=== PATIENT | female | born 1950 | race Caucasian/White ===

== ENCOUNTER → 2019-07-20 | Outpatient (CLI) | payer MEDICARE, BC ==
--- NOTE | 2019-07-20 15:45 | KCIC ---
Bilateral digital screening mammograms with 3-D tomosynthesis: Reason for examination: Routine screening. Comparison is made to previous studies dated 04/28/2015 and 10/05/2010. Bilateral mammograms in CC and oblique projections were obtained with 2-D imaging and 3-D tomosynthesis imaging on a [employer] unit and reviewed on the workstation. Interpretation was made with the benefit of CAD. The skin and nipples show no abnormalities. No abnormal axillary lymph nodes are seen. The breast parenchyma is predominantly fatty. (Breast density: Category A.) There are no dominant masses, suspicious calcifications or architectural distortion. Impression: No evidence of malignancy. Recommend routine screening. BI-RAD Category 1: Negative. "Our facility is accredited by the [employer] Mammography Program." This patient's information has been entered into a reminder system for the patient to be notified with the results of her examination and a target date for the next mammogram. Electronically signed by: Naa Olivo MD (07/20/2019 3:42 PM) [id number]
== END | disposition home or self-care (01) ==
LOC: KCIC MAMMO 09:13
PROVIDERS: ATTEND Nurse Practitioner Family
DX: Z12.31 Encounter for screening mammogram for malignant neoplasm of breast (principal)
CPT/HCPCS: 77063; 77067

== ENCOUNTER → 2020-08-06 | Outpatient (CLI) | payer MEDICARE, BC ==
--- NOTE | 2020-08-06 16:31 | KCIC ---
CT LOW DOSE LUNG SCREEN HISTORY: Reason: Lung cancer screening. Smoker of 48 yrs., 1 pk/day / Spl. Instructions: Pt. may have had Covod last yr. Was never tested. / History: COMPARISON: None. TECHNIQUE: Low-dose CT scan of the chest was performed without intravenous contrast. FINDINGS: The visualized thyroid gland is within normal limits. No lymphadenopathy is seen. Aorta is normal in caliber with moderate atherosclerotic calcifications. The heart is enlarged in size without pericardial effusion. Moderate three-vessel coronary artery ca lcifications. The central airways are patent. Mild diffuse bronchial wall thickening. Diffuse lung parenchymal dise ase characterized by reticular markings and groundglass opacities more prevalent in the lung bases. T here is a 9 mm pulmonary nodule in the right upper lobe (axial series 6, image 90). Smaller pulmonary nodules are likely present but difficult to distinguish from advanced parenchymal disease. Images of the upper abdomen demonstrate no focal abnormality. Mild degenerative changes are seen in t he spine. IMPRESSION: 1. Right upper lobe pulmonary nodule measuring 9 mm diameter. Recommend three-month follow-up low-dos e CT versus PET/CT for evaluation. 2. Diffuse parenchymal disease characterized by reticular markings and groundglass opacities. This li holly is a sequela of Covid lung infection, however cannot exclude fibrotic disease. Recommend pulmona ry consultation. LUNG RADS: Category 4A: Suspicious. Follow up: 3 month LDCT; PET/CT may be used when there is a greater that 8mm solid component. Exposure: One or more of the following individualized dose reduction techniques were utilized for thi s examination: 1. Automated exposure control 2. Adjustment of the mA and/or kV according to patient size 3. Use of iterative reconstruction technique. Electronically signed by: Uday Cormier MD (08/06/2020 4:29 PM) [facility]
== END ==
LOC: KCIC CT 12:16
PROVIDERS: ATTEND Internal Medicine
DX: Z12.2 Encounter for screening for malignant neoplasm of respiratory organs (principal); R91.1 Solitary pulmonary nodule; I70.0 Atherosclerosis of aorta; F17.210 Nicotine dependence, cigarettes, uncomplicated
CPT/HCPCS: 71271

== ENCOUNTER → 2021-01-01 | Outpatient (CLI) | payer MEDICARE, BC ==
[2020-08-29 14:14] VITALS: BP 110/59
[~2021-01-01] MED LIST: ALBU2.5V8 IH; AMOX1TAB58 PO; ASPI-630 PO; ATOR20TA58 PO; BIOT25006 PO; CALC-337 PO; DOXY100T PO; FLUO20TA11 PO; FURO40TA4 PO; GLUC-11 PO; LISI-130 PO; MECO10005 PO; METF500T16 PO; METO-239 PO; METO25TA4 PO; MULT-245 PO; OM3-1CAP PO; PRED20TA PO; UBID100C26 PO; UMEC1DIS IH
--- NOTE | 2021-01-01 16:58 | CARD ---
MR#: [id number] Date of Study: 01/01/2021 Ordering Physician: BENNY POLO, Referring Physician: Delma PERDOMO: Sumeet Andrews [facility] APPROVED REPORT EXAM: Two-dimensional and M-mode echocardiogram with Doppler and color Doppler. Other Information Quality : GoodHR: 93bpm Rhythm : NSR INDICATION Aortic Valve Disease Cardiomyopathy RISK FACTORS Hypertension Obesity Family History Smoking 2D DIMENSIONS Left Atrium(2D)5.1 (1.6-4.0cm)IVSd1.2 (0.7-1.1cm) Aortic Root(2D)2.5 (2.0-3.7cm)LVDd5.7 (3.9-5.9cm) LVOT Diameter2.2 (1.8-2.4cm)PWd1.2 (0.7-1.1cm) LVDs5.0 (2.5-4.0cm)FS (%) 11.8 % SV40.1 ml Aortic Valve AoV Peak Good.306.1cm/sAoV VTI60.9cm AO Peak GR.37.5mmHgLVOT Peak Good.73.3cm/s AO Mean GR.21mmHgAVA (VMAX)0.70cm2 IND[place] (VTI)0.06ao0IC P 1/2 Jsib339lm Mitral Valve MV E Yzdnjugd852.1cm/sMV E Peak Gr.5mmHg MV DECEL [id number] A Wzfmypur38.1cm/s MV E Mean Gr.3mmHgE/A Ratio1.4 Pulmonary Valve PV Peak Xcadyhex135.0cm/s Tricuspid Valve TR P. Junujote113np/sTR Peak Gr.39mmHg Pulmonary Vein S1 Jmarseev74.8cm/sD2 Gfmfcvgf14.8cm/s LEFT VENTRICLE The Left Ventricle is moderately dilated. There is normal left ventricular wall thickness. The systol ic function is severely impaired. Left ventricular systolic function is 20 to 25%. There is severe gl obal hypokinesis of the left ventricle. Transmitral Doppler flow pattern is Grade III-reversible rest rictive diastolic dysfunction. No left ventricle thrombus noted on this study. There is no ventricula r septal defect visualized. There is no left ventricular aneurysm. There is no mass noted in the left ventricle. RIGHT VENTRICLE The right ventricle is normal size. There is normal right ventricular wall thickness. The right ventr icular systolic function is normal. ATRIA The left atrium is moderately dilated. The right atrium is moderately dilated. The interatrial septum is intact with no evidence for an atrial septal defect or patent foramen ovale as noted on 2-D or Do ppler imaging. AORTIC VALVE The aortic valve is severely calcified. Doppler and Color Flow revealed trace to mild aortic regurgit ation. Calculated aortic valve area is 0.7 cm2 with maximum pressure gradient of 37 mmHg and mean pre ssure gradient of 20 mmHg. There is at least moderately severe valvular aortic stenosis. There is no aortic valvular vegetation. MITRAL VALVE Mitral annular calcification is moderate. There is no evidence of mitral valve prolapse. There is no mitral valve stenosis. Doppler and Color-flow revealed moderate mitral regurgitation. TRICUSPID VALVE The tricuspid valve is normal in structure and function. Doppler and Color Flow revealed moderate tri cuspid regurgitation. The pulmonary artery systolic pressure is estimated at 45-50 mmHg. There is no tricuspid valve prolapse or vegetation. There is no tricuspid valve stenosis. PULMONIC VALVE The pulmonary valve is normal in structure and function. Doppler and Color Flow revealed no pulmonic valvular regurgitation. There is no pulmonic valvular stenosis. GREAT VESSELS The aortic root is normal in size. The ascending aorta is normal in size. The pulmonary artery is nor mal. The IVC is mildly dilated with blunted inspiratory response. PERICARDIAL EFFUSION There is no pleural effusion. There is no evidence of significant pericardial effusion. Critical Notification Critical Value: No <Conclusion> The Left Ventricle is moderately dilated. The systolic function is severely impaired. Left ventricular systolic function is 20 to 25%. There is severe global hypokinesis of the left ventricle. The aortic valve is severely calcified. Doppler and Color Flow revealed trace to mild aortic regurgitation. Calculated aortic valve area is 0.7 cm2 with maximum pressure gradient of 37 mmHg and mean pressure g radient of 20 mmHg. There is at least moderately severe valvular aortic stenosis. Doppler and Color-flow revealed moderate mitral regurgitation. Doppler and Color Flow revealed moderate tricuspid regurgitation. The pulmonary artery systolic pressure is estimated at 45-50 mmHg. Signed by : Daniel Chappell MD Electronically Approved : 01/01/2021 16:58:03
== END ==
LOC: ECHO 13:22
PROVIDERS: ATTEND Internal Medicine Cardiovascular Disease
DX: I08.3 Combined rheumatic disorders of mitral, aortic and tricuspid valves (principal); I50.22 Chronic systolic (congestive) heart failure
CPT/HCPCS: 93306

== ENCOUNTER 2021-05-25 11:17 | Inpatient (IN) | payer MEDICARE, BC ==
[~2021-05-25] VITALS: Ht 162.6 cm; Wt 91.5 kg
[~2021-05-25 11:17] MED LIST changes: +BUME1TAB3 PO; +GABA-585 PO; +HYDR-2867 PO
--- NOTE | 2021-05-25 11:57 | PHYS DOC ---
Past Medical History Past Medical History: COPD, Diabetes-Type II, Hypertension Additional Past Medical Histor: rheumatoid lung Past Surgical History: , Hysterectomy, Pacemaker, Other Additional Past Surgical Histo: CARPAL TUNNEL BILAT, inplanted defibrillator Smoking Status: Current Every Day Smoker Alcohol Use: None General Adult EDM: Chief Complaint: LOWER EXTREMITY SWELLING HPI: HPI: Patient is a 70 year old female who presents with lower extremity swelling, which is progressively worsened over the last several days. She reports dyspnea as well. She reports noncompliance with her diet. She has significant chronic congestive heart failure. She reports compliance with medications. She denies chest pain. She has chronic dyspnea, which is unchanged. She does not require supplemental oxygen usually. She is not manifesting evidence of hypoxia here. She wheezes constantly. She continues to smoke tobacco. She has COPD. She has been scratching and picking at her feet, legs as well as her arms. She feels her skin is constantly itching. There is redness and warmth of her feet and lower legs. She was admitted here for a non-STEMI in August 2020, underwent a cardiac catheterization. Her ejection fraction was found to be at 20% at that time. Review of Systems: Review of Systems: Constitutional: Denies fever or chills. [] Eyes: Denies change in visual acuity. [] HENT: Denies nasal congestion or sore throat. [] Respiratory: Denies cough or shortness of breath. [] Cardiovascular: Denies chest pain or edema. [] GI: Denies abdominal pain, nausea, vomiting, or diarrhea. : Denies Suman symptoms. Musculoskeletal: Bilateral lower extremity swelling, pain, itching, redness, wounds. Integument: Multiple scabs, pick and scratch knowles on arms and legs, skin redness, pain and swelling and itching. Neurologic: Denies headache, focal weakness or sensory changes. [] Psychiatric: Chronic anxiety [] Heart Score: C/O Chest Pain: No Risk Factors: Risk Factors: DM, Current or recent (<one month) smoker, HTN, HLP, family history of CAD, obesity. Risk Scores: Score 0 - 3: 2.5% MACE over next 6 weeks - Discharge Home Score 4 - 6: 20.3% MACE over next 6 weeks - Admit for Clinical Observation Score 7 - 10: 72.7% MACE over next 6 weeks - Early Invasive Strategies Allergies: Allergies: Allergies Coded Allergies Type Severity Reaction Last Updated Verified bupropion Allergy Intermediate 04/07/21 Yes latex Allergy Intermediate Rash 04/07/21 Yes Physical Exam: PE: Constitutional: Well developed, well nourished, she is chronically ill- appearing, appears older than stated age. HENT: Normocephalic, atraumatic. There is mild periorbital edema. Eyes: Conjunctiva normal, no discharge. [] Neck: Normal range of motion, no tenderness, supple, no stridor. Trachea is midline. +JVD. Cardiovascular:Heart rate regular rhythm, +2 radial pulses, symmetric bilateral dorsalis pedis pulses. There is evidence of anasarca and significant lower extremity peripheral edema. Lungs & Thorax: Diminished breath sounds in bilateral bases. Fine rales noted in bilateral bases. No rhonchi. No stridor. No wheezing. Mild to moderate tachypnea noted. No central cyanosis. She speaks in full sentences Abdomen: Devins obese, moderately distended, mildly tense, no tenderness to palpation, normal bowel sounds. There is pitting edema of the mid and lower abdomen. Skin: Warm, dry. There are multiple abrasions/pick knowles and scratch knowles on her bilateral upper and lower extremities. There is significant circumferential warmth, erythema, induration of her bilateral feet, ankles, lower extremities, a sending to her bilateral thighs. There is no focal fluctuance, no drainage, no bleeding. There are multiple similar-appearing knowles on her bilateral upper extremities, mostly including the dorsal surface of her forearms. Back: No tenderness, no CVA tenderness. [] Extremities: Bilateral lower extremity pitting edema. Diffuse tenderness. No pain out of proportion to exam. Compartments are soft. There are multiple scratch/pick yan lesions, there is evidence of erythema and warmth and cellulitis of the bilateral feet and lower extremities. Neurologic: She is awake, alert, fully oriented, no facial asymmetry, moves all 4 extremities equally, gross motor and sensation are intact, speech is fluent. Psychologic: Anxious. Current Patient Data: Vital Signs: Vital Signs Date Time Temp Pulse Resp B/P (MAP) Pulse Ox O2 Delivery O2 Flow Rate FiO2 05/25/21 11:19 98.1 102 32 90/57 (68) 98 Room Air 98.1 EKG: EKG: EKG is interpreted at 1228 Rhythm is sinus tachycardia Rate is 100 bpm Orwell is left marked artifact No obvious STEMI Radiology/Procedures: Radiology/Procedures: IMAGING REPORT Signed PATIENT: NIK FLOWERSUNT: [id number] : 1950 LOCATION: ER AGE: 70 SEX: F EXAM STATUS: REG ER ORD. PHYSICIAN: PATIENCE ZEPEDA DO REASON: dyspnea, cough PROCEDURE: PORTABLE CHEST 1V Single AP view of the chest. Comparison: 02/04/2021. Indication: Dyspnea and cough Findings: Biventricular pacemaker is unchanged. The heart is enlarged but stable. There is no pneumothorax or effusion. Is pulmonary vascular prominence. Impression: 1. Findings suggest CHF with volume overload. Electronically signed by: Jorge Zavala MD (05/25/2021 1:17 PM) [facility] DICTATED and SIGNED BY: JORGE ZAVALA MD DATE: 05/25/21 [id number] IMAGING REPORT Signed PATIENT: NIK FLOWERSCOUNT: [id number] : 1950 LOCATION: ER AGE: 70 SEX: F EXAM STATUS: REG ER ORD. PHYSICIAN: PATIENCE ZEPEDA DO REASON: LLE swelling, redness, pain PROCEDURE: VENOUS LOWER EXT BILATERAL EXAM: Bilateral lower extremity venous Doppler sonogram. HISTORY: Pain and swelling. TECHNIQUE: Wiggins scale and color Doppler sonographic evaluation of the bilateral lower extremity veins with spectral waveform analysis was performed. FINDINGS: The exam is limited due to soft tissue edema. There is normal color flow, normal compressibility and there are normal spectral waveforms in the common femoral, superficial femoral, popliteal, posterior tibial and greater saphenous veins. IMPRESSION: No Doppler evidence of lower extremity deep venous thrombosis. Limited exam due to soft tissue edema. Electronically signed by: Aviva Sheikh MD (05/25/2021 1:01 PM) [id number] DICTATED and SIGNED BY: AVIVA SHEIKH MD DATE: 05/25/21 [id number] 0 Course & Med Decision Making: Course & Med Decision Making Pertinent Labs and Imaging studies reviewed. (See chart for details) The patient does have evidence of relative hypotension. She does appear to be somewhat intravascularly volume depleted, in addition to manifesting evidence of anasarca. She is given a small fluid bolus as well as IV furosemide. She requested something to help with itching, so she is given a dose of p.o. hydroxyzine. She manifests no evidence of hypoxia. At rest, she denies any active severe dyspnea. Blood cultures are obtained. I ordered a dose of IV vancomycin for coverage of secondary cellulitis. I have discussed all of the findings, differential diagnosis and plan of care with her. I recommend hospitalization and admission. She verbalizes understanding, she is comfortable with this. She is excepted for admission by Dr. Mathew. Amy Disclaimer: Amy Disclaimer: This electronic medical record was generated, in whole or in part, using a voice recognition dictation system. Departure Departure Impression: Primary Impression: Anasarca Additional Impressions: Bilateral lower extremity edema Cellulitis of both lower extremities Congestive heart failure Qualified Codes: I50.9 - Heart failure, unspecified Admitting Physician: ÁNGEL (Dr. Mathew) Condition: GUARDED Referrals: YONG SANTOS NP (PCP) PATIENCE ZEPEDA DO May 25, 2021 11:57
[2021-05-25 12:45] LABS: BASO % 0 % (0-3); EOS % 0 % (0-3); HEMATOCRIT 33.3 % (36.0-47.0); LYMPH # 0.7 x10^3/uL (1.0-4.8); LYMPH % 13 % (24-48); MEAN CORPUSCULAR HEMOGLOBIN 31 pg (25-35); MEAN CORPUSCULAR HGB CONC 33 g/dL (31-37); MEAN CORPUSCULAR VOLUME 93 fL (79-100); MONO # 0.4 x10^3/uL (0.0-1.1); MONO % 7 % (0-9); NEUT # 4.5 x10^3/uL (1.8-7.7); NEUT % 79 % (31-73); PLATELET COUNT 208 x10^3/uL (140-400); RED BLOOD COUNT 3.58 x10^6/uL (3.50-5.40); RED CELL DISTRIBUTION WIDTH 17.1 % (11.5-14.5); WHITE BLOOD COUNT 5.7 x10^3/uL (4.0-11.0)
[2021-05-25 13:03] LABS: CALCIUM 8.6 mg/dL (8.5-10.1); CREATININE 1.4 mg/dL (0.6-1.0); GFR 37.4; POTASSIUM 4.2 mmol/L (3.5-5.1)
--- NOTE | 2021-05-25 13:04 | RAD ---
EXAM: Bilateral lower extremity venous Doppler sonogram. HISTORY: Pain and swelling. TECHNIQUE: Wiggins scale and color Doppler sonographic evaluation of the bilateral lower extremity veins with spectral waveform analysis was performed. FINDINGS: The exam is limited due to soft tissue edema. There is normal color flow, normal compressib ility and there are normal spectral waveforms in the common femoral, superficial femoral, popliteal, posterior tibial and greater saphenous veins. IMPRESSION: No Doppler evidence of lower extremity deep venous thrombosis. Limited exam due to soft t issue edema. Electronically signed by: Aviva Albright MD (05/25/2021 1:01 PM) [id number]
[2021-05-25 13:09] LABS: ALBUMIN/GLOBULIN RATIO 0.7 (1.0-1.7); MAGNESIUM 1.5 mg/dL (1.8-2.4); TOTAL BILIRUBIN 0.9 mg/dL (0.2-1.0); TOTAL PROTEIN 7.1 g/dL (6.4-8.2)
--- NOTE | 2021-05-25 13:19 | RAD ---
Single AP view of the chest. Comparison: 02/04/2021. Indication: Dyspnea and cough Findings: Biventricular pacemaker is unchanged. The heart is enlarged but stable. There is no pneumothorax or effusion. Is pulmonary vascular prominence. Impression: 1. Findings suggest CHF with volume overload. Electronically signed by: Jorge Zavala MD (05/25/2021 1:17 PM) [facility]
[2021-05-25] MEDS ORDERED: IV NORMAL SALINE 500ML BAG 500 ML IV ONE ×2 (14:30→23:00)
[2021-05-25] MEDS ORDERED: FUROSEMIDE 40 MG/4 ML VIAL. IVP ONE (14:30)
[2021-05-25] MEDS ORDERED: VANCOMYCIN 1GM IVPB FOR OMNI 250 ML IV ONE ×2 (14:30→17:15)
[2021-05-25] MEDS ORDERED: hydrOXYzine 25 MG TABLET PO ONE (14:30)
[2021-05-25] MEDS ORDERED: FUROSEMIDE 40 MG/4 ML VIAL. IVP SCH (17:00)
--- NOTE | 2021-05-25 17:10 | PDOC1 ---
History and Physical Date of Admission Date of Admission DATE: 05/25/21 TIME: 17:05 Source Source: Chart review, Patient History of Present Illness History of Present Illness Ms. Velez, is a 70 year old female admit with paina nd redness and new lower extremity swelling. redness and pain worsened over a week, she was nathan at urgent care over 2 weeks ago, for skin redness and was given an antibiotic which she completed and now the redness and pain have come back. She has significant chronic congestive heart failure and has compliance with medications. She has puritis and has been scratching and picking at her feet, legs as well as her arms. There is redness and warmth of her feet and lower legs. She was admitted here for a non-STEMI in August 2020, underwent a cardiac catheterization. Her ejection fraction was found to be at 20% at that time. Past Medical History Cardiovascular: CAD, CHF, HTN Pulmonary: COPD CENTRAL NERVOUS SYSTEM: Carpal Tunnel Syndrome, Periperal neuropathy GI: GERD Hepatobiliary: No pertinent hx Psych: Anxiety, Depression Musculoskeletal: Other Rheumatologic: Other Renal/: No pertinent hx Endocrine: Diabetes Past Surgical History Past Surgical History: Cataract Removal, Hysterectomy, Other Family History Family History: Heart Disease Social History Smoke: <1 pack per day ALCOHOL: other Drugs: None Current Problem List Problem List Problems Medical Problems: (1) Anasarca Status: Acute (2) Bilateral lower extremity edema Status: Acute (3) Cellulitis of both lower extremities Status: Acute (4) Congestive heart failure Status: Acute Current Medications Current Medications Current Medications Furosemide (Lasix) 40 mg 1X ONCE IVP Last administered on 05/25/21at 14:51; Start 05/25/21 at 14:30; Stop 05/25/21 at 14:31; Status DC Hydroxyzine HCl (Atarax) 25 mg 1X ONCE PO Last administered on 05/25/21at 14:50; Start 05/25/21 at 14:30; Stop 05/25/21 at 14:31; Status DC Sodium Chloride 500 ml @ 250 mls/hr 1X ONCE IV Last administered on 05/25/21at 14:51; Start 05/25/21 at 14:30; Stop 05/25/21 at 16:29; Status DC Vancomycin HCl 250 ml @ 250 mls/hr 1X ONCE IV Last administered on 05/25/21at 14:51; Start 05/25/21 at 14:30; Stop 05/25/21 at 15:29; Status DC Aspirin (Aspirin Chewable) 81 mg DAILY PO ; Start 05/26/21 at 09:00 Atorvastatin Calcium (Lipitor) 20 mg HS PO ; Start 05/25/21 at 21:00 Bumetanide (Bumex) 1 mg DAILY PO ; Start 05/26/21 at 09:00; Status Cancel Gabapentin (Neurontin) 100 mg TID PO ; Start 05/25/21 at 21:00 Hydralazine HCl (Apresoline) 10 mg TID PO ; Start 05/25/21 at 21:00 Metformin HCl (Glucophage) 500 mg BIDWMEALS PO ; Start 05/25/21 at 17:00 Metoprolol Succinate (Toprol Xl) 25 mg DAILY PO ; Start 05/26/21 at 09:00 Fluoxetine HCl (PROzac) 20 mg BID PO ; Start 05/25/21 at 21:00 Furosemide (Lasix) 40 mg BID92 IVP ; Start 05/25/21 at 17:00; Status Cancel Furosemide (Lasix) 40 mg BID92 IVP ; Start 05/26/21 at 09:00 Active Scripts Active Bumetanide 1 Mg Tablet 1 Tab PO DAILY 30 Days Metoprolol Succinate ( Xl ) (Metoprolol Succinate) 25 Mg Tab.er.24h 25 Mg PO DAILY 30 Days Metformin Hcl 500 Mg Tablet 500 Mg PO BIDWMEALS 30 Days Reported Hydralazine Hcl 10 Mg Tablet 1 Tab PO TID Gabapentin (Gabapentin) 100 Mg Capsule 100 Mg PO TID Multi Vitamin Daily (Multivitamin) 1 Each Tablet 1 Tab PO DAILY 30 Days B12 Active (Mecobalamin) 1,000 Mcg Tab.chew 2,500 Mcg PO DAILY Eye [place] Advantage Softgel (Om3-Dha/Epa/D3/Lutein/Zeazanth) 1 Each Capsule 1 Cap PO BID 30 Days Jeff-Citrate Plus Vitamin D Tab (Calcium Citrate/Vitamin D2) 1 Each Tablet 1 Tab PO BID 5 Days Coq-10 (Ubidecarenone) 100 Mg Capsule 200 Mg PO DAILY Biotin 2,500 Mcg Capsule 10,000 Mcg PO DAILY Cidaflex Tablet (Glucosamine Hcl/Chondr Resendez A Na) 1 Each Tablet 1 Tab PO BID 30 Days Anoro Ellipta 62.5-25 Mcg Inh (Umeclidinium Brm/Vilanterol Tr) 1 Each Disk.w.dev 1 Each IH DAILY Aspirin 81 Mg Tab.chew 81 Mg PO DAILY Lisinopril 40 Mg Tablet 40 Mg PO DAILY Atorvastatin Calcium 20 Mg Tablet 20 Mg PO HS Fluoxetine Hcl 20 Mg Tablet 20 Mg PO BID Proair Hfa Inhaler (Albuterol Sulfate) 8.5 Gm Hfa.aer.ad 2 Puff IH PRN Q4-6HRS PRN 21 Days Allergies Allergies: Coded Allergies: bupropion (Verified Allergy, Intermediate, 04/07/21) latex (Verified Allergy, Intermediate, Rash, 04/07/21) ROS General: YES: Chills, Fatigue, Malaise PSYCHOLOGICAL ROS: YES: Sleep disturbances; No: Anxiety, Behavioral Disorder, Concentration difficultie, Decreased libido, Depression, Disorientation, Hallucinations, Hostility, Irritablity, Memory difficulties, Mood Swings, Obsessive thoughts, Other Eyes: No Blurry vision, No Decreased vision, No Double vision, No Dry eyes, No Excessive tearing, No Eye Pain, No Itchy Eyes, No Loss of vision, No Photophobia, No Scotomata, No Uses contacts, No Uses glasses, No Other HEENT: No: Heacaches, Visual Changes, Hearing change, Nasal congestion, Nasal discharge, Oral lesions, Sinus pain, Sore Throat, Epistaxis, Sneezing, Snoring, Tinnitus, Vertigo, Vocal changes, Other Respiratory: No: Cough, Hemoptysis, Orthopnea, Pleuritic Pain, Shortness of breath, SOB with excertion, Sputum Changes, Stridor, Tachypnea, Wheezing, Other Cardiovascular: No Chest Pain, No Palpitations, No Orthopnea, No Paroxysmal Noc. Dyspnea, No Edema, No Lt Headedness, No Other Gastrointestinal: Yes Nausea Genitourinary: No Dysuria, No Frequency, No Incontinence, No Hematuria, No Retention, No Discharge, No Urgency, No Pain, No Flank Pain, No Other, No , No , No , No , No , No , No Musculoskeletal: Yes Joint Stiffness, Yes Joint Swelling, Yes Pain In:, Yes Swelling In: (legs); No Gait Disturbance, No Joint Pain, No Muscle Pain, No Muscular Weakness, No Other Neurological: No Behavorial Changes, No Bowel/Bladder ControlChng, No Confusion, No Dizziness, No Gait Disturbance, No Headaches, No Impaired Co ord/balance, No Memory Loss, No Numbness/Tingling, No Seizures, No Speech Problems, No Tremors, No Visual Changes, No Weakness, No Other Skin: Yes Dry Skin, Yes Rash, Yes Skin Lesion Changes, Yes Other; No Eczema, No Hair Changes, No Lumps, No Mole Changes, No Mottling, No Nail Changes, No Pruritus Physical Exam General: Alert, moderate distress HEENT: Atraumatic, Mucous membr. moist/pink Lungs: Clear to auscultation Heart: RRR, no gallops, no murmurs, other (tachy) Abdomen: Normal bowel sounds, Soft Extremities: No clubbing, No cyanosis, Other (2+ Le edema, and skin weeping) Skin: Other (redness, rash, small skin lesions, like bite knowles to both leg,s) Neuro: Normal speech, Sensation intact Psych/Mental Status: Mental status NL, Mood NL Vitals Vitals Vital Signs Date Time Temp Pulse Resp B/P (MAP) Pulse Ox O2 Delivery O2 Flow Rate FiO2 05/25/21 14:45 98 97/64 (75) Room Air 05/25/21 14:15 94 05/25/21 11:19 98.1 32 98.1 Labs Labs Laboratory Tests Test 05/25/21 12:33 05/25/21 13:20 White Blood Count 5.7 x10^3/uL (4.0-11.0) Red Blood Count 3.58 x10^6/uL (3.50-5.40) Hemoglobin 11.0 g/dL (12.0-15.5) Hematocrit 33.3 % (36.0-47.0) Mean Corpuscular Volume 93 fL (79-100) Mean Corpuscular Hemoglobin 31 pg (25-35) Mean Corpuscular Hemoglobin Concent 33 g/dL (31-37) Red Cell Distribution Width 17.1 % (11.5-14.5) Platelet Count 208 x10^3/uL (140-400) Neutrophils (%) (Auto) 79 % (31-73) Lymphocytes (%) (Auto) 13 % (24-48) Monocytes (%) (Auto) 7 % (0-9) Eosinophils (%) (Auto) 0 % (0-3) Basophils (%) (Auto) 0 % (0-3) Neutrophils # (Auto) 4.5 x10^3/uL (1.8-7.7) Lymphocytes # (Auto) 0.7 x10^3/uL (1.0-4.8) Monocytes # (Auto) 0.4 x10^3/uL (0.0-1.1) Eosinophils # (Auto) 0.0 x10^3/uL (0.0-0.7) Basophils # (Auto) 0.0 x10^3/uL (0.0-0.2) Sodium Level 125 mmol/L (136-145) Potassium Level 4.2 mmol/L (3.5-5.1) Chloride Level 92 mmol/L (98-107) Carbon Dioxide Level 23 mmol/L (21-32) Anion Gap 10 (6-14) Blood Urea Nitrogen 31 mg/dL (7-20) Creatinine 1.4 mg/dL (0.6-1.0) Estimated GFR (Cockcroft-Gault) 37.4 BUN/Creatinine Ratio 22 (6-20) Glucose Level 100 mg/dL (70-99) Calcium Level 8.6 mg/dL (8.5-10.1) Magnesium Level 1.5 mg/dL (1.8-2.4) Total Bilirubin 0.9 mg/dL (0.2-1.0) Aspartate Amino Transf (AST/SGOT) 38 U/L (15-37) Alanine Aminotransferase (ALT/SGPT) 31 U/L (14-59) Alkaline Phosphatase 165 U/L (46-116) Creatine Kinase 74 U/L (26-192) Troponin I High Sensitivity 23 ng/L (4-50) QJ-Awn-T-Type Natriuretic Peptide > 08441 pg/mL (0-124) Total Protein 7.1 g/dL (6.4-8.2) Albumin 3.0 g/dL (3.4-5.0) Albumin/Globulin Ratio 0.7 (1.0-1.7) Ethyl Alcohol Level < 10 mg/dL (0-10) Lactic Acid Level 2.7 mmol/L (0.4-2.0) Laboratory Tests Test 05/25/21 12:33 05/25/21 13:20 White Blood Count 5.7 x10^3/uL (4.0-11.0) Red Blood Count 3.58 x10^6/uL (3.50-5.40) Hemoglobin 11.0 g/dL (12.0-15.5) Hematocrit 33.3 % (36.0-47.0) Mean Corpuscular Volume 93 fL (79-100) Mean Corpuscular Hemoglobin 31 pg (25-35) Mean Corpuscular Hemoglobin Concent 33 g/dL (31-37) Red Cell Distribution Width 17.1 % (11.5-14.5) Platelet Count 208 x10^3/uL (140-400) Neutrophils (%) (Auto) 79 % (31-73) Lymphocytes (%) (Auto) 13 % (24-48) Monocytes (%) (Auto) 7 % (0-9) Eosinophils (%) (Auto) 0 % (0-3) Basophils (%) (Auto) 0 % (0-3) Neutrophils # (Auto) 4.5 x10^3/uL (1.8-7.7) Lymphocytes # (Auto) 0.7 x10^3/uL (1.0-4.8) Monocytes # (Auto) 0.4 x10^3/uL (0.0-1.1) Eosinophils # (Auto) 0.0 x10^3/uL (0.0-0.7) Basophils # (Auto) 0.0 x10^3/uL (0.0-0.2) Sodium Level 125 mmol/L (136-145) Potassium Level 4.2 mmol/L (3.5-5.1) Chloride Level 92 mmol/L (98-107) Carbon Dioxide Level 23 mmol/L (21-32) Anion Gap 10 (6-14) Blood Urea Nitrogen 31 mg/dL (7-20) Creatinine 1.4 mg/dL (0.6-1.0) Estimated GFR (Cockcroft-Gault) 37.4 BUN/Creatinine Ratio 22 (6-20) Glucose Level 100 mg/dL (70-99) Calcium Level 8.6 mg/dL (8.5-10.1) Magnesium Level 1.5 mg/dL (1.8-2.4) Total Bilirubin 0.9 mg/dL (0.2-1.0) Aspartate Amino Transf (AST/SGOT) 38 U/L (15-37) Alanine Aminotransferase (ALT/SGPT) 31 U/L (14-59) Alkaline Phosphatase 165 U/L (46-116) Creatine Kinase 74 U/L (26-192) Troponin I High Sensitivity 23 ng/L (4-50) EI-Bgh-M-Type Natriuretic Peptide > 35411 pg/mL (0-124) Total Protein 7.1 g/dL (6.4-8.2) Albumin 3.0 g/dL (3.4-5.0) Albumin/Globulin Ratio 0.7 (1.0-1.7) Ethyl Alcohol Level < 10 mg/dL (0-10) Lactic Acid Level 2.7 mmol/L (0.4-2.0) VTE Prophylaxis Ordered VTE Prophylaxis Devices: Yes VTE Pharmacological Prophylaxi: Yes Assessment/Plan Assessment/Plan acute LE celluliits, IV Vanco started CHF, acute on chronic diastolic COPD tobacco use disorder CAD, CHF, prior EF 20%, caution with fluids admit Justifications for Admission Other Justification JOSUE MIRANDA MD May 25, 2021 17:09
[2021-05-25] MEDS ORDERED: VANCOMYCIN PER PHARMACY MC PRN (17:15)
[2021-05-25] MEDS: metFORMIN 500 MG TABLET PO SCH (17:25)
--- NOTE | 2021-05-25 17:25 | EKG ---
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
[2021-05-25] MEDS: ENOXAPARIN 40 MG/0.4 ML SYRINGE. SQ SCH (19:25)
[2021-05-25 19:51] LABS: BILIRUBIN,URINE NEGATIVE (NEG); CLARITY,URINE CLEAR; COLOR,URINE YELLOW; NITRITE,URINE NEGATIVE (NEG); PROTEIN,URINE NEGATIVE (NEG-TRACE); UROBILINOGEN,URINE 0.2 mg/dL (0.2 mg/dL)
[2021-05-25 20:07] LABS: HYALINE CASTS, URINE MANY /HPF
[2021-05-25 20:08] LABS: BACTERIA,URINE FEW /HPF (0-FEW)
[2021-05-25] MEDS: hydrALAZINE 10 MG TABLET PO SCH (21:00)
[2021-05-25 21:30] VITALS: BP 87/56
[2021-05-25] MEDS ORDERED: IPRATRPIUM/ALBUTEROL 0.5/2.5MG 3 ML NEBU. NEB ONE (22:30)
[2021-05-25 22:35] VITALS: BP 81/53
[2021-05-25] MEDS: FLUoxetine HCL 20 MG CAPSULE PO SCH (22:35)
[2021-05-25] MEDS: ATORVASTATIN CALCIUM 20 MG TABLET PO SCH (22:35)
[2021-05-25] MEDS: GABAPENTIN 100 MG CAPSULE. PO SCH (22:35)
[2021-05-25] MEDS ORDERED: MAGNESIUM SULFATE 2GM 50 ML IV ONE (23:00)
[2021-05-25 23:43] VITALS: BP 87/55
[2021-05-25] MEDS: hydrOXYzine 25 MG TABLET PO PRN (23:51)
[2021-05-26] VITALS (7 sets, daily range): BP systolic 81–106; BP diastolic 53–79
[2021-05-26] MEDS: hydrOXYzine 25 MG TABLET PO PRN (06:55)
[2021-05-26] MEDS: IPRATRPIUM/ALBUTEROL 0.5/2.5MG 3 ML NEBU. NEB SCH ×4 (07:31→20:17)
[2021-05-26] MEDS ORDERED: BUMETANIDE 1 MG TABLET. PO SCH (09:00)
[2021-05-26] MEDS: METOPROLOL SUCC 24HR ER 25 MG TAB.ER.24H. PO SCH (09:00)
[2021-05-26] MEDS: hydrALAZINE 10 MG TABLET PO SCH ×3 (09:00→20:32)
[2021-05-26] MEDS: ASPIRIN CHEWABLE 81 MG TABLET. PO SCH (09:01)
[2021-05-26] MEDS: metFORMIN 500 MG TABLET PO SCH ×2 (09:01→17:00)
[2021-05-26] MEDS: FLUoxetine HCL 20 MG CAPSULE PO SCH ×2 (09:01→20:32)
[2021-05-26] MEDS: GABAPENTIN 100 MG CAPSULE. PO SCH ×3 (09:01→20:32)
[2021-05-26] MEDS: FUROSEMIDE 40 MG/4 ML VIAL. IVP SCH ×2 (09:06→13:47)
[2021-05-26 09:28] LABS: BASO % 1 % (0-3); EOS % 0 % (0-3); HEMATOCRIT 31.1 % (36.0-47.0); HEMOGLOBIN 10.2 g/dL (12.0-15.5); LYMPH # 0.7 x10^3/uL (1.0-4.8); LYMPH % 15 % (24-48); MEAN CORPUSCULAR HEMOGLOBIN 31 pg (25-35); MEAN CORPUSCULAR HGB CONC 33 g/dL (31-37); MEAN CORPUSCULAR VOLUME 94 fL (79-100); MONO # 0.4 x10^3/uL (0.0-1.1); MONO % 9 % (0-9); NEUT # 3.4 x10^3/uL (1.8-7.7); NEUT % 75 % (31-73); PLATELET COUNT 175 x10^3/uL (140-400); RED BLOOD COUNT 3.31 x10^6/uL (3.50-5.40); RED CELL DISTRIBUTION WIDTH 17.3 % (11.5-14.5); WHITE BLOOD COUNT 4.5 x10^3/uL (4.0-11.0)
[2021-05-26 09:54] LABS: VANC TR 13.8 mcg/mL (10.0-20.0)
--- NOTE | 2021-05-26 09:57 | NUR ---
Wound Care: Patient seen per wound care consult for lower leg cellulitis. There are no open wounds at this time, there are multiple scabbed areas, but nothing open or draining at this time. Patient does report lots of itching, Benadryl recommended. Wound care will sign off at this time. Please re consult wound regarding any changes.
[2021-05-26 10:29] LABS: ALBUMIN 2.7 g/dL (3.4-5.0); ALBUMIN/GLOBULIN RATIO 0.8 (1.0-1.7); CALCIUM 7.8 mg/dL (8.5-10.1); CREATININE 1.4 mg/dL (0.6-1.0); GFR 37.4; POTASSIUM 3.8 mmol/L (3.5-5.1); TOTAL BILIRUBIN 0.9 mg/dL (0.2-1.0); TOTAL PROTEIN 6.2 g/dL (6.4-8.2)
--- NOTE | 2021-05-26 13:54 | PDOC ---
[employer] PROGRESS NOTE Date of Service DOS: DATE: 05/26/21 TIME: 13:52 Chief Complaint Chief Complaint acute LE celluliits, IV Vanco started CHF, acute on chronic diastolic COPD tobacco use disorder CAD, CHF, prior EF 20%, caution with fluids Multiple old scabs, bite wounds, appear to be insect bites to arms and back, admit History of Present Illness History of Present Illness redness bettter, puritis improved, she was sleeping hard this afternoon, cont currnet, Vitals/I&O Vitals/I&O: Vital Signs Date Time Temp Pulse Resp B/P (MAP) Pulse Ox O2 Delivery O2 Flow Rate FiO2 05/26/21 13:41 83 92/54 05/26/21 11:48 94 Nasal Cannula 2.0 05/26/21 11:00 97.6 20 97.6 I & O 05/25/21 05/25/21 05/26/21 15:00 23:00 07:00 Intake Total 750 ml 730 ml Balance 750 ml 730 ml Physical Exam General: Alert, Cooperative, No acute distress, mild distress Heart: Regular rate, Normal S1, No murmurs Lungs: Clear Abdomen: Normal bowel sounds, Soft Extremities: No clubbing, No cyanosis, Other Skin: Other Labs Labs: Laboratory Tests Test 05/25/21 18:25 05/25/21 19:31 05/25/21 21:38 05/26/21 07:53 Lactic Acid Level 2.0 mmol/L (0.4-2.0) Urine Color Yellow Urine Clarity Clear Urine pH 5.0 (<5.0-8.0) Urine Specific [place] 1.010 (1.000-1.030) Urine Protein Negative mg/dL (NEG-TRACE) Urine Glucose (UA) Negative mg/dL (NEG) Urine Ketones (Stick) Negative mg/dL (NEG) Urine Blood Negative (NEG) Urine Nitrite Negative (NEG) Urine Bilirubin Negative (NEG) Urine Urobilinogen Dipstick 0.2 mg/dL (0.2 mg/dL) Urine Leukocyte Esterase Trace (NEG) Urine RBC 1-2 /HPF (0-2) Urine WBC 11-20 /HPF (0-4) Urine Squamous Epithelial Cells Mod /LPF Urine Bacteria Few /HPF (0-FEW) Urine Hyaline Casts Many /HPF Urine Mucus Slight /LPF Glucose (Fingerstick) 91 mg/dL (70-99) 74 mg/dL (70-99) Test 05/26/21 09:05 05/26/21 11:43 White Blood Count 4.5 x10^3/uL (4.0-11.0) Red Blood Count 3.31 x10^6/uL (3.50-5.40) Hemoglobin 10.2 g/dL (12.0-15.5) Hematocrit 31.1 % (36.0-47.0) Mean Corpuscular Volume 94 fL (79-100) Mean Corpuscular Hemoglobin 31 pg (25-35) Mean Corpuscular Hemoglobin Concent 33 g/dL (31-37) Red Cell Distribution Width 17.3 % (11.5-14.5) Platelet Count 175 x10^3/uL (140-400) Neutrophils (%) (Auto) 75 % (31-73) Lymphocytes (%) (Auto) 15 % (24-48) Monocytes (%) (Auto) 9 % (0-9) Eosinophils (%) (Auto) 0 % (0-3) Basophils (%) (Auto) 1 % (0-3) Neutrophils # (Auto) 3.4 x10^3/uL (1.8-7.7) Lymphocytes # (Auto) 0.7 x10^3/uL (1.0-4.8) Monocytes # (Auto) 0.4 x10^3/uL (0.0-1.1) Eosinophils # (Auto) 0.0 x10^3/uL (0.0-0.7) Basophils # (Auto) 0.0 x10^3/uL (0.0-0.2) Sodium Level 132 mmol/L (136-145) Potassium Level 3.8 mmol/L (3.5-5.1) Chloride Level 95 mmol/L (98-107) Carbon Dioxide Level 24 mmol/L (21-32) Anion Gap 13 (6-14) Blood Urea Nitrogen 31 mg/dL (7-20) Creatinine 1.4 mg/dL (0.6-1.0) Estimated GFR (Cockcroft-Gault) 37.4 BUN/Creatinine Ratio 22 (6-20) Glucose Level 121 mg/dL (70-99) Calcium Level 7.8 mg/dL (8.5-10.1) Total Bilirubin 0.9 mg/dL (0.2-1.0) Aspartate Amino Transf (AST/SGOT) 32 U/L (15-37) Alanine Aminotransferase (ALT/SGPT) 28 U/L (14-59) Alkaline Phosphatase 141 U/L (46-116) Total Protein 6.2 g/dL (6.4-8.2) Albumin 2.7 g/dL (3.4-5.0) Albumin/Globulin Ratio 0.8 (1.0-1.7) Vancomycin Level Trough 13.8 mcg/mL (10.0-20.0) Vancomycin Last Dose Date 05/25/21 Vancomycin Last Dose Time 2100 Glucose (Fingerstick) 146 mg/dL (70-99) Review of Systems Review of Systems: lethargy, tired, puritis, appetite good Assessment and Plan Assessmemt and Plan Problems Medical Problems: (1) Anasarca Status: Acute (2) Bilateral lower extremity edema Status: Acute (3) Cellulitis of both lower extremities Status: Acute (4) Congestive heart failure Status: Acute Comment Review of Relevant I have reviewed the following items yan (where applicable) has been applied. Medications: Current Medications Medications (Trade) Dose Ordered Sig/Yvette Route PRN Reason Start Time Stop Time Status Last Admin Dose Admin Furosemide (Lasix) 40 mg 1X ONCE IVP 05/25/21 14:30 05/25/21 14:31 DC 05/25/21 14:51 Hydroxyzine HCl (Atarax) 25 mg 1X ONCE PO 05/25/21 14:30 05/25/21 14:31 DC 05/25/21 14:50 Sodium Chloride 500 ml @ 250 mls/hr 1X ONCE IV 05/25/21 14:30 05/25/21 16:29 DC 05/25/21 14:51 Vancomycin HCl 250 ml @ 250 mls/hr 1X ONCE IV 05/25/21 14:30 05/25/21 15:29 DC 05/25/21 14:51 Aspirin (Aspirin Chewable) 81 mg DAILY PO 05/26/21 09:00 05/26/21 09:01 Atorvastatin Calcium (Lipitor) 20 mg HS PO 05/25/21 21:00 05/25/21 22:35 Gabapentin (Neurontin) 100 mg TID PO 05/25/21 21:00 05/26/21 13:42 Metformin HCl (Glucophage) 500 mg BIDWMEALS PO 05/25/21 17:00 05/26/21 09:01 Fluoxetine HCl (PROzac) 20 mg BID PO 05/25/21 21:00 05/26/21 09:01 Furosemide (Lasix) 40 mg BID92 IVP 05/26/21 09:00 05/26/21 13:47 Vancomycin HCl 250 ml @ 250 mls/hr 1X ONCE IV 05/25/21 17:15 05/25/21 18:14 DC 05/25/21 19:25 Enoxaparin Sodium (Lovenox 40mg Syringe) 40 mg Q24H SQ 05/25/21 18:00 05/25/21 19:25 Albuterol/ Ipratropium (Duoneb) 3 ml RTQID NEB 05/26/21 08:00 05/26/21 11:48 Albuterol/ Ipratropium (Duoneb) 3 ml PRN Q4HRS ONCE NEB 05/25/21 22:30 05/25/21 22:31 DC 05/25/21 22:50 Magnesium Sulfate 50 ml @ 25 mls/hr 1X ONCE IV 05/25/21 23:00 05/26/21 00:59 DC 05/25/21 22:36 Sodium Chloride 500 ml @ 250 mls/hr 1X ONCE IV 05/25/21 23:00 05/26/21 00:59 DC 05/25/21 22:36 Hydroxyzine HCl (Atarax) 25 mg PRN Q6HRS PRN PO ITCHING 05/26/21 00:00 05/26/21 06:55 Justifications for Admission Other Justification JOSUE MIRANDA MD May 26, 2021 13:54
--- NOTE | 2021-05-26 14:56 | NUR ---
SS following for discharge planning. SS reviewed pt chart and discussed with pt RN. Pt is from home and is currently requiring oxygen at two liters nasal canula. Pt on IV Vancomycin and IV Lasix. Pt has had [facility], ; fax [phone], in the past. SS will continue to follow for discharge planning.
[2021-05-26] MEDS: ENOXAPARIN 40 MG/0.4 ML SYRINGE. SQ SCH (17:01)
[2021-05-26] MEDS: VANCOMYCIN 1.25 GM in IV NORMAL SALINE 250ML 250 ML IV SCH (17:01)
[2021-05-26] MEDS: LACTOBACILLUS RHAMNOSUS GG 1 CAPSULE. PO SCH (20:31)
[2021-05-26] MEDS: ATORVASTATIN CALCIUM 20 MG TABLET PO SCH (20:32)
[2021-05-27] VITALS (8 sets, daily range): BP systolic 85–112; BP diastolic 43–77
[2021-05-27] MEDS: IPRATRPIUM/ALBUTEROL 0.5/2.5MG 3 ML NEBU. NEB SCH ×4 (06:15→19:12)
[2021-05-27] MEDS: hydrALAZINE 10 MG TABLET PO SCH ×3 (09:00→20:41)
[2021-05-27] MEDS: LACTOBACILLUS RHAMNOSUS GG 1 CAPSULE. PO SCH ×2 (09:59→20:40)
[2021-05-27] MEDS: FLUoxetine HCL 20 MG CAPSULE PO SCH ×2 (09:59→20:41)
[2021-05-27] MEDS: ASPIRIN CHEWABLE 81 MG TABLET. PO SCH (09:59)
[2021-05-27] MEDS: GABAPENTIN 100 MG CAPSULE. PO SCH ×3 (09:59→20:42)
[2021-05-27] MEDS: METOPROLOL SUCC 24HR ER 25 MG TAB.ER.24H. PO SCH (10:01)
[2021-05-27] MEDS: metFORMIN 500 MG TABLET PO SCH ×2 (10:02→17:32)
[2021-05-27] MEDS: FUROSEMIDE 40 MG/4 ML VIAL. IVP SCH ×2 (10:04→15:17)
--- NOTE | 2021-05-27 10:27 | PDOC ---
[employer] PROGRESS NOTE Date of Service DOS: DATE: 05/27/21 TIME: 10:25 Chief Complaint Chief Complaint acute hypoxic respiratory failure COPD with acute exacerbation, will give IV steroid, nebs, broaden the abx acute LE celluliits, IV Vanco since admit and better, CHF, acute on chronic diastolic COPD tobacco use disorder CAD, CHF, prior EF 20%, caution with fluids Multiple old scabs, bite wounds, appear to be insect bites to arms and back, admit History of Present Illness History of Present Illness she is on oxygen now and has more resp distress. She asked for more breathing treatment this AM, will consult PULM, add COPD tx, redness bettter, puritis improved, she was sleeping hard this afternoon, cont currnet, Vitals/I&O Vitals/I&O: Vital Signs Date Time Temp Pulse Resp B/P (MAP) Pulse Ox O2 Delivery O2 Flow Rate FiO2 05/27/21 10:01 89 109/64 05/27/21 07:00 97.5 18 96 Nasal Cannula 2.0 97.5 I & O 05/26/21 05/26/21 05/27/21 15:00 23:00 07:00 Intake Total 540 ml 0 ml Balance 540 ml 0 ml Physical Exam General: Alert, Cooperative, No acute distress, mild distress Heart: Regular rate, Normal S1, No murmurs Lungs: Clear Abdomen: Normal bowel sounds, Soft Extremities: No clubbing, No cyanosis, Other Skin: Other Labs Labs: Laboratory Tests Test 05/26/21 11:43 05/26/21 17:10 05/26/21 20:55 05/27/21 09:03 Glucose (Fingerstick) 146 mg/dL (70-99) 115 mg/dL (70-99) 101 mg/dL (70-99) 81 mg/dL (70-99) Review of Systems Review of Systems: puritis, weakness, short of breath Assessment and Plan Assessmemt and Plan Problems Medical Problems: (1) Anasarca Status: Acute (2) Bilateral lower extremity edema Status: Acute (3) Cellulitis of both lower extremities Status: Acute (4) Congestive heart failure Status: Acute Comment Review of Relevant I have reviewed the following items yan (where applicable) has been applied. Medications: Current Medications Medications (Trade) Dose Ordered Sig/Yvette Route PRN Reason Start Time Stop Time Status Last Admin Dose Admin Vancomycin HCl 1.25 gm/Sodium Chloride 250 ml @ 167 mls/hr Q24H IV 05/26/21 18:00 05/26/21 17:01 Lactobacillus Rhamnosus (Culturelle) 1 cap BID PO 05/26/21 21:00 05/27/21 09:59 Justifications for Admission Other Justification JOSUE MIRANDA MD May 27, 2021 10:27
[2021-05-27] MEDS ORDERED: ALBUTEROL SULFATE 2.5 MG/3 ML NEBU. NEB PRN (10:30)
[2021-05-27] MEDS ORDERED: IPRATRPIUM/ALBUTEROL 0.5/2.5MG 3 ML NEBU. NEB ONE (10:30)
[2021-05-27] MEDS ORDERED: methylPREDNISolone SOD SUCC PF 125 MG/2 ML VIAL. IV ONE (10:30)
[2021-05-27] MEDS ORDERED: AZITHROMYCIN 500 MG in IV NORMAL SALINE 250ML 250 ML IV ONE (11:00)
--- NOTE | 2021-05-27 13:08 | NUR ---
SS following up with discharge planning. SS reviewed pt chart and discussed with pt RN. Pt is currently requiring oxygen at two liters nasal canula. Pt on IV Vancomycin. Pulmonology consulted. [facility], ; fax [phone], in the past. SS will continue to follow for discharge planning.
--- NOTE | 2021-05-27 14:14 | PDOC ---
PULMONARY PROGRESS NOTES DATE: 05/27/21 TIME: 14:13 Vitals Vital Signs Date Time Temp Pulse Resp B/P (MAP) Pulse Ox O2 Delivery O2 Flow Rate FiO2 05/27/21 13:06 93/58 (70) 05/27/21 11:51 Nasal Cannula 2.0 05/27/21 11:00 98.0 90 20 98 98.0 General: Alert, No acute distress Lungs: Clear Cardiovascular: S1 Abdomen: Soft Extremities: No Edema Labs Laboratory Tests Test 05/25/21 18:25 05/25/21 19:31 05/25/21 21:38 05/26/21 07:53 Lactic Acid Level 2.0 mmol/L (0.4-2.0) Urine Color Yellow Urine Clarity Clear Urine pH 5.0 (<5.0-8.0) Urine Specific [place] 1.010 (1.000-1.030) Urine Protein Negative mg/dL (NEG-TRACE) Urine Glucose (UA) Negative mg/dL (NEG) Urine Ketones (Stick) Negative mg/dL (NEG) Urine Blood Negative (NEG) Urine Nitrite Negative (NEG) Urine Bilirubin Negative (NEG) Urine Urobilinogen Dipstick 0.2 mg/dL (0.2 mg/dL) Urine Leukocyte Esterase Trace (NEG) Urine RBC 1-2 /HPF (0-2) Urine WBC 11-20 /HPF (0-4) Urine Squamous Epithelial Cells Mod /LPF Urine Bacteria Few /HPF (0-FEW) Urine Hyaline Casts Many /HPF Urine Mucus Slight /LPF Glucose (Fingerstick) 91 mg/dL (70-99) 74 mg/dL (70-99) Test 05/26/21 09:05 05/26/21 11:43 05/26/21 17:10 05/26/21 20:55 White Blood Count 4.5 x10^3/uL (4.0-11.0) Red Blood Count 3.31 x10^6/uL (3.50-5.40) Hemoglobin 10.2 g/dL (12.0-15.5) Hematocrit 31.1 % (36.0-47.0) Mean Corpuscular Volume 94 fL (79-100) Mean Corpuscular Hemoglobin 31 pg (25-35) Mean Corpuscular Hemoglobin Concent 33 g/dL (31-37) Red Cell Distribution Width 17.3 % (11.5-14.5) Platelet Count 175 x10^3/uL (140-400) Neutrophils (%) (Auto) 75 % (31-73) Lymphocytes (%) (Auto) 15 % (24-48) Monocytes (%) (Auto) 9 % (0-9) Eosinophils (%) (Auto) 0 % (0-3) Basophils (%) (Auto) 1 % (0-3) Neutrophils # (Auto) 3.4 x10^3/uL (1.8-7.7) Lymphocytes # (Auto) 0.7 x10^3/uL (1.0-4.8) Monocytes # (Auto) 0.4 x10^3/uL (0.0-1.1) Eosinophils # (Auto) 0.0 x10^3/uL (0.0-0.7) Basophils # (Auto) 0.0 x10^3/uL (0.0-0.2) Sodium Level 132 mmol/L (136-145) Potassium Level 3.8 mmol/L (3.5-5.1) Chloride Level 95 mmol/L (98-107) Carbon Dioxide Level 24 mmol/L (21-32) Anion Gap 13 (6-14) Blood Urea Nitrogen 31 mg/dL (7-20) Creatinine 1.4 mg/dL (0.6-1.0) Estimated GFR (Cockcroft-Gault) 37.4 BUN/Creatinine Ratio 22 (6-20) Glucose Level 121 mg/dL (70-99) Calcium Level 7.8 mg/dL (8.5-10.1) Total Bilirubin 0.9 mg/dL (0.2-1.0) Aspartate Amino Transf (AST/SGOT) 32 U/L (15-37) Alanine Aminotransferase (ALT/SGPT) 28 U/L (14-59) Alkaline Phosphatase 141 U/L (46-116) Total Protein 6.2 g/dL (6.4-8.2) Albumin 2.7 g/dL (3.4-5.0) Albumin/Globulin Ratio 0.8 (1.0-1.7) Vancomycin Level Trough 13.8 mcg/mL (10.0-20.0) Vancomycin Last Dose Date 05/25/21 Vancomycin Last Dose Time 2100 Glucose (Fingerstick) 146 mg/dL (70-99) 115 mg/dL (70-99) 101 mg/dL (70-99) Test 05/27/21 09:03 05/27/21 12:23 Glucose (Fingerstick) 81 mg/dL (70-99) 160 mg/dL (70-99) Laboratory Tests Test 05/26/21 17:10 05/26/21 20:55 05/27/21 09:03 05/27/21 12:23 Glucose (Fingerstick) 115 mg/dL (70-99) 101 mg/dL (70-99) 81 mg/dL (70-99) 160 mg/dL (70-99) Medications Active Scripts Medications Dose Route/Sig Max Daily Dose Days Date Category Bumetanide 1 Mg Tablet 1 Tab PO DAILY 30 02/04/21 Rx Hydralazine Hcl 10 Mg Tablet 1 Tab PO TID 02/03/21 Reported Gabapentin (Gabapentin) 100 Mg Capsule 100 Mg PO TID 02/03/21 Reported Metoprolol Succinate ( Xl ) (Metoprolol Succinate) 25 Mg Tab.er.24h 25 Mg PO DAILY 30 09/01/20 Rx Metformin Hcl 500 Mg Tablet 500 Mg PO BIDWMEALS 30 08/29/20 Rx Multi Vitamin Daily (Multivitamin) 1 Each Tablet 1 Tab PO DAILY 30 08/25/20 Reported B12 Active (Mecobalamin) 1,000 Mcg Tab.chew 2,500 Mcg PO DAILY 08/25/20 Reported Eye [place] Advantage Softgel (Om3-Dha/Epa/D3/Lutein/Zeazanth) 1 Each Capsule 1 Cap PO BID 30 08/25/20 Reported Jeff-Citrate Plus Vitamin D Tab (Calcium Citrate/Vitamin D2) 1 Each Tablet 1 Tab PO BID 5 08/25/20 Reported Coq-10 (Ubidecarenone) 100 Mg Capsule 200 Mg PO DAILY 08/25/20 Reported Biotin 2,500 Mcg Capsule 10,000 Mcg PO DAILY 08/25/20 Reported Cidaflex Tablet (Glucosamine Hcl/Chondr Resendez A Na) 1 Each Tablet 1 Tab PO BID 30 08/25/20 Reported Anoro Ellipta 62.5-25 Mcg Inh (Umeclidinium Brm/Vilanterol Tr) 1 Each Disk.w.dev 1 Each IH DAILY 08/25/20 Reported Aspirin 81 Mg Tab.chew 81 Mg PO DAILY 08/25/20 Reported Lisinopril 40 Mg Tablet 40 Mg PO DAILY 08/25/20 Reported Atorvastatin Calcium 20 Mg Tablet 20 Mg PO HS 08/25/20 Reported Fluoxetine Hcl 20 Mg Tablet 20 Mg PO BID 08/25/20 Reported Proair Hfa Inhaler (Albuterol Sulfate) 8.5 Gm Hfa.aer.ad 2 Puff IH PRN Q4-6HRS PRN 21 08/25/20 Reported Impression . Will consult dictated Acute hypoxemic respiratory failure secondary to acute ischemic cardiomyopathy with acute on chronic heart failure Acute exacerbation COPD Doubt pneumonia Will defer antibiotic use for cellulitis to PCP MALISSA PACK MD May 27, 2021 14:14
[2021-05-27] MEDS: VANCOMYCIN PER PHARMACY MC PRN ×2 (15:15→17:30)
[2021-05-27 17:04] LABS: CALCIUM 8.4 mg/dL (8.5-10.1); CREATININE 1.3 mg/dL (0.6-1.0); GFR 40.7; POTASSIUM 4.4 mmol/L (3.5-5.1)
[2021-05-27 17:19] LABS: VANC TR 16.9 mcg/mL (10.0-20.0)
[2021-05-27] MEDS: ENOXAPARIN 40 MG/0.4 ML SYRINGE. SQ SCH (17:32)
[2021-05-27] MEDS: VANCOMYCIN 1.25 GM in IV NORMAL SALINE 250ML 250 ML IV SCH (17:35)
[2021-05-27] MEDS: ATORVASTATIN CALCIUM 20 MG TABLET PO SCH (20:41)
[2021-05-27] MEDS ORDERED: LINEZOLID 600 MG TABLET PO SCH (21:00)
--- NOTE | 2021-05-27 21:39 | CONS ---
DATE OF CONSULTATION: 05/27/2021 PULMONARY CONSULTATION ATTENDING PHYSICIAN: Jasmina Mathew MD REASON FOR CONSULTATION: The patient is seen in pulmonary consultation at the request of Dr. Mathew for acute respiratory distress, abnormal x-ray. HISTORY OF PRESENT ILLNESS: The patient is a 70-year-old with a history of ischemic cardiomyopathy, ejection fraction of 20%. She also has a history of rheumatoid lung disease. She sees Dr. Pelayo at [facility]. She presented with increasing lower extremity edema, increasing shortness of breath. She reports compliance with the medications, not so much with the diet. She normally does not require oxygen at home. She also had wheeze. She continues to smoke. She has underlying COPD. The patient was admitted. I was asked to see her in consultation. I reviewed her x-ray, which to me looks like more CHF than anything else. White count was noted. Electrolytes were noted. BUN was 31, creatinine was 1.4. PAST MEDICAL HISTORY: Remarkable for COPD, tobacco dependence, ischemic cardiomyopathy, ejection fraction 20%, reported lung disease, type 2 diabetes, hypertension. PAST SURGICAL HISTORY: Carpal tunnel release, implantable defibrillator, . ALLERGIES: BUPROPION. REVIEW OF SYSTEMS: As indicated above, otherwise a 10-point system was reviewed and negative. CURRENT MEDICATIONS: List was reviewed. The patient received Lasix, she feels better. She is on DVT prophylaxis, nebulized treatments. She is also receiving empiric antibiotics and Solu-Medrol. PHYSICAL EXAMINATION: VITAL SIGNS: Stable. O2 saturation greater than 92%. HEENT: JVD could not be assessed secondary to body habitus. LUNGS: Crackles in the bases. CARDIOVASCULAR: Regular rate and rhythm with S1, S2. No S3. ABDOMEN: Soft. EXTREMITIES: No clubbing, cyanosis. 1+ edema. NEUROLOGIC: The patient was awake, alert, following commands. A detailed neuro exam was not performed. LABORATORY DATA: Labs were reviewed. Blood cultures to date are negative. UA was negative. White count is normal. Hemoglobin and hematocrit were noted. Electrolytes were noted. BUN was elevated, creatinine was elevated. Sodium was low. BNP was elevated. Alkaline phosphatase was elevated. Chest x-ray, compatible with pulmonary edema. IMPRESSION: 1. Acute hypoxemic respiratory failure. 2. Acute on chronic systolic, diastolic heart failure. 3. Bilateral lower extremity edema secondary to above. 4. Lower extremity cellulitis. 5. Anasarca. 6. Ischemic cardiomyopathy. 7. Acute exacerbation of chronic obstructive pulmonary disease. 8. Tobacco dependent. 9. Rheumatoid lung disease. PLAN: 1. Continue diuresis. 2. We will defer antibiotics for lower extremity cellulitis to PCP. 3. Nebulized treatments. 4. DVT prophylaxis. 5. We will obtain old films from [facility] for her underlying rheumatoid lung disease. 6. The patient is instructed on the importance of discontinuing tobacco use. STEPHANIE/LYNNE/BETTY DR: Ava TID: [id number]
[2021-05-27] MEDS: hydrOXYzine 25 MG TABLET PO PRN (22:08)
[2021-05-28] VITALS (7 sets, daily range): BP systolic 78–111; BP diastolic 56–66
[2021-05-28 06:00] LABS: BASO % 0 % (0-3); EOS % 0 % (0-3); HEMATOCRIT 32.4 % (36.0-47.0); HEMOGLOBIN 10.5 g/dL (12.0-15.5); LYMPH # 0.4 x10^3/uL (1.0-4.8); LYMPH % 10 % (24-48); MEAN CORPUSCULAR HEMOGLOBIN 31 pg (25-35); MEAN CORPUSCULAR HGB CONC 32 g/dL (31-37); MEAN CORPUSCULAR VOLUME 96 fL (79-100); MONO # 0.2 x10^3/uL (0.0-1.1); MONO % 5 % (0-9); NEUT # 3.2 x10^3/uL (1.8-7.7); NEUT % 85 % (31-73); PLATELET COUNT 161 x10^3/uL (140-400); RED BLOOD COUNT 3.37 x10^6/uL (3.50-5.40); RED CELL DISTRIBUTION WIDTH 17.4 % (11.5-14.5); WHITE BLOOD COUNT 3.8 x10^3/uL (4.0-11.0)
[2021-05-28 06:25] LABS: ALBUMIN/GLOBULIN RATIO 0.8 (1.0-1.7); CALCIUM 8.8 mg/dL (8.5-10.1); CREATININE 1.4 mg/dL (0.6-1.0); GFR 37.4; POTASSIUM 4.9 mmol/L (3.5-5.1); TOTAL BILIRUBIN 0.9 mg/dL (0.2-1.0)
[2021-05-28] MEDS: IPRATRPIUM/ALBUTEROL 0.5/2.5MG 3 ML NEBU. NEB SCH ×4 (07:32→21:00)
[2021-05-28] MEDS: GABAPENTIN 100 MG CAPSULE. PO SCH ×3 (07:51→20:54)
[2021-05-28] MEDS: metFORMIN 500 MG TABLET PO SCH ×2 (07:51→16:33)
[2021-05-28] MEDS: hydrALAZINE 10 MG TABLET PO SCH ×3 (07:52→20:55)
[2021-05-28] MEDS: FLUoxetine HCL 20 MG CAPSULE PO SCH ×2 (07:52→20:54)
[2021-05-28] MEDS: LACTOBACILLUS RHAMNOSUS GG 1 CAPSULE. PO SCH (07:52)
[2021-05-28] MEDS: METOPROLOL SUCC 24HR ER 25 MG TAB.ER.24H. PO SCH (07:52)
[2021-05-28] MEDS: ASPIRIN CHEWABLE 81 MG TABLET. PO SCH (07:52)
[2021-05-28] MEDS: FUROSEMIDE 40 MG/4 ML VIAL. IVP SCH ×2 (07:53→13:09)
[2021-05-28] MEDS: predniSONE 20 MG TABLET PO SCH (07:53)
--- NOTE | 2021-05-28 08:43 | PDOC ---
PULMONARY PROGRESS NOTES DATE: 05/28/21 TIME: 08:43 Vitals Vital Signs Date Time Temp Pulse Resp B/P (MAP) Pulse Ox O2 Delivery O2 Flow Rate FiO2 05/28/21 07:52 77 98/56 05/28/21 07:36 Nasal Cannula 2.0 05/28/21 07:33 96 05/28/21 07:00 96.9 18 96.9 General: Alert, No acute distress Lungs: Clear Cardiovascular: S1 Abdomen: Soft Extremities: No Edema Labs Laboratory Tests Test 05/26/21 09:05 05/26/21 11:43 05/26/21 17:10 05/26/21 20:55 White Blood Count 4.5 x10^3/uL (4.0-11.0) Red Blood Count 3.31 x10^6/uL (3.50-5.40) Hemoglobin 10.2 g/dL (12.0-15.5) Hematocrit 31.1 % (36.0-47.0) Mean Corpuscular Volume 94 fL (79-100) Mean Corpuscular Hemoglobin 31 pg (25-35) Mean Corpuscular Hemoglobin Concent 33 g/dL (31-37) Red Cell Distribution Width 17.3 % (11.5-14.5) Platelet Count 175 x10^3/uL (140-400) Neutrophils (%) (Auto) 75 % (31-73) Lymphocytes (%) (Auto) 15 % (24-48) Monocytes (%) (Auto) 9 % (0-9) Eosinophils (%) (Auto) 0 % (0-3) Basophils (%) (Auto) 1 % (0-3) Neutrophils # (Auto) 3.4 x10^3/uL (1.8-7.7) Lymphocytes # (Auto) 0.7 x10^3/uL (1.0-4.8) Monocytes # (Auto) 0.4 x10^3/uL (0.0-1.1) Eosinophils # (Auto) 0.0 x10^3/uL (0.0-0.7) Basophils # (Auto) 0.0 x10^3/uL (0.0-0.2) Sodium Level 132 mmol/L (136-145) Potassium Level 3.8 mmol/L (3.5-5.1) Chloride Level 95 mmol/L (98-107) Carbon Dioxide Level 24 mmol/L (21-32) Anion Gap 13 (6-14) Blood Urea Nitrogen 31 mg/dL (7-20) Creatinine 1.4 mg/dL (0.6-1.0) Estimated GFR (Cockcroft-Gault) 37.4 BUN/Creatinine Ratio 22 (6-20) Glucose Level 121 mg/dL (70-99) Calcium Level 7.8 mg/dL (8.5-10.1) Total Bilirubin 0.9 mg/dL (0.2-1.0) Aspartate Amino Transf (AST/SGOT) 32 U/L (15-37) Alanine Aminotransferase (ALT/SGPT) 28 U/L (14-59) Alkaline Phosphatase 141 U/L (46-116) Total Protein 6.2 g/dL (6.4-8.2) Albumin 2.7 g/dL (3.4-5.0) Albumin/Globulin Ratio 0.8 (1.0-1.7) Vancomycin Level Trough 13.8 mcg/mL (10.0-20.0) Vancomycin Last Dose Date 05/25/21 Vancomycin Last Dose Time 2100 Glucose (Fingerstick) 146 mg/dL (70-99) 115 mg/dL (70-99) 101 mg/dL (70-99) Test 05/27/21 09:03 05/27/21 12:23 05/27/21 16:20 05/27/21 16:45 Glucose (Fingerstick) 81 mg/dL (70-99) 160 mg/dL (70-99) 178 mg/dL (70-99) Sodium Level 133 mmol/L (136-145) Potassium Level 4.4 mmol/L (3.5-5.1) Chloride Level 98 mmol/L (98-107) Carbon Dioxide Level 26 mmol/L (21-32) Anion Gap 9 (6-14) Blood Urea Nitrogen 32 mg/dL (7-20) Creatinine 1.3 mg/dL (0.6-1.0) Estimated GFR (Cockcroft-Gault) 40.7 Glucose Level 183 mg/dL (70-99) Calcium Level 8.4 mg/dL (8.5-10.1) Vancomycin Level Trough 16.9 mcg/mL (10.0-20.0) Vancomycin Last Dose Date 05/26/21 Vancomycin Last Dose Time 1700 Test 05/27/21 20:39 05/28/21 04:15 05/28/21 07:40 Glucose (Fingerstick) 230 mg/dL (70-99) 167 mg/dL (70-99) White Blood Count 3.8 x10^3/uL (4.0-11.0) Red Blood Count 3.37 x10^6/uL (3.50-5.40) Hemoglobin 10.5 g/dL (12.0-15.5) Hematocrit 32.4 % (36.0-47.0) Mean Corpuscular Volume 96 fL (79-100) Mean Corpuscular Hemoglobin 31 pg (25-35) Mean Corpuscular Hemoglobin Concent 32 g/dL (31-37) Red Cell Distribution Width 17.4 % (11.5-14.5) Platelet Count 161 x10^3/uL (140-400) Neutrophils (%) (Auto) 85 % (31-73) Lymphocytes (%) (Auto) 10 % (24-48) Monocytes (%) (Auto) 5 % (0-9) Eosinophils (%) (Auto) 0 % (0-3) Basophils (%) (Auto) 0 % (0-3) Neutrophils # (Auto) 3.2 x10^3/uL (1.8-7.7) Lymphocytes # (Auto) 0.4 x10^3/uL (1.0-4.8) Monocytes # (Auto) 0.2 x10^3/uL (0.0-1.1) Eosinophils # (Auto) 0.0 x10^3/uL (0.0-0.7) Basophils # (Auto) 0.0 x10^3/uL (0.0-0.2) Sodium Level 133 mmol/L (136-145) Potassium Level 4.9 mmol/L (3.5-5.1) Chloride Level 97 mmol/L (98-107) Carbon Dioxide Level 27 mmol/L (21-32) Anion Gap 9 (6-14) Blood Urea Nitrogen 37 mg/dL (7-20) Creatinine 1.4 mg/dL (0.6-1.0) Estimated GFR (Cockcroft-Gault) 37.4 BUN/Creatinine Ratio 26 (6-20) Glucose Level 207 mg/dL (70-99) Calcium Level 8.8 mg/dL (8.5-10.1) Total Bilirubin 0.9 mg/dL (0.2-1.0) Aspartate Amino Transf (AST/SGOT) 30 U/L (15-37) Alanine Aminotransferase (ALT/SGPT) 28 U/L (14-59) Alkaline Phosphatase 166 U/L (46-116) Total Protein 7.0 g/dL (6.4-8.2) Albumin 3.0 g/dL (3.4-5.0) Albumin/Globulin Ratio 0.8 (1.0-1.7) Laboratory Tests Test 05/27/21 09:03 05/27/21 12:23 05/27/21 16:20 05/27/21 16:45 Glucose (Fingerstick) 81 mg/dL (70-99) 160 mg/dL (70-99) 178 mg/dL (70-99) Sodium Level 133 mmol/L (136-145) Potassium Level 4.4 mmol/L (3.5-5.1) Chloride Level 98 mmol/L (98-107) Carbon Dioxide Level 26 mmol/L (21-32) Anion Gap 9 (6-14) Blood Urea Nitrogen 32 mg/dL (7-20) Creatinine 1.3 mg/dL (0.6-1.0) Estimated GFR (Cockcroft-Gault) 40.7 Glucose Level 183 mg/dL (70-99) Calcium Level 8.4 mg/dL (8.5-10.1) Vancomycin Level Trough 16.9 mcg/mL (10.0-20.0) Vancomycin Last Dose Date 05/26/21 Vancomycin Last Dose Time 1700 Test 05/27/21 20:39 05/28/21 04:15 05/28/21 07:40 Glucose (Fingerstick) 230 mg/dL (70-99) 167 mg/dL (70-99) White Blood Count 3.8 x10^3/uL (4.0-11.0) Red Blood Count 3.37 x10^6/uL (3.50-5.40) Hemoglobin 10.5 g/dL (12.0-15.5) Hematocrit 32.4 % (36.0-47.0) Mean Corpuscular Volume 96 fL (79-100) Mean Corpuscular Hemoglobin 31 pg (25-35) Mean Corpuscular Hemoglobin Concent 32 g/dL (31-37) Red Cell Distribution Width 17.4 % (11.5-14.5) Platelet Count 161 x10^3/uL (140-400) Neutrophils (%) (Auto) 85 % (31-73) Lymphocytes (%) (Auto) 10 % (24-48) Monocytes (%) (Auto) 5 % (0-9) Eosinophils (%) (Auto) 0 % (0-3) Basophils (%) (Auto) 0 % (0-3) Neutrophils # (Auto) 3.2 x10^3/uL (1.8-7.7) Lymphocytes # (Auto) 0.4 x10^3/uL (1.0-4.8) Monocytes # (Auto) 0.2 x10^3/uL (0.0-1.1) Eosinophils # (Auto) 0.0 x10^3/uL (0.0-0.7) Basophils # (Auto) 0.0 x10^3/uL (0.0-0.2) Sodium Level 133 mmol/L (136-145) Potassium Level 4.9 mmol/L (3.5-5.1) Chloride Level 97 mmol/L (98-107) Carbon Dioxide Level 27 mmol/L (21-32) Anion Gap 9 (6-14) Blood Urea Nitrogen 37 mg/dL (7-20) Creatinine 1.4 mg/dL (0.6-1.0) Estimated GFR (Cockcroft-Gault) 37.4 BUN/Creatinine Ratio 26 (6-20) Glucose Level 207 mg/dL (70-99) Calcium Level 8.8 mg/dL (8.5-10.1) Total Bilirubin 0.9 mg/dL (0.2-1.0) Aspartate Amino Transf (AST/SGOT) 30 U/L (15-37) Alanine Aminotransferase (ALT/SGPT) 28 U/L (14-59) Alkaline Phosphatase 166 U/L (46-116) Total Protein 7.0 g/dL (6.4-8.2) Albumin 3.0 g/dL (3.4-5.0) Albumin/Globulin Ratio 0.8 (1.0-1.7) Medications Active Scripts Medications Dose Route/Sig Max Daily Dose Days Date Category Bumetanide 1 Mg Tablet 1 Tab PO DAILY 30 02/04/21 Rx Hydralazine Hcl 10 Mg Tablet 1 Tab PO TID 02/03/21 Reported Gabapentin (Gabapentin) 100 Mg Capsule 100 Mg PO TID 02/03/21 Reported Metoprolol Succinate ( Xl ) (Metoprolol Succinate) 25 Mg Tab.er.24h 25 Mg PO DAILY 30 09/01/20 Rx Metformin Hcl 500 Mg Tablet 500 Mg PO BIDWMEALS 30 08/29/20 Rx Multi Vitamin Daily (Multivitamin) 1 Each Tablet 1 Tab PO DAILY 30 08/25/20 Reported B12 Active (Mecobalamin) 1,000 Mcg Tab.chew 2,500 Mcg PO DAILY 08/25/20 Reported Eye [place] Advantage Softgel (Om3-Dha/Epa/D3/Lutein/Zeazanth) 1 Each Capsule 1 Cap PO BID 30 08/25/20 Reported Jeff-Citrate Plus Vitamin D Tab (Calcium Citrate/Vitamin D2) 1 Each Tablet 1 Tab PO BID 5 08/25/20 Reported Coq-10 (Ubidecarenone) 100 Mg Capsule 200 Mg PO DAILY 08/25/20 Reported Biotin 2,500 Mcg Capsule 10,000 Mcg PO DAILY 08/25/20 Reported Cidaflex Tablet (Glucosamine Hcl/Chondr Resendez A Na) 1 Each Tablet 1 Tab PO BID 30 08/25/20 Reported Anoro Ellipta 62.5-25 Mcg Inh (Umeclidinium Brm/Vilanterol Tr) 1 Each Disk.w.dev 1 Each IH DAILY 08/25/20 Reported Aspirin 81 Mg Tab.chew 81 Mg PO DAILY 08/25/20 Reported Lisinopril 40 Mg Tablet 40 Mg PO DAILY 08/25/20 Reported Atorvastatin Calcium 20 Mg Tablet 20 Mg PO HS 08/25/20 Reported Fluoxetine Hcl 20 Mg Tablet 20 Mg PO BID 08/25/20 Reported Proair Hfa Inhaler (Albuterol Sulfate) 8.5 Gm Hfa.aer.ad 2 Puff IH PRN Q4-6HRS PRN 21 08/25/20 Reported Impression . Will consult dictated Acute hypoxemic respiratory failure secondary to acute ischemic cardiomyopathy with acute on chronic heart failure Acute exacerbation COPD Doubt pneumonia Will defer antibiotic use for cellulitis to PCP MALISSA PACK MD May 28, 2021 08:43
[2021-05-28] MEDS ORDERED: AZITHROMYCIN 250 MG TABLET. PO SCH (09:00)
[2021-05-28] MEDS ORDERED: HYDR200T5 PO (11:28)
[2021-05-28] MEDS: HYDROXYCHLOROQUINE 200 MG TABLET PO SCH (13:08)
[2021-05-28] MEDS: VANCOMYCIN PER PHARMACY MC PRN (15:02)
[2021-05-28] MEDS: VANCOMYCIN 1.25 GM in IV NORMAL SALINE 250ML 250 ML IV SCH (16:34)
[2021-05-28] MEDS: ENOXAPARIN 40 MG/0.4 ML SYRINGE. SQ SCH (16:34)
--- NOTE | 2021-05-28 16:40 | PDOC ---
[employer] PROGRESS NOTE Date of Service DOS: DATE: 05/28/21 TIME: 16:39 Chief Complaint Chief Complaint acute hypoxic respiratory failure COPD with acute exacerbation, will give IV steroid, nebs, broaden the abx acute LE celluliits, IV Vanco since admit and better, CHF, acute on chronic diastolic COPD tobacco use disorder rheumatoid arthritis, she reports is related to lung disease CAD, CHF, prior EF 20%, caution with fluids Multiple old scabs, bite wounds, appear to be insect bites to arms and back, admit History of Present Illness History of Present Illness she is on oxygen now and has more resp distress. She asked for more breathing treatment this AM, will consult PULM, add COPD tx, redness bettter, puritis improved, she was sleeping hard this afternoon, restart her hydroxychlorquine for her RA Vitals/I&O Vitals/I&O: Vital Signs Date Time Temp Pulse Resp B/P (MAP) Pulse Ox O2 Delivery O2 Flow Rate FiO2 05/28/21 15:41 96 Nasal Cannula 2.0 05/28/21 15:00 97.3 85 18 85/63 (70) 97.3 I & O 05/27/21 05/27/21 05/28/21 15:00 23:00 07:00 Intake Total 200 ml 420 ml 860 ml Output Total 500 ml Balance -300 ml 420 ml 860 ml Physical Exam General: Alert, Cooperative, No acute distress, mild distress Heart: Regular rate, Normal S1, No murmurs Lungs: Clear Abdomen: Normal bowel sounds, Soft Extremities: No clubbing, No cyanosis, Other Skin: Other Labs Labs: Laboratory Tests Test 05/27/21 16:45 05/27/21 20:39 05/28/21 04:15 05/28/21 07:40 Sodium Level 133 mmol/L (136-145) 133 mmol/L (136-145) Potassium Level 4.4 mmol/L (3.5-5.1) 4.9 mmol/L (3.5-5.1) Chloride Level 98 mmol/L (98-107) 97 mmol/L (98-107) Carbon Dioxide Level 26 mmol/L (21-32) 27 mmol/L (21-32) Anion Gap 9 (6-14) 9 (6-14) Blood Urea Nitrogen 32 mg/dL (7-20) 37 mg/dL (7-20) Creatinine 1.3 mg/dL (0.6-1.0) 1.4 mg/dL (0.6-1.0) Estimated GFR (Cockcroft-Gault) 40.7 37.4 Glucose Level 183 mg/dL (70-99) 207 mg/dL (70-99) Calcium Level 8.4 mg/dL (8.5-10.1) 8.8 mg/dL (8.5-10.1) Vancomycin Level Trough 16.9 mcg/mL (10.0-20.0) Vancomycin Last Dose Date 05/26/21 Vancomycin Last Dose Time 1700 Glucose (Fingerstick) 230 mg/dL (70-99) 167 mg/dL (70-99) White Blood Count 3.8 x10^3/uL (4.0-11.0) Red Blood Count 3.37 x10^6/uL (3.50-5.40) Hemoglobin 10.5 g/dL (12.0-15.5) Hematocrit 32.4 % (36.0-47.0) Mean Corpuscular Volume 96 fL (79-100) Mean Corpuscular Hemoglobin 31 pg (25-35) Mean Corpuscular Hemoglobin Concent 32 g/dL (31-37) Red Cell Distribution Width 17.4 % (11.5-14.5) Platelet Count 161 x10^3/uL (140-400) Neutrophils (%) (Auto) 85 % (31-73) Lymphocytes (%) (Auto) 10 % (24-48) Monocytes (%) (Auto) 5 % (0-9) Eosinophils (%) (Auto) 0 % (0-3) Basophils (%) (Auto) 0 % (0-3) Neutrophils # (Auto) 3.2 x10^3/uL (1.8-7.7) Lymphocytes # (Auto) 0.4 x10^3/uL (1.0-4.8) Monocytes # (Auto) 0.2 x10^3/uL (0.0-1.1) Eosinophils # (Auto) 0.0 x10^3/uL (0.0-0.7) Basophils # (Auto) 0.0 x10^3/uL (0.0-0.2) BUN/Creatinine Ratio 26 (6-20) Total Bilirubin 0.9 mg/dL (0.2-1.0) Aspartate Amino Transf (AST/SGOT) 30 U/L (15-37) Alanine Aminotransferase (ALT/SGPT) 28 U/L (14-59) Alkaline Phosphatase 166 U/L (46-116) Total Protein 7.0 g/dL (6.4-8.2) Albumin 3.0 g/dL (3.4-5.0) Albumin/Globulin Ratio 0.8 (1.0-1.7) Test 05/28/21 11:35 Glucose (Fingerstick) 177 mg/dL (70-99) Assessment and Plan Assessmemt and Plan Problems Medical Problems: (1) Anasarca Status: Acute (2) Bilateral lower extremity edema Status: Acute (3) Cellulitis of both lower extremities Status: Acute (4) Congestive heart failure Status: Acute Comment Review of Relevant I have reviewed the following items yan (where applicable) has been applied. Medications: Current Medications Medications (Trade) Dose Ordered Sig/Yvette Route PRN Reason Start Time Stop Time Status Last Admin Dose Admin Prednisone (Prednisone) 40 mg DAILY PO 05/28/21 09:00 05/28/21 07:53 Vancomycin HCl (Vancomycin Trough Level) 1 each 1X ONCE MC 05/27/21 17:30 05/27/21 17:31 DC 05/27/21 17:30 Hydroxychloroquine Sulfate (Plaquenil) 200 mg DAILY PO 05/28/21 13:00 05/28/21 13:08 Justifications for Admission Other Justification JOSUE MIRANDA MD May 28, 2021 16:40
--- NOTE | 2021-05-28 19:25 | NUR ---
pt in bed assessment completed vss pt denied pain at this time,call light in reach.
[2021-05-28] MEDS: ATORVASTATIN CALCIUM 20 MG TABLET PO SCH (20:55)
[2021-05-29 02:09] VITALS: BP 120/74
[2021-05-29 04:36] LABS: CREATININE 1.6 mg/dL (0.6-1.0); GFR 32.1
[2021-05-29] MEDS: IPRATRPIUM/ALBUTEROL 0.5/2.5MG 3 ML NEBU. NEB SCH ×3 (06:18→15:06)
[2021-05-29 07:28] VITALS: BP 110/71
[2021-05-29] MEDS: hydrALAZINE 10 MG TABLET PO SCH ×2 (08:17→13:28)
[2021-05-29] MEDS: FUROSEMIDE 40 MG/4 ML VIAL. IVP SCH ×2 (08:17→13:30)
[2021-05-29] MEDS: predniSONE 20 MG TABLET PO SCH (08:18)
[2021-05-29] MEDS: METOPROLOL SUCC 24HR ER 25 MG TAB.ER.24H. PO SCH (08:18)
[2021-05-29] MEDS: ASPIRIN CHEWABLE 81 MG TABLET. PO SCH (08:18)
[2021-05-29] MEDS: HYDROXYCHLOROQUINE 200 MG TABLET PO SCH (08:18)
[2021-05-29] MEDS: GABAPENTIN 100 MG CAPSULE. PO SCH ×2 (08:18→13:28)
[2021-05-29] MEDS: metFORMIN 500 MG TABLET PO SCH (08:18)
[2021-05-29] MEDS: FLUoxetine HCL 20 MG CAPSULE PO SCH (08:19)
[2021-05-29 10:42] VITALS: BP 93/58
--- NOTE | 2021-05-29 12:14 | PDOC ---
PULMONARY PROGRESS NOTES DATE: 05/29/21 TIME: 12:13 Subjective Doing well. Currently on room air. Ready to go home Vitals Vital Signs Date Time Temp Pulse Resp B/P (MAP) Pulse Ox O2 Delivery O2 Flow Rate FiO2 05/29/21 11:40 96 Room Air 05/29/21 10:42 97.6 83 18 93/58 (70) 97.6 05/29/21 08:00 2.0 General: Alert, No acute distress Lungs: Clear Cardiovascular: S1 Abdomen: Soft Extremities: No Edema Labs Laboratory Tests Test 05/27/21 12:23 05/27/21 16:20 05/27/21 16:45 05/27/21 20:39 Glucose (Fingerstick) 160 mg/dL (70-99) 178 mg/dL (70-99) 230 mg/dL (70-99) Sodium Level 133 mmol/L (136-145) Potassium Level 4.4 mmol/L (3.5-5.1) Chloride Level 98 mmol/L (98-107) Carbon Dioxide Level 26 mmol/L (21-32) Anion Gap 9 (6-14) Blood Urea Nitrogen 32 mg/dL (7-20) Creatinine 1.3 mg/dL (0.6-1.0) Estimated GFR (Cockcroft-Gault) 40.7 Glucose Level 183 mg/dL (70-99) Calcium Level 8.4 mg/dL (8.5-10.1) Vancomycin Level Trough 16.9 mcg/mL (10.0-20.0) Vancomycin Last Dose Date 05/26/21 Vancomycin Last Dose Time 1700 Test 05/28/21 04:15 05/28/21 07:40 05/28/21 11:35 05/28/21 16:55 White Blood Count 3.8 x10^3/uL (4.0-11.0) Red Blood Count 3.37 x10^6/uL (3.50-5.40) Hemoglobin 10.5 g/dL (12.0-15.5) Hematocrit 32.4 % (36.0-47.0) Mean Corpuscular Volume 96 fL (79-100) Mean Corpuscular Hemoglobin 31 pg (25-35) Mean Corpuscular Hemoglobin Concent 32 g/dL (31-37) Red Cell Distribution Width 17.4 % (11.5-14.5) Platelet Count 161 x10^3/uL (140-400) Neutrophils (%) (Auto) 85 % (31-73) Lymphocytes (%) (Auto) 10 % (24-48) Monocytes (%) (Auto) 5 % (0-9) Eosinophils (%) (Auto) 0 % (0-3) Basophils (%) (Auto) 0 % (0-3) Neutrophils # (Auto) 3.2 x10^3/uL (1.8-7.7) Lymphocytes # (Auto) 0.4 x10^3/uL (1.0-4.8) Monocytes # (Auto) 0.2 x10^3/uL (0.0-1.1) Eosinophils # (Auto) 0.0 x10^3/uL (0.0-0.7) Basophils # (Auto) 0.0 x10^3/uL (0.0-0.2) Sodium Level 133 mmol/L (136-145) Potassium Level 4.9 mmol/L (3.5-5.1) Chloride Level 97 mmol/L (98-107) Carbon Dioxide Level 27 mmol/L (21-32) Anion Gap 9 (6-14) Blood Urea Nitrogen 37 mg/dL (7-20) Creatinine 1.4 mg/dL (0.6-1.0) Estimated GFR (Cockcroft-Gault) 37.4 BUN/Creatinine Ratio 26 (6-20) Glucose Level 207 mg/dL (70-99) Calcium Level 8.8 mg/dL (8.5-10.1) Total Bilirubin 0.9 mg/dL (0.2-1.0) Aspartate Amino Transf (AST/SGOT) 30 U/L (15-37) Alanine Aminotransferase (ALT/SGPT) 28 U/L (14-59) Alkaline Phosphatase 166 U/L (46-116) Total Protein 7.0 g/dL (6.4-8.2) Albumin 3.0 g/dL (3.4-5.0) Albumin/Globulin Ratio 0.8 (1.0-1.7) Glucose (Fingerstick) 167 mg/dL (70-99) 177 mg/dL (70-99) 183 mg/dL (70-99) Test 05/28/21 19:50 05/29/21 04:00 05/29/21 07:34 05/29/21 11:36 Glucose (Fingerstick) 184 mg/dL (70-99) 101 mg/dL (70-99) 135 mg/dL (70-99) Creatinine 1.6 mg/dL (0.6-1.0) Estimated GFR (Cockcroft-Gault) 32.1 Laboratory Tests Test 05/28/21 16:55 05/28/21 19:50 05/29/21 04:00 05/29/21 07:34 Glucose (Fingerstick) 183 mg/dL (70-99) 184 mg/dL (70-99) 101 mg/dL (70-99) Creatinine 1.6 mg/dL (0.6-1.0) Estimated GFR (Cockcroft-Gault) 32.1 Test 05/29/21 11:36 Glucose (Fingerstick) 135 mg/dL (70-99) Medications Active Scripts Medications Dose Route/Sig Max Daily Dose Days Date Category Bumetanide 1 Mg Tablet 1 Tab PO DAILY 30 02/04/21 Rx Hydralazine Hcl 10 Mg Tablet 1 Tab PO TID 02/03/21 Reported Gabapentin (Gabapentin) 100 Mg Capsule 100 Mg PO TID 02/03/21 Reported Metoprolol Succinate ( Xl ) (Metoprolol Succinate) 25 Mg Tab.er.24h 25 Mg PO DAILY 30 09/01/20 Rx Metformin Hcl 500 Mg Tablet 500 Mg PO BIDWMEALS 30 08/29/20 Rx Multi Vitamin Daily (Multivitamin) 1 Each Tablet 1 Tab PO DAILY 30 08/25/20 Reported B12 Active (Mecobalamin) 1,000 Mcg Tab.chew 2,500 Mcg PO DAILY 08/25/20 Reported Eye [place] Advantage Softgel (Om3-Dha/Epa/D3/Lutein/Zeazanth) 1 Each Capsule 1 Cap PO BID 30 08/25/20 Reported Jeff-Citrate Plus Vitamin D Tab (Calcium Citrate/Vitamin D2) 1 Each Tablet 1 Tab PO BID 5 08/25/20 Reported Coq-10 (Ubidecarenone) 100 Mg Capsule 200 Mg PO DAILY 08/25/20 Reported Biotin 2,500 Mcg Capsule 10,000 Mcg PO DAILY 08/25/20 Reported Cidaflex Tablet (Glucosamine Hcl/Chondr Resendez A Na) 1 Each Tablet 1 Tab PO BID 30 08/25/20 Reported Anoro Ellipta 62.5-25 Mcg Inh (Umeclidinium Brm/Vilanterol Tr) 1 Each Disk.w.dev 1 Each IH DAILY 08/25/20 Reported Aspirin 81 Mg Tab.chew 81 Mg PO DAILY 08/25/20 Reported Lisinopril 40 Mg Tablet 40 Mg PO DAILY 08/25/20 Reported Atorvastatin Calcium 20 Mg Tablet 20 Mg PO HS 08/25/20 Reported Fluoxetine Hcl 20 Mg Tablet 20 Mg PO BID 08/25/20 Reported Proair Hfa Inhaler (Albuterol Sulfate) 8.5 Gm Hfa.aer.ad 2 Puff IH PRN Q4-6HRS PRN 21 08/25/20 Reported Impression . 1. Acute hypoxemic respiratory failure. 2. Acute on chronic systolic, diastolic heart failure. 3. Bilateral lower extremity edema secondary to above. 4. Lower extremity cellulitis. 5. Anasarca. 6. Ischemic cardiomyopathy. 7. Acute exacerbation of chronic obstructive pulmonary disease. 8. Tobacco dependent. 9. Rheumatoid lung disease. Plan . 1. Continue diuresis. 2. We will defer antibiotics for lower extremity cellulitis to PCP. 3. Nebulized treatments. 4. DVT prophylaxis. 5. We will obtain old films from [facility] for her underlying rheumatoid lung disease. 6. The patient is instructed on the importance of discontinuing tobacco use. Seven. Patient is clinically improved. Currently on room air. From a pulmonary standpoint she could be discharged. JYOTI MONTOYA MD May 29, 2021 12:14
[2021-05-29] MEDS ORDERED: DOXY100C3 PO (13:21)
--- NOTE | 2021-05-29 13:24 | SNU/HH DC ---
DISCHARGE WITH HOME HEALTH DISCHARGE INFORMATION: Discharge Date: May 29, 2021 Final Diagnosis: cellultiis COPD, rheumatoid arthritis Acute systolic CHF, with hypoxia Problems Medical Problems: (1) Anasarca Status: Acute (2) Bilateral lower extremity edema Status: Acute (3) Cellulitis of both lower extremities Status: Acute (4) Congestive heart failure Status: Acute Condition on Discharge: Stable CODE STATUS: Code Status: Full HOME HEALTH: Face to Face: I certify this patient is under my care and that I, had a face to face encounter that meets the physician face to face encounter requirements with this patient on 05/29 Medical Complications: CHF, COPD, Other (cellulitis ) Chcf For: Assess Cardiopulm Status, Medication Management RN For Eval/Treatment: Yes Physical Therapy For: Evalulation/Treatment Occupational Therapy For: Evaluation/Treatment Pt Meets Homebound Status: Extreme weakness w/ amb., Unable to negotiate home, Other: (new hypoxia in hospital, better at disharge ) POST DISCHARGE ORDERS: Activity Instructions for Disc: No restrictions, Activity as tolerated, Other, see below Weight Bearing Status after Di: No restrictions, Full weight bearing, Other, see below Bathing Instructions: No Tub Bath until see Dr. LOCK AFTER DISCHARGE: Cardiac Wound/Incision Care: Other, see below CHECKS AFTER DISCHARGE: Checks after discharge: Check blood press - daily, Check your Temp as needed, Weigh Yourself Daily FOLLOW-UP: Follow up with: primary care 1- 2 weeks Follow Up With: nova weeks to months Additional Instructions: resp therapy eval for poss exertional hypoxia TREATMENT/EQUIPMENT ORDERS: Adaptive Equipment Issued: Front wheeled walker Discharge Respiratory Equipmen: Nebulizer CERTIFICATION STATEMENT: Certification Statement: Certification Statement: Based on the above finding, I certify that this patient is confined to the home and needs intermittent care home care, physical therapy and/or speech therapy, or continues to need occupational therapy.~ This patient is under my care, and I have initiated the establishment of the plan of care.~ This patient will be followed by myself or a community physician who will periodically review the plan of care. Home Meds Active Scripts Doxycycline Hyclate (DOXYCYCLINE HYCLATE) 100 Mg Capsule, 1 CAP PO BID for cellulitis, #10 CAP Prov:JOSUE MIRANDA MD 05/29/21 Bumetanide (BUMETANIDE) 1 Mg Tablet, 1 TAB PO DAILY for CHF for 30 Days, #30 TAB 3 Refills Prov:HUSSEIN LYNCH [employer] 02/04/21 Metoprolol Succinate (METOPROLOL SUCCINATE ( XL )) 25 Mg Tab.er.24h, 25 MG PO DAILY for CHF for 30 Days, #30 TAB.SR 5 Refills Prov:KATHY HARKINS MD 09/01/20 Metformin Hcl (METFORMIN HCL) 500 Mg Tablet, 500 MG PO BIDWMEALS for ANTI- DIABETIC for 30 Days, #60 TAB 0 Refills Prov:KATHY HARKINS MD 08/29/20 Reported Medications Hydroxychloroquine Sulfate (HYDROXYCHLOROQUINE SULFATE) 200 Mg Tablet, 200 MG PO DAILY for arthritis, TAB 05/28/21 Hydralazine Hcl (HYDRALAZINE HCL) 10 Mg Tablet, 1 TAB PO TID for blood pressure, #270 TAB 3 Refills 02/03/21 Gabapentin (GABAPENTIN ) 100 Mg Capsule, 100 MG PO TID for NEUROGENIC PAIN, CA P 02/03/21 Multivitamin (MULTI VITAMIN DAILY) 1 Each Tablet, 1 TAB PO DAILY for vitamins for 30 Days, #30 TAB 0 Refills 08/25/20 Mecobalamin (B12 Active) 1,000 Mcg Tab.chew, 2500 MCG PO DAILY for vitamins, TAB.CHEW 08/25/20 Om3-Dha/Epa/D3/Lutein/Zeazanth (EYE [place] ADVANTAGE SOFTGEL) 1 Each Capsule, 1 CAP PO BID for eye health for 30 Days, #60 CAP 0 Refills 08/25/20 Calcium Citrate/Vitamin D2 (LEILA-CITRATE PLUS VITAMIN D TAB) 1 Each Tablet, 1 TAB PO BID for vitamin for 5 Days, #60 TAB 0 Refills 08/25/20 Ubidecarenone (COQ-10) 100 Mg Capsule, 200 MG PO DAILY for vitamin, CAP 08/25/20 Biotin (BIOTIN) 2,500 Mcg Capsule, 81436 MCG PO DAILY for vitamins, CAP 08/25/20 Glucosamine Hcl/Chondr Resendez A Na (CIDAFLEX TABLET) 1 Each Tablet, 1 TAB PO BID for vitamins for 30 Days, #60 TAB 0 Refills 08/25/20 Umeclidinium Brm/Vilanterol Tr (ANORO ELLIPTA 62.5-25 MCG INH) 1 Each Disk.w.dev, 1 EACH IH DAILY for breathing, INH 08/25/20 Aspirin (ASPIRIN) 81 Mg Tab.chew, 81 MG PO DAILY for heart health, TAB.CHEW 08/25/20 Lisinopril (LISINOPRIL) 40 Mg Tablet, 40 MG PO DAILY for FOR HYPERTENSION, #30 TAB 0 Refills 08/25/20 Atorvastatin Calcium (ATORVASTATIN CALCIUM) 20 Mg Tablet, 20 MG PO HS for FOR CHOLESTEROL, #30 TAB 0 Refills 08/25/20 Fluoxetine Hcl (FLUOXETINE HCL) 20 Mg Tablet, 20 MG PO BID for depression, TAB 08/25/20 Albuterol Sulfate (PROAIR HFA INHALER) 8.5 Gm Hfa.aer.ad, 2 PUFF IH PRN Q4-6HRS PRN for wheezing for 21 Days, #1 INHALER 0 Refills 08/25/20 JOSUE MIRANDA MD May 29, 2021 13:24
--- NOTE | 2021-05-29 13:27 | PDOC3 ---
Discharge Summary Visit Information Date of Admission: May 25, 2021 Date of Discharge: May 29, 2021 Final Diagnosis acute hypoxic respiratory failure COPD with acute exacerbation, will give IV steroid, nebs, broaden the abx acute LE celluliits, IV Vanco since admit and better, CHF, acute on chronic diastolic COPD tobacco use disorder rheumatoid arthritis, she reports is related to lung disease CAD, CHF, prior EF 20%, caution with fluids Multiple old scabs, bite wounds, appear to be insect bites to arms and back, Problems Medical Problems: (1) Anasarca Status: Acute (2) Bilateral lower extremity edema Status: Acute (3) Cellulitis of both lower extremities Status: Acute (4) Congestive heart failure Status: Acute Brief Hospital Course Allergies Allergies Coded Allergies Type Severity Reaction Last Updated Verified bupropion Allergy Intermediate 04/07/21 Yes latex Allergy Intermediate Rash 04/07/21 Yes Vital Signs Vital Signs Date Time Temp Pulse Resp B/P (MAP) Pulse Ox O2 Delivery O2 Flow Rate FiO2 05/29/21 11:40 96 Room Air 05/29/21 10:42 97.6 83 18 93/58 (70) 97.6 05/29/21 08:00 2.0 Lab Results Laboratory Tests Test 05/27/21 16:20 05/27/21 16:45 05/27/21 20:39 05/28/21 04:15 Glucose (Fingerstick) 178 mg/dL (70-99) 230 mg/dL (70-99) Sodium Level 133 mmol/L (136-145) 133 mmol/L (136-145) Potassium Level 4.4 mmol/L (3.5-5.1) 4.9 mmol/L (3.5-5.1) Chloride Level 98 mmol/L (98-107) 97 mmol/L (98-107) Carbon Dioxide Level 26 mmol/L (21-32) 27 mmol/L (21-32) Anion Gap 9 (6-14) 9 (6-14) Blood Urea Nitrogen 32 mg/dL (7-20) 37 mg/dL (7-20) Creatinine 1.3 mg/dL (0.6-1.0) 1.4 mg/dL (0.6-1.0) Estimated GFR (Cockcroft-Gault) 40.7 37.4 Glucose Level 183 mg/dL (70-99) 207 mg/dL (70-99) Calcium Level 8.4 mg/dL (8.5-10.1) 8.8 mg/dL (8.5-10.1) Vancomycin Level Trough 16.9 mcg/mL (10.0-20.0) Vancomycin Last Dose Date 05/26/21 Vancomycin Last Dose Time 1700 White Blood Count 3.8 x10^3/uL (4.0-11.0) Red Blood Count 3.37 x10^6/uL (3.50-5.40) Hemoglobin 10.5 g/dL (12.0-15.5) Hematocrit 32.4 % (36.0-47.0) Mean Corpuscular Volume 96 fL (79-100) Mean Corpuscular Hemoglobin 31 pg (25-35) Mean Corpuscular Hemoglobin Concent 32 g/dL (31-37) Red Cell Distribution Width 17.4 % (11.5-14.5) Platelet Count 161 x10^3/uL (140-400) Neutrophils (%) (Auto) 85 % (31-73) Lymphocytes (%) (Auto) 10 % (24-48) Monocytes (%) (Auto) 5 % (0-9) Eosinophils (%) (Auto) 0 % (0-3) Basophils (%) (Auto) 0 % (0-3) Neutrophils # (Auto) 3.2 x10^3/uL (1.8-7.7) Lymphocytes # (Auto) 0.4 x10^3/uL (1.0-4.8) Monocytes # (Auto) 0.2 x10^3/uL (0.0-1.1) Eosinophils # (Auto) 0.0 x10^3/uL (0.0-0.7) Basophils # (Auto) 0.0 x10^3/uL (0.0-0.2) BUN/Creatinine Ratio 26 (6-20) Total Bilirubin 0.9 mg/dL (0.2-1.0) Aspartate Amino Transf (AST/SGOT) 30 U/L (15-37) Alanine Aminotransferase (ALT/SGPT) 28 U/L (14-59) Alkaline Phosphatase 166 U/L (46-116) Total Protein 7.0 g/dL (6.4-8.2) Albumin 3.0 g/dL (3.4-5.0) Albumin/Globulin Ratio 0.8 (1.0-1.7) Test 05/28/21 07:40 05/28/21 11:35 05/28/21 16:55 05/28/21 19:50 Glucose (Fingerstick) 167 mg/dL (70-99) 177 mg/dL (70-99) 183 mg/dL (70-99) 184 mg/dL (70-99) Test 05/29/21 04:00 05/29/21 07:34 05/29/21 11:36 Creatinine 1.6 mg/dL (0.6-1.0) Estimated GFR (Cockcroft-Gault) 32.1 Glucose (Fingerstick) 101 mg/dL (70-99) 135 mg/dL (70-99) Laboratory Tests Test 05/28/21 16:55 05/28/21 19:50 05/29/21 04:00 05/29/21 07:34 Glucose (Fingerstick) 183 mg/dL (70-99) 184 mg/dL (70-99) 101 mg/dL (70-99) Creatinine 1.6 mg/dL (0.6-1.0) Estimated GFR (Cockcroft-Gault) 32.1 Test 05/29/21 11:36 Glucose (Fingerstick) 135 mg/dL (70-99) Brief Hospital Course Ms. Velez is a 70 old female, admit wth leg swelling bilaterally and redness, had failure of outpatient augmentin by her primary care. startd on IV vanco, redness better over days. hypoxia on day 2, CHF and COPD, exacerbation of prior problmes, abx, steroids, pulm consult known CHF, better at DC was hypoxia on day 2 resolved at DC will follow with home health eval f/u primary Discharge Information Condition at Discharge: Improved Follow Up: Weeks Disposition/Orders: D/C to Home w/ HH Scheduled Aspirin (Aspirin) 81 Mg Tab.chew, 81 MG PO DAILY for heart health, (Reported) Entered as Reported by: EUGENIO FRANCO on 08/25/20 1205 Last Action: Continued on 05/25/21 1635 by JOSUE MIRANDA Atorvastatin Calcium (Atorvastatin Calcium) 20 Mg Tablet, 20 MG PO HS for FOR C HOLESTEROL, #30 Ref 0 (Reported) Entered as Reported by: EUGENIO FRANCO on 08/25/20 1205 Last Action: Continued on 05/25/21 163 by JOSUE MIRANDA Biotin (Biotin) 2,500 Mcg Capsule, 10,000 MCG PO DAILY for vitamins, (Reported) Entered as Reported by: EUGENIO FRANCO on 08/25/20 1211 Bumetanide (Bumetanide) 1 Mg Tablet, 1 TAB PO DAILY for CHF for 30 Days, #30 Ref 3 Prescribed by: HUSSEIN LYNCH on 02/04/21 1216 Last Action: Continued on 05/25/21 1635 by JOSUE MIRANDA Calcium Citrate/Vitamin D2 (Jeff-Citrate Plus Vitamin D Tab) 1 Each Tablet, 1 TAB PO BID for vitamin for 5 Days, #60 Ref 0 (Reported) Entered as Reported by: EUGENIO FRANCO on 08/25/20 1211 Doxycycline Hyclate (Doxycycline Hyclate) 100 Mg Capsule, 1 CAP PO BID for cellulitis, #10 Prescribed by: JOSUE MIRANDA on 05/29/21 1321 Fluoxetine Hcl (Fluoxetine Hcl) 20 Mg Tablet, 20 MG PO BID for depression, (Reported) Entered as Reported by: EUGENIO FRANCO on 08/25/20 1205 Last Action: Converted on 05/25/21 163 by JOSUE MIRANDA Gabapentin (Gabapentin ) 100 Mg Capsule, 100 MG PO TID for NEUROGENIC PAIN, (Reported) Entered as Reported by: ROGELIO ARREOLA on 02/03/21 1245 Last Action: Continued on 05/25/21 1635 by JOSUE MIRANDA Glucosamine Hcl/Chondr Resendez A Na (Cidaflex Tablet) 1 Each Tablet, 1 TAB PO BID for vitamins for 30 Days, #60 Ref 0 (Reported) Entered as Reported by: EUGENIO FRANCO on 08/25/20 1211 Hydralazine Hcl (Hydralazine Hcl) 10 Mg Tablet, 1 TAB PO TID for blood pressure, #270 Ref 3 (Reported) Entered as Reported by: ROGELIO ARREOLA on 02/03/21 1245 Last Action: Continued on 05/25/21 1635 by JOSUE MIRANDA Hydroxychloroquine Sulfate (Hydroxychloroquine Sulfate) 200 Mg Tablet, 200 MG PO DAILY for arthritis, (Reported) Entered as Reported by: ROGELIO KEN RN on 05/28/21 1128 Last Action: Continued on 05/28/21 1148 by JOSUE MIRANDA Lisinopril (Lisinopril) 40 Mg Tablet, 40 MG PO DAILY for FOR HYPERTENSION, #30 Ref 0 (Reported) Entered as Reported by: EUGENIO FRANCO on 08/25/20 1205 Last Action: HELD on 05/25/21 1635 by JOSUE MIRANDA Mecobalamin (B12 Active) 1,000 Mcg Tab.chew, 2,500 MCG PO DAILY for vitamins, (Reported) Entered as Reported by: EUGENIO FRANCO on 08/25/20 1212 Metformin Hcl (Metformin Hcl) 500 Mg Tablet, 500 MG PO BIDWMEALS for ANTI- DIABETIC for 30 Days, #60 Ref 0 Prescribed by: KATHY HARKINS MD on 08/29/20 1427 Last Action: Continued on 05/25/21 1635 by JOSUE MIRANDA Metoprolol Succinate (Metoprolol Succinate ( Xl )) 25 Mg Tab.er.24h, 25 MG PO DAILY for CHF for 30 Days, #30 Ref 5 Prescribed by: KATHY HARKINS MD on 09/01/20 0807 Last Action: Continued on 05/25/21 1635 by JOSUE MIRANDA Multivitamin (Multi Vitamin Daily) 1 Each Tablet, 1 TAB PO DAILY for vitamins for 30 Days, #30 Ref 0 (Reported) Entered as Reported by: EUGNEIO FRANCO on 08/25/20 1213 Om3-Dha/Epa/D3/Lutein/Zeazanth (Eye [place] Advantage Softgel) 1 Each Capsule, 1 CAP PO BID for eye health for 30 Days, #60 Ref 0 (Reported) Entered as Reported by: EUGENIO FRANCO on 08/25/20 1211 Ubidecarenone (Coq-10) 100 Mg Capsule, 200 MG PO DAILY for vitamin, (Reported) Entered as Reported by: EUGENIO FRANCO on 08/25/20 1211 Umeclidinium Brm/Vilanterol Tr (Anoro Ellipta 62.5-25 Mcg Inh) 1 Each Disk.w.dev, 1 EACH IH DAILY for breathing, (Reported) Entered as Reported by: EUGENIO FRANCO on 08/25/20 1205 Scheduled PRN Albuterol Sulfate (Proair Hfa Inhaler) 8.5 Gm Hfa.aer.ad, 2 PUFF IH PRN Q4-6HRS PRN for wheezing for 21 Days, #1 Ref 0 (Reported) Entered as Reported by: EUGENIO FRANCO on 08/25/20 1205 Patient Instructions Patient Instructions pt seen face to face 33 minutes total coorind Justicifation of Admission Dx: Justifications for Admission: Justification of Admission Dx: Yes CHF: Cardiac Arrhythmias JOSUE MIRANDA MD May 29, 2021 13:27
[2021-05-29] MEDS: VANCOMYCIN PER PHARMACY MC PRN (13:40)
[2021-05-29 14:06] VITALS: BP 101/70
== END 2021-05-29 15:19 | disposition home health service (06) | DRG 602 ==
LOC: ER 11:17 → ED HOLD 14:10 → 6 SOUTH 20:10
PROVIDERS: ADMIT Internal Medicine; ATTEND Internal Medicine
DX: L03.115 Cellulitis of right lower limb (principal); I50.43 Acute on chronic combined systolic (congestive) and diastolic (congestive) heart failure; J96.01 Acute respiratory failure with hypoxia; J44.1 Chronic obstructive pulmonary disease with (acute) exacerbation; F17.210 Nicotine dependence, cigarettes, uncomplicated; I11.0 Hypertensive heart disease with heart failure; I25.10 Atherosclerotic heart disease of native coronary artery without angina pectoris; I25.2 Old myocardial infarction; I25.5 Ischemic cardiomyopathy; L03.116 Cellulitis of left lower limb; M05.10 Rheumatoid lung disease with rheumatoid arthritis of unspecified site; Z90.710 Acquired absence of both cervix and uterus; Z91.11 Patient's noncompliance with dietary regimen; F32.A Depression, unspecified; F41.9 Anxiety disorder, unspecified; G56.03 Carpal tunnel syndrome, bilateral upper limbs; K21.9 Gastro-esophageal reflux disease without esophagitis; S40.861A Insect bite (nonvenomous) of right upper arm, initial encounter; S40.862A Insect bite (nonvenomous) of left upper arm, initial encounter; W57.XXXA Bitten or stung by nonvenomous insect and other nonvenomous arthropods, initial encounter; E11.42 Type 2 diabetes mellitus with diabetic polyneuropathy; Z88.8 Allergy status to other drugs, medicaments and biological substances; Z91.040 Latex allergy status
CPT/HCPCS: 36415; 71045; 80048; 80053; 80202; 81001; 82550; 82565; 82962; 83605; 83735; 83880; 84484; 85025; 87040; 87086; 93005; 93970; 94640; 94760; 96365; 96366; 96367; 96375; G0480; J0456; J1650; J1940; J2930; J3370; J3475; J7040; J7050; J7512; 99285-25; G0378; J7030; J7613

== ENCOUNTER 2021-06-02 03:08 | Inpatient (IN) | payer MEDICARE, BC ==
[~2021-06-02] VITALS: Ht 162.6 cm; Wt 78.3 kg
[~2021-06-02 03:08] MED LIST changes: +DOXY100C3 PO; +HYDR200T5 PO
--- NOTE | 2021-06-02 03:43 | RAD ---
Single view chest dated 06/02/2021 3:39 AM: COMPARISON: 02/04/2021 Clinical Indication: Shortness of breath. Findings: Single upright portable exam of the chest was performed. Heart size is moderately enlarged, stable. 3 -lead left subclavian pacer/AICD in place, unchanged. Lung volumes are low, limiting evaluation. Ther e is perihilar airspace disease with prominent interstitial markings bilaterally, increased from prio r study. Blunting of the right costophrenic sulcus. No pneumothorax. IMPRESSION: 1. Bilateral airspace disease, edema versus atypical pneumonia. Suspected small right pleural effusio n. 2. Stable cardiomegaly. Electronically signed by: Morgan Hammond MD (06/02/2021 3:41 AM) PARUL
--- NOTE | 2021-06-02 03:58 | PHYS DOC ---
Past Medical History Past Medical History: COPD, Diabetes-Type II, Hypertension Additional Past Medical Histor: rheumatoid lung, obesity Past Surgical History: , Hysterectomy, Pacemaker, Other Additional Past Surgical Histo: CARPAL TUNNEL BILAT, inplanted defibrillator Smoking Status: Current Every Day Smoker Alcohol Use: Heavy General Adult EDM: Chief Complaint: SHORTNESS OF BREATH HPI: HPI: Patient is a 70 year old female with history of COPD, tobacco abuse, CHF with EF 20%, rheumatoid lung, DM, HTN, HLD who presents with shortness of breath and chest pain. Patient awoke from sleep at approximately 1 AM. Left-sided chest pain. She has a difficult time describing the quality of the pain. Does not radiate. Was constant for approximately 20-30 minutes, then subsided spontaneously. She felt increasingly short of breath during that timeframe, but states that her shortness of breath has been worsening over several months. Has had a 10 pound weight gain since March. Has increasing lower extremity edema. She is on home Bumex 1 mg 1 time daily. She has severe orthopnea and cannot lay flat at all. She sleeps in a chair for only a few hours at night and wakes frequently due to her dyspnea. States that she can walk a maximum of 10 steps at a time before getting severely winded. Takes 10 to 15 minutes to recover before she can walk any further. She denies any fevers or chills. She has a baseline cough that is unchanged. It is mildly productive of sputum. No known sick contacts. Received 2 doses of COVID-vaccine, has not been boosted. Review of Systems: Review of Systems: Constitutional: Denies fever or chills. [] Eyes: Denies change in visual acuity. [] HENT: Denies nasal congestion or sore throat. [] Respiratory: Reports chronic cough and shortness of breath Cardiovascular: Reports chest pain and bilateral lower extremity edema GI: Denies abdominal pain, nausea, vomiting, bloody stools or diarrhea. [] : Denies dysuria. [] Musculoskeletal: Denies back pain or joint pain. [] Integument: Reports redness on her legs, right greater than left Lymphatic: Denies swollen glands. [] Psychiatric: Denies depression or anxiety. [] Heart Score: C/O Chest Pain: Yes HEART Score for Chest Pain: HEART Score for Chest Pain Response (Comments) Value History Moderately Suspicious 1 ECG Nonspecific Repolarizatio 1 Age > 65 2 Risk Factors >3 Risk Factors or Hx CAD 2 Total 6 Risk Factors: Risk Factors: DM, HTN, HLD, smoking, obesity. Risk Scores: Score 4 - 6: 20.3% MACE over next 6 weeks - Admit for Clinical Observation Score 7 - 10: 72.7% MACE over next 6 weeks - Early Invasive Strategies Allergies: Allergies: Allergies Coded Allergies Type Severity Reaction Last Updated Verified bupropion Allergy Intermediate 04/07/21 Yes latex Allergy Intermediate Rash 04/07/21 Yes Physical Exam: PE: Constitutional: Well developed, well nourished, no acute distress, non-toxic appearance. [] Neck: Normal range of motion, no tenderness, supple, no stridor. [] Cardiovascular:Heart rate regular rhythm, no murmur [] Lungs & Thorax: Mild increased work of breathing at rest. Crackles throughout lung narayan bilaterally, more prominent in bases. Satting 95% on room air Abdomen: Bowel sounds normal, soft, no tenderness, no masses, no pulsatile masses. [] Skin: Warm, dry, no erythema, no rash. [] Back: No tenderness, no CVA tenderness. [] Extremities: Tense lower extremity edema bilaterally with erythema of the shins. Neurologic: Alert and oriented X 3, normal motor function, normal sensory function, no focal deficits noted. [] Psychologic: Affect normal, judgement normal, mood normal. [] Current Patient Data: Vital Signs: Vital Signs Date Time Temp Pulse Resp B/P (MAP) Pulse Ox O2 Delivery O2 Flow Rate FiO2 06/02/21 03:16 98.0 91 22 100/63 (75) 100 Nasal Cannula 2.0 98.0 EKG: EKG: Sinus rhythm. Rate 89. T wave inversion and [address] segment depression in V2 as compared to January 2021 tracing. Radiology/Procedures: Radiology/Procedures: [] Impression: [facility] [address] [place] [address] IMAGING REPORT Signed PATIENT: NIK FLOWERS MACCOUNT: [id number] : 1950 LOCATION: ER AGE: 70 SEX: F EXAM STATUS: PRE ER ORD. PHYSICIAN: CHRISS CHOE MD REASON: sob PROCEDURE: CHEST AP ONLY Single view chest dated 06/02/2021 3:39 AM: COMPARISON: 02/04/2021 Clinical Indication: Shortness of breath. Findings: Single upright portable exam of the chest was performed. Heart size is moderately enlarged, stable. 3-lead left subclavian pacer/AICD in place, unchanged. Lung volumes are low, limiting evaluation. There is perihilar airspace disease with prominent interstitial markings bilaterally, increased from prior study. Blunting of the right costophrenic sulcus. No pneumothorax. IMPRESSION: 1. Bilateral airspace disease, edema versus atypical pneumonia. Suspected small right pleural effusion. 2. Stable cardiomegaly. Electronically signed by: Morgan Hammond MD (06/02/2021 3:41 AM) [facility] [place] DICTATED and SIGNED BY: MORGAN HAMMOND MD DATE: 06/02/21 [id number] Course & Med Decision Making: Course & Med Decision Making Pertinent Labs and Imaging studies reviewed. (See chart for details) Patient is 70-year-old female with history of COPD, CHF with EF 20%, rheumatoid lung, DM, HTN, HLD, obesity, tobacco abuse who presents with chest pain and shortness of breath. Chest pain is now subsided. EKG with some ST segment depression and T wave inversions. Will require serial troponins to exclude myocardial infarction, and given her numerous cardiac risk factors will require admission for chest pain observation. Her vital signs are stable, and she is satting 95% on room air while at rest. She appears significantly volume overloaded on examination peripherally as well as via lung auscultation. Chest x-ray shows evidence of pulmonary edema and left-sided pleural effusion. She has significant orthopnea and exertional dyspnea that is limiting her quality of life significantly, and I feel she would benefit from hospitalization and IV diuresis. Will be COVID-19 PUI, however I feel that CHF is likely the primary rickshaw driver for her presentation. Initial troponin negative. Magnesium 1.5, and potassium only 3.5. Given need for diuresis replacements of each have been ordered. IV Bumex [address] admission orders to hospitalist, Dr. Matos. Amy Disclaimer: Dragon Disclaimer: This electronic medical record was generated, in whole or in part, using a voice recognition dictation system. Departure Departure Impression: Primary Impression: Acute exacerbation of congestive heart failure Additional Impressions: Orthopnea Exertional dyspnea Chest pain Disposition: ADMITTED INPATIENT Admitting Physician: ÁNGEL Weaver) Condition: STABLE Referrals: YONG SANTOS NP (PCP) CHRISS CHOE MD Jun 02, 2021 03:58
[2021-06-02 04:46] LABS: BASO % 0 % (0-3); EOS % 1 % (0-3); HEMATOCRIT 34.9 % (36.0-47.0); HEMOGLOBIN 11.3 g/dL (12.0-15.5); LYMPH # 0.7 x10^3/uL (1.0-4.8); LYMPH % 11 % (24-48); MEAN CORPUSCULAR HEMOGLOBIN 31 pg (25-35); MEAN CORPUSCULAR HGB CONC 32 g/dL (31-37); MEAN CORPUSCULAR VOLUME 95 fL (79-100); MONO # 0.5 x10^3/uL (0.0-1.1); MONO % 8 % (0-9); NEUT # 5.5 x10^3/uL (1.8-7.7); NEUT % 81 % (31-73); PLATELET COUNT 258 x10^3/uL (140-400); RED BLOOD COUNT 3.68 x10^6/uL (3.50-5.40); RED CELL DISTRIBUTION WIDTH 17.6 % (11.5-14.5); WHITE BLOOD COUNT 6.9 x10^3/uL (4.0-11.0)
[2021-06-02 05:00] LABS: CALCIUM 9.1 mg/dL (8.5-10.1); CREATININE 1.4 mg/dL (0.6-1.0); GFR 37.4; POTASSIUM 3.5 mmol/L (3.5-5.1)
[2021-06-02 05:06] LABS: ALBUMIN 3.3 g/dL (3.4-5.0); ALBUMIN/GLOBULIN RATIO 0.8 (1.0-1.7); TOTAL PROTEIN 7.6 g/dL (6.4-8.2)
[2021-06-02] MEDS ORDERED: POTASSIUM CHLORIDE 20MEQ 100 ML IV ONE (05:30)
[2021-06-02] MEDS ORDERED: MAGNESIUM SULFATE 2GM 50 ML IV ONE (06:00)
[2021-06-02] MEDS ORDERED: BUMETANIDE 1 MG/4 ML VIAL. IV ONE (06:00)
[2021-06-02] MEDS ORDERED: POTASSIUM CHLORIDE 20 MEQ TABLET.ER. PO ONE (06:00)
[2021-06-02] MEDS: POTASSIUM CHLORIDE 10MEQ 100 ML IV SCH ×2 (06:43→09:11)
--- NOTE | 2021-06-02 07:46 | PDOC1 ---
History and Physical Date of Admission Date of Admission DATE: 06/02/21 TIME: 07:36 Identification/Chief Complaint Chief Complaint Shortness of breath Source Source: Patient History of Present Illness History of Present Illness Ms Velez is a 70yo F w/ PMHx DM2, HTN, smoker, polymyalgia rheumatica, rheumatoid arthrititis, reduced EF CHF EF 20% s/p AICD who presents to the ED brought in by EMS c/o sudden onset shortness of breath. Patient awoke from sleep at approximately 1 AM with some left-sided chest discomfort and shortness of breath, unable to lay flat. Chest discomfort is a pressure does not radiate. Occasional sharp twinges. A little bit of nausea and anxiety associated as well. Has had a 10 pound weight gain since March. Has increasing lower extremity edema. She is on home Bumex 1 mg 1 time daily. She has been home with home health who have been counseling her on considering hospice. She becomes tearful in talking about this. She has severe orthopnea and cannot lay flat at all. She sleeps in a chair for only a few hours at night and wakes frequently due to her dyspnea. She cannot even walk 10 feet without getting winded. She does not know any discharges of her AICD. No recent sick contacts. She has had 2 mRNA COVID-19 vaccines and is planning on having a booster soon. She denies any fevers or chills. She has a baseline cough that is unchanged. It is mildly productive of sputum. WBC 6.2, Hb 11.3, platelets 258, NA 134, K3.5, BUN 41, CR 1.4, glucose 141, magnesium 1.5, alk phos 139, albumin 3.3 otherwise LFTs within normal laboratory limits, high-sensitivity troponin is 21, NT proBNP greater than 35,000, rapid COVID-19 negative EKG appears sinus rate 89 bpm TWI [address] depression V2. Chest radiograph suspect right pleural effusion cardiomegaly and bilateral airspace disease. Given O2, bumex, replaced mag and K and admitted for further care with cardiology consultation. Past Medical History Cardiovascular: CAD, CHF, HTN Pulmonary: COPD CENTRAL NERVOUS SYSTEM: Carpal Tunnel Syndrome, Periperal neuropathy GI: GERD Hepatobiliary: No pertinent hx Psych: Anxiety, Depression Musculoskeletal: Other Rheumatologic: Other Renal/: No pertinent hx Endocrine: Diabetes Past Surgical History Past Surgical History: Pacemaker (AICD), Cataract Removal, Hysterectomy, Other Family History Family History: Heart Disease Social History Smoke: 1 pack per day ALCOHOL: other Drugs: None Current Problem List Problem List Problems Medical Problems: (1) Acute exacerbation of congestive heart failure Status: Acute (2) Chest pain Status: Acute (3) Exertional dyspnea Status: Acute (4) Orthopnea Status: Acute Current Medications Current Medications Current Medications Potassium Chloride (Klor-Con) 40 meq 1X ONCE PO Last administered on 06/02/21at 06:04; Start 06/02/21 at 06:00; Stop 06/02/21 at 06:02; Status DC Potassium Chloride/Water 100 ml @ 50 mls/hr 1X ONCE IV ; Start 06/02/21 at 05:30; Stop 06/02/21 at 07:29; Status UNV Magnesium Sulfate 50 ml @ 25 mls/hr 1X ONCE IV Last administered on 06/02/21at 06:04; Start 06/02/21 at 06:00; Stop 06/02/21 at 07:59 Bumetanide (Bumex) 2 mg 1X ONCE IV Last administered on 06/02/21at 06:05; Start 06/02/21 at 06:00; Stop 06/02/21 at 06:02; Status DC Potassium Chloride/Water 100 ml @ 100 mls/hr Q1HR IV Last administered on 06/02/21at 06:43; Start 06/02/21 at 06:00; Stop 06/02/21 at 07:59 Active Scripts Active Doxycycline Hyclate 100 Mg Capsule 1 Cap PO BID Bumetanide 1 Mg Tablet 1 Tab PO DAILY 30 Days Metoprolol Succinate ( Xl ) (Metoprolol Succinate) 25 Mg Tab.er.24h 25 Mg PO DAILY 30 Days Metformin Hcl 500 Mg Tablet 500 Mg PO BIDWMEALS 30 Days Reported Hydroxychloroquine Sulfate 200 Mg Tablet 200 Mg PO DAILY Hydralazine Hcl 10 Mg Tablet 1 Tab PO TID Gabapentin (Gabapentin) 100 Mg Capsule 100 Mg PO TID Multi Vitamin Daily (Multivitamin) 1 Each Tablet 1 Tab PO DAILY 30 Days B12 Active (Mecobalamin) 1,000 Mcg Tab.chew 2,500 Mcg PO DAILY [facility] Advantage Softgel (Om3-Dha/Epa/D3/Lutein/Zeazanth) 1 Each Capsule 1 Cap PO BID 30 Days Jeff-Citrate Plus Vitamin D Tab (Calcium Citrate/Vitamin D2) 1 Each Tablet 1 Tab PO BID 5 Days Coq-10 (Ubidecarenone) 100 Mg Capsule 200 Mg PO DAILY Biotin 2,500 Mcg Capsule 10,000 Mcg PO DAILY Cidaflex Tablet (Glucosamine Hcl/Chondr Resendez A Na) 1 Each Tablet 1 Tab PO BID 30 Days Anoro Ellipta 62.5-25 Mcg Inh (Umeclidinium Brm/Vilanterol Tr) 1 Each Disk.w.dev 1 Each IH DAILY Aspirin 81 Mg Tab.chew 81 Mg PO DAILY Lisinopril 40 Mg Tablet 40 Mg PO DAILY Atorvastatin Calcium 20 Mg Tablet 20 Mg PO HS Fluoxetine Hcl 20 Mg Tablet 20 Mg PO BID Proair Hfa Inhaler (Albuterol Sulfate) 8.5 Gm Hfa.aer.ad 2 Puff IH PRN Q4-6HRS PRN 21 Days Allergies Allergies: Coded Allergies: bupropion (Verified Allergy, Intermediate, 06/02/21) latex (Verified Allergy, Intermediate, Rash, 06/02/21) ROS General: YES: Fatigue, Malaise; No: Chills, Night Sweats, Appetite, Other PSYCHOLOGICAL ROS: YES: Anxiety; No: Behavioral Disorder, Concentration difficultie, Decreased libido, Depression, Disorientation, Hallucinations, Hostility, Irritablity, Memory difficulties, Mood Swings, Obsessive thoughts, Physical abuse, Sexual abuse, Sleep disturbances, Suicidal ideation, Other Eyes: No Blurry vision, No Decreased vision, No Double vision, No Dry eyes, No Excessive tearing, No Eye Pain, No Itchy Eyes, No Loss of vision, No Photophobia, No Scotomata, No Uses contacts, No Uses glasses, No Other HEENT: No: Heacaches, Visual Changes, Hearing change, Nasal congestion, Nasal discharge, Oral lesions, Sinus pain, Sore Throat, Epistaxis, Sneezing, Snoring, Tinnitus, Vertigo, Vocal changes, Other ALLERGY AND IMMUNOLOGY: No: Hives, Insect Bite Sensitivity, Itchy/Watery Eyes, Nasal Congestion, Post Nasal Drip, Seasonal Allergies, Other Hematological and Lymphatic: No: Bleeding Problems, Blood Clots, Blood Transfusions, Brusing, Night Sweats, Pallor, Swollen Lymph Nodes, Other ENDOCRINE: No: Breast Changes, Galactorrhea, Hair Pattern Changes, Hot Flashes, Malaise/lethargy, Mood Swings, Palpitations, Polydipsia/polyuria, Skin Changes, Temperature Intolerance, Unexpected Weight Changes, Other Breast: No New/Changing Breast Lumps, No Nipple changes, No Nipple discharge, No Other Respiratory: YES: Cough, Orthopnea, Pleuritic Pain, Shortness of breath, SOB with excertion; No: Hemoptysis, Sputum Changes, Stridor, Tachypnea, Wheezing, Other Cardiovascular: yes Orthopnea, yes Paroxysmal Noc. Dyspnea, yes Edema; No Chest Pain, No Palpitations, No Lt Headedness, No Other Gastrointestinal: No Nausea, No Vomiting, No Abdominal Pain, No Diarrhea, No Constipation, No Melena, No Hematochezia, No Other Genitourinary: No Dysuria, No Frequency, No Incontinence, No Hematuria, No Retention, No Discharge, No Urgency, No Pain, No Flank Pain, No Other, No , No , No , No , No , No , No Musculoskeletal: No Gait Disturbance, No Joint Pain, No Joint Stiffness, No Joint Swelling, No Muscle Pain, No Muscular Weakness, No Pain In:, No Swelling In:, No Other Neurological: No Behavorial Changes, No Bowel/Bladder ControlChng, No Confusion, No Dizziness, No Gait Disturbance, No Headaches, No Impaired Coord/balance, No Memory Loss, No Numbness/Tingling, No Seizures, No Speech Problems, No Tremors, No Visual Changes, No Weakness, No Other Skin: No Dry Skin, No Eczema, No Hair Changes, No Lumps, No Mole Changes, No Mottling, No Nail Changes, No Pruritus, No Rash, No Skin Lesion Changes, No Other, No Acne Physical Exam General: Alert, Oriented X3, Cooperative, moderate distress HEENT: Atraumatic, PERRLA Lungs: Other (bilateral crackles) Heart: S1S2, RRR, no thrills, no rubs, no gallops, no murmurs Abdomen: Normal bowel sounds, Soft, No tenderness, No hepatosplenomegaly, No masses Rectal Exam: not examined Extremities: No clubbing, No cyanosis, Other (Edema 3+) Skin: Other (Venous stasis dermatititis) Neuro: Normal gait, Normal speech, Strength at 5/5 X4 ext, Normal tone, Sensation intact, Cranial nerves 3-12 NL, Reflexes 2+ Psych/Mental Status: Mental status NL, Mood NL Vitals Vitals Vital Signs Date Time Temp Pulse Resp B/P (MAP) Pulse Ox O2 Delivery O2 Flow Rate FiO2 06/02/21 07:14 96.4 85 24 115/64 (81) 100 Nasal Cannula 2.0 96.4 Labs Labs Laboratory Tests Test 06/02/21 03:40 06/02/21 04:35 SARS-CoV-2 Antigen (Rapid) Negative (NEGATIVE) White Blood Count 6.9 x10^3/uL (4.0-11.0) Red Blood Count 3.68 x10^6/uL (3.50-5.40) Hemoglobin 11.3 g/dL (12.0-15.5) Hematocrit 34.9 % (36.0-47.0) Mean Corpuscular Volume 95 fL (79-100) Mean Corpuscular Hemoglobin 31 pg (25-35) Mean Corpuscular Hemoglobin Concent 32 g/dL (31-37) Red Cell Distribution Width 17.6 % (11.5-14.5) Platelet Count 258 x10^3/uL (140-400) Neutrophils (%) (Auto) 81 % (31-73) Lymphocytes (%) (Auto) 11 % (24-48) Monocytes (%) (Auto) 8 % (0-9) Eosinophils (%) (Auto) 1 % (0-3) Basophils (%) (Auto) 0 % (0-3) Neutrophils # (Auto) 5.5 x10^3/uL (1.8-7.7) Lymphocytes # (Auto) 0.7 x10^3/uL (1.0-4.8) Monocytes # (Auto) 0.5 x10^3/uL (0.0-1.1) Eosinophils # (Auto) 0.0 x10^3/uL (0.0-0.7) Basophils # (Auto) 0.0 x10^3/uL (0.0-0.2) Sodium Level 134 mmol/L (136-145) Potassium Level 3.5 mmol/L (3.5-5.1) Chloride Level 97 mmol/L (98-107) Carbon Dioxide Level 25 mmol/L (21-32) Anion Gap 12 (6-14) Blood Urea Nitrogen 41 mg/dL (7-20) Creatinine 1.4 mg/dL (0.6-1.0) Estimated GFR (Cockcroft-Gault) 37.4 BUN/Creatinine Ratio 29 (6-20) Glucose Level 141 mg/dL (70-99) Calcium Level 9.1 mg/dL (8.5-10.1) Magnesium Level 1.5 mg/dL (1.8-2.4) Total Bilirubin 1.0 mg/dL (0.2-1.0) Aspartate Amino Transf (AST/SGOT) 28 U/L (15-37) Alanine Aminotransferase (ALT/SGPT) 32 U/L (14-59) Alkaline Phosphatase 139 U/L (46-116) Troponin I High Sensitivity 21 ng/L (4-50) BE-Qlg-O-Type Natriuretic Peptide > 91714 pg/mL (0-124) Total Protein 7.6 g/dL (6.4-8.2) Albumin 3.3 g/dL (3.4-5.0) Albumin/Globulin Ratio 0.8 (1.0-1.7) Laboratory Tests Test 06/02/21 03:40 06/02/21 04:35 SARS-CoV-2 Antigen (Rapid) Negative (NEGATIVE) White Blood Count 6.9 x10^3/uL (4.0-11.0) Red Blood Count 3.68 x10^6/uL (3.50-5.40) Hemoglobin 11.3 g/dL (12.0-15.5) Hematocrit 34.9 % (36.0-47.0) Mean Corpuscular Volume 95 fL (79-100) Mean Corpuscular Hemoglobin 31 pg (25-35) Mean Corpuscular Hemoglobin Concent 32 g/dL (31-37) Red Cell Distribution Width 17.6 % (11.5-14.5) Platelet Count 258 x10^3/uL (140-400) Neutrophils (%) (Auto) 81 % (31-73) Lymphocytes (%) (Auto) 11 % (24-48) Monocytes (%) (Auto) 8 % (0-9) Eosinophils (%) (Auto) 1 % (0-3) Basophils (%) (Auto) 0 % (0-3) Neutrophils # (Auto) 5.5 x10^3/uL (1.8-7.7) Lymphocytes # (Auto) 0.7 x10^3/uL (1.0-4.8) Monocytes # (Auto) 0.5 x10^3/uL (0.0-1.1) Eosinophils # (Auto) 0.0 x10^3/uL (0.0-0.7) Basophils # (Auto) 0.0 x10^3/uL (0.0-0.2) Sodium Level 134 mmol/L (136-145) Potassium Level 3.5 mmol/L (3.5-5.1) Chloride Level 97 mmol/L (98-107) Carbon Dioxide Level 25 mmol/L (21-32) Anion Gap 12 (6-14) Blood Urea Nitrogen 41 mg/dL (7-20) Creatinine 1.4 mg/dL (0.6-1.0) Estimated GFR (Cockcroft-Gault) 37.4 BUN/Creatinine Ratio 29 (6-20) Glucose Level 141 mg/dL (70-99) Calcium Level 9.1 mg/dL (8.5-10.1) Magnesium Level 1.5 mg/dL (1.8-2.4) Total Bilirubin 1.0 mg/dL (0.2-1.0) Aspartate Amino Transf (AST/SGOT) 28 U/L (15-37) Alanine Aminotransferase (ALT/SGPT) 32 U/L (14-59) Alkaline Phosphatase 139 U/L (46-116) Troponin I High Sensitivity 21 ng/L (4-50) HH-Joy-D-Type Natriuretic Peptide > 34264 pg/mL (0-124) Total Protein 7.6 g/dL (6.4-8.2) Albumin 3.3 g/dL (3.4-5.0) Albumin/Globulin Ratio 0.8 (1.0-1.7) Images Images Chest radiograph: Single upright portable exam of the chest was performed. Heart size is moderately enlarged, stable. 3-lead left subclavian pacer/AICD in place, unchanged. Lung volumes are low, limiting evaluation. There is perihilar airspace disease with prominent interstitial markings bilaterally, increased from prior study. Blunting of the right costophrenic sulcus. No pneumothorax. IMPRESSION: 1. Bilateral airspace disease, edema versus atypical pneumonia. Suspected small right pleural effusion. 2. Stable cardiomegaly. VTE Prophylaxis Ordered VTE Prophylaxis Devices: Yes VTE Pharmacological Prophylaxi: Yes Assessment/Plan Assessment/Plan A/P: Acute respiratory failure with hypoxia - likely combination of COPD exacerbation, CHF and possible pneumonia. Acute systolic CHF - EF 20%, optimized on statin, ASA, toprol xl, lisinopril. AICD. Non-ischemic cardiomyopathy - likely hereditary given her father's history. optimized on meds Abnormal chest radiograph - pulmonary congestion, given her symptoms of chills, cough, COPD needs treatment for COPD exacerbation and likely gram neg pneumonia vs CHF Pulmonary edema - given lasix in ED. BNP elevated consistent with acute diastolic CHF EUGENIA - likely vasomotor nephropathy from sepsis, hypoxia, will monitor renal function. Needs lasix Hypokalemia - likely due to above. Given lasix, insulin Hypomagnesemia - likely hypervolemic and due to poor PO intake, will monitor DM2 - glucose in 300s. will place on high sliding scale HTN - cont home meds HLD - cont statin Polymyalgia rheumatica - not on steroids Morbid obesity - counseling on lifestyle Tobacco abuse - offered nicotine patch, counseled on cessation Anxiety and insomnia - will add buspar prn and zyprexa prn. May need benzos in the future. FEN - Cardiac diet PPX - heparin CODE - DNR/DNI Dispo - inpatient CVC Justifications for Admission Other Justification KATHY HARKINS MD Jun 02, 2021 07:46
[2021-06-02] MEDS ORDERED: ONDANSETRON PF 4 MG/2 ML VIAL. IVP PRN (08:30)
[2021-06-02] MEDS ORDERED: MAGNESIUM SULFATE 1GM 100 ML IV ONE (08:30)
[2021-06-02] MEDS ORDERED: NON FORMULARY ITEM (Ubidecarenone (Coq-10) 200 MG) PO SCH (09:00)
[2021-06-02] MEDS ORDERED: NON FORMULARY ITEM (Glucosamine Hcl/Chondr Su A Na (Cidaflex Tablet) 1 TAB) PO SCH (09:00)
[2021-06-02] MEDS ORDERED: NON FORMULARY ITEM (Biotin 10,000 MCG) PO SCH (09:00)
--- NOTE | 2021-06-02 09:03 | EKG ---
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
[2021-06-02] MEDS: ALBUTEROL SULFATE 2.5 MG/3 ML NEBU. INH PRN (09:17)
--- NOTE | 2021-06-02 10:33 | PDOC2 ---
FOREST ONEAL P[employer]S MAKER 06/02/21 1033: CARDIAC CONSULT DATE OF CONSULT Date of Consult DATE: 06/02/21 TIME: 10:32 REASON FOR CONSULT Reason for Consult: CHF, CP REFERRING PHYSICIAN Referring Physician: Dr. Murphy SOURCE Source: Chart review, Patient HISTORY OF PRESENT ILLNESS HISTORY OF PRESENT ILLNESS This is a 70 yo female who presented secondary to shortness of breath and chest pain. Patient reports chronic baseline shortness of breath and LE edema. This has been worse over the last week or so. Has had 10 pound weight gain over since March. Reports she woke up this morning early with pressure in her left chest. Was very short of breath and felt anxious. Pain did not radiate. Was not diaphoretic or dizzy. SOA persisted so she came to the ED for further evaluation and treatment. PAST MEDICAL HISTORY Past Medical History Cardiovascular: HTN, Hyperlipidemia, CHF, cardiomyopathy Pulmonary: COPD (?) CENTRAL NERVOUS SYSTEM: Carpal Tunnel Syndrome, Periperal neuropathy GI: GERD Hepatobiliary: No pertinent hx Psych: Anxiety, Depression Rheumatologic: Other (PMR) Endocrine: Diabetes (2) PAST SURGICAL HISTORY Past Surgical History Cataract Removal, Hysterectomy, AICD, Other (Carpal tunnel repair) FAMILY HISTORY Family History Heart Disease (father) SOCIAL HISTORY Social History Smoke: <1 pack per day ALCOHOL: social Drugs: None Lives: Alone CURRENT MEDICATIONS CURRENT MEDICATIONS Current Medications Medications (Trade) Dose Ordered Sig/Yvette Route PRN Reason Start Time Stop Time Status Last Admin Dose Admin Potassium Chloride (Klor-Con) 40 meq 1X ONCE PO 06/02/21 06:00 06/02/21 06:02 DC 06/02/21 06:04 Magnesium Sulfate 50 ml @ 25 mls/hr 1X ONCE IV 06/02/21 06:00 06/02/21 07:59 DC 06/02/21 06:04 Bumetanide (Bumex) 2 mg 1X ONCE IV 06/02/21 06:00 06/02/21 06:02 DC 06/02/21 06:05 Potassium Chloride/Water 100 ml @ 100 mls/hr Q1HR IV 06/02/21 06:00 06/02/21 07:59 DC 06/02/21 09:11 Albuterol Sulfate (Ventolin Neb Soln) 2.5 mg PRN Q4HRS PRN INH wheezing 06/02/21 08:30 06/02/21 09:17 ALLERGIES ALLERGIES: Coded Allergies: bupropion (Verified Allergy, Intermediate, 06/02/21) latex (Verified Allergy, Intermediate, Rash, 06/02/21) ROS Review of System 14 point ROS conducted with pertinent positives noted above in HPI PHYSICAL EXAM General: Alert, Oriented X3, Cooperative, No acute distress HEENT: Atraumatic, Mucous membr. moist/pink Lungs: Other (crackles ) Heart: Regular rate (v-paced with underlying SR ) Abdomen: Soft Extremities: Other (2-3+ bilateral LE edema ) Skin: No significant lesion Neuro: Normal speech, Sensation intact Psych/Mental Status: Mental status NL, Mood NL MUSCULOSKELETAL: Osteoarthritic changes both hands VITALS/I&O VITALS/I&O: Vital Signs Date Time Temp Pulse Resp B/P (MAP) Pulse Ox O2 Delivery O2 Flow Rate FiO2 06/02/21 09:21 93 Nasal Cannula 2.0 06/02/21 08:27 88 20 109/61 (77) 06/02/21 07:14 96.4 96.4 LABS Lab: Laboratory Tests Test 06/02/21 03:40 06/02/21 04:35 06/02/21 07:30 06/02/21 08:04 SARS-CoV-2 Antigen (Rapid) Negative (NEGATIVE) White Blood Count 6.9 x10^3/uL (4.0-11.0) Red Blood Count 3.68 x10^6/uL (3.50-5.40) Hemoglobin 11.3 g/dL (12.0-15.5) L Hematocrit 34.9 % (36.0-47.0) L Mean Corpuscular Volume 95 fL (79-100) Mean Corpuscular Hemoglobin 31 pg (25-35) Mean Corpuscular Hemoglobin Concent 32 g/dL (31-37) Red Cell Distribution Width 17.6 % (11.5-14.5) H Platelet Count 258 x10^3/uL (140-400) Neutrophils (%) (Auto) 81 % (31-73) H Lymphocytes (%) (Auto) 11 % (24-48) L Monocytes (%) (Auto) 8 % (0-9) Eosinophils (%) (Auto) 1 % (0-3) Basophils (%) (Auto) 0 % (0-3) Neutrophils # (Auto) 5.5 x10^3/uL (1.8-7.7) Lymphocytes # (Auto) 0.7 x10^3/uL (1.0-4.8) L Monocytes # (Auto) 0.5 x10^3/uL (0.0-1.1) Eosinophils # (Auto) 0.0 x10^3/uL (0.0-0.7) Basophils # (Auto) 0.0 x10^3/uL (0.0-0.2) Sodium Level 134 mmol/L (136-145) L Potassium Level 3.5 mmol/L (3.5-5.1) Chloride Level 97 mmol/L (98-107) L Carbon Dioxide Level 25 mmol/L (21-32) Anion Gap 12 (6-14) Blood Urea Nitrogen 41 mg/dL (7-20) H Creatinine 1.4 mg/dL (0.6-1.0) H Estimated GFR (Cockcroft-Gault) 37.4 BUN/Creatinine Ratio 29 (6-20) H Glucose Level 141 mg/dL (70-99) H Calcium Level 9.1 mg/dL (8.5-10.1) Magnesium Level 1.5 mg/dL (1.8-2.4) L Total Bilirubin 1.0 mg/dL (0.2-1.0) Aspartate Amino Transferase (AST) 28 U/L (15-37) Alanine Aminotransferase (ALT) 32 U/L (14-59) Alkaline Phosphatase 139 U/L (46-116) H Troponin I High Sensitivity 21 ng/L (4-50) 22 ng/L (4-50) PR-Sju-N-Type Natriuretic Peptide > 96839 pg/mL (0-124) H Total Protein 7.6 g/dL (6.4-8.2) Albumin 3.3 g/dL (3.4-5.0) L Albumin/Globulin Ratio 0.8 (1.0-1.7) L Glucose (Fingerstick) 125 mg/dL (70-99) H Laboratory Tests 06/02/21 04:35 Laboratory Tests 06/02/21 04:35 ECHOCARDIOGRAM ECHOCARDIOGRAM <Conclusion> The Left Ventricle is moderately dilated. The systolic function is severely impaired. Left ventricular systolic function is 20 to 25%. There is severe global hypokinesis of the left ventricle. The aortic valve is severely calcified. Doppler and Color Flow revealed trace to mild aortic regurgitation. Calculated aortic valve area is 0.7 cm2 with maximum pressure gradient of 37 m mHg and mean pressure gradient of 20 mmHg. There is at least moderately severe valvular aortic stenosis. Doppler and Color-flow revealed moderate mitral regurgitation. Doppler and Color Flow revealed moderate tricuspid regurgitation. The pulmonary artery systolic pressure is estimated at 45-50 mmHg. DATE: 01/01/21 [id number] 0 HEART CATH HEART CATH Conclusion 1. No significant coronary artery disease 2. Mild to moderate pulmonary hypertension probably secondary to elevated left- sided filling pressures as evidenced by elevated PCWP and LVEDP. 3. No evidence of intracardiac shunt. Recommendations Optimization of medical therapy for nonischemic cardiomyopathy. Repeat 2D echo in 3 months to evaluate the need for AICD implantation. DATE: 08/26/20 [id number] 0 ASSESSMENT/PLAN ASSESSMENT/PLAN 1. Acute respiratory failure with a/c CHF 2. Acute on chronic systolic CHF; better compensated s/p IV diuresis 3. NICM; Echo 01/03 with LVEF 20%. S/p AICD/TRANSFORMATION CONSULTANT-D (Biotronik) 4. Hypertension; low end 5. Hyperlipidemia; statin 6. Diabetes, II 7. CKD; Cr stable per review 8. Hypomagnesemia; replaced 9. Tobaccoism; reinforced cessation Recommendations Diuresis with close monitoring of renal function Monitor I and O, daily weight 2000cc FR HF optimization with Toprol, lisinopril. Hold lisinopril as warranted for hypotension Supportive care BENNY POLO MD 06/02/21 1628: CARDIAC CONSULT ASSESSMENT/PLAN ASSESSMENT/PLAN Patient seen and examined. Agree with FIT MODEL's assessment and plan. Continue diuresis for acute on chronic systolic heart failure. Recent cardiac catheterization did not show any significant coronary artery disease. Recent biventricular ICD/TRANSFORMATION CONSULTANT-D interrogation showed normal function. Thank you for your consultation FOREST ONEAL APRN Jun 02, 2021 10:33 BENNY POLO MD Jun 02, 2021 16:28
[2021-06-02] MEDS: ASPIRIN CHEWABLE 81 MG TABLET. PO SCH (10:51)
[2021-06-02] MEDS: GABAPENTIN 100 MG CAPSULE. PO SCH ×2 (10:51→14:40)
[2021-06-02] MEDS: HYDROXYCHLOROQUINE 200 MG TABLET PO SCH (10:52)
[2021-06-02] MEDS: MULTIVITAMIN with MINERAL TABLET. PO SCH (10:52)
[2021-06-02] MEDS: METOPROLOL SUCC 24HR ER 25 MG TAB.ER.24H. PO SCH (10:52)
[2021-06-02] MEDS: ALBUTEROL SULFATE 2.5 MG/3 ML NEBU. NEB SCH ×3 (12:26→20:08)
[2021-06-02] MEDS: LISINOPRIL 20 MG TABLET PO SCH (13:23)
[2021-06-02] MEDS: hydrALAZINE 10 MG TABLET PO SCH ×3 (13:23→21:00)
[2021-06-02] MEDS: HEPARIN for SUB-Q USE 5,000 UNIT/ML VIAL. SQ SCH (14:39)
[2021-06-02] MEDS: BUMETANIDE 2.5 MG/10 ML VIAL. IV SCH (14:40)
[2021-06-02] MEDS: FLUoxetine HCL 20 MG CAPSULE PO SCH (14:40)
[2021-06-02 16:00] VITALS: BP 81/53
--- NOTE | 2021-06-02 16:00 | NUR ---
Arrived to the unit by cart. Alert and oriented x'4. Oriented to room and controls. Side rails up x's 2 with call light in reach. Spoke with cardiology about low BP instructed to monitor.
[2021-06-02] MEDS: CALCIUM CARB/VIT D3 500/200 TABLET. PO SCH (17:45)
[2021-06-02 19:11] VITALS: BP 83/50
[2021-06-02] MEDS: BUDESONIDE 0.5 MG/2 ML NEBU. NEB SCH (20:08)
[2021-06-02 22:44] VITALS: BP 85/57
[2021-06-03] MEDS: MULTIVITAMIN I-VITE TABLET. PO SCH ×3 (00:08→21:34)
[2021-06-03] MEDS: GABAPENTIN 100 MG CAPSULE. PO SCH ×4 (00:09→21:34)
[2021-06-03] MEDS: FLUoxetine HCL 20 MG CAPSULE PO SCH ×3 (00:09→21:34)
[2021-06-03] MEDS: ATORVASTATIN CALCIUM 20 MG TABLET PO SCH ×2 (00:09→21:34)
[2021-06-03] MEDS: HEPARIN for SUB-Q USE 5,000 UNIT/ML VIAL. SQ SCH ×4 (00:19→21:36)
[2021-06-03] MEDS: ALBUTEROL SULFATE 2.5 MG/3 ML NEBU. INH PRN (00:29)
[2021-06-03 02:24] VITALS: BP 81/63
[2021-06-03 05:06] LABS: CALCIUM 8.5 mg/dL (8.5-10.1); CREATININE 1.4 mg/dL (0.6-1.0); GFR 37.4; MAGNESIUM 1.8 mg/dL (1.8-2.4); POTASSIUM 4.1 mmol/L (3.5-5.1)
[2021-06-03] MEDS: BUDESONIDE 0.5 MG/2 ML NEBU. NEB SCH ×2 (06:35→19:56)
[2021-06-03] MEDS: ALBUTEROL SULFATE 2.5 MG/3 ML NEBU. NEB SCH ×4 (06:35→19:56)
[2021-06-03 07:00] VITALS: BP 92/69
--- NOTE | 2021-06-03 07:49 | PDOC ---
[facility] PROGRESS NOTE Date of Service DOS: DATE: 06/03/21 TIME: 07:40 Chief Complaint Chief Complaint A/P: Acute respiratory failure with hypoxia - likely combination of COPD exacerbation, CHF and possible pneumonia. Acute systolic CHF - EF 20%, optimized on statin, ASA, toprol xl, lisinopril. AICD. Non-ischemic cardiomyopathy - likely hereditary given her father's history. optimized on meds Abnormal chest radiograph - pulmonary congestion, given her symptoms of chills, cough, COPD needs treatment for COPD exacerbation and likely gram neg pneumonia vs CHF Pulmonary edema - given lasix in ED. BNP elevated consistent with acute diastolic CHF ?EUGENIA - Cr 1.4 may be baseline Hypokalemia - likely due to above. Given lasix, insulin Hypomagnesemia - likely hypervolemic and due to poor PO intake, will monitor DM2 - glucose in 300s. will place on high sliding scale HTN - cont home meds HLD - cont statin Polymyalgia rheumatica - not on steroids Morbid obesity - counseling on lifestyle Tobacco abuse - offered nicotine patch, counseled on cessation Anxiety and insomnia - will add buspar prn and zyprexa prn. May need benzos in the future. FEN - Cardiac diet PPX - heparin CODE - DNR/DNI Dispo - inpatient CVC History of Present Illness History of Present Illness Ms Velez is a 70yo F w/ PMHx DM2, HTN, smoker, polymyalgia rheumatica, rheumatoid arthrititis, reduced EF CHF EF 20% s/p AICD who presents to the ED brought in by EMS c/o sudden onset shortness of breath. Patient awoke from sleep at approximately 1 AM with some left-sided chest discomfort and shortness of breath, unable to lay flat. Chest discomfort is a pressure does not radiate. Occasional sharp twinges. A little bit of nausea and anxiety associated as well. Has had a 10 pound weight gain since March. Has increasing lower extremity edema. She is on home Bumex 1 mg 1 time daily. She has been home with home health who have been counseling her on considering hospice. She becomes tearful in talking about this. She has severe orthopnea and cannot lay flat at all. She sleeps in a chair for only a few hours at night and wakes frequently due to her dyspnea. She cannot even walk 10 feet without getting winded. She does not know any discharges of her AICD. No recent sick contacts. She has had 2 mRNA COVID-19 vaccines and is planning on having a booster soon. She denies any fevers or chills. She has a baseline cough that is unchanged. It is mildly productive of sputum. WBC 6.2, Hb 11.3, platelets 258, NA 134, K3.5, BUN 41, CR 1.4, glucose 141, magnesium 1.5, alk phos 139, albumin 3.3 otherwise LFTs within normal laboratory limits, high-sensitivity troponin is 21, NT proBNP greater than 35,000, rapid COVID-19 negative EKG appears sinus rate 89 bpm TWI [address] depression V2. Chest radiograph suspect right pleural effusion cardiomegaly and bilateral airspace disease. Given O2, bumex, replaced mag and K and admitted for further care with car diology consultation. 06/03: Still short of breath but feels her swelling has improved a little bit. No chest pain. Still wheezing. She thinks she diuresed well urine was not all collected overnight. Still on IV Bumex Vitals/I&O Vitals/I&O: Vital Signs Date Time Temp Pulse Resp B/P (MAP) Pulse Ox O2 Delivery O2 Flow Rate FiO2 06/03/21 06:35 98 Room Air 06/03/21 02:24 98.1 88 20 81/63 (69) 98.1 06/02/21 20:00 2.0 I & O 06/02/21 06/02/21 06/03/21 15:00 23:00 07:00 Intake Total 300 ml 680 ml 500 ml Output Total 300 ml Balance 300 ml 680 ml 200 ml Physical Exam General: Alert, Oriented X3, Cooperative, No acute distress Heart: Regular rate (v-paced with underlying SR ) Lungs: Clear Abdomen: Soft Extremities: Other (2-3+ bilateral LE edema ) Skin: No significant lesion Labs Labs: Laboratory Tests Test 06/02/21 08:04 06/02/21 10:00 06/02/21 20:33 06/03/21 03:25 Glucose (Fingerstick) 125 mg/dL (70-99) 151 mg/dL (70-99) Troponin I High Sensitivity 19 ng/L (4-50) Sodium Level 134 mmol/L (136-145) Potassium Level 4.1 mmol/L (3.5-5.1) Chloride Level 98 mmol/L (98-107) Carbon Dioxide Level 26 mmol/L (21-32) Anion Gap 10 (6-14) Blood Urea Nitrogen 35 mg/dL (7-20) Creatinine 1.4 mg/dL (0.6-1.0) Estimated GFR (Cockcroft-Gault) 37.4 Glucose Level 109 mg/dL (70-99) Calcium Level 8.5 mg/dL (8.5-10.1) Magnesium Level 1.8 mg/dL (1.8-2.4) Assessment and Plan Assessmemt and Plan Problems Medical Problems: (1) Acute exacerbation of congestive heart failure Status: Acute (2) Chest pain Status: Acute (3) Exertional dyspnea Status: Acute (4) Orthopnea Status: Acute Comment Review of Relevant I have reviewed the following items yan (where applicable) has been applied. Medications: Current Medications Medications (Trade) Dose Ordered Sig/Yvette Route PRN Reason Start Time Stop Time Status Last Admin Dose Admin Magnesium Sulfate/ Dextrose 100 ml @ 100 mls/hr 1X ONCE IV 06/02/21 08:30 06/02/21 10:39 DC 06/02/21 10:50 Albuterol Sulfate (Ventolin Neb Soln) 2.5 mg PRN Q4HRS PRN INH wheezing 06/02/21 08:30 06/03/21 00:29 Aspirin (Aspirin Chewable) 81 mg DAILY PO 06/02/21 09:00 06/02/21 10:51 Atorvastatin Calcium (Lipitor) 20 mg HS PO 06/02/21 21:00 06/03/21 00:09 Gabapentin (Neurontin) 100 mg TID PO 06/02/21 09:00 06/03/21 00:09 Hydroxychloroquine Sulfate (Plaquenil) 200 mg DAILY PO 06/02/21 09:00 06/02/21 10:52 Metoprolol Succinate (Toprol Xl) 25 mg DAILY PO 06/02/21 09:00 06/02/21 10:52 Calcium/Vitamin D (Oscal D 500mg/ 200uts) 1 tab BIDWMEALS PO 06/02/21 17:00 06/02/21 17:45 Fluoxetine HCl (PROzac) 20 mg BID PO 06/02/21 10:00 06/03/21 00:09 Multivitamins (Thera M Plus) 1 tab DAILY PO 06/02/21 09:00 06/02/21 10:52 Multivitamins/ Minerals (I-Alli) 1 tab BID PO 06/02/21 21:00 06/03/21 00:08 Budesonide (Pulmicort) 0.5 mg RTBID NEB 06/02/21 20:00 06/03/21 06:35 Heparin Sodium (Porcine) (Heparin Sodium) 5,000 unit Q8HRS SQ 06/02/21 14:00 06/03/21 07:23 Albuterol Sulfate (Ventolin Neb Soln) 2.5 mg RTQID NEB 06/02/21 12:00 06/03/21 06:35 Bumetanide (Bumex) 2 mg DAILY IV 06/02/21 14:15 06/02/21 14:40 Justifications for Admission Other Justification KATHY HARKINS MD Jun 03, 2021 07:49
[2021-06-03] MEDS: CALCIUM CARB/VIT D3 500/200 TABLET. PO SCH ×2 (08:43→16:18)
[2021-06-03] MEDS: HYDROXYCHLOROQUINE 200 MG TABLET PO SCH (08:44)
[2021-06-03] MEDS: ASPIRIN CHEWABLE 81 MG TABLET. PO SCH (08:44)
[2021-06-03] MEDS: MULTIVITAMIN with MINERAL TABLET. PO SCH (08:44)
[2021-06-03] MEDS: CYANOCOBALAMIN (VITAMIN B-12) 1,000 MCG TABLET. PO SCH (08:44)
[2021-06-03] MEDS: LISINOPRIL 20 MG TABLET PO SCH (08:45)
[2021-06-03] MEDS: BUMETANIDE 2.5 MG/10 ML VIAL. IV SCH (08:46)
[2021-06-03] MEDS: hydrALAZINE 10 MG TABLET PO SCH ×3 (08:46→21:35)
[2021-06-03] MEDS: METOPROLOL SUCC 24HR ER 25 MG TAB.ER.24H. PO SCH (08:47)
[2021-06-03 11:00] VITALS: BP 94/68
--- NOTE | 2021-06-03 12:33 | PDOC ---
FOREST [employer]GER 06/03/21 1232: CARDIO Progress Notes Date and Time Date of Service 06/03/21 Time of Evaluation 1110 Subjective Subjective: No Chest Pain, No Palpitations, No Dizziness, Other (abdominal swelling improved ) Vitals Vitals Vital Signs Date Time Temp Pulse Resp B/P (MAP) Pulse Ox O2 Delivery O2 Flow Rate FiO2 06/03/21 11:36 95 Room Air 06/03/21 11:00 97.3 86 20 94/68 (77) 97.3 06/03/21 08:14 2.0 Weight Weight [ ] Input and Output Intake and Output Intake and Output 06/03/21 07:00 Intake Total 1480 ml Output Total 300 ml Balance 1180 ml Intake Oral 1180 ml IV Total 300 ml Output Urine Total 300 ml # Voids 1 Laboratory Labs Laboratory Tests Test 06/02/21 20:33 06/03/21 03:25 06/03/21 08:17 06/03/21 11:42 Glucose (Fingerstick) 151 mg/dL (70-99) 110 mg/dL (70-99) 179 mg/dL (70-99) Sodium Level 134 mmol/L (136-145) Potassium Level 4.1 mmol/L (3.5-5.1) Chloride Level 98 mmol/L (98-107) Carbon Dioxide Level 26 mmol/L (21-32) Anion Gap 10 (6-14) Blood Urea Nitrogen 35 mg/dL (7-20) Creatinine 1.4 mg/dL (0.6-1.0) Estimated GFR (Cockcroft-Gault) 37.4 Glucose Level 109 mg/dL (70-99) Calcium Level 8.5 mg/dL (8.5-10.1) Magnesium Level 1.8 mg/dL (1.8-2.4) Physical Exam HEENT: Neck Supple W Full Motion Chest: Symmetric LUNGS: Other (diminished bases) Heart: S1S2, RRR, other (v-paced with underlying SR) Abdomen: Soft N/T Extremities: Other (2+ bilateral LE edema ) Neurology: alert, oriented, follow commands Assessment Assessment 1. Acute respiratory failure with a/c CHF 2. Acute on chronic systolic CHF; better compensated s/p IV diuresis 3. NICM; LHC 09/03 without significant CAD. Echo 01/03 with LVEF 20%. S/p BiV AICD/CABLE DRILLER-D (Biotronik). recent interrogation with normal function 4. Hypertension; low end 5. Hyperlipidemia; statin 6. Diabetes, II 7. CKD; Cr stable per review 8. Tobaccoism; reinforced cessation Recommendations Diuresis with close monitoring of renal function. Will give additional dose of Bumex this afternoon Accurate I and O. Daily weights Continue HF optimization with Toprol, lisinopril as BP allows Add spironolactone Supportive care Justicifation of Admission Dx: Justifications for Admission: Justification of Admission Dx: Yes CHF: Cardiac Arrhythmias BENNY POLO MD 06/03/212112: CARDIO Progress Notes Assessment Assessment Patient seen and examined. Agree with PRESIDENTIAL HELICOPTER CREW CHIEF's assessment and plan. Acute on chronic systolic heart failure - agree with additional dose of bumex and adding spironolactone Recent cardiac catheterization did not show any significant coronary artery disease. Recent biventricular ICD/CABLE DRILLER-D interrogation showed normal function. FOREST ONEAL APRN Jun 03, 2021 12:32 BENNY POLO MD Jun 03, 2021 21:13
[2021-06-03] MEDS: SPIRONOLACTONE 25 MG TABLET PO SCH (13:23)
[2021-06-03] MEDS ORDERED: BUMETANIDE 1 MG TABLET. PO ONE (14:00)
[2021-06-03] MEDS ORDERED: POTASSIUM CHLORIDE 20 MEQ TABLET.ER. PO ONE (14:00)
[2021-06-03 15:00] VITALS: BP 104/76
[2021-06-03 19:00] VITALS: BP 95/67
[2021-06-03 22:35] VITALS: BP 104/72
[2021-06-04 03:00] VITALS: BP 110/75
[2021-06-04] MEDS: HEPARIN for SUB-Q USE 5,000 UNIT/ML VIAL. SQ SCH ×3 (05:47→21:41)
[2021-06-04] MEDS: ALBUTEROL SULFATE 2.5 MG/3 ML NEBU. NEB SCH ×4 (06:19→21:00)
[2021-06-04] MEDS: BUDESONIDE 0.5 MG/2 ML NEBU. NEB SCH ×2 (06:19→21:00)
[2021-06-04 06:56] LABS: CALCIUM 8.7 mg/dL (8.5-10.1); CREATININE 1.4 mg/dL (0.6-1.0); GFR 37.4; MAGNESIUM 1.9 mg/dL (1.8-2.4); POTASSIUM 4.4 mmol/L (3.5-5.1)
[2021-06-04 07:00] VITALS: BP 106/62
[2021-06-04] MEDS: hydrALAZINE 10 MG TABLET PO SCH ×3 (09:00→21:40)
[2021-06-04] MEDS: LISINOPRIL 20 MG TABLET PO SCH (09:00)
[2021-06-04] MEDS: ASPIRIN CHEWABLE 81 MG TABLET. PO SCH (09:37)
[2021-06-04] MEDS: FLUoxetine HCL 20 MG CAPSULE PO SCH ×2 (09:37→21:40)
[2021-06-04] MEDS: HYDROXYCHLOROQUINE 200 MG TABLET PO SCH (09:37)
[2021-06-04] MEDS: GABAPENTIN 100 MG CAPSULE. PO SCH ×3 (09:38→21:40)
[2021-06-04] MEDS: CYANOCOBALAMIN (VITAMIN B-12) 1,000 MCG TABLET. PO SCH (09:38)
[2021-06-04] MEDS: MULTIVITAMIN with MINERAL TABLET. PO SCH (09:38)
[2021-06-04] MEDS: CALCIUM CARB/VIT D3 500/200 TABLET. PO SCH ×2 (09:38→18:23)
[2021-06-04] MEDS: SPIRONOLACTONE 25 MG TABLET PO SCH (09:39)
[2021-06-04] MEDS: BUMETANIDE 2.5 MG/10 ML VIAL. IV SCH (09:39)
[2021-06-04] MEDS: METOPROLOL SUCC 24HR ER 25 MG TAB.ER.24H. PO SCH (09:42)
[2021-06-04 11:00] VITALS: BP 97/56
[2021-06-04] MEDS ORDERED: MILRINONE 20MG/100ML PREMIX 100 ML IV PRN (11:30)
--- NOTE | 2021-06-04 11:35 | PDOC ---
HUSSEIN LYNCH DIAL MARKER 06/04/21 1135: CARDIO Progress Notes Date and Time Date of Service 06/04/2021 Time of Evaluation 1110 Subjective Subjective: No Chest Pain, No Palpitations, Other (still has SOA) Vitals Vitals Vital Signs Date Time Temp Pulse Resp B/P (MAP) Pulse Ox O2 Delivery O2 Flow Rate FiO2 06/04/21 09:42 87 106/62 06/04/21 07:00 98.1 18 95 Room Air 98.1 06/03/21 08:14 2.0 Weight Weight [ ] Input and Output Intake and Output Intake and Output 06/04/21 07:00 Intake Total 1490 ml Output Total 900 ml Balance 590 ml Intake Oral 1490 ml Output Urine Total 900 ml Laboratory Labs Laboratory Tests Test 06/03/21 11:42 06/03/21 17:29 06/03/21 20:47 06/04/21 04:50 Glucose (Fingerstick) 179 mg/dL (70-99) 117 mg/dL (70-99) 125 mg/dL (70-99) Sodium Level 136 mmol/L (136-145) Potassium Level 4.4 mmol/L (3.5-5.1) Chloride Level 98 mmol/L (98-107) Carbon Dioxide Level 28 mmol/L (21-32) Anion Gap 10 (6-14) Blood Urea Nitrogen 36 mg/dL (7-20) Creatinine 1.4 mg/dL (0.6-1.0) Estimated GFR (Cockcroft-Gault) 37.4 Glucose Level 119 mg/dL (70-99) Calcium Level 8.7 mg/dL (8.5-10.1) Magnesium Level 1.9 mg/dL (1.8-2.4) Test 06/04/21 08:08 Glucose (Fingerstick) 107 mg/dL (70-99) Physical Exam HEENT: Neck Supple W Full Motion Chest: Symmetric LUNGS: Other (diminsihed with diffuse wheeze) Heart: S1S2, RRR (SR), other (v-paced with underlying SR) Abdomen: Soft N/T Extremities: Other (3-4+ bilateral LE edema ) Neurology: alert, oriented, follow commands Assessment Assessment 1. Acute respiratory failure with a/c CHF 2. Acute on chronic systolic CHF 3. NICM; LHC 09/03 without significant CAD. Echo 01/03 with LVEF 20%. S/p BiV AICD/TRUCK LOADER AND UNLOADER-D (Biotronik). recent interrogation with normal function 4. Hypertension; low end 5. Hyperlipidemia; statin 6. Diabetes, II 7. CKD; Cr stable per review 8. Tobaccoism; reinforced cessation 9. AECOPD: defer to PCP Recommendations Continue bumex. Start on milrinone xtra dose of bumex this afternoon Accurate I and O. Daily weights Continue HF optimization with Toprol, lisinopril as BP allows. Solumedrol x1 Supportive care Justicifation of Admission Dx: Justifications for Admission: Justification of Admission Dx: Yes CHF: Cardiac Arrhythmias BENNY POLO MD 06/05/21 0604: CARDIO Progress Notes Assessment Assessment Patient seen and examined. Agree with STRUCTURAL IRONWORKER's assessment and plan. Acute on chronic systolic heart failure improved but still decompensated - agree with starting milrinone for inotropic support, continue bumex Recent cardiac catheterization did not show any significant coronary artery disease. Recent biventricular ICD/TRUCK LOADER AND UNLOADER-D interrogation showed normal function. HUSSEIN YLNCH APRN Jun 04, 2021 11:35 BENNY POLO MD Jun 05, 2021 06:04
[2021-06-04] MEDS ORDERED: guaiFENesin DM 200MG/20MG 10 ML SYRUP PO PRN (12:15)
[2021-06-04] MEDS: MULTIVITAMIN I-VITE TABLET. PO SCH ×2 (12:19→21:39)
--- NOTE | 2021-06-04 12:23 | PDOC ---
[facility] [facility] PROGRESS NOTE Date of Service DOS: DATE: 06/04/21 TIME: 12:21 Chief Complaint Chief Complaint A/P: Acute respiratory failure with hypoxia - likely combination of COPD exacerbation, CHF and possible pneumonia. Acute systolic CHF - EF 20%, optimized on statin, ASA, toprol xl, lisinopril. AICD. Non-ischemic cardiomyopathy - likely hereditary given her father's history. optimized on meds Abnormal chest radiograph - pulmonary congestion, given her symptoms of chills, cough, COPD needs treatment for COPD exacerbation and likely gram neg pneumonia vs CHF Pulmonary edema - given lasix in ED. BNP elevated consistent with acute diastolic CHF ?EUGEINA - Cr 1.4 may be baseline Hypokalemia - likely due to above. Given lasix, insulin Hypomagnesemia - likely hypervolemic and due to poor PO intake, will monitor DM2 - glucose in 300s. will place on high sliding scale HTN - cont home meds HLD - cont statin Polymyalgia rheumatica - not on steroids Morbid obesity - counseling on lifestyle Tobacco abuse - offered nicotine patch, counseled on cessation Anxiety and insomnia - will add buspar prn and zyprexa prn. May need benzos in the future. FEN - Cardiac diet PPX - heparin CODE - DNR/DNI Dispo - inpatient [facility]VC History of Present Illness History of Present Illness Ms Velez is a 70yo F w/ PMHx DM2, HTN, smoker, polymyalgia rheumatica, rheumatoid arthrititis, reduced EF CHF EF 20% s/p AICD who presents to the ED brought in by EMS c/o sudden onset shortness of breath. Patient awoke from sleep at approximately 1 AM with some left-sided chest discomfort and shortness of breath, unable to lay flat. Chest discomfort is a pressure does not radiate. Occasional sharp twinges. A little bit of nausea and anxiety associated as well. Has had a 10 pound weight gain since March. Has increasing lower extremity edema. She is on home Bumex 1 mg 1 time daily. She has been home with home health who have been counseling her on considering hospice. She becomes tearful in talking about this. She has severe orthopnea and cannot lay flat at all. She sleeps in a chair for only a few hours at night and wakes frequently due to her dyspnea. She cannot even walk 10 feet without getting winded. She does not know any discharges of her AICD. No recent sick contacts. She has had 2 mRNA COVID-19 vaccines and is planning on having a booster soon. She denies any fevers or chills. She has a baseline cough that is unchanged. It is mildly productive of sputum. WBC 6.2, Hb 11.3, platelets 258, NA 134, K3.5, BUN 41, CR 1.4, glucose 141, magnesium 1.5, alk phos 139, albumin 3.3 otherwise LFTs within normal laboratory limits, high-sensitivity troponin is 21, NT proBNP greater than 35,000, rapid COVID-19 negative EKG appears sinus rate 89 bpm TWI [address] depression V2. Chest radiograph suspect right pleural effusion cardiomegaly and bilateral airspace disease. Given O2, bumex, replaced mag and K and admitted for further care with car diology consultation. 06/03: Still short of breath but feels her swelling has improved a little bit. No chest pain. Still wheezing. She thinks she diuresed well urine was not all collected overnight. Still on IV Bumex 06/04: Short of breath a little depressed. Still requiring O2 and wheezing. Tolerating IV Bumex. Per cardiology started on milrinone starting IV Solu- Medrol today. She is wondering when she should call her sons and is pretty contemplative about palliative care or hospice in the near future. She still wants to continue current care Vitals/I&O Vitals/I&O: Vital Signs Date Time Temp Pulse Resp B/P (MAP) Pulse Ox O2 Delivery O2 Flow Rate FiO2 06/04/21 11:54 99 Nasal Cannula 2.0 06/04/21 11:00 97.8 88 20 97/56 (70) 97.8 I & O 06/03/21 06/03/21 06/04/21 15:00 23:00 07:00 Intake Total 480 ml 510 ml 500 ml Output Total 900 ml Balance 480 ml -390 ml 500 ml Physical Exam General: Alert, Oriented X3, Cooperative, No acute distress Heart: Regular rate (v-paced with underlying SR ) Lungs: Clear Abdomen: Soft Extremities: Other (2-3+ bilateral LE edema ) Skin: No significant lesion Labs Labs: Laboratory Tests Test 06/03/21 17:29 06/03/21 20:47 06/04/21 04:50 06/04/21 08:08 Glucose (Fingerstick) 117 mg/dL (70-99) 125 mg/dL (70-99) 107 mg/dL (70-99) Sodium Level 136 mmol/L (136-145) Potassium Level 4.4 mmol/L (3.5-5.1) Chloride Level 98 mmol/L (98-107) Carbon Dioxide Level 28 mmol/L (21-32) Anion Gap 10 (6-14) Blood Urea Nitrogen 36 mg/dL (7-20) Creatinine 1.4 mg/dL (0.6-1.0) Estimated GFR (Cockcroft-Gault) 37.4 Glucose Level 119 mg/dL (70-99) Calcium Level 8.7 mg/dL (8.5-10.1) Magnesium Level 1.9 mg/dL (1.8-2.4) Test 06/04/21 11:34 Glucose (Fingerstick) 128 mg/dL (70-99) Assessment and Plan Assessmemt and Plan Problems Medical Problems: (1) Acute exacerbation of congestive heart failure Status: Acute (2) Chest pain Status: Acute (3) Exertional dyspnea Status: Acute (4) Orthopnea Status: Acute Comment Review of Relevant I have reviewed the following items yan (where applicable) has been applied. Medications: Current Medications Medications (Trade) Dose Ordered Sig/Yvette Route PRN Reason Start Time Stop Time Status Last Admin Dose Admin Bumetanide (Bumex) 2 mg 1X ONCE PO 06/03/21 14:00 06/03/21 14:01 DC 06/03/21 13:23 Potassium Chloride (Klor-Con) 20 meq 1X ONCE PO 06/03/21 14:00 06/03/21 14:01 DC 06/03/21 13:23 Spironolactone (Aldactone) 25 mg DAILY PO 06/03/21 13:00 06/04/21 09:39 Justifications for Admission Other Justification KATHY HARKINS MD Jun 04, 2021 12:23
[2021-06-04] MEDS ORDERED: methylPREDNISolone SOD SUCC PF 125 MG/2 ML VIAL. IV ONE (12:30)
[2021-06-04 15:00] VITALS: BP 123/59
[2021-06-04 19:01] VITALS: BP 91/57
--- NOTE | 2021-06-04 19:40 | NUR ---
PT SITTING ON SIDE OF BED, ASSESSMENT COMPLETED VSS POC EXPLAINED PT DENIED PAIN AT THIS TIME PT ENCOURAGED TO ELEVATED LOWER EXTREMITIES CALL LIGHT IN REACH WILL RESUME CARE AND CONTINUE TO MONITOR PT.
[2021-06-04] MEDS: ATORVASTATIN CALCIUM 20 MG TABLET PO SCH (21:40)
[2021-06-04 22:38] VITALS: BP 110/64
[2021-06-05] VITALS (14 sets, daily range): BP systolic 70–119; BP diastolic 43–88
[2021-06-05] MEDS: HEPARIN for SUB-Q USE 5,000 UNIT/ML VIAL. SQ SCH ×3 (05:40→21:25)
[2021-06-05] MEDS: ALBUTEROL SULFATE 2.5 MG/3 ML NEBU. NEB SCH ×4 (08:24→20:00)
[2021-06-05] MEDS: BUDESONIDE 0.5 MG/2 ML NEBU. NEB SCH ×2 (08:24→20:00)
[2021-06-05] MEDS: HYDROXYCHLOROQUINE 200 MG TABLET PO SCH (08:36)
[2021-06-05] MEDS: CALCIUM CARB/VIT D3 500/200 TABLET. PO SCH ×2 (08:36→17:43)
[2021-06-05] MEDS: CYANOCOBALAMIN (VITAMIN B-12) 1,000 MCG TABLET. PO SCH (08:36)
[2021-06-05] MEDS: GABAPENTIN 100 MG CAPSULE. PO SCH ×3 (08:36→21:23)
[2021-06-05] MEDS: FLUoxetine HCL 20 MG CAPSULE PO SCH ×2 (08:37→21:00)
[2021-06-05] MEDS: MULTIVITAMIN with MINERAL TABLET. PO SCH (08:37)
[2021-06-05] MEDS: ASPIRIN CHEWABLE 81 MG TABLET. PO SCH (08:37)
[2021-06-05] MEDS: MULTIVITAMIN I-VITE TABLET. PO SCH ×2 (08:37→21:24)
[2021-06-05] MEDS: METOPROLOL SUCC 24HR ER 25 MG TAB.ER.24H. PO SCH (08:38)
[2021-06-05] MEDS: hydrALAZINE 10 MG TABLET PO SCH ×3 (08:38→21:00)
[2021-06-05] MEDS: LISINOPRIL 20 MG TABLET PO SCH (08:38)
[2021-06-05] MEDS: SPIRONOLACTONE 25 MG TABLET PO SCH (09:00)
[2021-06-05 10:26] LABS: CALCIUM 8.5 mg/dL (8.5-10.1); CREATININE 1.6 mg/dL (0.6-1.0); GFR 32.1; MAGNESIUM 1.9 mg/dL (1.8-2.4)
--- NOTE | 2021-06-05 11:18 | PDOC ---
HUSSEIN LYNCH CHEMICAL LIBRARIAN 06/05/21 1118: CARDIO Progress Notes Date and Time Date of Service 06/05/2021 Time of Evaluation 0940 Subjective Subjective: No Chest Pain, No Palpitations, Other (still has SOA) Vitals Vitals Vital Signs Date Time Temp Pulse Resp B/P (MAP) Pulse Ox O2 Delivery O2 Flow Rate FiO2 06/05/21 08:38 80 92/45 06/05/21 08:26 95 Nasal Cannula 2.0 06/05/21 07:00 97.8 16 97.8 Weight Weight [ ] Input and Output Intake and Output Intake and Output 06/05/21 07:00 Intake Total 595 ml Output Total 1900 ml Balance -1305 ml Intake Oral 595 ml Output Urine Total 1900 ml # Voids 2 Laboratory Labs Laboratory Tests Test 06/04/21 11:34 06/04/21 16:58 06/04/21 21:39 06/05/21 08:03 Glucose (Fingerstick) 128 mg/dL (70-99) 186 mg/dL (70-99) 235 mg/dL (70-99) 195 mg/dL (70-99) Test 06/05/21 09:35 Sodium Level 138 mmol/L (136-145) Potassium Level 4.0 mmol/L (3.5-5.1) Chloride Level 100 mmol/L (98-107) Carbon Dioxide Level 30 mmol/L (21-32) Anion Gap 8 (6-14) Blood Urea Nitrogen 42 mg/dL (7-20) Creatinine 1.6 mg/dL (0.6-1.0) Estimated GFR (Cockcroft-Gault) 32.1 Glucose Level 208 mg/dL (70-99) Calcium Level 8.5 mg/dL (8.5-10.1) Magnesium Level 1.9 mg/dL (1.8-2.4) Physical Exam HEENT: Neck Supple W Full Motion Chest: Symmetric LUNGS: Other (diminsihed with diffuse wheeze) Heart: S1S2, RRR (SR), other (v-paced with underlying SR) Abdomen: Soft N/T Extremities: Other (3-4+ bilateral LE edema ) Neurology: alert, oriented, follow commands Assessment Assessment 1. Acute respiratory failure with a/c CHF 2. Acute on chronic systolic CHF 3. NICM; LHC 09/03 without significant CAD. Echo 01/03 with LVEF 20%. S/p BiV AICD/REGISTRATION OFFICER-D (Biotronik). recent interrogation with normal function 4. Hypertension; low end 5. Hyperlipidemia; statin 6. Diabetes, II 7. CKD; Cr stable per review 8. Tobaccoism; reinforced cessation 9. AECOPD: defer to PCP Recommendations Continue bumex. Milrinone, will hold if SBP trends lower. Will Discussed with RN, Strict I & O. Obtain PVR Continue HF optimization with Toprol, lisinopril as BP allows. PCXR today Supportive care Justicifation of Admission Dx: Justifications for Admission: Justification of Admission Dx: Yes CHF: Cardiac Arrhythmias BENNY POLO MD 06/05/21 5039: CARDIO Progress Notes Assessment Assessment Patient seen and examined. Agree with MEAT AND SEAFOOD CLERK's assessment and plan. Acute on chronic systolic heart failure improved after diuresing with inotropic support using milrinone. However she is currently hypotensive. Stop milrinone and try 250 cc gentle IVF bolus Recent cardiac catheterization did not show any significant coronary artery disease. Recent biventricular ICD/REGISTRATION OFFICER-D interrogation showed normal function. HUSSEIN LYNCH APRN Jun 05, 2021 11:18 BENNY POLO MD Jun 05, 2021 16:55
--- NOTE | 2021-06-05 12:30 | PDOC ---
[facility] [facility] PROGRESS NOTE Date of Service DOS: DATE: 06/05/21 TIME: 12:28 Chief Complaint Chief Complaint A/P: Acute respiratory failure with hypoxia - likely combination of COPD exacerbation, CHF and possible pneumonia. Acute systolic CHF - EF 20%, optimized on statin, ASA, toprol xl, lisinopril. AICD. Non-ischemic cardiomyopathy - likely hereditary given her father's history. optimized on meds Abnormal chest radiograph - pulmonary congestion, given her symptoms of chills, cough, COPD needs treatment for COPD exacerbation and likely gram neg pneumonia vs CHF Pulmonary edema - given lasix in ED. BNP elevated consistent with acute diastolic CHF ?EUGENIA - Cr 1.4 may be baseline Hypokalemia - likely due to above. Given lasix, insulin Hypomagnesemia - likely hypervolemic and due to poor PO intake, will monitor DM2 - glucose in 300s. will place on high sliding scale HTN - cont home meds HLD - cont statin Polymyalgia rheumatica - not on steroids Morbid obesity - counseling on lifestyle Tobacco abuse - offered nicotine patch, counseled on cessation Anxiety and insomnia - will add buspar prn and zyprexa prn. May need benzos in the future. FEN - Cardiac diet PPX - heparin CODE - DNR/DNI Dispo - inpatient CVC History of Present Illness History of Present Illness Ms Velez is a 70yo F w/ PMHx DM2, HTN, smoker, polymyalgia rheumatica, rheumatoid arthrititis, reduced EF CHF EF 20% s/p AICD who presents to the ED brought in by EMS c/o sudden onset shortness of breath. Patient awoke from sleep at approximately 1 AM with some left-sided chest discomfort and shortness of breath, unable to lay flat. Chest discomfort is a pressure does not radiate. Occasional sharp twinges. A little bit of nausea and anxiety associated as well. Has had a 10 pound weight gain since March. Has increasing lower extremity edema. She is on home Bumex 1 mg 1 time daily. She has been home with home health who have been counseling her on considering hospice. She becomes tearful in talking about this. She has severe orthopnea and cannot lay flat at all. She sleeps in a chair for only a few hours at night and wakes frequently due to her dyspnea. She cannot even walk 10 feet without getting winded. She does not know any discharges of her AICD. No recent sick contacts. She has had 2 mRNA COVID-19 vaccines and is planning on having a booster soon. She denies any fevers or chills. She has a baseline cough that is unchanged. It is mildly productive of sputum. WBC 6.2, Hb 11.3, platelets 258, NA 134, K3.5, BUN 41, CR 1.4, glucose 141, magnesium 1.5, alk phos 139, albumin 3.3 otherwise LFTs within normal laboratory limits, high-sensitivity troponin is 21, NT proBNP greater than 35,000, rapid COVID-19 negative EKG appears sinus rate 89 bpm TWI [address] depression V2. Chest radiograph suspect right pleural effusion cardiomegaly and bilateral airspace disease. Given O2, bumex, replaced mag and K and admitted for further care with car diology consultation. 06/03: Still short of breath but feels her swelling has improved a little bit. No chest pain. Still wheezing. She thinks she diuresed well urine was not all collected overnight. IV Bumex 06/04: Short of breath a little depressed. Still requiring O2 and wheezing. Tolerating IV Bumex. Per cardiology started on milrinone starting IV Solu- Medrol today. She is wondering when she should call her sons and is pretty contemplative about palliative care or hospice in the near future. She still wants to continue current care 06/05: Shortness of breath little improved. Given some mucus with flutter valve. Creatinine bumped to 1.6 but good urine output able to eat conversational dyspnea is improving but still very short of breath with minimal exertion still on milrinone and IV Bumex. Vitals/I&O Vitals/I&O: Vital Signs Date Time Temp Pulse Resp B/P (MAP) Pulse Ox O2 Delivery O2 Flow Rate FiO2 06/05/21 11:48 95 Nasal Cannula 2.0 06/05/21 11:00 96.4 79 18 83/43 (56) 96.4 I & O 06/04/21 06/04/21 06/05/21 15:00 23:00 07:00 Intake Total 295 ml 300 ml 0 ml Output Total 1900 ml Balance 295 ml -1600 ml 0 ml Physical Exam General: Alert, Oriented X3, Cooperative, No acute distress Heart: Regular rate (v-paced with underlying SR ) Lungs: Clear Abdomen: Soft Extremities: Other (2-3+ bilateral LE edema ) Skin: No significant lesion Labs Labs: Laboratory Tests Test 06/04/21 16:58 06/04/21 21:39 06/05/21 08:03 06/05/21 09:35 Glucose (Fingerstick) 186 mg/dL (70-99) 235 mg/dL (70-99) 195 mg/dL (70-99) Sodium Level 138 mmol/L (136-145) Potassium Level 4.0 mmol/L (3.5-5.1) Chloride Level 100 mmol/L (98-107) Carbon Dioxide Level 30 mmol/L (21-32) Anion Gap 8 (6-14) Blood Urea Nitrogen 42 mg/dL (7-20) Creatinine 1.6 mg/dL (0.6-1.0) Estimated GFR (Cockcroft-Gault) 32.1 Glucose Level 208 mg/dL (70-99) Calcium Level 8.5 mg/dL (8.5-10.1) Magnesium Level 1.9 mg/dL (1.8-2.4) Test 06/05/21 11:59 Glucose (Fingerstick) 161 mg/dL (70-99) Assessment and Plan Assessmemt and Plan Problems Medical Problems: (1) Acute exacerbation of congestive heart failure Status: Acute (2) Chest pain Status: Acute (3) Exertional dyspnea Status: Acute (4) Orthopnea Status: Acute Comment Review of Relevant I have reviewed the following items yan (where applicable) has been applied. Medications: Current Medications Medications (Trade) Dose Ordered Sig/Yvette Route PRN Reason Start Time Stop Time Status Last Admin Dose Admin Methylprednisolone Sodium Succinate (SOLU-Medrol 125MG VIAL) 125 mg 1X ONCE IV 06/04/21 12:30 06/04/21 12:31 DC 06/04/21 12:19 Justifications for Admission Other Justification KATHY HARKINS MD Jun 05, 2021 12:30
--- NOTE | 2021-06-05 12:34 | RAD ---
XR CHEST 1V History: Reason: CHF / Spl. Instructions: / History: Comparison: June 02, 2021 Findings: Increased moderate diffuse interstitial thickening with ill-defined opacities. No pleural effusion. I ncreased heart size, unchanged. No pneumothorax. Stable left-sided pacemaker/ICD. Elevation the right hemidiaphragm, unchanged. Impression: 1. Increased moderate diffuse interstitial thickening with ill-defined opacities. Electronically signed by: Jerald Gray DO (06/05/2021 12:31 PM) [id number]
[2021-06-05] MEDS ORDERED: methylPREDNISolone SOD SUCC PF 40 MG/ML VIAL. IV ONE (12:45)
[2021-06-05] MEDS ORDERED: IV NORMAL SALINE 250ML 250 ML IV ONE (13:30)
[2021-06-05] MEDS: BUMETANIDE 2.5 MG/10 ML VIAL. IV SCH (14:00)
[2021-06-05 14:02] LABS: BASO % 1 % (0-3); EOS % 0 % (0-3); HEMATOCRIT 30.5 % (36.0-47.0); HEMOGLOBIN 9.9 g/dL (12.0-15.5); LYMPH # 0.4 x10^3/uL (1.0-4.8); LYMPH % 9 % (24-48); MEAN CORPUSCULAR HEMOGLOBIN 31 pg (25-35); MEAN CORPUSCULAR HGB CONC 33 g/dL (31-37); MEAN CORPUSCULAR VOLUME 95 fL (79-100); MONO # 0.4 x10^3/uL (0.0-1.1); MONO % 8 % (0-9); NEUT % 83 % (31-73); PLATELET COUNT 278 x10^3/uL (140-400); RED CELL DISTRIBUTION WIDTH 17.6 % (11.5-14.5); WHITE BLOOD COUNT 4.9 x10^3/uL (4.0-11.0)
[2021-06-05 14:14] LABS: ALBUMIN 2.9 g/dL (3.4-5.0); DIRECT BILIRUBIN 0.5 mg/dL (0.0-0.2); TOTAL BILIRUBIN 0.7 mg/dL (0.2-1.0); TOTAL PROTEIN 6.8 g/dL (6.4-8.2)
[2021-06-05] MEDS ORDERED: MIDODRINE 5 MG TABLET PO ONE (15:30)
[2021-06-05] MEDS: busPIRone 5 MG TABLET. PO PRN (21:24)
[2021-06-05] MEDS: ATORVASTATIN CALCIUM 20 MG TABLET PO SCH (21:24)
[2021-06-06] VITALS (11 sets, daily range): BP systolic 90–112; BP diastolic 61–74
[2021-06-06] MEDS: HEPARIN for SUB-Q USE 5,000 UNIT/ML VIAL. SQ SCH ×3 (06:31→19:53)
[2021-06-06] MEDS: BUDESONIDE 0.5 MG/2 ML NEBU. NEB SCH ×2 (07:41→18:16)
[2021-06-06] MEDS: ALBUTEROL SULFATE 2.5 MG/3 ML NEBU. NEB SCH ×4 (07:41→18:15)
[2021-06-06] MEDS: CYANOCOBALAMIN (VITAMIN B-12) 1,000 MCG TABLET. PO SCH (08:39)
[2021-06-06] MEDS: HYDROXYCHLOROQUINE 200 MG TABLET PO SCH (08:40)
[2021-06-06] MEDS: MULTIVITAMIN I-VITE TABLET. PO SCH ×2 (08:40→19:53)
[2021-06-06] MEDS: MULTIVITAMIN with MINERAL TABLET. PO SCH (08:40)
[2021-06-06] MEDS: GABAPENTIN 100 MG CAPSULE. PO SCH ×3 (08:40→19:53)
[2021-06-06] MEDS: FLUoxetine HCL 20 MG CAPSULE PO SCH ×2 (08:40→20:07)
[2021-06-06] MEDS: ASPIRIN CHEWABLE 81 MG TABLET. PO SCH (08:40)
[2021-06-06] MEDS: CALCIUM CARB/VIT D3 500/200 TABLET. PO SCH ×2 (08:41→17:00)
[2021-06-06] MEDS: BUMETANIDE 2.5 MG/10 ML VIAL. IV SCH ×3 (08:43→13:31)
[2021-06-06] MEDS: hydrALAZINE 10 MG TABLET PO SCH ×3 (08:43→19:41)
[2021-06-06] MEDS: SPIRONOLACTONE 25 MG TABLET PO SCH ×2 (08:43→08:51)
[2021-06-06] MEDS: LISINOPRIL 20 MG TABLET PO SCH (08:44)
[2021-06-06] MEDS: METOPROLOL SUCC 24HR ER 25 MG TAB.ER.24H. PO SCH (08:44)
--- NOTE | 2021-06-06 08:57 | PDOC ---
CARDIOLOGY PROGRESS NOTE SUBJECTIVE: No new events overnight. Patient continues to report that she has dyspnea and orthopnea. She was unable to tolerate milrinone therapy yesterday for OBJECTIVE: Vital Signs/I&O: Vital Signs Date Time Temp Pulse Resp B/P (MAP) Pulse Ox O2 Delivery O2 Flow Rate FiO2 06/06/21 08:02 98.2 86 18 100/62 (75) 100 Nasal Cannula 5.0 98.2 I & O 06/05/21 06/05/21 06/06/21 15:00 23:00 07:00 Intake Total 360 ml 505.5 ml 137 ml Output Total 350 ml 300 ml Balance 360 ml 155.5 ml -163 ml Objective: In general she is alert and oriented in no acute distress She has elevated neck veins Heart sounds are regular Decreased breath sounds bilaterally Obese abdomen She has anasarca with 4+ pitting edema CURRENT MEDICATIONS: Dopamine 2.5 mcg/kg/min Bumex 1 mg IV Spironolactone 25 mg daily DIAGNOSTIC TESTING: Laboratory studies reviewed ASSESSMENT: 1. Acute respiratory failure with a/c CHF 2. Acute on chronic systolic CHF 3. NICM; LHC 09/03 without significant CAD. Echo 01/03 with LVEF 20%. S/p BiV AICD/LINOLEUM MECHANIC-D (Biotronik). recent interrogation with normal function 4. Hypotension 5. Hyperlipidemia; statin 6. Diabetes, II 7. CKD; Cr stable per review 8. Tobaccoism; reinforced cessation 9. AECOPD: defer to PCP PLAN: 1. Continue Bumex and Dopamine. 2. We will plan for goal of 1-2L net negative for next 24 hours. 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 She was not able to tolerate milrinone. 3. Hold metoprolol, Lisinopril. 4. Continue spironolactone. Supportive care. Plan for [facility] on tuesday. May need to transfer for advanced HF evaluation at or [facility]. Thanks Justicifation of Admission Dx: Justifications for Admission: Justification of Admission Dx: Yes CHF: Cardiac Arrhythmias ESTHER LORENZO MD Jun 06, 2021 08:57
[2021-06-06 10:53] LABS: BASO % 0 % (0-3); EOS % 0 % (0-3); HEMATOCRIT 34.4 % (36.0-47.0); HEMOGLOBIN 11.2 g/dL (12.0-15.5); LYMPH # 0.7 x10^3/uL (1.0-4.8); LYMPH % 9 % (24-48); MEAN CORPUSCULAR HEMOGLOBIN 31 pg (25-35); MEAN CORPUSCULAR HGB CONC 33 g/dL (31-37); MEAN CORPUSCULAR VOLUME 96 fL (79-100); MONO # 0.7 x10^3/uL (0.0-1.1); MONO % 8 % (0-9); NEUT # 7.2 x10^3/uL (1.8-7.7); NEUT % 83 % (31-73); PLATELET COUNT 338 x10^3/uL (140-400); RED BLOOD COUNT 3.58 x10^6/uL (3.50-5.40); RED CELL DISTRIBUTION WIDTH 17.5 % (11.5-14.5); WHITE BLOOD COUNT 8.7 x10^3/uL (4.0-11.0)
[2021-06-06 10:56] LABS: CALCIUM 9.3 mg/dL (8.5-10.1); CREATININE 1.8 mg/dL (0.6-1.0); MAGNESIUM 2.1 mg/dL (1.8-2.4)
--- NOTE | 2021-06-06 10:56 | PDOC ---
[facility] [facility] PROGRESS NOTE Date of Service DOS: DATE: 06/06/21 TIME: 10:50 Chief Complaint Chief Complaint A/P: Acute respiratory failure with hypoxia - likely combination of COPD exacerbation, CHF and possible pneumonia. Acute systolic CHF - EF 20%, optimized on statin, ASA, toprol xl, lisinopril. AICD. Non-ischemic cardiomyopathy - likely hereditary given her father's history. optimized on meds Abnormal chest radiograph - pulmonary congestion, given her symptoms of chills, cough, COPD needs treatment for COPD exacerbation and likely gram neg pneumonia vs CHF Pulmonary edema - given lasix in ED. BNP elevated consistent with acute diastolic CHF ?EUGENIA - Cr 1.4 may be baseline Hypokalemia - likely due to above. Given lasix, insulin Hypomagnesemia - likely hypervolemic and due to poor PO intake, will monitor DM2 - glucose in 300s. will place on high sliding scale HTN - cont home meds HLD - cont statin Polymyalgia rheumatica - not on steroids Morbid obesity - counseling on lifestyle Tobacco abuse - offered nicotine patch, counseled on cessation Anxiety and insomnia - will add buspar prn and zyprexa prn. May need benzos in the future. FEN - Cardiac diet PPX - heparin CODE - DNR/DNI Dispo - inpatient CVC History of Present Illness History of Present Illness Ms Velez is a 70yo F w/ PMHx DM2, HTN, smoker, polymyalgia rheumatica, rheumatoid arthrititis, reduced EF CHF EF 20% s/p AICD who presents to the ED brought in by EMS c/o sudden onset shortness of breath. Patient awoke from sleep at approximately 1 AM with some left-sided chest discomfort and shortness of breath, unable to lay flat. Chest discomfort is a pressure does not radiate. Occasional sharp twinges. A little bit of nausea and anxiety associated as well. Has had a 10 pound weight gain since March. Has increasing lower extremity edema. She is on home Bumex 1 mg 1 time daily. She has been home with home health who have been counseling her on considering hospice. She becomes tearful in talking about this. She has severe orthopnea and cannot lay flat at all. She sleeps in a chair for only a few hours at night and wakes frequently due to her dyspnea. She cannot even walk 10 feet without getting winded. She does not know any discharges of her AICD. No recent sick contacts. She has had 2 mRNA COVID-19 vaccines and is planning on having a booster soon. She denies any fevers or chills. She has a baseline cough that is unchanged. It is mildly productive of sputum. WBC 6.2, Hb 11.3, platelets 258, NA 134, K3.5, BUN 41, CR 1.4, glucose 141, magnesium 1.5, alk phos 139, albumin 3.3 otherwise LFTs within normal laboratory limits, high-sensitivity troponin is 21, NT proBNP greater than 35,000, rapid COVID-19 negative EKG appears sinus rate 89 bpm TWI [address] depression V2. Chest radiograph suspect right pleural effusion cardiomegaly and bilateral airspace disease. Given O2, bumex, replaced mag and K and admitted for further care with car diology consultation. 06/03: Still short of breath but feels her swelling has improved a little bit. No chest pain. Still wheezing. She thinks she diuresed well urine was not all collected overnight. IV Bumex 06/04: Short of breath a little depressed. Still requiring O2 and wheezing. Tolerating IV Bumex. Per cardiology started on milrinone starting IV Solu- Medrol today. She is wondering when she should call her sons and is pretty contemplative about palliative care or hospice in the near future. She still wants to continue current care 06/05: Shortness of breath little improved. Given some mucus with flutter valve. Creatinine bumped to 1.6 but good urine output able to eat conversational dyspnea is improving but still very short of breath with minimal exertion still on milrinone and IV Bumex. 06/06: Did not tolerate milrinone well tolerating dopamine better Bumex decreased to 1 mg IV twice daily. Symptomatically she feels her breathing is better she is able to clear her airways with flutter valve. Still with dyspnea on exertion. Vitals/I&O Vitals/I&O: Vital Signs Date Time Temp Pulse Resp B/P (MAP) Pulse Ox O2 Delivery O2 Flow Rate FiO2 06/06/21 10:32 97.3 98 22 100/68 (79) 98 Nasal Cannula 4.0 97.3 I & O 06/05/21 06/05/21 06/06/21 15:00 23:00 07:00 Intake Total 360 ml 505.5 ml 137 ml Output Total 350 ml 300 ml Balance 360 ml 155.5 ml -163 ml Physical Exam General: Alert, Oriented X3, Cooperative, No acute distress Heart: Regular rate (v-paced with underlying SR ) Lungs: Clear Abdomen: Soft Extremities: Other (2-3+ bilateral LE edema ) Skin: No significant lesion Labs Labs: Laboratory Tests Test 06/05/21 11:59 06/05/21 16:14 06/05/21 20:00 06/05/21 20:27 Glucose (Fingerstick) 161 mg/dL (70-99) 203 mg/dL (70-99) 256 mg/dL (70-99) Lactic Acid Level 1.3 mmol/L (0.4-2.0) Test 06/06/21 08:01 Glucose (Fingerstick) 143 mg/dL (70-99) Assessment and Plan Assessmemt and Plan Problems Medical Problems: (1) Acute exacerbation of congestive heart failure Status: Acute (2) Chest pain Status: Acute (3) Exertional dyspnea Status: Acute (4) Orthopnea Status: Acute Comment Review of Relevant I have reviewed the following items yan (where applicable) has been applied. Medications: Current Medications Medications (Trade) Dose Ordered Sig/Yvette Route PRN Reason Start Time Stop Time Status Last Admin Dose Admin Bumetanide (Bumex) 1 mg [id number] IV 06/05/21 14:00 06/06/21 08:50 Methylprednisolone Sodium Succinate (SOLU-Medrol 40MG VIAL) 80 mg 1X ONCE IV 06/05/21 12:45 06/05/21 12:46 DC 06/05/21 13:39 Sodium Chloride 250 ml @ 999 mls/hr 1X ONCE IV 06/05/21 13:30 06/05/21 13:45 DC 06/05/21 13:40 Dopamine HCl/ Dextrose 250 ml @ 17.156 mls/ hr 1X ONCE IV 06/05/21 15:30 06/06/21 06:04 DC 06/05/21 15:29 Justifications for Admission Other Justification KATHY HARKINS MD Jun 06, 2021 10:56
[2021-06-06] MEDS ORDERED: methylPREDNISolone SOD SUCC PF 40 MG/ML VIAL. IV ONE (11:30)
[2021-06-06] MEDS: ATORVASTATIN CALCIUM 20 MG TABLET PO SCH (19:53)
[2021-06-06] MEDS: busPIRone 5 MG TABLET. PO PRN (19:53)
[2021-06-06] MEDS ORDERED: CALCIUM CARBONATE 500 MG TAB.CHEW PO PRN (23:30)
[2021-06-07 03:44] VITALS: BP 111/71
[2021-06-07] MEDS: BUDESONIDE 0.5 MG/2 ML NEBU. NEB SCH ×2 (06:20→19:21)
[2021-06-07] MEDS: ALBUTEROL SULFATE 2.5 MG/3 ML NEBU. NEB SCH ×4 (06:20→19:21)
[2021-06-07] MEDS: HEPARIN for SUB-Q USE 5,000 UNIT/ML VIAL. SQ SCH ×3 (07:11→22:24)
[2021-06-07 07:31] VITALS: BP 111/69
[2021-06-07] MEDS: FLUoxetine HCL 20 MG CAPSULE PO SCH ×2 (09:00→21:00)
[2021-06-07] MEDS: hydrALAZINE 10 MG TABLET PO SCH ×3 (09:00→22:20)
[2021-06-07] MEDS: METOPROLOL SUCC 24HR ER 25 MG TAB.ER.24H. PO SCH (09:00)
--- NOTE | 2021-06-07 09:46 | PDOC ---
[facility] [facility] PROGRESS NOTE Date of Service DOS: DATE: 06/07/21 TIME: 09:40 Chief Complaint Chief Complaint A/P: Acute respiratory failure with hypoxia - likely combination of COPD exacerbation, CHF and possible pneumonia. Acute systolic CHF - EF 20%, optimized on statin, ASA, toprol xl, lisinopril. AICD. Non-ischemic cardiomyopathy - likely hereditary given her father's history. optimized on meds Abnormal chest radiograph - pulmonary congestion, given her symptoms of chills, cough, COPD needs treatment for COPD exacerbation and likely gram neg pneumonia vs CHF Pulmonary edema - given lasix in ED. BNP elevated consistent with acute diastolic CHF ?EUGENIA - Cr 1.4 may be baseline Hypokalemia - likely due to above. Given lasix, insulin Hypomagnesemia - likely hypervolemic and due to poor PO intake, will monitor DM2 - glucose in 300s. will place on high sliding scale HTN - cont home meds HLD - cont statin Polymyalgia rheumatica - not on steroids Morbid obesity - counseling on lifestyle Tobacco abuse - offered nicotine patch, counseled on cessation Anxiety and insomnia - will add buspar prn and zyprexa prn. May need benzos in the future. FEN - Cardiac diet PPX - heparin CODE - DNR/DNI Dispo - inpatient CVC History of Present Illness History of Present Illness Ms Velez is a 70yo F w/ PMHx DM2, HTN, smoker, polymyalgia rheumatica, rheumatoid arthrititis, reduced EF CHF EF 20% s/p AICD who presents to the ED brought in by EMS c/o sudden onset shortness of breath. Patient awoke from sleep at approximately 1 AM with some left-sided chest discomfort and shortness of breath, unable to lay flat. Chest discomfort is a pressure does not radiate. Occasional sharp twinges. A little bit of nausea and anxiety associated as well. Has had a 10 pound weight gain since March. Has increasing lower extremity edema. She is on home Bumex 1 mg 1 time daily. She has been home with home health who have been counseling her on considering hospice. She becomes tearful in talking about this. She has severe orthopnea and cannot lay flat at all. She sleeps in a chair for only a few hours at night and wakes frequently due to her dyspnea. She cannot even walk 10 feet without getting winded. She does not know any discharges of her AICD. No recent sick contacts. She has had 2 mRNA COVID-19 vaccines and is planning on having a booster soon. She denies any fevers or chills. She has a baseline cough that is unchanged. It is mildly productive of sputum. WBC 6.2, Hb 11.3, platelets 258, NA 134, K3.5, BUN 41, CR 1.4, glucose 141, magnesium 1.5, alk phos 139, albumin 3.3 otherwise LFTs within normal laboratory limits, high-sensitivity troponin is 21, NT proBNP greater than 35,000, rapid COVID-19 negative EKG appears sinus rate 89 bpm TWI [address] depression V2. Chest radiograph suspect right pleural effusion cardiomegaly and bilateral airspace disease. Given O2, bumex, replaced mag and K and admitted for further care with car diology consultation. 06/03: Still short of breath but feels her swelling has improved a little bit. No chest pain. Still wheezing. She thinks she diuresed well urine was not all collected overnight. IV Bumex 06/04: Short of breath a little depressed. Still requiring O2 and wheezing. Tolerating IV Bumex. Per cardiology started on milrinone starting IV Solu- Medrol today. She is wondering when she should call her sons and is pretty contemplative about palliative care or hospice in the near future. She still wants to continue current care 06/05: Shortness of breath little improved. Given some mucus with flutter valve. Creatinine bumped to 1.6 but good urine output able to eat conversational dyspnea is improving but still very short of breath with minimal exertion still on milrinone and IV Bumex. 06/06: Did not tolerate milrinone well tolerating dopamine better Bumex decreased to 1 mg IV twice daily. Symptomatically she feels her breathing is better she is able to clear her airways with flutter valve. Still with dyspnea on exertion. 06/07: Feeling significantly improving. Breathing is improving. Asking for some perceived fluid for itching. She is asking when if she can go home still on 2 L/L O2. Vitals/I&O Vitals/I&O: Vital Signs Date Time Temp Pulse Resp B/P (MAP) Pulse Ox O2 Delivery O2 Flow Rate FiO2 06/07/21 07:31 98.3 96 18 111/69 (83) 94 Nasal Cannula 2.0 98.3 I & O 06/06/21 06/06/21 06/07/21 15:00 23:00 07:00 Intake Total 480 ml 200 ml 360 ml Output Total 1100 ml 600 ml Balance 480 ml -900 ml -240 ml Physical Exam General: Alert, Oriented X3, Cooperative, No acute distress Heart: Regular rate (v-paced with underlying SR ) Lungs: Clear Abdomen: Soft Extremities: Other (2-3+ bilateral LE edema ) Skin: No significant lesion Labs Labs: Laboratory Tests Test 06/06/21 10:30 06/06/21 17:14 06/07/21 07:34 White Blood Count 8.7 x10^3/uL (4.0-11.0) Red Blood Count 3.58 x10^6/uL (3.50-5.40) Hemoglobin 11.2 g/dL (12.0-15.5) Hematocrit 34.4 % (36.0-47.0) Mean Corpuscular Volume 96 fL (79-100) Mean Corpuscular Hemoglobin 31 pg (25-35) Mean Corpuscular Hemoglobin Concent 33 g/dL (31-37) Red Cell Distribution Width 17.5 % (11.5-14.5) Platelet Count 338 x10^3/uL (140-400) Neutrophils (%) (Auto) 83 % (31-73) Lymphocytes (%) (Auto) 9 % (24-48) Monocytes (%) (Auto) 8 % (0-9) Eosinophils (%) (Auto) 0 % (0-3) Basophils (%) (Auto) 0 % (0-3) Neutrophils # (Auto) 7.2 x10^3/uL (1.8-7.7) Lymphocytes # (Auto) 0.7 x10^3/uL (1.0-4.8) Monocytes # (Auto) 0.7 x10^3/uL (0.0-1.1) Eosinophils # (Auto) 0.0 x10^3/uL (0.0-0.7) Basophils # (Auto) 0.0 x10^3/uL (0.0-0.2) Sodium Level 135 mmol/L (136-145) Potassium Level 5.0 mmol/L (3.5-5.1) Chloride Level 98 mmol/L (98-107) Carbon Dioxide Level 31 mmol/L (21-32) Anion Gap 6 (6-14) Blood Urea Nitrogen 51 mg/dL (7-20) Creatinine 1.8 mg/dL (0.6-1.0) Estimated GFR (Cockcroft-Gault) 28.0 Glucose Level 195 mg/dL (70-99) Calcium Level 9.3 mg/dL (8.5-10.1) Magnesium Level 2.1 mg/dL (1.8-2.4) Glucose (Fingerstick) 201 mg/dL (70-99) 155 mg/dL (70-99) Assessment and Plan Assessmemt and Plan Problems Medical Problems: (1) Acute exacerbation of congestive heart failure Status: Acute (2) Chest pain Status: Acute (3) Exertional dyspnea Status: Acute (4) Orthopnea Status: Acute Comment Review of Relevant I have reviewed the following items yan (where applicable) has been applied. Medications: Current Medications Medications (Trade) Dose Ordered Sig/Yvette Route PRN Reason Start Time Stop Time Status Last Admin Dose Admin Methylprednisolone Sodium Succinate (SOLU-Medrol 40MG VIAL) 80 mg 1X ONCE IV 06/06/21 11:30 06/06/21 11:31 DC 06/06/21 13:31 Dopamine HCl/ Dextrose 250 ml @ 17.175 mls/ hr CONT PRN IV SEE I/O RECORD 06/06/21 19:30 06/06/21 19:52 Justifications for Admission Other Justification KATHY HARKINS MD Jun 07, 2021 09:46
[2021-06-07] MEDS ORDERED: hydrOXYzine 10 MG TABLET PO PRN (10:00)
[2021-06-07] MEDS: GABAPENTIN 100 MG CAPSULE. PO SCH ×3 (10:13→22:21)
[2021-06-07] MEDS: MULTIVITAMIN I-VITE TABLET. PO SCH ×2 (10:13→22:20)
[2021-06-07] MEDS: CALCIUM CARB/VIT D3 500/200 TABLET. PO SCH ×2 (10:13→18:23)
[2021-06-07] MEDS: ASPIRIN CHEWABLE 81 MG TABLET. PO SCH (10:13)
[2021-06-07] MEDS: CYANOCOBALAMIN (VITAMIN B-12) 1,000 MCG TABLET. PO SCH (10:13)
[2021-06-07] MEDS: SPIRONOLACTONE 25 MG TABLET PO SCH (10:14)
[2021-06-07] MEDS: MULTIVITAMIN with MINERAL TABLET. PO SCH (10:14)
[2021-06-07] MEDS: HYDROXYCHLOROQUINE 200 MG TABLET PO SCH (10:14)
[2021-06-07] MEDS: BUMETANIDE 2.5 MG/10 ML VIAL. IV SCH ×2 (10:15→14:10)
[2021-06-07 10:57] VITALS: BP 100/75
--- NOTE | 2021-06-07 12:49 | PDOC ---
CARDIOLOGY PROGRESS NOTE SUBJECTIVE: Myra Velez is a 70 y.o. female with PMH of DM2, HTN, RA, HFrEF CHF with EF 20% s/p AICD who presented to ED following sudden onset SOB on 06/07. Patient reports her shortness of breath and swelling continues to improve with diuresis on Bumex and spironolactone. She is able to walk more than before, and is able to go to the bathroom without aid. She was unable to tolerate milrinone, but continues on Bumex and Dopamine. She is currently on 2L O2 and reports that this has been significantly helpful. She plans to continue O2 at home following discharge. OBJECTIVE: Vital Signs/I&O: Vital Signs Date Time Temp Pulse Resp B/P (MAP) Pulse Ox O2 Delivery O2 Flow Rate FiO2 06/07/21 11:16 95 Nasal Cannula 2.0 06/07/21 10:57 97.4 95 20 100/75 (83) 97.4 I & O 06/06/21 06/06/21 06/07/21 15:00 23:00 07:00 Intake Total 480 ml 200 ml 360 ml Output Total 1100 ml 600 ml Balance 480 ml -900 ml -240 ml Objective: General: Patient is alert and oriented, sitting up at her beside eating lunch. Cardiovascular: Heart RRR, no murmurs Pulmonary: Decreased breath sounds B/L, lower narayan > upper narayan Abdominal: Obese abdomen Extremities: Improved, 2+ pitting edema bilateral lower extremities CURRENT MEDICATIONS: Current Medications Medications (Trade) Dose Ordered Sig/Yvette Start Time Stop Time Status Last Admin Dose Admin Acetaminophen (Tylenol) 650 mg PRN Q6HRS PRN 06/02/21 08:30 Albuterol Sulfate (Ventolin Neb Soln) 2.5 mg RTQID 06/02/21 12:00 06/07/21 11:17 Aspirin (Aspirin Chewable) 81 mg DAILY 06/02/21 09:00 06/07/21 10:13 Atorvastatin Calcium (Lipitor) 20 mg HS 06/02/21 21:00 06/06/21 19:53 Budesonide (Pulmicort) 0.5 mg RTBID 06/02/21 20:00 06/07/21 06:20 Bumetanide (Bumex) 1 mg [id number] 06/05/21 14:00 06/07/21 10:15 Buspirone HCl (Buspar) 5 mg PRN TID PRN 06/02/21 08:30 06/06/21 19:53 Calcium Carbonate/ Glycine (Tums) 500 mg PRN AFTMEALHC PRN 06/06/21 23:30 Calcium/Vitamin D (Oscal D 500mg/ 200uts) 1 tab BIDWMEALS 06/02/21 17:00 06/07/21 10:13 Cyanocobalamin (Vitamin B-12) 2,500 mcg DAILY 06/03/21 09:00 06/07/21 10:13 Dopamine HCl/ Dextrose 250 ml @ 17.175 mls/ hr CONT PRN 06/06/21 19:30 06/06/21 19:52 Fluoxetine HCl (PROzac) 20 mg BID 06/02/21 10:00 06/07/21 09:00 Gabapentin (Neurontin) 100 mg TID 06/02/21 09:00 06/07/21 10:13 Guaifenesin (Robitussin Dm) 10 ml PRN Q6HRS PRN 06/04/21 12:15 06/04/21 12:37 Heparin Sodium (Porcine) (Heparin Sodium) 5,000 unit Q8HRS 06/02/21 14:00 06/07/21 07:11 Hydralazine HCl (Apresoline) 10 mg TID 06/02/21 09:00 Hydroxychloroquine Sulfate (Plaquenil) 200 mg DAILY 06/02/21 09:00 06/07/21 10:14 Hydroxyzine HCl (Atarax) 10 mg PRN Q6HRS PRN 06/07/21 10:00 Lisinopril (Prinivil) 40 mg DAILY 06/02/21 09:00 06/06/21 09:39 DC Magnesium Sulfate 50 ml @ 25 mls/hr 1X ONCE 06/02/21 06:00 06/02/21 07:59 DC 06/02/21 06:04 Magnesium Sulfate/ Dextrose 100 ml @ 100 mls/hr 1X ONCE 06/02/21 08:30 06/02/21 10:39 DC 06/02/21 10:50 Methylprednisolone Sodium Succinate (SOLU-Medrol 40MG VIAL) 80 mg 1X ONCE 06/06/21 11:30 06/06/21 11:31 DC 06/06/21 13:31 Methylprednisolone Sodium Succinate (SOLU-Medrol 125MG VIAL) 125 mg 1X ONCE 06/04/21 12:30 06/04/21 12:31 DC 06/04/21 12:19 Metoprolol Succinate (Toprol Xl) 25 mg DAILY 06/02/21 09:00 06/04/21 09:42 Midodrine (Proamatine) 5 mg 1X ONCE 06/05/21 15:30 06/05/21 15:31 DC Milrinone Lactate/ Dextrose 100 ml @ 3.431 mls/ hr CONT PRN 06/04/21 11:30 06/05/21 15:23 DC 06/04/21 12:20 Montelukast Sodium (Singulair) 10 mg QHS 06/07/21 21:00 Multivitamins (Thera M Plus) 1 tab DAILY 06/02/21 09:00 06/07/21 10:14 Multivitamins/ Minerals (I-Alli) 1 tab BID 06/02/21 21:00 06/07/21 10:13 Non-Formulary Medication (Biotin ) 10,000 mcg DAILY 06/02/21 09:00 UNV Non-Formulary Medication (Glucosamine Hcl/ Chondr Resendez A Na (Cidaflex Tablet)) 1 tab BID 06/02/21 09:00 UNV Non-Formulary Medication (Ubidecarenone (Coq-10)) 200 mg DAILY 06/02/21 09:00 UNV Olanzapine (ZyPREXA ZYDIS) 5 mg PRN BID PRN 06/02/21 08:30 06/04/21 14:45 Ondansetron HCl (Zofran) 4 mg PRN Q4HRS PRN 06/02/21 08:30 Potassium Chloride/Water 100 ml @ 100 mls/hr Q1HR 06/02/21 06:00 06/02/21 07:59 DC 06/02/21 09:11 Potassium Chloride (Klor-Con) 20 meq 1X ONCE 06/03/21 14:00 06/03/21 14:01 DC 06/03/21 13:23 Sodium Chloride 250 ml @ 999 mls/hr 1X ONCE 06/05/21 13:30 06/05/21 13:45 DC 06/05/21 13:40 Spironolactone (Aldactone) 25 mg DAILY 06/03/21 13:00 06/07/21 10:14 Trazodone HCl (Desyrel) 50 mg QHS 06/07/21 21:00 DIAGNOSTIC TESTING: Labs: Laboratory Tests Test 06/06/21 17:14 06/07/21 07:34 06/07/21 11:00 Glucose (Fingerstick) 201 mg/dL 155 mg/dL 198 mg/dL ASSESSMENT: 1. Acute respiratory failure with a/c CHF 2. Acute on chronic systolic CHF 3. NICM; LHC 09/03 without significant CAD. Echo 01/03 with LVEF 20%. 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 recent interrogation with normal function 4. Hypotension 5. Hyperlipidemia; statin 6. Diabetes, II PLAN: 1. Continue diuresis with Bumex and spironolactone with goal of 1-2L net negative for next 24 hours as previously 2. BP stable on Dopamine, continue to hold metoprolol, Lisinopril. 3. Plan for a C tomorrow and determine if she needs more aggressive diuresis or transfer to [facility] for consideration of advanced HF therapies. Justicifation of Admission Dx: Justifications for Admission: Justification of Admission Dx: Yes CHF: Cardiac Arrhythmias ESTHER LORENZO MD Jun 07, 2021 12:49
[2021-06-07 15:02] VITALS: BP 119/76
[2021-06-07 19:40] VITALS: BP 119/66
[2021-06-07] MEDS: MONTELUKAST SODIUM 10 MG TABLET. PO SCH (22:20)
[2021-06-07] MEDS: busPIRone 5 MG TABLET. PO PRN (22:20)
[2021-06-07] MEDS: ATORVASTATIN CALCIUM 20 MG TABLET PO SCH (22:21)
[2021-06-07] MEDS: traZODone 50 MG TABLET. PO SCH (22:21)
[2021-06-07 22:51] VITALS: BP 120/73
[2021-06-08] VITALS (14 sets, daily range): BP systolic 82–112; BP diastolic 55–75
[2021-06-08 06:06] LABS: CALCIUM 9.2 mg/dL (8.5-10.1); CREATININE 1.4 mg/dL (0.6-1.0); GFR 37.4; POTASSIUM 4.4 mmol/L (3.5-5.1)
[2021-06-08] MEDS: HEPARIN for SUB-Q USE 5,000 UNIT/ML VIAL. SQ SCH ×3 (06:12→20:23)
[2021-06-08] MEDS: ALBUTEROL SULFATE 2.5 MG/3 ML NEBU. NEB SCH ×5 (06:49→21:04)
[2021-06-08] MEDS: BUDESONIDE 0.5 MG/2 ML NEBU. NEB SCH ×3 (06:49→21:04)
[2021-06-08] MEDS: CALCIUM CARB/VIT D3 500/200 TABLET. PO SCH ×2 (08:00→17:00)
[2021-06-08] MEDS: MULTIVITAMIN I-VITE TABLET. PO SCH ×2 (09:00→20:22)
[2021-06-08] MEDS: GABAPENTIN 100 MG CAPSULE. PO SCH ×3 (09:00→20:22)
[2021-06-08] MEDS: FLUoxetine HCL 20 MG CAPSULE PO SCH ×2 (09:00→20:22)
[2021-06-08] MEDS: hydrALAZINE 10 MG TABLET PO SCH ×3 (09:00→20:17)
[2021-06-08] MEDS: METOPROLOL SUCC 24HR ER 25 MG TAB.ER.24H. PO SCH (09:00)
[2021-06-08] MEDS ORDERED: LIDOCAINE 1% Multi-Dose 20 ML VIAL. ONE (09:25)
[2021-06-08] MEDS ORDERED: fentaNYL PF VIAL 100 MCG/2 ML VIAL ONE (09:31)
[2021-06-08] MEDS ORDERED: MIDAZOLAM HCL/PF 2 MG/2 ML VIAL. ONE (09:33)
[2021-06-08] MEDS ORDERED: diphenhydrAMINE 50 MG/ML VIAL ONE (10:05)
[2021-06-08] MEDS ORDERED: fentaNYL PF VIAL 100 MCG/2 ML VIAL IV ONE (10:45)
[2021-06-08] MEDS ORDERED: MIDAZOLAM HCL/PF 2 MG/2 ML VIAL. IV ONE (10:45)
[2021-06-08] MEDS ORDERED: diphenhydrAMINE 50 MG/ML VIAL IVP ONE (10:45)
[2021-06-08] MEDS ORDERED: LIDOCAINE 1% Multi-Dose 20 ML VIAL. INJ ONE (10:45)
--- NOTE | 2021-06-08 11:10 | CARD ---
MR#: [id number] Date of Study: 06/08/2021 Ordering Physician: BENNY KAN, Referring Physician: BENNY KAN, Tech: RT Mona(R) APPROVED REPORT Technologist: RT Mona(R) Nurse: Floridalma Vogel RN Procedure(s) performed: RIGHT HEART CATHETERIZATION TIME: 4.5 MIN DOSE: 6.9 GYCM2 MODERATE SEDATION: 50 MIN INDICATION The indication(s) include : Acute on chronic systolic heart failure. CASE TECHNIQUE IV conscious sedation was used throughout procedure with appropriate monitoring and was performed in the presence of a registered nurse who was an independent trained observer other than the physician p erforming the procedure. During this case, Fluoroscopy and low osmolar contrast were used for imaging . Specimen(s) Removed: No Estimated Blood loss: 20 cc's. PROCEDURE NARRATIVE After explaining the risk, benefits and alternative options, informed consent was obtained from patie nt. Patient was brought to the cardiac Hop Separator and her right groin was prepped and draped in the us ual fashion. 20 cc of 2% lidocaine was infiltrated into the skin and subcutaneous tissues for local anesthesia. Venous access was obtained in the right common femoral vein and 8 Bahamian sheath was inse rted. A 7.5 [place]ian Hines-Ziyad catheter was then advanced under fluoroscopy guidance and intracardiac pressures, oxygen saturations and cardiac output by Silvia method measured. Patient tolerated the proc edure well. Hemostasis was achieved using manual compression. There were no immediate complications . FINDINGS 1. Intracardiac pressures: Mean right atrial pressure 32 mmHg, right ventricular pressure 70/20 mmHg , pulmonary artery pressure 81/47 mmHg with a mean PA pressure of 58 mmHg, mean pulmonary capillary w edge pressure 38 mmHg. This is consistent with elevated right and left-sided filling pressures and s evere pulmonary hypertension. 2. Oxygen saturations: Right atrium 71%, pulmonary artery 65.7%, arterial saturation 95%. No eviden ce of intracardiac shunt. 3. Cardiac output by Silvia method 4.5 L/min. Conclusion Significantly elevated right and left-sided filling pressures and severe pulmonary hypertension. Recommendations Recommend more aggressive diuresis probably with inotropic support. Signed by : Benny Kan, Electronically Approved : 06/08/2021 11:09:33
--- NOTE | 2021-06-08 11:39 | PDOC ---
[employer] PROGRESS NOTE Date of Service DOS: DATE: 06/08/21 TIME: 11:37 Chief Complaint Chief Complaint A/P: Acute respiratory failure with hypoxia - likely combination of COPD exacerbation, CHF and possible pneumonia. Acute systolic CHF - EF 20%, optimized on statin, ASA, toprol xl, lisinopril. AICD. Non-ischemic cardiomyopathy - likely hereditary given her father's history. optimized on meds Abnormal chest radiograph - pulmonary congestion, given her symptoms of chills, cough, COPD needs treatment for COPD exacerbation and likely gram neg pneumonia vs CHF Pulmonary edema - given lasix in ED. BNP elevated consistent with acute diastolic CHF ?EUGENIA - Cr 1.4 may be baseline Hypokalemia - likely due to above. Given lasix, insulin Hypomagnesemia - likely hypervolemic and due to poor PO intake, will monitor DM2 - glucose in 300s. will place on high sliding scale HTN - cont home meds HLD - cont statin Polymyalgia rheumatica - not on steroids Morbid obesity - counseling on lifestyle Tobacco abuse - offered nicotine patch, counseled on cessation Anxiety and insomnia - will add buspar prn and zyprexa prn. May need benzos in the future. FEN - Cardiac diet PPX - heparin CODE - DNR/DNI Dispo - inpatient CVC History of Present Illness History of Present Illness Ms Velez is a 70yo F w/ PMHx DM2, HTN, smoker, polymyalgia rheumatica, rheumatoid arthrititis, reduced EF CHF EF 20% s/p AICD who presents to the ED brought in by EMS c/o sudden onset shortness of breath. Patient awoke from sleep at approximately 1 AM with some left-sided chest discomfort and shortness of breath, unable to lay flat. Chest discomfort is a pressure does not radiate. Occasional sharp twinges. A little bit of nausea and anxiety associated as well. Has had a 10 pound weight gain since March. Has increasing lower extremity edema. She is on home Bumex 1 mg 1 time daily. She has been home with home health who have been counseling her on considering hospice. She becomes tearful in talking about this. She has severe orthopnea and cannot lay flat at all. She sleeps in a chair for only a few hours at night and wakes frequently due to her dyspnea. She cannot even walk 10 feet without getting winded. She does not know any discharges of her AICD. No recent sick contacts. She has had 2 mRNA COVID-19 vaccines and is planning on having a booster soon. She denies any fevers or chills. She has a baseline cough that is unchanged. It is mildly productive of sputum. WBC 6.2, Hb 11.3, platelets 258, NA 134, K3.5, BUN 41, CR 1.4, glucose 141, magnesium 1.5, alk phos 139, albumin 3.3 otherwise LFTs within normal laboratory limits, high-sensitivity troponin is 21, NT proBNP greater than 35,000, rapid COVID-19 negative EKG appears sinus rate 89 bpm TWI [address] depression V2. Chest radiograph suspect right pleural effusion cardiomegaly and bilateral airspace disease. Given O2, bumex, replaced mag and K and admitted for further care with car diology consultation. 06/03: Still short of breath but feels her swelling has improved a little bit. No chest pain. Still wheezing. She thinks she diuresed well urine was not all collected overnight. IV Bumex 06/04: Short of breath a little depressed. Still requiring O2 and wheezing. Tolerating IV Bumex. Per cardiology started on milrinone starting IV Solu- Medrol today. She is wondering when she should call her sons and is pretty contemplative about palliative care or hospice in the near future. She still wants to continue current care 06/05: Shortness of breath little improved. Given some mucus with flutter valve. Creatinine bumped to 1.6 but good urine output able to eat conversational dyspnea is improving but still very short of breath with minimal exertion still on milrinone and IV Bumex. 06/06: Did not tolerate milrinone well tolerating dopamine better Bumex decreased to 1 mg IV twice daily. Symptomatically she feels her breathing is better she is able to clear her airways with flutter valve. Still with dyspnea on exertion. 06/07: Feeling significantly improving. Breathing is improving. Asking for some perceived fluid for itching. She is asking when if she can go home still on 2 L/L O2. 06/08 Patient seen and examined at bedside. Little bit sedated from right heart cath still. Her study showed severely elevated right and left filling pressures. Dobutamine and dopamine drips. Would prefer transfer to ICU however bed availability is complicating this. We will closely monitor. Vitals/I&O Vitals/I&O: Vital Signs Date Time Temp Pulse Resp B/P (MAP) Pulse Ox O2 Delivery O2 Flow Rate FiO2 06/08/21 10:46 18 95 Nasal Cannula 4.0 06/08/21 10:42 108 06/08/21 07:24 97.4 102/74 (83) 97.4 I & O 06/07/21 06/07/21 06/08/21 15:00 23:00 07:00 Intake Total 180 ml 1000 ml 0 ml Output Total 1100 ml 1000 ml Balance 180 ml -100 ml -1000 ml Physical Exam General: Alert, Oriented X3, Cooperative, No acute distress Heart: Regular rate (v-paced with underlying SR ) Lungs: Clear Abdomen: Soft Extremities: Other (2-3+ bilateral LE edema ) Skin: No significant lesion Labs Labs: Laboratory Tests Test 06/07/21 16:40 06/08/21 04:00 06/08/21 07:23 06/08/21 11:08 Glucose (Fingerstick) 144 mg/dL (70-99) 81 mg/dL (70-99) 78 mg/dL (70-99) Sodium Level 140 mmol/L (136-145) Potassium Level 4.4 mmol/L (3.5-5.1) Chloride Level 101 mmol/L (98-107) Carbon Dioxide Level 29 mmol/L (21-32) Anion Gap 10 (6-14) Blood Urea Nitrogen 53 mg/dL (7-20) Creatinine 1.4 mg/dL (0.6-1.0) Estimated GFR (Cockcroft-Gault) 37.4 Glucose Level 124 mg/dL (70-99) Calcium Level 9.2 mg/dL (8.5-10.1) Assessment and Plan Assessmemt and Plan Problems Medical Problems: (1) Acute exacerbation of congestive heart failure Status: Acute (2) Chest pain Status: Acute (3) Exertional dyspnea Status: Acute (4) Orthopnea Status: Acute Comment Review of Relevant I have reviewed the following items yan (where applicable) has been applied. Medications: Current Medications Medications (Trade) Dose Ordered Sig/Yvette Route PRN Reason Start Time Stop Time Status Last Admin Dose Admin Montelukast Sodium (Singulair) 10 mg QHS PO 1/23/22 21:00 06/07/21 22:20 Trazodone HCl (Desyrel) 50 mg QHS PO 06/07/21 21:00 06/07/21 22:21 Heparin Sodium/ Sodium Chloride (HEPARIN for ARTERIAL LINE FLUSH) 1,000 unit 1X ONCE IART 06/08/21 10:45 06/08/21 10:46 DC 06/08/21 10:44 Midazolam HCl (Versed) 2 mg 1X ONCE IV 06/08/21 10:45 06/08/21 10:46 DC 06/08/21 10:45 Fentanyl Citrate (Fentanyl 2ml Vial) 100 mcg 1X ONCE IV 06/08/21 10:45 06/08/21 10:46 DC 06/08/21 10:46 Lidocaine HCl (Lidocaine 1% 20ml Vial) 20 ml 1X ONCE INJ 06/08/21 10:45 06/08/21 10:46 DC 06/08/21 10:45 Diphenhydramine HCl (Benadryl) 25 mg 1X ONCE IVP 06/08/21 10:45 06/08/21 10:46 DC 06/08/21 10:46 Justifications for Admission Other Justification KATHY VASQUEZ MD Jun 08, 2021 11:39
[2021-06-08] MEDS: BUMETANIDE 2.5 MG/10 ML VIAL. IV SCH ×2 (12:01→18:02)
[2021-06-08] MEDS: HYDROXYCHLOROQUINE 200 MG TABLET PO SCH (13:23)
[2021-06-08] MEDS: SPIRONOLACTONE 25 MG TABLET PO SCH (13:24)
[2021-06-08] MEDS: ASPIRIN CHEWABLE 81 MG TABLET. PO SCH (13:25)
[2021-06-08] MEDS: CYANOCOBALAMIN (VITAMIN B-12) 1,000 MCG TABLET. PO SCH (13:25)
[2021-06-08] MEDS: MULTIVITAMIN with MINERAL TABLET. PO SCH (13:25)
[2021-06-08] MEDS: traZODone 50 MG TABLET. PO SCH (20:22)
[2021-06-08] MEDS: ATORVASTATIN CALCIUM 20 MG TABLET PO SCH (20:22)
[2021-06-08] MEDS: MONTELUKAST SODIUM 10 MG TABLET. PO SCH (20:22)
[2021-06-09 02:57] VITALS: BP 82/56
[2021-06-09] MEDS: HEPARIN for SUB-Q USE 5,000 UNIT/ML VIAL. SQ SCH ×3 (05:22→20:55)
[2021-06-09 06:42] LABS: CALCIUM 8.3 mg/dL (8.5-10.1); CREATININE 1.2 mg/dL (0.6-1.0); GFR 44.7; POTASSIUM 3.8 mmol/L (3.5-5.1)
[2021-06-09 07:00] VITALS: BP 115/68
[2021-06-09] MEDS: BUDESONIDE 0.5 MG/2 ML NEBU. NEB SCH ×2 (08:01→20:56)
[2021-06-09] MEDS: ALBUTEROL SULFATE 2.5 MG/3 ML NEBU. NEB SCH ×4 (08:01→20:56)
[2021-06-09] MEDS: BUMETANIDE 2.5 MG/10 ML VIAL. IV SCH ×2 (08:29→14:42)
[2021-06-09] MEDS: FLUoxetine HCL 20 MG CAPSULE PO SCH ×2 (08:30→20:54)
[2021-06-09] MEDS: CYANOCOBALAMIN (VITAMIN B-12) 1,000 MCG TABLET. PO SCH (08:30)
[2021-06-09] MEDS: MULTIVITAMIN with MINERAL TABLET. PO SCH (08:30)
[2021-06-09] MEDS: ASPIRIN CHEWABLE 81 MG TABLET. PO SCH (08:30)
[2021-06-09] MEDS: CALCIUM CARB/VIT D3 500/200 TABLET. PO SCH ×2 (08:30→17:00)
[2021-06-09] MEDS: SPIRONOLACTONE 25 MG TABLET PO SCH (08:30)
[2021-06-09] MEDS: GABAPENTIN 100 MG CAPSULE. PO SCH ×3 (08:30→20:54)
[2021-06-09] MEDS: HYDROXYCHLOROQUINE 200 MG TABLET PO SCH (08:31)
[2021-06-09] MEDS: hydrALAZINE 10 MG TABLET PO SCH ×3 (08:34→20:50)
[2021-06-09] MEDS: MULTIVITAMIN I-VITE TABLET. PO SCH ×2 (08:34→20:54)
[2021-06-09 11:00] VITALS: BP 98/61
--- NOTE | 2021-06-09 12:16 | PDOC ---
[employer] PROGRESS NOTE Date of Service DOS: DATE: 06/09/21 TIME: 12:14 Chief Complaint Chief Complaint A/P: Acute respiratory failure with hypoxia - likely combination of COPD exacerbation, CHF and possible pneumonia. Acute systolic CHF - EF 20%, optimized on statin, ASA, toprol xl, lisinopril. AICD. Non-ischemic cardiomyopathy - likely hereditary given her father's history. optimized on meds Abnormal chest radiograph - pulmonary congestion, given her symptoms of chills, cough, COPD needs treatment for COPD exacerbation and likely gram neg pneumonia vs CHF Pulmonary edema - given lasix in ED. BNP elevated consistent with acute diastolic CHF ?EUGENIA - Cr 1.4 may be baseline Hypokalemia - likely due to above. Given lasix, insulin Hypomagnesemia - likely hypervolemic and due to poor PO intake, will monitor DM2 - glucose in 300s. will place on high sliding scale HTN - cont home meds HLD - cont statin Polymyalgia rheumatica - not on steroids Morbid obesity - counseling on lifestyle Tobacco abuse - offered nicotine patch, counseled on cessation Anxiety and insomnia - will add buspar prn and zyprexa prn. May need benzos in the future. FEN - Cardiac diet PPX - heparin CODE - DNR/DNI Dispo - inpatient CVC History of Present Illness History of Present Illness Ms Velez is a 70yo F w/ PMHx DM2, HTN, smoker, polymyalgia rheumatica, rheumatoid arthrititis, reduced EF CHF EF 20% s/p AICD who presents to the ED brought in by EMS c/o sudden onset shortness of breath. Patient awoke from sleep at approximately 1 AM with some left-sided chest discomfort and shortness of breath, unable to lay flat. Chest discomfort is a pressure does not radiate. Occasional sharp twinges. A little bit of nausea and anxiety associated as well. Has had a 10 pound weight gain since March. Has increasing lower extremity edema. She is on home Bumex 1 mg 1 time daily. She has been home with home health who have been counseling her on considering hospice. She becomes tearful in talking about this. She has severe orthopnea and cannot lay flat at all. She sleeps in a chair for only a few hours at night and wakes frequently due to her dyspnea. She cannot even walk 10 feet without getting winded. She does not know any discharges of her AICD. No recent sick contacts. She has had 2 mRNA COVID-19 vaccines and is planning on having a booster soon. She denies any fevers or chills. She has a baseline cough that is unchanged. It is mildly productive of sputum. WBC 6.2, Hb 11.3, platelets 258, NA 134, K3.5, BUN 41, CR 1.4, glucose 141, magnesium 1.5, alk phos 139, albumin 3.3 otherwise LFTs within normal laboratory limits, high-sensitivity troponin is 21, NT proBNP greater than 35,000, rapid COVID-19 negative EKG appears sinus rate 89 bpm TWI [address] depression V2. Chest radiograph suspect right pleural effusion cardiomegaly and bilateral airspace disease. Given O2, bumex, replaced mag and K and admitted for further care with car diology consultation. 06/03: Still short of breath but feels her swelling has improved a little bit. No chest pain. Still wheezing. She thinks she diuresed well urine was not all collected overnight. IV Bumex 06/04: Short of breath a little depressed. Still requiring O2 and wheezing. Tolerating IV Bumex. Per cardiology started on milrinone starting IV Solu- Medrol today. She is wondering when she should call her sons and is pretty contemplative about palliative care or hospice in the near future. She still wants to continue current care 06/05: Shortness of breath little improved. Given some mucus with flutter valve. Creatinine bumped to 1.6 but good urine output able to eat conversational dyspnea is improving but still very short of breath with minimal exertion still on milrinone and IV Bumex. 06/06: Did not tolerate milrinone well tolerating dopamine better Bumex decreased to 1 mg IV twice daily. Symptomatically she feels her breathing is better she is able to clear her airways with flutter valve. Still with dyspnea on exertion. 06/07: Feeling significantly improving. Breathing is improving. Asking for some perceived fluid for itching. She is asking when if she can go home still on 2 L/L O2. 06/08 Patient seen and examined at bedside. Little bit sedated from right heart cath still. Her study showed severely elevated right and left filling pressures. Dobutamine and dopamine drips. Would prefer transfer to ICU however bed availability is complicating this. We will closely monitor. 06/09 Seen and examined at bedside. Still on dobutamine drip. Still aggressively diuresing. Cardiology following. Only requiring 2 L nasal cannula. Will await to see cardiology plan. May need transfer? Vitals/I&O Vitals/I&O: Vital Signs Date Time Temp Pulse Resp B/P (MAP) Pulse Ox O2 Delivery O2 Flow Rate FiO2 06/09/21 11:58 96 Nasal Cannula 2.0 06/09/21 11:00 97.3 105 18 98/61 (73) 97.3 I & O 06/08/21 06/08/21 06/09/21 15:00 23:00 07:00 Intake Total 510 ml 250 ml Output Total 550 ml 2080 ml 1550 ml Balance -550 ml -1570 ml -1300 ml Physical Exam General: Alert, Oriented X3, Cooperative, No acute distress Heart: Regular rate (v-paced with underlying SR ) Lungs: Clear Abdomen: Soft Extremities: Other (2-3+ bilateral LE edema ) Skin: No significant lesion Labs Labs: Laboratory Tests Test 06/08/21 16:13 06/08/21 21:14 06/09/21 04:35 06/09/21 07:14 Glucose (Fingerstick) 84 mg/dL (70-99) 142 mg/dL (70-99) 65 mg/dL (70-99) Sodium Level 140 mmol/L (136-145) Potassium Level 3.8 mmol/L (3.5-5.1) Chloride Level 103 mmol/L (98-107) Carbon Dioxide Level 33 mmol/L (21-32) Anion Gap 4 (6-14) Blood Urea Nitrogen 42 mg/dL (7-20) Creatinine 1.2 mg/dL (0.6-1.0) Estimated GFR (Cockcroft-Gault) 44.7 Glucose Level 75 mg/dL (70-99) Calcium Level 8.3 mg/dL (8.5-10.1) Test 06/09/21 11:22 Glucose (Fingerstick) 96 mg/dL (70-99) Assessment and Plan Assessmemt and Plan Problems Medical Problems: (1) Acute exacerbation of congestive heart failure Status: Acute (2) Chest pain Status: Acute (3) Exertional dyspnea Status: Acute (4) Orthopnea Status: Acute Comment Review of Relevant I have reviewed the following items yan (where applicable) has been applied. Justifications for Admission Other Justification KATHY VASQUEZ MD Jun 09, 2021 12:16
--- NOTE | 2021-06-09 12:50 | PDOC ---
[employer] AP[employer]S SALES CONSULTANT 06/09/21 1250: CARDIO Progress Notes Date and Time Date of Service 06/09/21 Time of Evaluation 1245 Subjective Subjective: No Chest Pain, No Palpitations, Other (breathing better today ) Vitals Vitals Vital Signs Date Time Temp Pulse Resp B/P (MAP) Pulse Ox O2 Delivery O2 Flow Rate FiO2 06/09/21 11:58 96 Nasal Cannula 2.0 06/09/21 11:00 97.3 105 18 98/61 (73) 97.3 Weight Weight [ ] Input and Output Intake and Output Intake and Output 06/09/21 07:00 Intake Total 760 ml Output Total 4180 ml Balance -3420 ml Intake Oral 510 ml IV Total 250 ml Output Urine Total 4180 ml # Bowel Movements 1 Laboratory Labs Laboratory Tests Test 06/08/21 16:13 06/08/21 21:14 06/09/21 04:35 06/09/21 07:14 Glucose (Fingerstick) 84 mg/dL (70-99) 142 mg/dL (70-99) 65 mg/dL (70-99) Sodium Level 140 mmol/L (136-145) Potassium Level 3.8 mmol/L (3.5-5.1) Chloride Level 103 mmol/L (98-107) Carbon Dioxide Level 33 mmol/L (21-32) Anion Gap 4 (6-14) Blood Urea Nitrogen 42 mg/dL (7-20) Creatinine 1.2 mg/dL (0.6-1.0) Estimated GFR (Cockcroft-Gault) 44.7 Glucose Level 75 mg/dL (70-99) Calcium Level 8.3 mg/dL (8.5-10.1) Test 06/09/21 11:22 Glucose (Fingerstick) 96 mg/dL (70-99) Physical Exam HEENT: Neck Supple W Full Motion Chest: Symmetric LUNGS: Other (diminsihed ) Heart: S1S2, RRR (SR/ST), other (v-paced with underlying SR) Abdomen: Soft N/T Extremities: Other (3-4+ bilateral LE edema ) Neurology: alert, oriented, follow commands Assessment Assessment 1. Acute respiratory failure with a/c CHF 2. Acute on chronic systolic CHF; RHC with significantly elevated right and left-sided filling pressures and severe pulmonary hypertension. Good UOP overnig ht 3. NICM; LHC 09/03 without significant CAD. Echo 01/03 with LVEF 20%. S/p BiV AICD/GARMENT MANUFACTURER-D (Biotronik). recent interrogation with normal function 4. Hypertension; unable to tolerate milrinone due to hypotension. Became tachycardic on Dopamine and was discontinued 5. Hyperlipidemia; statin 6. Diabetes, II 7. CKD; Cr stable per review 8. Tobaccoism; reinforced cessation 9. AECOPD: defer to PCP 10. Arrhythimia; tele noted with ventricular ectopy with underlying SR/ST Recommendations Needs further fluid offloading Continue Bumex, Dobutamine Monitor tele for arrhythmia on inotropic support Consider addition of metolazone if patient not significantly negative over the next 24hrs Supportive care Justicifation of Admission Dx: Justifications for Admission: Justification of Admission Dx: Yes CHF: Cardiac Arrhythmias BENNY POLO MD 06/10/21 1309: CARDIO Progress Notes Assessment Assessment Patient seen and examined 06/09/2019 (late entry). Agree with SPONSORSHIP MANAGER's assessment and plan. Right heart catheterization with elevated right and left-sided filling pressures Acute on chronic systolic heart failure better compensated with diuresis with Bumex with inotropic support using dobutamine infusion FOR[facility] ONE[facility] APRN Jun 09, 2021 12:50 BENNY POLO MD Jun 10, 2021 13:09
[2021-06-09 15:00] VITALS: BP 103/71
[2021-06-09 19:18] VITALS: BP 113/78
[2021-06-09] MEDS: ATORVASTATIN CALCIUM 20 MG TABLET PO SCH (20:54)
[2021-06-09] MEDS: MONTELUKAST SODIUM 10 MG TABLET. PO SCH (20:54)
[2021-06-09] MEDS: busPIRone 5 MG TABLET. PO PRN (20:54)
[2021-06-09] MEDS: traZODone 50 MG TABLET. PO SCH (20:54)
[2021-06-09 22:08] VITALS: BP 108/71
[2021-06-10 02:32] VITALS: BP 91/63
[2021-06-10 06:14] VITALS: BP 96/75
[2021-06-10] MEDS: HEPARIN for SUB-Q USE 5,000 UNIT/ML VIAL. SQ SCH ×3 (06:16→20:57)
[2021-06-10] MEDS: ALBUTEROL SULFATE 2.5 MG/3 ML NEBU. NEB SCH ×4 (07:46→20:00)
[2021-06-10] MEDS: BUDESONIDE 0.5 MG/2 ML NEBU. NEB SCH ×2 (07:46→20:00)
[2021-06-10] MEDS: hydrALAZINE 10 MG TABLET PO SCH ×3 (08:03→20:58)
--- NOTE | 2021-06-10 08:58 | PDOC ---
[employer] [facility] PROGRESS NOTE Date of Service DOS: DATE: 06/10/21 TIME: 08:57 Chief Complaint Chief Complaint A/P: Acute respiratory failure with hypoxia - likely combination of COPD exacerbation, CHF and possible pneumonia. Acute systolic CHF - EF 20%, optimized on statin, ASA, toprol xl, lisinopril. AICD. Non-ischemic cardiomyopathy - likely hereditary given her father's history. optimized on meds Abnormal chest radiograph - pulmonary congestion, given her symptoms of chills, cough, COPD needs treatment for COPD exacerbation and likely gram neg pneumonia vs CHF Pulmonary edema - given lasix in ED. BNP elevated consistent with acute diastolic CHF ?EUGENIA - Cr 1.4 may be baseline Hypokalemia - likely due to above. Given lasix, insulin Hypomagnesemia - likely hypervolemic and due to poor PO intake, will monitor DM2 - glucose in 300s. will place on high sliding scale HTN - cont home meds HLD - cont statin Polymyalgia rheumatica - not on steroids Morbid obesity - counseling on lifestyle Tobacco abuse - offered nicotine patch, counseled on cessation Anxiety and insomnia - will add buspar prn and zyprexa prn. May need benzos in the future. FEN - Cardiac diet PPX - heparin CODE - DNR/DNI Dispo - inpatient CVC History of Present Illness History of Present Illness Ms Velez is a 70yo F w/ PMHx DM2, HTN, smoker, polymyalgia rheumatica, rheumatoid arthrititis, reduced EF CHF EF 20% s/p AICD who presents to the ED brought in by EMS c/o sudden onset shortness of breath. Patient awoke from sleep at approximately 1 AM with some left-sided chest discomfort and shortness of breath, unable to lay flat. Chest discomfort is a pressure does not radiate. Occasional sharp twinges. A little bit of nausea and anxiety associated as well. Has had a 10 pound weight gain since March. Has increasing lower extremity edema. She is on home Bumex 1 mg 1 time daily. She has been home with home health who have been counseling her on considering hospice. She becomes tearful in talking about this. She has severe orthopnea and cannot lay flat at all. She sleeps in a chair for only a few hours at night and wakes frequently due to her dyspnea. She cannot even walk 10 feet without getting winded. She does not know any discharges of her AICD. No recent sick contacts. She has had 2 mRNA COVID-19 vaccines and is planning on having a booster soon. She denies any fevers or chills. She has a baseline cough that is unchanged. It is mildly productive of sputum. WBC 6.2, Hb 11.3, platelets 258, NA 134, K3.5, BUN 41, CR 1.4, glucose 141, magnesium 1.5, alk phos 139, albumin 3.3 otherwise LFTs within normal laboratory limits, high-sensitivity troponin is 21, NT proBNP greater than 35,000, rapid COVID-19 negative EKG appears sinus rate 89 bpm TWI [address] depression V2. Chest radiograph suspect right pleural effusion cardiomegaly and bilateral airspace disease. Given O2, bumex, replaced mag and K and admitted for further care with car diology consultation. 06/03: Still short of breath but feels her swelling has improved a little bit. No chest pain. Still wheezing. She thinks she diuresed well urine was not all collected overnight. IV Bumex 06/04: Short of breath a little depressed. Still requiring O2 and wheezing. Tolerating IV Bumex. Per cardiology started on milrinone starting IV Solu- Medrol today. She is wondering when she should call her sons and is pretty contemplative about palliative care or hospice in the near future. She still wants to continue current care 06/05: Shortness of breath little improved. Given some mucus with flutter valve. Creatinine bumped to 1.6 but good urine output able to eat conversational dyspnea is improving but still very short of breath with minimal exertion still on milrinone and IV Bumex. 06/06: Did not tolerate milrinone well tolerating dopamine better Bumex decreased to 1 mg IV twice daily. Symptomatically she feels her breathing is better she is able to clear her airways with flutter valve. Still with dyspnea on exertion. 06/07: Feeling significantly improving. Breathing is improving. Asking for some perceived fluid for itching. She is asking when if she can go home still on 2 L/L O2. 06/08 Patient seen and examined at bedside. Little bit sedated from right heart cath still. Her study showed severely elevated right and left filling pressures. Dobutamine and dopamine drips. Would prefer transfer to ICU however bed availability is complicating this. We will closely monitor. 06/09 Seen and examined at bedside. Still on dobutamine drip. Still aggressively diuresing. Cardiology following. Only requiring 2 L nasal cannula. Will await to see cardiology plan. May need transfer? 06/10 Seen and examined at bedside. She was up in chair eating breakfast. Did not have any complaints to me. Still on dobutamine. On 2 L oxygen. Says her sons are coming to visit her on Tuesday. Wean oxygen as tolerated. Continue diuresis per cardiology. May need metolazone. Vitals/I&O Vitals/I&O: Vital Signs Date Time Temp Pulse Resp B/P (MAP) Pulse Ox O2 Delivery O2 Flow Rate FiO2 06/10/21 07:48 97 Nasal Cannula 2.0 06/10/21 06:14 98.0 112 18 96/75 (82) 98.0 I & O 06/09/21 06/09/21 06/10/21 15:00 23:00 07:00 Intake Total 300 ml 350 ml 500 ml Output Total 850 ml 800 ml 2800 ml Balance -550 ml -450 ml -2300 ml Physical Exam General: Alert, Oriented X3, Cooperative, No acute distress Heart: Regular rate (v-paced with underlying SR ) Lungs: Clear Abdomen: Soft Extremities: Other (2-3+ bilateral LE edema ) Skin: No significant lesion Labs Labs: Laboratory Tests Test 06/09/21 11:22 06/09/21 17:02 06/09/21 20:33 06/10/21 07:55 Glucose (Fingerstick) 96 mg/dL (70-99) 116 mg/dL (70-99) 161 mg/dL (70-99) 94 mg/dL (70-99) Assessment and Plan Assessmemt and Plan Problems Medical Problems: (1) Acute exacerbation of congestive heart failure Status: Acute (2) Chest pain Status: Acute (3) Exertional dyspnea Status: Acute (4) Orthopnea Status: Acute Comment Review of Relevant I have reviewed the following items yan (where applicable) has been applied. Justifications for Admission Other Justification KATHY VASQUEZ MD Jun 10, 2021 08:58
[2021-06-10] MEDS: GABAPENTIN 100 MG CAPSULE. PO SCH ×3 (09:08→20:56)
[2021-06-10] MEDS: HYDROXYCHLOROQUINE 200 MG TABLET PO SCH (09:08)
[2021-06-10] MEDS: MULTIVITAMIN I-VITE TABLET. PO SCH ×2 (09:08→20:57)
[2021-06-10] MEDS: SPIRONOLACTONE 25 MG TABLET PO SCH (09:09)
[2021-06-10] MEDS: BUMETANIDE 2.5 MG/10 ML VIAL. IV SCH ×2 (09:09→15:57)
[2021-06-10] MEDS: FLUoxetine HCL 20 MG CAPSULE PO SCH ×2 (09:09→20:57)
[2021-06-10] MEDS: MULTIVITAMIN with MINERAL TABLET. PO SCH (09:09)
[2021-06-10] MEDS: ASPIRIN CHEWABLE 81 MG TABLET. PO SCH (09:09)
[2021-06-10] MEDS: CALCIUM CARB/VIT D3 500/200 TABLET. PO SCH ×2 (09:13→17:00)
[2021-06-10] MEDS: CYANOCOBALAMIN (VITAMIN B-12) 1,000 MCG TABLET. PO SCH (09:13)
[2021-06-10 11:00] VITALS: BP 135/71
--- NOTE | 2021-06-10 12:17 | PDOC ---
[facility] LAUNDR[employer] TUB MAKER 06/10/21 1217: CARDIO Progress Notes Date and Time Date of Service 06/10/21 Time of Evaluation 1215 Subjective Subjective: No Chest Pain, No Palpitations, Other (breathing improving ) Vitals Vitals Vital Signs Date Time Temp Pulse Resp B/P (MAP) Pulse Ox O2 Delivery O2 Flow Rate FiO2 06/10/21 11:41 96 Nasal Cannula 2.0 06/10/21 11:00 98.2 115 22 135/71 (92) 98.2 Weight Weight [ ] Input and Output Intake and Output Intake and Output 06/10/21 07:00 Intake Total 1150 ml Output Total 4450 ml Balance -3300 ml Intake Oral 900 ml IV Total 250 ml Output Urine Total 4450 ml Laboratory Labs Laboratory Tests Test 06/09/21 17:02 06/09/21 20:33 06/10/21 07:55 06/10/21 11:23 Glucose (Fingerstick) 116 mg/dL (70-99) 161 mg/dL (70-99) 94 mg/dL (70-99) 110 mg/dL (70-99) Physical Exam HEENT: Neck Supple W Full Motion Chest: Symmetric LUNGS: Other (diminsihed ) Heart: S1S2, RRR (SR/ST), other (v-paced with underlying SR) Abdomen: Soft N/T Extremities: Other (3-4+ bilateral LE edema ) Neurology: alert, oriented, follow commands Assessment Assessment 1. Acute respiratory failure with a/c CHF 2. Acute on chronic systolic CHF; RHC with significantly elevated right and left-sided filling pressures and severe pulmonary hypertension. Improved s/p diuresis/inotropic support. Remains with good UOP 3. NICM; LHC 09/03 without significant CAD. Echo 01/03 with LVEF 20%. S/p BiV AICD/BRANCH LENDING MANAGER-D (Biotronik). recent interrogation with normal function 4. Hypertension; unable to tolerate milrinone due to hypotension. Became tachycardic on Dopamine and was discontinued 5. Hyperlipidemia; statin 6. Diabetes, II 7. CKD; Cr stable per review 8. Tobaccoism; reinforced cessation 9. AECOPD: defer to PCP 10. Arrhythimia; tele noted with ventricular ectopy with underlying SR/ST Recommendations Continue Bumex, Dobutamine Monitor I and O Monitor tele for arrhythmia on inotropic support Supportive care Justicifation of Admission Dx: Justifications for Admission: Justification of Admission Dx: Yes CHF: Cardiac Arrhythmias BENNY POLO MD 06/10/21 1650: CARDIO Progress Notes Assessment Assessment Patient seen and examined. Agree with SAWSMITH's assessment and plan. Right heart catheterization with elevated right and left-sided filling pressures Acute on chronic systolic heart failure better compensated with diuresis with Bumex with inotropic support using dobutamine infusion FOR[employer] APRN Jun 10, 2021 12:17 BENNY POLO MD Jun 10, 2021 16:50
[2021-06-10 15:00] VITALS: BP 101/62
[2021-06-10] MEDS: busPIRone 5 MG TABLET. PO PRN (18:35)
[2021-06-10 19:08] VITALS: BP 103/63
[2021-06-10] MEDS: traZODone 50 MG TABLET. PO SCH (20:57)
[2021-06-10] MEDS: ATORVASTATIN CALCIUM 20 MG TABLET PO SCH (20:57)
[2021-06-10] MEDS: MONTELUKAST SODIUM 10 MG TABLET. PO SCH (20:57)
[2021-06-10] MEDS: ACETAMINOPHEN 325 MG TABLET. PO PRN (21:04)
[2021-06-11 03:57] VITALS: BP 99/66
[2021-06-11 05:16] LABS: CALCIUM 8.6 mg/dL (8.5-10.1); CREATININE 1.1 mg/dL (0.6-1.0); GFR 49.4; MAGNESIUM 1.8 mg/dL (1.8-2.4); POTASSIUM 3.8 mmol/L (3.5-5.1)
[2021-06-11] MEDS: HEPARIN for SUB-Q USE 5,000 UNIT/ML VIAL. SQ SCH ×3 (05:43→22:18)
[2021-06-11 07:21] VITALS: BP 105/64
[2021-06-11] MEDS: hydrALAZINE 10 MG TABLET PO SCH ×3 (07:45→20:29)
[2021-06-11] MEDS: BUDESONIDE 0.5 MG/2 ML NEBU. NEB SCH ×2 (08:00→20:49)
[2021-06-11] MEDS: ALBUTEROL SULFATE 2.5 MG/3 ML NEBU. NEB SCH ×4 (08:00→20:49)
[2021-06-11] MEDS: SPIRONOLACTONE 25 MG TABLET PO SCH (08:25)
[2021-06-11] MEDS: HYDROXYCHLOROQUINE 200 MG TABLET PO SCH (08:25)
[2021-06-11] MEDS: CALCIUM CARB/VIT D3 500/200 TABLET. PO SCH ×2 (08:26→17:00)
[2021-06-11] MEDS: MULTIVITAMIN with MINERAL TABLET. PO SCH (08:26)
[2021-06-11] MEDS: GABAPENTIN 100 MG CAPSULE. PO SCH ×3 (08:26→20:29)
[2021-06-11] MEDS: CYANOCOBALAMIN (VITAMIN B-12) 1,000 MCG TABLET. PO SCH (08:26)
[2021-06-11] MEDS: MULTIVITAMIN I-VITE TABLET. PO SCH ×2 (08:26→20:28)
[2021-06-11] MEDS: FLUoxetine HCL 20 MG CAPSULE PO SCH ×2 (08:26→20:29)
[2021-06-11] MEDS: ASPIRIN CHEWABLE 81 MG TABLET. PO SCH (08:26)
[2021-06-11] MEDS: BUMETANIDE 2.5 MG/10 ML VIAL. IV SCH ×2 (08:27→16:28)
[2021-06-11 10:58] VITALS: BP 99/68
--- NOTE | 2021-06-11 11:08 | PDOC ---
[employer] [employer] VOLLEYBALL COMMENTATOR 06/11/21 1108: CARDIO Progress Notes Date and Time Date of Service 06/11/21 Time of Evaluation 1100 Subjective Subjective: No Chest Pain, No Palpitations, Other (breathing improving ) Vitals Vitals Vital Signs Date Time Temp Pulse Resp B/P (MAP) Pulse Ox O2 Delivery O2 Flow Rate FiO2 06/11/21 10:58 97.8 95 18 99/68 (78) 98 Nasal Cannula 2.0 97.8 Weight Weight [ ] Input and Output Intake and Output Intake and Output 06/11/21 07:00 Intake Total 1100 ml Output Total 800 ml Balance 300 ml Intake Oral 1100 ml Output Urine Total 800 ml # Voids 2 Laboratory Labs Laboratory Tests Test 06/10/21 11:23 06/10/21 20:37 06/11/21 03:50 06/11/21 07:18 Glucose (Fingerstick) 110 mg/dL (70-99) 132 mg/dL (70-99) 98 mg/dL (70-99) Sodium Level 139 mmol/L (136-145) Potassium Level 3.8 mmol/L (3.5-5.1) Chloride Level 99 mmol/L (98-107) Carbon Dioxide Level 33 mmol/L (21-32) Anion Gap 7 (6-14) Blood Urea Nitrogen 26 mg/dL (7-20) Creatinine 1.1 mg/dL (0.6-1.0) Estimated GFR (Cockcroft-Gault) 49.4 Glucose Level 77 mg/dL (70-99) Calcium Level 8.6 mg/dL (8.5-10.1) Magnesium Level 1.8 mg/dL (1.8-2.4) Physical Exam HEENT: Neck Supple W Full Motion Chest: Symmetric LUNGS: Other (diminsihed ) Heart: S1S2, RRR (SR/ST), other (v-paced with underlying SR) Abdomen: Soft N/T Extremities: Other (2+ bilateral LE edema ) Neurology: alert, oriented, follow commands Assessment Assessment 1. Acute respiratory failure with a/c CHF 2. Acute on chronic systolic CHF; RHC with significantly elevated right and left-sided filling pressures and severe pulmonary hypertension. Improved s/p diuresis/inotropic support. Remains with good UOP 3. NICM; LHC 09/03 without significant CAD. Echo 01/03 with LVEF 20%. S/p BiV AICD/TARGET TRIMMER-D (Biotronik). recent interrogation with normal function 4. Hypertension; unable to tolerate milrinone due to hypotension. Became tachycardic on Dopamine and was discontinued 5. Hyperlipidemia; statin 6. Diabetes, II 7. CKD; Cr stable per review 8. Tobaccoism; reinforced cessation 9. AECOPD: defer to PCP 10. Arrhythimia; tele noted with ventricular ectopy with underlying SR/ST Recommendations Continue Bumex, Dobutamine gtt Needs further fluid offloading Will add metolazone Monitor I and O Monitor tele for arrhythmia on inotropic support Supportive care Justicifation of Admission Dx: Justifications for Admission: Justification of Admission Dx: Yes CHF: Cardiac Arrhythmias BENNY POLO MD 06/11/211818: CARDIO Progress Notes Assessment Assessment Patient seen and examined. Agree with STONE POLISHER HAND's assessment and plan. Acute on chronic systolic heart failure better compensated with diuresis with Bumex with inotropic support using dobutamine infusion Agree with adding metolazone to augment diuresis FOR[employer] APRN Jun 11, 2021 11:08 BENNY POLO MD Jun 11, 2021 18:19
--- NOTE | 2021-06-11 11:57 | PDOC ---
[employer] PROGRESS NOTE Date of Service DOS: DATE: 06/11/21 TIME: 11:56 Chief Complaint Chief Complaint A/P: Acute respiratory failure with hypoxia - likely combination of COPD exacerbation, CHF and possible pneumonia. Acute systolic CHF - EF 20%, optimized on statin, ASA, toprol xl, lisinopril. AICD. Non-ischemic cardiomyopathy - likely hereditary given her father's history. optimized on meds Abnormal chest radiograph - pulmonary congestion, given her symptoms of chills, cough, COPD needs treatment for COPD exacerbation and likely gram neg pneumonia vs CHF Pulmonary edema - given lasix in ED. BNP elevated consistent with acute diastolic CHF ?EUGENIA - Cr 1.4 may be baseline Hypokalemia - likely due to above. Given lasix, insulin Hypomagnesemia - likely hypervolemic and due to poor PO intake, will monitor DM2 - glucose in 300s. will place on high sliding scale HTN - cont home meds HLD - cont statin Polymyalgia rheumatica - not on steroids Morbid obesity - counseling on lifestyle Tobacco abuse - offered nicotine patch, counseled on cessation Anxiety and insomnia - will add buspar prn and zyprexa prn. May need benzos in the future. FEN - Cardiac diet PPX - heparin CODE - DNR/DNI Dispo - inpatient CVC History of Present Illness History of Present Illness Ms Velez is a 70yo F w/ PMHx DM2, HTN, smoker, polymyalgia rheumatica, rheumatoid arthrititis, reduced EF CHF EF 20% s/p AICD who presents to the ED brought in by EMS c/o sudden onset shortness of breath. Patient awoke from sleep at approximately 1 AM with some left-sided chest discomfort and shortness of breath, unable to lay flat. Chest discomfort is a pressure does not radiate. Occasional sharp twinges. A little bit of nausea and anxiety associated as well. Has had a 10 pound weight gain since March. Has increasing lower extremity edema. She is on home Bumex 1 mg 1 time daily. She has been home with home health who have been counseling her on considering hospice. She becomes tearful in talking about this. She has severe orthopnea and cannot lay flat at all. She sleeps in a chair for only a few hours at night and wakes frequently due to her dyspnea. She cannot even walk 10 feet without getting winded. She does not know any discharges of her AICD. No recent sick contacts. She has had 2 mRNA COVID-19 vaccines and is planning on having a booster soon. She denies any fevers or chills. She has a baseline cough that is unchanged. It is mildly productive of sputum. WBC 6.2, Hb 11.3, platelets 258, NA 134, K3.5, BUN 41, CR 1.4, glucose 141, magnesium 1.5, alk phos 139, albumin 3.3 otherwise LFTs within normal laboratory limits, high-sensitivity troponin is 21, NT proBNP greater than 35,000, rapid COVID-19 negative EKG appears sinus rate 89 bpm TWI [address] depression V2. Chest radiograph suspect right pleural effusion cardiomegaly and bilateral airspace disease. Given O2, bumex, replaced mag and K and admitted for further care with car diology consultation. 06/03: Still short of breath but feels her swelling has improved a little bit. No chest pain. Still wheezing. She thinks she diuresed well urine was not all collected overnight. IV Bumex 06/04: Short of breath a little depressed. Still requiring O2 and wheezing. Tolerating IV Bumex. Per cardiology started on milrinone starting IV Solu- Medrol today. She is wondering when she should call her sons and is pretty contemplative about palliative care or hospice in the near future. She still wants to continue current care 06/05: Shortness of breath little improved. Given some mucus with flutter valve. Creatinine bumped to 1.6 but good urine output able to eat conversational dyspnea is improving but still very short of breath with minimal exertion still on milrinone and IV Bumex. 06/06: Did not tolerate milrinone well tolerating dopamine better Bumex decreased to 1 mg IV twice daily. Symptomatically she feels her breathing is better she is able to clear her airways with flutter valve. Still with dyspnea on exertion. 06/07: Feeling significantly improving. Breathing is improving. Asking for some perceived fluid for itching. She is asking when if she can go home still on 2 L/L O2. 06/08 Patient seen and examined at bedside. Little bit sedated from right heart cath still. Her study showed severely elevated right and left filling pressures. Dobutamine and dopamine drips. Would prefer transfer to ICU however bed availability is complicating this. We will closely monitor. 06/09 Seen and examined at bedside. Still on dobutamine drip. Still aggressively diuresing. Cardiology following. Only requiring 2 L nasal cannula. Will await to see cardiology plan. May need transfer? 06/10 Seen and examined at bedside. She was up in chair eating breakfast. Did not have any complaints to me. Still on dobutamine. On 2 L oxygen. Says her sons are coming to visit her on Tuesday. Wean oxygen as tolerated. Continue diuresis per cardiology. May need metolazone. 06/11 Examined at bedside. Said that her feet felt a little bit swollen this morning otherwise no complaints. Continue encouragement diuresis. Cardiology follo wing. Still on dobutamine. Family coming tomorrow. Vitals/I&O Vitals/I&O: Vital Signs Date Time Temp Pulse Resp B/P (MAP) Pulse Ox O2 Delivery O2 Flow Rate FiO2 06/11/21 11:39 Nasal Cannula 2.0 06/11/21 10:58 97.8 95 18 99/68 (78) 98 97.8 I & O 06/10/21 06/10/21 06/11/21 15:00 23:00 07:00 Intake Total 390 ml 210 ml 500 ml Output Total 800 ml Balance 390 ml 210 ml -300 ml Physical Exam General: Alert, Oriented X3, Cooperative, No acute distress Heart: Regular rate (v-paced with underlying SR ) Lungs: Clear Abdomen: Soft Extremities: Other (2-3+ bilateral LE edema ) Skin: No significant lesion Labs Labs: Laboratory Tests Test 06/10/21 20:37 06/11/21 03:50 06/11/21 07:18 06/11/21 11:33 Glucose (Fingerstick) 132 mg/dL (70-99) 98 mg/dL (70-99) 101 mg/dL (70-99) Sodium Level 139 mmol/L (136-145) Potassium Level 3.8 mmol/L (3.5-5.1) Chloride Level 99 mmol/L (98-107) Carbon Dioxide Level 33 mmol/L (21-32) Anion Gap 7 (6-14) Blood Urea Nitrogen 26 mg/dL (7-20) Creatinine 1.1 mg/dL (0.6-1.0) Estimated GFR (Cockcroft-Gault) 49.4 Glucose Level 77 mg/dL (70-99) Calcium Level 8.6 mg/dL (8.5-10.1) Magnesium Level 1.8 mg/dL (1.8-2.4) Assessment and Plan Assessmemt and Plan Problems Medical Problems: (1) Acute exacerbation of congestive heart failure Status: Acute (2) Chest pain Status: Acute (3) Exertional dyspnea Status: Acute (4) Orthopnea Status: Acute Comment Review of Relevant I have reviewed the following items yan (where applicable) has been applied. Justifications for Admission Other Justification KATHY VASQUEZ MD Jun 11, 2021 11:57
[2021-06-11 14:04] VITALS: BP 94/61
[2021-06-11] MEDS ORDERED: DIGOXIN IV 500 MCG/2 ML AMPUL. IV ONE (15:15)
[2021-06-11] MEDS: ACETAMINOPHEN 325 MG TABLET. PO PRN (16:27)
[2021-06-11] MEDS: metOLazone 2.5 MG TABLET PO SCH (16:29)
--- NOTE | 2021-06-11 16:35 | EKG ---
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
[2021-06-11 19:06] VITALS: BP 97/64
[2021-06-11] MEDS: ATORVASTATIN CALCIUM 20 MG TABLET PO SCH (20:29)
[2021-06-11] MEDS: MONTELUKAST SODIUM 10 MG TABLET. PO SCH (20:29)
[2021-06-11] MEDS: traZODone 50 MG TABLET. PO SCH (20:29)
[2021-06-11 22:25] VITALS: BP 95/50
[2021-06-12 02:34] VITALS: BP 93/55
[2021-06-12] MEDS: HEPARIN for SUB-Q USE 5,000 UNIT/ML VIAL. SQ SCH ×3 (06:03→22:24)
[2021-06-12 07:00] VITALS: BP 95/64
[2021-06-12] MEDS: ALBUTEROL SULFATE 2.5 MG/3 ML NEBU. NEB SCH ×4 (07:32→21:04)
[2021-06-12] MEDS: BUDESONIDE 0.5 MG/2 ML NEBU. NEB SCH ×2 (07:32→21:04)
[2021-06-12] MEDS: SPIRONOLACTONE 25 MG TABLET PO SCH (08:15)
[2021-06-12] MEDS: hydrALAZINE 10 MG TABLET PO SCH ×4 (08:16→22:21)
[2021-06-12] MEDS: CYANOCOBALAMIN (VITAMIN B-12) 1,000 MCG TABLET. PO SCH (08:16)
[2021-06-12] MEDS: FLUoxetine HCL 20 MG CAPSULE PO SCH ×2 (08:17→22:23)
[2021-06-12] MEDS: ASPIRIN CHEWABLE 81 MG TABLET. PO SCH (08:17)
[2021-06-12] MEDS: GABAPENTIN 100 MG CAPSULE. PO SCH ×3 (08:17→22:18)
[2021-06-12] MEDS: CALCIUM CARB/VIT D3 500/200 TABLET. PO SCH ×2 (08:17→17:00)
[2021-06-12] MEDS: MULTIVITAMIN I-VITE TABLET. PO SCH ×2 (08:17→22:22)
[2021-06-12] MEDS: MULTIVITAMIN with MINERAL TABLET. PO SCH (08:17)
[2021-06-12] MEDS: BUMETANIDE 2.5 MG/10 ML VIAL. IV SCH ×2 (08:17→13:59)
[2021-06-12] MEDS: HYDROXYCHLOROQUINE 200 MG TABLET PO SCH (08:17)
[2021-06-12] MEDS: metOLazone 2.5 MG TABLET PO SCH (09:13)
--- NOTE | 2021-06-12 10:30 | PDOC ---
HUSSEIN LYNCH [place] 06/12/21 1030: CARDIO Progress Notes Date and Time Date of Service 06/12/2021 Time of Evaluation 1020 Subjective Subjective: No Chest Pain, No Palpitations, Other (SOA with exertion) Vitals Vitals Vital Signs Date Time Temp Pulse Resp B/P (MAP) Pulse Ox O2 Delivery O2 Flow Rate FiO2 06/12/21 08:00 Nasal Cannula 3.0 06/12/21 07:18 92 06/12/21 02:34 98.0 106 19 93/55 (68) 98.0 Weight Weight [ ] Input and Output Intake and Output Intake and Output 06/12/21 07:00 Intake Total 1530 ml Output Total 2650 ml Balance -1120 ml Intake Oral 1530 ml Output Urine Total 2650 ml Laboratory Labs Laboratory Tests Test 06/11/21 11:33 06/11/21 16:29 06/11/21 20:28 06/12/21 07:25 Glucose (Fingerstick) 101 mg/dL (70-99) 103 mg/dL (70-99) 105 mg/dL (70-99) 110 mg/dL (70-99) Physical Exam HEENT: Neck Supple W Full Motion Chest: Symmetric LUNGS: Other (diminsihed basilar crackkles) Heart: S1S2, RRR (SR/ST), other (v-paced with underlying SR) Abdomen: Soft N/T Extremities: Other (2-3+ bilateral LE edema ) Neurology: alert, oriented, follow commands Assessment Assessment 1. Acute respiratory failure with a/c CHF: still fluid overloaded but better 2. Acute on chronic systolic CHF; RHC with significantly elevated right and left-sided filling pressures and severe pulmonary hypertension. Improved s/p diuresis/inotropic support. 3. NICM; LHC 09/03 without significant CAD. Echo 01/03 with LVEF 20%. S/p BiV AICD/S[employer] TE[employer]ER-D ([employer]iotronik). recent interrogation with normal function 4. Hypertension; unable to tolerate milrinone due to hypotension. Became tachycardic on Dopamine and was discontinued 5. Hyperlipidemia; statin 6. Diabetes, II 7. CKD; Cr stable per review 8. Tobaccoism; reinforced cessation 9. AECOPD: defer to PCP 10. Arrhythimia; tele noted with ventricular ectopy with underlying SR/ST Recommendations Continue Bumex, Dobutamine gtt and metolazone. goal wt at least 85KG. BMP and Mg today Needs further fluid offloading Monitor I and O Monitor tele for arrhythmia on inotropic support Supportive care Justicifation of Admission Dx: Justifications for Admission: Justification of Admission Dx: Yes CHF: Cardiac Arrhythmias BENNY POLO MD 06/12/21 1204: CARDIO Progress Notes Assessment Assessment Patient seen and examined. Agree with IS CONSULTANT's assessment and plan. Acute on chronic systolic heart failure better compensated Continue diuresis with Bumex and metolazone and inotropic support with dobutamine. HUSSEIN LYNCH APRN Jun 12, 2021 10:30 BENNY POLO MD Jun 12, 2021 12:04
[2021-06-12 10:35] VITALS: BP 92/59
[2021-06-12 12:26] LABS: CALCIUM 8.4 mg/dL (8.5-10.1); CREATININE 1.2 mg/dL (0.6-1.0); GFR 44.7; MAGNESIUM 1.8 mg/dL (1.8-2.4); POTASSIUM 4.2 mmol/L (3.5-5.1)
--- NOTE | 2021-06-12 13:44 | PDOC ---
[employer] PROGRESS NOTE Date of Service DOS: DATE: 06/12/21 TIME: 13:43 Chief Complaint Chief Complaint A/P: Acute respiratory failure with hypoxia - likely combination of COPD exacerbation, CHF and possible pneumonia. Acute systolic CHF - EF 20%, optimized on statin, ASA, toprol xl, lisinopril. AICD. Non-ischemic cardiomyopathy - likely hereditary given her father's history. optimized on meds Abnormal chest radiograph - pulmonary congestion, given her symptoms of chills, cough, COPD needs treatment for COPD exacerbation and likely gram neg pneumonia vs CHF Pulmonary edema - given lasix in ED. BNP elevated consistent with acute diastolic CHF ?EUGENIA - Cr 1.4 may be baseline Hypokalemia - likely due to above. Given lasix, insulin Hypomagnesemia - likely hypervolemic and due to poor PO intake, will monitor DM2 - glucose in 300s. will place on high sliding scale HTN - cont home meds HLD - cont statin Polymyalgia rheumatica - not on steroids Morbid obesity - counseling on lifestyle Tobacco abuse - offered nicotine patch, counseled on cessation Anxiety and insomnia - will add buspar prn and zyprexa prn. May need benzos in the future. FEN - Cardiac diet PPX - heparin CODE - DNR/DNI Dispo - inpatient CVC History of Present Illness History of Present Illness Ms Velez is a 70yo F w/ PMHx DM2, HTN, smoker, polymyalgia rheumatica, rheumatoid arthrititis, reduced EF CHF EF 20% s/p AICD who presents to the ED brought in by EMS c/o sudden onset shortness of breath. Patient awoke from sleep at approximately 1 AM with some left-sided chest discomfort and shortness of breath, unable to lay flat. Chest discomfort is a pressure does not radiate. Occasional sharp twinges. A little bit of nausea and anxiety associated as well. Has had a 10 pound weight gain since March. Has increasing lower extremity edema. She is on home Bumex 1 mg 1 time daily. She has been home with home health who have been counseling her on considering hospice. She becomes tearful in talking about this. She has severe orthopnea and cannot lay flat at all. She sleeps in a chair for only a few hours at night and wakes frequently due to her dyspnea. She cannot even walk 10 feet without getting winded. She does not know any discharges of her AICD. No recent sick contacts. She has had 2 mRNA COVID-19 vaccines and is planning on having a booster soon. She denies any fevers or chills. She has a baseline cough that is unchanged. It is mildly productive of sputum. WBC 6.2, Hb 11.3, platelets 258, NA 134, K3.5, BUN 41, CR 1.4, glucose 141, magnesium 1.5, alk phos 139, albumin 3.3 otherwise LFTs within normal laboratory limits, high-sensitivity troponin is 21, NT proBNP greater than 35,000, rapid COVID-19 negative EKG appears sinus rate 89 bpm TWI [address] depression V2. Chest radiograph suspect right pleural effusion cardiomegaly and bilateral airspace disease. Given O2, bumex, replaced mag and K and admitted for further care with car diology consultation. 06/03: Still short of breath but feels her swelling has improved a little bit. No chest pain. Still wheezing. She thinks she diuresed well urine was not all collected overnight. IV Bumex 06/04: Short of breath a little depressed. Still requiring O2 and wheezing. Tolerating IV Bumex. Per cardiology started on milrinone starting IV Solu- Medrol today. She is wondering when she should call her sons and is pretty contemplative about palliative care or hospice in the near future. She still wants to continue current care 06/05: Shortness of breath little improved. Given some mucus with flutter valve. Creatinine bumped to 1.6 but good urine output able to eat conversational dyspnea is improving but still very short of breath with minimal exertion still on milrinone and IV Bumex. 06/06: Did not tolerate milrinone well tolerating dopamine better Bumex decreased to 1 mg IV twice daily. Symptomatically she feels her breathing is better she is able to clear her airways with flutter valve. Still with dyspnea on exertion. 06/07: Feeling significantly improving. Breathing is improving. Asking for some perceived fluid for itching. She is asking when if she can go home still on 2 L/L O2. 06/08 Patient seen and examined at bedside. Little bit sedated from right heart cath still. Her study showed severely elevated right and left filling pressures. Dobutamine and dopamine drips. Would prefer transfer to ICU however bed availability is complicating this. We will closely monitor. 06/09 Seen and examined at bedside. Still on dobutamine drip. Still aggressively diuresing. Cardiology following. Only requiring 2 L nasal cannula. Will await to see cardiology plan. May need transfer? 06/10 Seen and examined at bedside. She was up in chair eating breakfast. Did not have any complaints to me. Still on dobutamine. On 2 L oxygen. Says her sons are coming to visit her on Tuesday. Wean oxygen as tolerated. Continue diuresis per cardiology. May need metolazone. 06/11 Examined at bedside. Said that her feet felt a little bit swollen this morning otherwise no complaints. Continue encouragement diuresis. Cardiology follo wing. Still on dobutamine. Family coming tomorrow. 06/12 Evaluate examined at bedside. Up in her chair. Said her swelling actually does feel little better today. He still on dobutamine. Continue diuresis. She is very eager to see her sons today. If good progress may be discharge early next week? Vitals/I&O Vitals/I&O: Vital Signs Date Time Temp Pulse Resp B/P (MAP) Pulse Ox O2 Delivery O2 Flow Rate FiO2 06/12/21 10:35 97.7 113 20 92/59 (70) 100 Nasal Cannula 2.0 97.7 I & O 06/11/21 06/11/21 06/12/21 15:00 23:00 07:00 Intake Total 480 ml 850 ml 200 ml Output Total 1400 ml 250 ml 1000 ml Balance -920 ml 600 ml -800 ml Physical Exam General: Alert, Oriented X3, Cooperative, No acute distress Heart: Regular rate (v-paced with underlying SR ) Lungs: Clear Abdomen: Soft Extremities: Other (2-3+ bilateral LE edema ) Skin: No significant lesion Labs Labs: Laboratory Tests Test 06/11/21 16:29 06/11/21 20:28 06/12/21 07:25 06/12/21 11:07 Glucose (Fingerstick) 103 mg/dL (70-99) 105 mg/dL (70-99) 110 mg/dL (70-99) 138 mg/dL (70-99) Test 06/12/21 12:05 Sodium Level 135 mmol/L (136-145) Potassium Level 4.2 mmol/L (3.5-5.1) Chloride Level 97 mmol/L (98-107) Carbon Dioxide Level 34 mmol/L (21-32) Anion Gap 4 (6-14) Blood Urea Nitrogen 21 mg/dL (7-20) Creatinine 1.2 mg/dL (0.6-1.0) Estimated GFR (Cockcroft-Gault) 44.7 Glucose Level 106 mg/dL (70-99) Calcium Level 8.4 mg/dL (8.5-10.1) Magnesium Level 1.8 mg/dL (1.8-2.4) Assessment and Plan Assessmemt and Plan Problems Medical Problems: (1) Acute exacerbation of congestive heart failure Status: Acute (2) Chest pain Status: Acute (3) Exertional dyspnea Status: Acute (4) Orthopnea Status: Acute Comment Review of Relevant I have reviewed the following items yan (where applicable) has been applied. Medications: Current Medications Medications (Trade) Dose Ordered Sig/Yvette Route PRN Reason Start Time Stop Time Status Last Admin Dose Admin Metolazone (Zaroxolyn) 5 mg DAILY PO 06/11/21 15:15 06/12/21 09:13 Digoxin (Lanoxin) 250 mcg 1X ONCE IV 06/11/21 15:15 06/11/21 15:16 DC 06/11/21 16:30 Justifications for Admission Other Justification KATHY VASQUEZ MD Jun 12, 2021 13:44
--- NOTE | 2021-06-12 14:06 | NUR ---
SS following up with discharge planning. SS reviewed pt chart and discussed with pt RN. Pt is currently requiring oxygen at three liters nasal canula. COVID19 negative. Pt on Dobutamine drip and IV Bumex. Continued Diuresing. Pt is current on services with [facility], ; fax [phone]. SS will continue to follow for discharge planning.
[2021-06-12 14:18] VITALS: BP 105/62
[2021-06-12 19:07] VITALS: BP 104/58
[2021-06-12] MEDS: busPIRone 5 MG TABLET. PO PRN (22:23)
[2021-06-12] MEDS: traZODone 50 MG TABLET. PO SCH (22:23)
[2021-06-12] MEDS: ATORVASTATIN CALCIUM 20 MG TABLET PO SCH (22:23)
[2021-06-12] MEDS: MONTELUKAST SODIUM 10 MG TABLET. PO SCH (22:24)
[2021-06-12 22:31] VITALS: BP 115/71
[2021-06-13 02:08] VITALS: BP 91/56
[2021-06-13] MEDS: ALBUTEROL SULFATE 2.5 MG/3 ML NEBU. NEB SCH ×4 (06:09→22:01)
[2021-06-13] MEDS: BUDESONIDE 0.5 MG/2 ML NEBU. NEB SCH ×2 (06:09→22:01)
[2021-06-13] MEDS: HEPARIN for SUB-Q USE 5,000 UNIT/ML VIAL. SQ SCH ×3 (06:09→22:54)
[2021-06-13 07:00] VITALS: BP 87/60
[2021-06-13] MEDS: HYDROXYCHLOROQUINE 200 MG TABLET PO SCH (08:28)
[2021-06-13] MEDS: FLUoxetine HCL 20 MG CAPSULE PO SCH ×2 (08:28→22:53)
[2021-06-13] MEDS: GABAPENTIN 100 MG CAPSULE. PO SCH ×3 (08:28→22:52)
[2021-06-13] MEDS: MULTIVITAMIN I-VITE TABLET. PO SCH ×2 (08:28→22:51)
[2021-06-13] MEDS: SPIRONOLACTONE 25 MG TABLET PO SCH (08:28)
[2021-06-13] MEDS: CALCIUM CARB/VIT D3 500/200 TABLET. PO SCH ×2 (08:28→17:00)
[2021-06-13] MEDS: ASPIRIN CHEWABLE 81 MG TABLET. PO SCH (08:28)
[2021-06-13] MEDS: MULTIVITAMIN with MINERAL TABLET. PO SCH (08:28)
[2021-06-13] MEDS: CYANOCOBALAMIN (VITAMIN B-12) 1,000 MCG TABLET. PO SCH (08:29)
[2021-06-13] MEDS: metOLazone 2.5 MG TABLET PO SCH (08:30)
[2021-06-13] MEDS: BUMETANIDE 2.5 MG/10 ML VIAL. IV SCH ×2 (08:30→13:21)
[2021-06-13] MEDS: hydrALAZINE 10 MG TABLET PO SCH ×3 (08:30→16:06)
[2021-06-13 11:00] VITALS: BP 103/75
--- NOTE | 2021-06-13 12:07 | PDOC ---
CARDIOLOGY PROGRESS NOTE SUBJECTIVE: Myra is a pleasant 70 yo F with a pmh of DM2, HTN, COPD, tobacco abuse, polymyalgia rheumatica, RA, CHF with EF 20% s/p AICD. Admitted for SOB in the setting of an acute CHF exacerbation. She continues to show improvement and had no acute events overnight. She reports feeling much improved and denies cardiac complaints at this time. OBJECTIVE: Vital Signs/I&O: Vital Signs Date Time Temp Pulse Resp B/P (MAP) Pulse Ox O2 Delivery O2 Flow Rate FiO2 06/13/21 11:24 Nasal Cannula 2.0 06/13/21 11:00 97.8 116 103/75 (84) 100 97.8 06/13/21 07:00 18 I & O 06/12/21 06/12/21 06/13/21 15:00 23:00 07:00 Intake Total 240 ml 940 ml 130 ml Output Total 2000 ml 1000 ml 1100 ml Balance -1760 ml -60 ml -970 ml Objective: General: NAD, lying supine in bed, occasional pursed lip breathing HEENT: NC/AT Neck: No carotid bruits appreciated Heart: RRR, early systolic ejection murmur appreciated loudest over L sternum. Lungs: CTAB Extremities: lower extremity edema Pulses: posterior tibial and radial pulses 2+ bilaterally DIAGNOSTIC TESTING: Labs: Laboratory Tests 06/12/21 12:05 Laboratory Tests Test 06/12/21 12:05 06/12/21 16:44 06/12/21 17:11 06/12/21 20:31 Sodium Level 135 mmol/L (136-145) L Potassium Level 4.2 mmol/L (3.5-5.1) Chloride Level 97 mmol/L (98-107) L Carbon Dioxide Level 34 mmol/L (21-32) H Anion Gap 4 (6-14) L Blood Urea Nitrogen 21 mg/dL (7-20) H Creatinine 1.2 mg/dL (0.6-1.0) H Estimated GFR (Cockcroft-Gault) 44.7 Glucose Level 106 mg/dL (70-99) H Calcium Level 8.4 mg/dL (8.5-10.1) L Glucose (Fingerstick) 75 mg/dL (70-99) 125 mg/dL (70-99) H 99 mg/dL (70-99) Test 06/13/21 08:20 06/13/21 11:47 Glucose (Fingerstick) 109 mg/dL (70-99) H 154 mg/dL (70-99) H ASSESSMENT: 1. CHF exacerbation 2. COPD 3. Hypotension 4. Anxiety PLAN: 1. Continue bumex, metolazone and dobutamine. Plan for 2 L negative overnight. Reassess labs in a.m. Justicifation of Admission Dx: Justifications for Admission: Justification of Admission Dx: Yes CHF: Cardiac Arrhythmias ESTHER LORENZO MD Jun 13, 2021 12:07
[2021-06-13 15:00] VITALS: BP 100/65
[2021-06-13 16:37] LABS: CALCIUM 8.9 mg/dL (8.5-10.1); CREATININE 1.4 mg/dL (0.6-1.0); GFR 37.4; POTASSIUM 4.1 mmol/L (3.5-5.1)
[2021-06-13 19:59] VITALS: BP 100/63
--- NOTE | 2021-06-13 21:42 | PDOC ---
[facility] [facility] PROGRESS NOTE Date of Service DOS: DATE: 06/13/21 TIME: 21:41 Chief Complaint Chief Complaint A/P: Acute respiratory failure with hypoxia - likely combination of COPD exacerbation, CHF and possible pneumonia. Acute systolic CHF - EF 20%, optimized on statin, ASA, toprol xl, lisinopril. AICD. Non-ischemic cardiomyopathy - likely hereditary given her father's history. optimized on meds Abnormal chest radiograph - pulmonary congestion, given her symptoms of chills, cough, COPD needs treatment for COPD exacerbation and likely gram neg pneumonia vs CHF Pulmonary edema - given lasix in ED. BNP elevated consistent with acute diastolic CHF ?EUGENIA - Cr 1.4 may be baseline Hypokalemia - likely due to above. Given lasix, insulin Hypomagnesemia - likely hypervolemic and due to poor PO intake, will monitor DM2 - glucose in 300s. will place on high sliding scale HTN - cont home meds HLD - cont statin Polymyalgia rheumatica - not on steroids Morbid obesity - counseling on lifestyle Tobacco abuse - offered nicotine patch, counseled on cessation Anxiety and insomnia - will add buspar prn and zyprexa prn. May need benzos in the future. FEN - Cardiac diet PPX - heparin CODE - DNR/DNI Dispo - inpatient CVC History of Present Illness History of Present Illness Ms Velez is a 70yo F w/ PMHx DM2, HTN, smoker, polymyalgia rheumatica, rheumatoid arthrititis, reduced EF CHF EF 20% s/p AICD who presents to the ED brought in by EMS c/o sudden onset shortness of breath. Patient awoke from sleep at approximately 1 AM with some left-sided chest discomfort and shortness of breath, unable to lay flat. Chest discomfort is a pressure does not radiate. Occasional sharp twinges. A little bit of nausea and anxiety associated as well. Has had a 10 pound weight gain since March. Has increasing lower extremity edema. She is on home Bumex 1 mg 1 time daily. She has been home with home health who have been counseling her on considering hospice. She becomes tearful in talking about this. She has severe orthopnea and cannot lay flat at all. She sleeps in a chair for only a few hours at night and wakes frequently due to her dyspnea. She cannot even walk 10 feet without getting winded. She does not know any discharges of her AICD. No recent sick contacts. She has had 2 mRNA COVID-19 vaccines and is planning on having a booster soon. She denies any fevers or chills. She has a baseline cough that is unchanged. It is mildly productive of sputum. WBC 6.2, Hb 11.3, platelets 258, NA 134, K3.5, BUN 41, CR 1.4, glucose 141, magnesium 1.5, alk phos 139, albumin 3.3 otherwise LFTs within normal laboratory limits, high-sensitivity troponin is 21, NT proBNP greater than 35,000, rapid COVID-19 negative EKG appears sinus rate 89 bpm TWI [address] depression V2. Chest radiograph suspect right pleural effusion cardiomegaly and bilateral airspace disease. Given O2, bumex, replaced mag and K and admitted for further care with car diology consultation. 06/03: Still short of breath but feels her swelling has improved a little bit. No chest pain. Still wheezing. She thinks she diuresed well urine was not all collected overnight. IV Bumex 06/04: Short of breath a little depressed. Still requiring O2 and wheezing. Tolerating IV Bumex. Per cardiology started on milrinone starting IV Solu- Medrol today. She is wondering when she should call her sons and is pretty contemplative about palliative care or hospice in the near future. She still wants to continue current care 06/05: Shortness of breath little improved. Given some mucus with flutter valve. Creatinine bumped to 1.6 but good urine output able to eat conversational dyspnea is improving but still very short of breath with minimal exertion still on milrinone and IV Bumex. 06/06: Did not tolerate milrinone well tolerating dopamine better Bumex decreased to 1 mg IV twice daily. Symptomatically she feels her breathing is better she is able to clear her airways with flutter valve. Still with dyspnea on exertion. 06/07: Feeling significantly improving. Breathing is improving. Asking for some perceived fluid for itching. She is asking when if she can go home still on 2 L/L O2. 06/08 Patient seen and examined at bedside. Little bit sedated from right heart cath still. Her study showed severely elevated right and left filling pressures. Dobutamine and dopamine drips. Would prefer transfer to ICU however bed availability is complicating this. We will closely monitor. 06/09 Seen and examined at bedside. Still on dobutamine drip. Still aggressively diuresing. Cardiology following. Only requiring 2 L nasal cannula. Will await to see cardiology plan. May need transfer? 06/10 Seen and examined at bedside. She was up in chair eating breakfast. Did not have any complaints to me. Still on dobutamine. On 2 L oxygen. Says her sons are coming to visit her on Tuesday. Wean oxygen as tolerated. Continue diuresis per cardiology. May need metolazone. 06/11 Examined at bedside. Said that her feet felt a little bit swollen this morning otherwise no complaints. Continue encouragement diuresis. Cardiology follo wing. Still on dobutamine. Family coming tomorrow. 06/12 Evaluate examined at bedside. Up in her chair. Said her swelling actually does feel little better today. He still on dobutamine. Continue diuresis. She is very eager to see her sons today. If good progress may be discharge early next week? 06/13 Eval and examined at bedside. C/o foot edema otherwise no complaints. Sons at bedside, discussed with them current plan of care. Aggressive diuresis. Continue current. Vitals/I&O Vitals/I&O: Vital Signs Date Time Temp Pulse Resp B/P (MAP) Pulse Ox O2 Delivery O2 Flow Rate FiO2 06/13/21 19:59 97.7 118 20 100/63 (75) 97 Nasal Cannula 2.0 97.7 I & O 06/12/21 06/12/21 06/13/21 15:00 23:00 07:00 Intake Total 240 ml 940 ml 130 ml Output Total 2000 ml 1000 ml 1100 ml Balance -1760 ml -60 ml -970 ml Physical Exam General: Alert, Oriented X3, Cooperative, No acute distress Heart: Regular rate (v-paced with underlying SR ) Lungs: Clear Abdomen: Soft Extremities: Other (2-3+ bilateral LE edema ) Skin: No significant lesion Labs Labs: Laboratory Tests Test 06/13/21 08:20 06/13/21 11:47 06/13/21 15:50 06/13/21 16:41 Glucose (Fingerstick) 109 mg/dL (70-99) 154 mg/dL (70-99) 145 mg/dL (70-99) Sodium Level 134 mmol/L (136-145) Potassium Level 4.1 mmol/L (3.5-5.1) Chloride Level 96 mmol/L (98-107) Carbon Dioxide Level 33 mmol/L (21-32) Anion Gap 5 (6-14) Blood Urea Nitrogen 23 mg/dL (7-20) Creatinine 1.4 mg/dL (0.6-1.0) Estimated GFR (Cockcroft-Gault) 37.4 Glucose Level 131 mg/dL (70-99) Calcium Level 8.9 mg/dL (8.5-10.1) Test 06/13/21 20:21 Glucose (Fingerstick) 133 mg/dL (70-99) Assessment and Plan Assessmemt and Plan Problems Medical Problems: (1) Acute exacerbation of congestive heart failure Status: Acute (2) Chest pain Status: Acute (3) Exertional dyspnea Status: Acute (4) Orthopnea Status: Acute Comment Review of Relevant I have reviewed the following items yan (where applicable) has been applied. Justifications for Admission Other Justification KATHY VASQUEZ MD Jun 13, 2021 21:42
[2021-06-13] MEDS: busPIRone 5 MG TABLET. PO PRN (22:51)
[2021-06-13 22:52] VITALS: BP 104/67
[2021-06-13] MEDS: traZODone 50 MG TABLET. PO SCH (22:52)
[2021-06-13] MEDS: ATORVASTATIN CALCIUM 20 MG TABLET PO SCH (22:52)
[2021-06-13] MEDS: MONTELUKAST SODIUM 10 MG TABLET. PO SCH (22:53)
[2021-06-14 02:51] VITALS: BP 95/64
[2021-06-14 04:36] LABS: BASO # 0.1 x10^3/uL (0.0-0.2); BASO % 1 % (0-3); EOS % 1 % (0-3); HEMATOCRIT 30.4 % (36.0-47.0); HEMOGLOBIN 10.1 g/dL (12.0-15.5); LYMPH # 1.2 x10^3/uL (1.0-4.8); LYMPH % 16 % (24-48); MEAN CORPUSCULAR HEMOGLOBIN 31 pg (25-35); MEAN CORPUSCULAR HGB CONC 33 g/dL (31-37); MEAN CORPUSCULAR VOLUME 93 fL (79-100); MONO # 0.7 x10^3/uL (0.0-1.1); MONO % 9 % (0-9); NEUT # 5.4 x10^3/uL (1.8-7.7); NEUT % 74 % (31-73); PLATELET COUNT 237 x10^3/uL (140-400); RED BLOOD COUNT 3.27 x10^6/uL (3.50-5.40); RED CELL DISTRIBUTION WIDTH 16.6 % (11.5-14.5); WHITE BLOOD COUNT 7.3 x10^3/uL (4.0-11.0)
[2021-06-14] MEDS: HEPARIN for SUB-Q USE 5,000 UNIT/ML VIAL. SQ SCH ×3 (05:13→21:54)
[2021-06-14 05:31] LABS: ALBUMIN 2.9 g/dL (3.4-5.0); ALBUMIN/GLOBULIN RATIO 0.7 (1.0-1.7); CALCIUM 8.8 mg/dL (8.5-10.1); CREATININE 1.3 mg/dL (0.6-1.0); GFR 40.7; POTASSIUM 3.8 mmol/L (3.5-5.1); TOTAL BILIRUBIN 1.1 mg/dL (0.2-1.0); TOTAL PROTEIN 7.3 g/dL (6.4-8.2)
[2021-06-14 07:00] VITALS: BP 96/57
[2021-06-14] MEDS: ALBUTEROL SULFATE 2.5 MG/3 ML NEBU. NEB SCH ×4 (07:24→21:08)
[2021-06-14] MEDS: BUDESONIDE 0.5 MG/2 ML NEBU. NEB SCH ×2 (07:24→21:08)
[2021-06-14] MEDS: GABAPENTIN 100 MG CAPSULE. PO SCH ×3 (09:00→21:33)
[2021-06-14] MEDS: hydrALAZINE 10 MG TABLET PO SCH ×3 (09:00→21:00)
[2021-06-14] MEDS: SPIRONOLACTONE 25 MG TABLET PO SCH (09:49)
[2021-06-14] MEDS: CYANOCOBALAMIN (VITAMIN B-12) 1,000 MCG TABLET. PO SCH (09:49)
[2021-06-14] MEDS: FLUoxetine HCL 20 MG CAPSULE PO SCH ×2 (09:49→21:33)
[2021-06-14] MEDS: HYDROXYCHLOROQUINE 200 MG TABLET PO SCH (09:49)
[2021-06-14] MEDS: MULTIVITAMIN I-VITE TABLET. PO SCH ×2 (09:49→21:33)
[2021-06-14] MEDS: MULTIVITAMIN with MINERAL TABLET. PO SCH (09:50)
[2021-06-14] MEDS: BUMETANIDE 2.5 MG/10 ML VIAL. IV SCH ×2 (09:50→14:37)
[2021-06-14] MEDS: metOLazone 2.5 MG TABLET PO SCH (09:50)
[2021-06-14] MEDS: ASPIRIN CHEWABLE 81 MG TABLET. PO SCH (09:50)
[2021-06-14] MEDS: CALCIUM CARB/VIT D3 500/200 TABLET. PO SCH ×2 (09:50→16:21)
[2021-06-14 11:00] VITALS: BP 97/64
--- NOTE | 2021-06-14 13:13 | PDOC ---
CARDIOLOGY PROGRESS NOTE SUBJECTIVE: No new events overnight. The patient is wanting to go home but she still has significant volume overload. Her orthopnea has improved. OBJECTIVE: Vital Signs/I&O: Vital Signs Date Time Temp Pulse Resp B/P (MAP) Pulse Ox O2 Delivery O2 Flow Rate FiO2 06/14/21 11:00 98.0 113 22 97/64 (75) 98 Nasal Cannula 2.0 98.0 I & O 06/13/21 06/13/21 06/14/21 15:00 23:00 07:00 Intake Total 500 ml 200 ml 260 ml Output Total 2500 ml 700 ml Balance 500 ml -2300 ml -440 ml Objective: The patient appeared well nourished and normally developed. Head exam is unremarkable. No scleral icterus or corneal arcus noted. Neck is without jugular venous distension, thyromegaly, or carotid bruits. Carotid upstrokes are brisk bilaterally. Lungs are clear to auscultation and percussion. Cardiac exam reveals the PMI to be normally sized and situated. Rhythm is regular but tachycardic. First and second heart sounds normal. No murmurs, rubs or gallops. Abdominal exam reveals normal bowel sounds, no masses, no organomegaly and no aortic enlargement. Extremities are notable for significant 3+ edema still. Msk: No traumua Neuro: No focal deficits CURRENT MEDICATIONS: Medications reviewed. DIAGNOSTIC TESTING: Labs reviewed. Labs: Laboratory Tests 06/14/21 04:00 Laboratory Tests Test 06/13/21 15:50 06/13/21 16:41 06/13/21 20:21 06/14/21 04:00 Sodium Level 134 mmol/L (136-145) L 133 mmol/L (136-145) L Potassium Level 4.1 mmol/L (3.5-5.1) 3.8 mmol/L (3.5-5.1) Chloride Level 96 mmol/L (98-107) L 96 mmol/L (98-107) L Carbon Dioxide Level 33 mmol/L (21-32) H 33 mmol/L (21-32) H Anion Gap 5 (6-14) L 4 (6-14) L Blood Urea Nitrogen 23 mg/dL (7-20) H 22 mg/dL (7-20) H Creatinine 1.4 mg/dL (0.6-1.0) H 1.3 mg/dL (0.6-1.0) H Estimated GFR (Cockcroft-Gault) 37.4 40.7 Glucose Level 131 mg/dL (70-99) H 104 mg/dL (70-99) H Calcium Level 8.9 mg/dL (8.5-10.1) 8.8 mg/dL (8.5-10.1) Glucose (Fingerstick) 145 mg/dL (70-99) H 133 mg/dL (70-99) H White Blood Count 7.3 x10^3/uL (4.0-11.0) Red Blood Count 3.27 x10^6/uL (3.50-5.40) L Hemoglobin 10.1 g/dL (12.0-15.5) L Hematocrit 30.4 % (36.0-47.0) L Mean Corpuscular Volume 93 fL (79-100) Mean Corpuscular Hemoglobin 31 pg (25-35) Mean Corpuscular Hemoglobin Concent 33 g/dL (31-37) Red Cell Distribution Width 16.6 % (11.5-14.5) H Platelet Count 237 x10^3/uL (140-400) Neutrophils (%) (Auto) 74 % (31-73) H Lymphocytes (%) (Auto) 16 % (24-48) L Monocytes (%) (Auto) 9 % (0-9) Eosinophils (%) (Auto) 1 % (0-3) Basophils (%) (Auto) 1 % (0-3) Neutrophils # (Auto) 5.4 x10^3/uL (1.8-7.7) Lymphocytes # (Auto) 1.2 x10^3/uL (1.0-4.8) Monocytes # (Auto) 0.7 x10^3/uL (0.0-1.1) Eosinophils # (Auto) 0.0 x10^3/uL (0.0-0.7) Basophils # (Auto) 0.1 x10^3/uL (0.0-0.2) BUN/Creatinine Ratio 17 (6-20) Total Bilirubin 1.1 mg/dL (0.2-1.0) H Aspartate Amino Transf (AST/SGOT) 30 U/L (15-37) Alkaline Phosphatase 110 U/L (46-116) Total Protein 7.3 g/dL (6.4-8.2) Albumin 2.9 g/dL (3.4-5.0) L Albumin/Globulin Ratio 0.7 (1.0-1.7) L Test 06/14/21 08:17 06/14/21 11:42 Glucose (Fingerstick) 103 mg/dL (70-99) H 109 mg/dL (70-99) H ASSESSMENT: 1. Acute respiratory failure with a/c CHF: still fluid overloaded but better 2. Acute on chronic systolic CHF; RHC with significantly elevated right and left-sided filling pressures and severe pulmonary hypertension. Improved s/p diuresis/inotropic support. 3. NICM; LHC 09/03 without significant CAD. Echo 01/03 with LVEF 20%. 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 recent interrogation with normal function 4. Hypertension; unable to tolerate milrinone due to hypotension. Became tachycardic on Dopamine and was discontinued 5. Hyperlipidemia; statin 6. Diabetes, II 7. CKD; Cr stable per review 8. Tobaccoism; reinforced cessation 9. AECOPD: defer to PCP 10. Arrhythimia; tele noted with ventricular ectopy with underlying SR/ST Recommendations Continue Bumex, Dobutamine gtt and metolazone. Continue fluid removal. She has lost over 20 pounds but yet clinically she looks like she still has significant volume overload. We will continue intravenous diuretics and dobutamine for another 24 hours then transition to oral therapy tomorrow with plans for discharge to home likely closer to the [facility] of next week. Justicifation of Admission Dx: Justifications for Admission: Justification of Admission Dx: Yes CHF: Cardiac Arrhythmias ESTHER LORENZO MD Jun 14, 2021 13:13
--- NOTE | 2021-06-14 13:23 | PDOC ---
[employer] [facility] PROGRESS NOTE Date of Service DOS: DATE: 06/14/21 TIME: 13:22 Chief Complaint Chief Complaint A/P: Acute respiratory failure with hypoxia - likely combination of COPD exacerbation, CHF and possible pneumonia. Acute systolic CHF - EF 20%, optimized on statin, ASA, toprol xl, lisinopril. AICD. Non-ischemic cardiomyopathy - likely hereditary given her father's history. optimized on meds Abnormal chest radiograph - pulmonary congestion, given her symptoms of chills, cough, COPD needs treatment for COPD exacerbation and likely gram neg pneumonia vs CHF Pulmonary edema - given lasix in ED. BNP elevated consistent with acute diastolic CHF ?EUGENIA - Cr 1.4 may be baseline Hypokalemia - likely due to above. Given lasix, insulin Hypomagnesemia - likely hypervolemic and due to poor PO intake, will monitor DM2 - glucose in 300s. will place on high sliding scale HTN - cont home meds HLD - cont statin Polymyalgia rheumatica - not on steroids Morbid obesity - counseling on lifestyle Tobacco abuse - offered nicotine patch, counseled on cessation Anxiety and insomnia - will add buspar prn and zyprexa prn. May need benzos in the future. FEN - Cardiac diet PPX - heparin CODE - DNR/DNI Dispo - inpatient CVC History of Present Illness History of Present Illness Ms Velez is a 70yo F w/ PMHx DM2, HTN, smoker, polymyalgia rheumatica, rheumatoid arthrititis, reduced EF CHF EF 20% s/p AICD who presents to the ED brought in by EMS c/o sudden onset shortness of breath. Patient awoke from sleep at approximately 1 AM with some left-sided chest discomfort and shortness of breath, unable to lay flat. Chest discomfort is a pressure does not radiate. Occasional sharp twinges. A little bit of nausea and anxiety associated as well. Has had a 10 pound weight gain since March. Has increasing lower extremity edema. She is on home Bumex 1 mg 1 time daily. She has been home with home health who have been counseling her on considering hospice. She becomes tearful in talking about this. She has severe orthopnea and cannot lay flat at all. She sleeps in a chair for only a few hours at night and wakes frequently due to her dyspnea. She cannot even walk 10 feet without getting winded. She does not know any discharges of her AICD. No recent sick contacts. She has had 2 mRNA COVID-19 vaccines and is planning on having a booster soon. She denies any fevers or chills. She has a baseline cough that is unchanged. It is mildly productive of sputum. WBC 6.2, Hb 11.3, platelets 258, NA 134, K3.5, BUN 41, CR 1.4, glucose 141, magnesium 1.5, alk phos 139, albumin 3.3 otherwise LFTs within normal laboratory limits, high-sensitivity troponin is 21, NT proBNP greater than 35,000, rapid COVID-19 negative EKG appears sinus rate 89 bpm TWI [address] depression V2. Chest radiograph suspect right pleural effusion cardiomegaly and bilateral airspace disease. Given O2, bumex, replaced mag and K and admitted for further care with car diology consultation. 06/03: Still short of breath but feels her swelling has improved a little bit. No chest pain. Still wheezing. She thinks she diuresed well urine was not all collected overnight. IV Bumex 06/04: Short of breath a little depressed. Still requiring O2 and wheezing. Tolerating IV Bumex. Per cardiology started on milrinone starting IV Solu- Medrol today. She is wondering when she should call her sons and is pretty contemplative about palliative care or hospice in the near future. She still wants to continue current care 06/05: Shortness of breath little improved. Given some mucus with flutter valve. Creatinine bumped to 1.6 but good urine output able to eat conversational dyspnea is improving but still very short of breath with minimal exertion still on milrinone and IV Bumex. 06/06: Did not tolerate milrinone well tolerating dopamine better Bumex decreased to 1 mg IV twice daily. Symptomatically she feels her breathing is better she is able to clear her airways with flutter valve. Still with dyspnea on exertion. 06/07: Feeling significantly improving. Breathing is improving. Asking for some perceived fluid for itching. She is asking when if she can go home still on 2 L/L O2. 06/08 Patient seen and examined at bedside. Little bit sedated from right heart cath still. Her study showed severely elevated right and left filling pressures. Dobutamine and dopamine drips. Would prefer transfer to ICU however bed availability is complicating this. We will closely monitor. 06/09 Seen and examined at bedside. Still on dobutamine drip. Still aggressively diuresing. Cardiology following. Only requiring 2 L nasal cannula. Will await to see cardiology plan. May need transfer? 06/10 Seen and examined at bedside. She was up in chair eating breakfast. Did not have any complaints to me. Still on dobutamine. On 2 L oxygen. Says her sons are coming to visit her on Tuesday. Wean oxygen as tolerated. Continue diuresis per cardiology. May need metolazone. 06/11 Examined at bedside. Said that her feet felt a little bit swollen this morning otherwise no complaints. Continue encouragement diuresis. Cardiology follo wing. Still on dobutamine. Family coming tomorrow. 06/12 Evaluate examined at bedside. Up in her chair. Said her swelling actually does feel little better today. He still on dobutamine. Continue diuresis. She is very eager to see her sons today. If good progress may be discharge early next week? 06/13 Eval and examined at bedside. C/o foot edema otherwise no complaints. Sons at bedside, discussed with them current plan of care. Aggressive diuresis. Continue current. 06/14 Evaluate examined at bedside still pretty fluid overloaded. She no major complaints. Looked at cardiology note plan to stop dobutamine tomorrow and see how she does with orals. Vitals/I&O Vitals/I&O: Vital Signs Date Time Temp Pulse Resp B/P (MAP) Pulse Ox O2 Delivery O2 Flow Rate FiO2 06/14/21 11:00 98.0 113 22 97/64 (75) 98 Nasal Cannula 2.0 98.0 I & O 06/13/21 06/13/21 06/14/21 15:00 23:00 07:00 Intake Total 500 ml 200 ml 260 ml Output Total 2500 ml 700 ml Balance 500 ml -2300 ml -440 ml Physical Exam General: Alert, Oriented X3, Cooperative, No acute distress Heart: Regular rate (v-paced with underlying SR ) Lungs: Clear Abdomen: Soft Extremities: Other (2-3+ bilateral LE edema ) Skin: No significant lesion Labs Labs: Laboratory Tests Test 06/13/21 15:50 06/13/21 16:41 06/13/21 20:21 06/14/21 04:00 Sodium Level 134 mmol/L (136-145) 133 mmol/L (136-145) Potassium Level 4.1 mmol/L (3.5-5.1) 3.8 mmol/L (3.5-5.1) Chloride Level 96 mmol/L (98-107) 96 mmol/L (98-107) Carbon Dioxide Level 33 mmol/L (21-32) 33 mmol/L (21-32) Anion Gap 5 (6-14) 4 (6-14) Blood Urea Nitrogen 23 mg/dL (7-20) 22 mg/dL (7-20) Creatinine 1.4 mg/dL (0.6-1.0) 1.3 mg/dL (0.6-1.0) Estimated GFR (Cockcroft-Gault) 37.4 40.7 Glucose Level 131 mg/dL (70-99) 104 mg/dL (70-99) Calcium Level 8.9 mg/dL (8.5-10.1) 8.8 mg/dL (8.5-10.1) Glucose (Fingerstick) 145 mg/dL (70-99) 133 mg/dL (70-99) White Blood Count 7.3 x10^3/uL (4.0-11.0) Red Blood Count 3.27 x10^6/uL (3.50-5.40) Hemoglobin 10.1 g/dL (12.0-15.5) Hematocrit 30.4 % (36.0-47.0) Mean Corpuscular Volume 93 fL (79-100) Mean Corpuscular Hemoglobin 31 pg (25-35) Mean Corpuscular Hemoglobin Concent 33 g/dL (31-37) Red Cell Distribution Width 16.6 % (11.5-14.5) Platelet Count 237 x10^3/uL (140-400) Neutrophils (%) (Auto) 74 % (31-73) Lymphocytes (%) (Auto) 16 % (24-48) Monocytes (%) (Auto) 9 % (0-9) Eosinophils (%) (Auto) 1 % (0-3) Basophils (%) (Auto) 1 % (0-3) Neutrophils # (Auto) 5.4 x10^3/uL (1.8-7.7) Lymphocytes # (Auto) 1.2 x10^3/uL (1.0-4.8) Monocytes # (Auto) 0.7 x10^3/uL (0.0-1.1) Eosinophils # (Auto) 0.0 x10^3/uL (0.0-0.7) Basophils # (Auto) 0.1 x10^3/uL (0.0-0.2) BUN/Creatinine Ratio 17 (6-20) Total Bilirubin 1.1 mg/dL (0.2-1.0) Aspartate Amino Transf (AST/SGOT) 30 U/L (15-37) Alanine Aminotransferase (ALT/SGPT) 29 U/L (14-59) Alkaline Phosphatase 110 U/L (46-116) Total Protein 7.3 g/dL (6.4-8.2) Albumin 2.9 g/dL (3.4-5.0) Albumin/Globulin Ratio 0.7 (1.0-1.7) Test 06/14/21 08:17 06/14/21 11:42 Glucose (Fingerstick) 103 mg/dL (70-99) 109 mg/dL (70-99) Assessment and Plan Assessmemt and Plan Problems Medical Problems: (1) Acute exacerbation of congestive heart failure Status: Acute (2) Chest pain Status: Acute (3) Exertional dyspnea Status: Acute (4) Orthopnea Status: Acute Comment Review of Relevant I have reviewed the following items yan (where applicable) has been applied. Justifications for Admission Other Justification KATHY VASQUEZ MD Jun 14, 2021 13:23
[2021-06-14] MEDS: ALBUTEROL SULFATE 2.5 MG/3 ML NEBU. INH PRN (13:55)
[2021-06-14 15:00] VITALS: BP 96/56
[2021-06-14 19:50] VITALS: BP 94/58
[2021-06-14] MEDS: ATORVASTATIN CALCIUM 20 MG TABLET PO SCH (21:33)
[2021-06-14] MEDS: traZODone 50 MG TABLET. PO SCH (21:33)
[2021-06-14] MEDS: MONTELUKAST SODIUM 10 MG TABLET. PO SCH (21:33)
[2021-06-14 23:00] VITALS: BP 107/66
[2021-06-15 02:33] VITALS: BP 112/64
[2021-06-15] MEDS: HEPARIN for SUB-Q USE 5,000 UNIT/ML VIAL. SQ SCH ×3 (05:17→21:50)
[2021-06-15 07:12] VITALS: BP 99/69
[2021-06-15] MEDS: BUDESONIDE 0.5 MG/2 ML NEBU. NEB SCH ×2 (07:40→20:16)
[2021-06-15] MEDS: ALBUTEROL SULFATE 2.5 MG/3 ML NEBU. NEB SCH ×4 (07:40→20:16)
[2021-06-15] MEDS: BUMETANIDE 2.5 MG/10 ML VIAL. IV SCH ×2 (08:29→14:08)
[2021-06-15] MEDS: CYANOCOBALAMIN (VITAMIN B-12) 1,000 MCG TABLET. PO SCH (08:30)
[2021-06-15] MEDS: SPIRONOLACTONE 25 MG TABLET PO SCH (08:30)
[2021-06-15] MEDS: MULTIVITAMIN with MINERAL TABLET. PO SCH (08:30)
[2021-06-15] MEDS: GABAPENTIN 100 MG CAPSULE. PO SCH ×3 (08:31→21:45)
[2021-06-15] MEDS: HYDROXYCHLOROQUINE 200 MG TABLET PO SCH (08:31)
[2021-06-15] MEDS: MULTIVITAMIN I-VITE TABLET. PO SCH ×2 (08:31→21:45)
[2021-06-15] MEDS: FLUoxetine HCL 20 MG CAPSULE PO SCH ×2 (08:31→21:45)
[2021-06-15] MEDS: CALCIUM CARB/VIT D3 500/200 TABLET. PO SCH ×2 (08:31→16:57)
[2021-06-15] MEDS: metOLazone 2.5 MG TABLET PO SCH (08:31)
[2021-06-15] MEDS: ASPIRIN CHEWABLE 81 MG TABLET. PO SCH (08:31)
--- NOTE | 2021-06-15 08:38 | PDOC ---
[facility] PROGRESS NOTE Date of Service DOS: DATE: 06/15/21 TIME: 08:36 Chief Complaint Chief Complaint A/P: Acute respiratory failure with hypoxia - likely combination of COPD exacerbation, CHF and possible pneumonia. Acute systolic CHF - EF 20%, optimized on statin, ASA, toprol xl, lisinopril. AICD. Non-ischemic cardiomyopathy - likely hereditary given her father's history. optimized on meds Abnormal chest radiograph - pulmonary congestion, given her symptoms of chills, cough, COPD needs treatment for COPD exacerbation and likely gram neg pneumonia vs CHF Pulmonary edema - given lasix in ED. BNP elevated consistent with acute diastolic CHF ?EUGENIA - Cr 1.4 may be baseline Hypokalemia - likely due to above. Given lasix, insulin Hypomagnesemia - likely hypervolemic and due to poor PO intake, will monitor DM2 - glucose in 300s. will place on high sliding scale HTN - cont home meds HLD - cont statin Polymyalgia rheumatica - not on steroids Morbid obesity - counseling on lifestyle Tobacco abuse - offered nicotine patch, counseled on cessation Anxiety and insomnia - will add buspar prn and zyprexa prn. May need benzos in the future. FEN - Cardiac diet PPX - heparin CODE - DNR/DNI Dispo - inpatient CVC History of Present Illness History of Present Illness Ms Velez is a 70yo F w/ PMHx DM2, HTN, smoker, polymyalgia rheumatica, rheumatoid arthrititis, reduced EF CHF EF 20% s/p AICD who presents to the ED brought in by EMS c/o sudden onset shortness of breath. Patient awoke from sleep at approximately 1 AM with some left-sided chest discomfort and shortness of breath, unable to lay flat. Chest discomfort is a pressure does not radiate. Occasional sharp twinges. A little bit of nausea and anxiety associated as well. Has had a 10 pound weight gain since March. Has increasing lower extremity edema. She is on home Bumex 1 mg 1 time daily. She has been home with home health who have been counseling her on considering hospice. She becomes tearful in talking about this. She has severe orthopnea and cannot lay flat at all. She sleeps in a chair for only a few hours at night and wakes frequently due to her dyspnea. She cannot even walk 10 feet without getting winded. She does not know any discharges of her AICD. No recent sick contacts. She has had 2 mRNA COVID-19 vaccines and is planning on having a booster soon. She denies any fevers or chills. She has a baseline cough that is unchanged. It is mildly productive of sputum. WBC 6.2, Hb 11.3, platelets 258, NA 134, K3.5, BUN 41, CR 1.4, glucose 141, magnesium 1.5, alk phos 139, albumin 3.3 otherwise LFTs within normal laboratory limits, high-sensitivity troponin is 21, NT proBNP greater than 35,000, rapid COVID-19 negative EKG appears sinus rate 89 bpm TWI [address] depression V2. Chest radiograph suspect right pleural effusion cardiomegaly and bilateral airspace disease. Given O2, bumex, replaced mag and K and admitted for further care with car diology consultation. 06/03: Still short of breath but feels her swelling has improved a little bit. No chest pain. Still wheezing. She thinks she diuresed well urine was not all collected overnight. IV Bumex 06/04: Short of breath a little depressed. Still requiring O2 and wheezing. Tolerating IV Bumex. Per cardiology started on milrinone starting IV Solu- Medrol today. She is wondering when she should call her sons and is pretty contemplative about palliative care or hospice in the near future. She still wants to continue current care 06/05: Shortness of breath little improved. Given some mucus with flutter valve. Creatinine bumped to 1.6 but good urine output able to eat conversational dyspnea is improving but still very short of breath with minimal exertion still on milrinone and IV Bumex. 06/06: Did not tolerate milrinone well tolerating dopamine better Bumex decreased to 1 mg IV twice daily. Symptomatically she feels her breathing is better she is able to clear her airways with flutter valve. Still with dyspnea. 06/07: Feeling significantly improving. Breathing is improving. Asking for some perceived fluid for itching. She is asking when if she can go home still on 2 L/L O2. 06/08: Little bit sedated from right heart cath still. Her study showed severely elevated right and left filling pressures. Dobutamine and dopamine drips. Would prefer transfer to ICU however bed availability is complicating this. 06/09: Seen and examined at bedside. Still on dobutamine drip. Still aggressively diuresing. Cardiology following. Only requiring 2 L nasal cannula. Will await to see cardiology plan. 06/10: Seen and examined at bedside. She was up in chair eating breakfast. Did not have any complaints to me. Still on dobutamine. On 2 L oxygen. Says her sons are coming to visit her on Tuesday. Wean oxygen as tolerated. Continue diuresis per cardiology. May need metolazone. 06/11: Examined at bedside. Said that her feet felt a little bit swollen this morning otherwise no complaints. Continue encouragement diuresis. Cardiology following. Still on dobutamine. Family coming tomorrow. 06/12: Up in her chair. Said her swelling actually does feel little better today. He still on dobutamine. Continue diuresis. She is very eager to see her sons today. If good progress may be discharge early next week? 06/13: Eval and examined at bedside. C/o foot edema otherwise no complaints. S ons at bedside, discussed with them current plan of care. Aggressive diuresis. Continue current. 06/14: Evaluate examined at bedside still pretty fluid overloaded. She no major complaints. Looked at cardiology note plan to stop dobutamine tomorrow and see how she does with orals. 06/15: 3.2 L urine output yesterday and 3.6 L urine output today. Still on IV Bumex metolazone and dobutamine gtt. She feels a lot better is lost 20 pounds still on minimal O2 able to take a deep breath still some dyspnea on exertion. Vitals/I&O Vitals/I&O: Vital Signs Date Time Temp Pulse Resp B/P (MAP) Pulse Ox O2 Delivery O2 Flow Rate FiO2 06/15/21 07:35 95 Nasal Cannula 2.0 06/15/21 07:12 97.9 108 18 99/69 (79) 97.9 I & O 06/14/21 06/14/21 06/15/21 15:00 23:00 07:00 Intake Total 500 ml 0 ml Output Total 2500 ml 1100 ml Balance -2000 ml -1100 ml Physical Exam General: Alert, Oriented X3, Cooperative, No acute distress Heart: Regular rate (v-paced with underlying SR ) Lungs: Clear Abdomen: Soft Extremities: Other (2-3+ bilateral LE edema ) Skin: No significant lesion Labs Labs: Laboratory Tests Test 06/14/21 11:42 06/14/21 17:09 06/14/21 21:04 06/15/21 07:09 Glucose (Fingerstick) 109 mg/dL (70-99) 97 mg/dL (70-99) 245 mg/dL (70-99) 99 mg/dL (70-99) Assessment and Plan Assessmemt and Plan Problems Medical Problems: (1) Acute exacerbation of congestive heart failure Status: Acute (2) Chest pain Status: Acute (3) Exertional dyspnea Status: Acute (4) Orthopnea Status: Acute Comment Review of Relevant I have reviewed the following items yan (where applicable) has been applied. Justifications for Admission Other Justification KATHY HARKINS MD Jun 15, 2021 08:38
[2021-06-15] MEDS: hydrALAZINE 10 MG TABLET PO SCH ×3 (09:00→21:00)
[2021-06-15 10:08] LABS: CALCIUM 8.8 mg/dL (8.5-10.1); CREATININE 1.3 mg/dL (0.6-1.0); GFR 40.7; MAGNESIUM 1.8 mg/dL (1.8-2.4); POTASSIUM 3.3 mmol/L (3.5-5.1)
--- NOTE | 2021-06-15 10:57 | PDOC ---
FOREST ONEAL SOLDERER 06/15/21 1057: CARDIO Progress Notes Date and Time Date of Service 06/15/21 Time of Evaluation 1055 Subjective Subjective: No Chest Pain, No Palpitations, Other (feels much better; had nice weekend with sons visiting ) Vitals Vitals Vital Signs Date Time Temp Pulse Resp B/P (MAP) Pulse Ox O2 Delivery O2 Flow Rate FiO2 06/15/21 07:35 95 Nasal Cannula 2.0 06/15/21 07:12 97.9 108 18 99/69 (79) 97.9 Weight Weight [ ] Input and Output Intake and Output Intake and Output 06/15/21 07:00 Intake Total 500 ml Output Total 3600 ml Balance -3100 ml Intake Oral 500 ml Output Urine Total 3600 ml Laboratory Labs Laboratory Tests Test 06/14/21 11:42 06/14/21 17:09 06/14/21 21:04 06/15/21 07:09 Glucose (Fingerstick) 109 mg/dL (70-99) 97 mg/dL (70-99) 245 mg/dL (70-99) 99 mg/dL (70-99) Test 06/15/21 09:50 Sodium Level 136 mmol/L (136-145) Potassium Level 3.3 mmol/L (3.5-5.1) Chloride Level 97 mmol/L (98-107) Carbon Dioxide Level 35 mmol/L (21-32) Anion Gap 4 (6-14) Blood Urea Nitrogen 18 mg/dL (7-20) Creatinine 1.3 mg/dL (0.6-1.0) Estimated GFR (Cockcroft-Gault) 40.7 Glucose Level 124 mg/dL (70-99) Calcium Level 8.8 mg/dL (8.5-10.1) Magnesium Level 1.8 mg/dL (1.8-2.4) Physical Exam HEENT: Neck Supple W Full Motion Chest: Symmetric LUNGS: Other (diminsihed ) Heart: S1S2, RRR (SR/ST), other (v-paced with underlying SR) Abdomen: Soft N/T Extremities: Other (1-2+ bilateral LE edema ) Neurology: alert, oriented, follow commands Assessment Assessment 1. Acute respiratory failure with a/c CHF 2. Acute on chronic systolic CHF; RHC with significantly elevated right and left-sided filling pressures and severe pulmonary hypertension. Improved s/p diuresis/inotropic support. Remains with good UOP 3. NICM; LHC 09/03 without significant CAD. Echo 01/03 with LVEF 20%. S/p BiV AICD/AUTHOR'S AGENT-D (Biotronik). recent interrogation with normal function 4. Hypertension; remains low-end 5. Hyperlipidemia; statin 6. Diabetes, II 7. CKD; Cr stable per review 8. Tobaccoism; reinforced cessation 9. Hypokalemia, hypomagnesemia; replaced Recommendations Volume status significantly improved, but still needs further fluid offloading Will continue IV Bumex, metolazone, Dobutamine gtt another 24hrs and plan to transition to oral tomorrow Supportive care Justicifation of Admission Dx: Justifications for Admission: Justification of Admission Dx: Yes CHF: Cardiac Arrhythmias BENNY POLO MD 06/16/21 0541: CARDIO Progress Notes Assessment Assessment Patient seen and examined. Agree with ROR ENGINEER's assessment and plan. Acute on chr systolic HF better compensated with diuresis and inotropic support Plan on stopping dobutamine and transition diuretics to PO tomorrow FOREST ONEAL APRN Jun 15, 2021 10:57 BENNY POLO MD Jun 16, 2021 05:41
[2021-06-15 11:08] VITALS: BP 93/57
[2021-06-15] MEDS ORDERED: MAGNESIUM SULFATE 1GM 100 ML IV ONE (11:15)
[2021-06-15] MEDS ORDERED: POTASSIUM CHLORIDE 20 MEQ TABLET.ER. PO ONE (11:15)
[2021-06-15 14:22] VITALS: BP 89/57
[2021-06-15 19:50] VITALS: BP 77/62
[2021-06-15] MEDS: MONTELUKAST SODIUM 10 MG TABLET. PO SCH (21:44)
[2021-06-15] MEDS: traZODone 50 MG TABLET. PO SCH (21:46)
[2021-06-15] MEDS: ATORVASTATIN CALCIUM 20 MG TABLET PO SCH (21:46)
[2021-06-15 23:35] VITALS: BP 99/62
[2021-06-16 03:40] VITALS: BP 87/64
[2021-06-16] MEDS: HEPARIN for SUB-Q USE 5,000 UNIT/ML VIAL. SQ SCH ×3 (06:10→22:27)
[2021-06-16 07:19] VITALS: BP 96/63
[2021-06-16] MEDS: BUDESONIDE 0.5 MG/2 ML NEBU. NEB SCH ×2 (07:57→19:45)
[2021-06-16] MEDS: ALBUTEROL SULFATE 2.5 MG/3 ML NEBU. NEB SCH ×4 (07:57→19:45)
[2021-06-16] MEDS: hydrALAZINE 10 MG TABLET PO SCH ×3 (09:00→20:06)
[2021-06-16] MEDS: ASPIRIN CHEWABLE 81 MG TABLET. PO SCH (09:21)
[2021-06-16] MEDS: CALCIUM CARB/VIT D3 500/200 TABLET. PO SCH ×2 (09:21→17:01)
[2021-06-16] MEDS: GABAPENTIN 100 MG CAPSULE. PO SCH ×3 (09:21→20:06)
[2021-06-16] MEDS: CYANOCOBALAMIN (VITAMIN B-12) 1,000 MCG TABLET. PO SCH (09:22)
[2021-06-16] MEDS: metOLazone 2.5 MG TABLET PO SCH (09:23)
[2021-06-16] MEDS: HYDROXYCHLOROQUINE 200 MG TABLET PO SCH (09:23)
[2021-06-16] MEDS: MULTIVITAMIN I-VITE TABLET. PO SCH ×2 (09:23→20:06)
[2021-06-16] MEDS: SPIRONOLACTONE 25 MG TABLET PO SCH (09:23)
[2021-06-16] MEDS: MULTIVITAMIN with MINERAL TABLET. PO SCH (09:23)
[2021-06-16] MEDS: BUMETANIDE 2.5 MG/10 ML VIAL. IV SCH (09:25)
[2021-06-16] MEDS: FLUoxetine HCL 20 MG CAPSULE PO SCH ×2 (09:26→20:06)
[2021-06-16 10:10] VITALS: BP 84/67
--- NOTE | 2021-06-16 10:30 | PDOC ---
[employer] [employer]ARN[employer] FINISHER 06/16/21 1030: CARDIO Progress Notes Date and Time Date of Service 06/16/21 Time of Evaluation 1020 Subjective Subjective: No Chest Pain, No Palpitations, Other (feels well today) Vitals Vitals Vital Signs Date Time Temp Pulse Resp B/P (MAP) Pulse Ox O2 Delivery O2 Flow Rate FiO2 06/16/21 10:10 97.6 114 22 84/67 (73) 98 Nasal Cannula 2.0 97.6 Weight Weight [ ] Input and Output Intake and Output Intake and Output 06/16/21 07:00 Intake Total 1160 ml Output Total 2050 ml Balance -890 ml Intake Oral 1160 ml Output Urine Total 2050 ml Laboratory Labs Laboratory Tests Test 06/15/21 11:53 06/15/21 16:23 06/15/21 21:04 06/16/21 07:16 Glucose (Fingerstick) 107 mg/dL (70-99) 96 mg/dL (70-99) 117 mg/dL (70-99) 101 mg/dL (70-99) Physical Exam HEENT: Neck Supple W Full Motion Chest: Symmetric LUNGS: Other (diminsihed ) Heart: S1S2, RRR (SR/ST), other (v-paced with underlying SR) Abdomen: Soft N/T Extremities: Other (1-2+ bilateral LE edema ) Neurology: alert, oriented, follow commands Assessment Assessment 1. Acute respiratory failure with a/c CHF 2. Acute on chronic systolic CHF; RHC with significantly elevated right and left-sided filling pressures and severe pulmonary hypertension. Improved s/p diuresis/inotropic support. Remains with good UOP 3. NICM; LHC 09/03 without significant CAD. Echo 01/03 with LVEF 20%. 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 recent interrogation with normal function 4. Hypertension; remains low-end 5. Hyperlipidemia; statin 6. Diabetes, II 7. CKD; Cr stable per review 8. Tobaccoism; reinforced cessation 9. Hypokalemia, hypomagnesemia; replaced Recommendations Am labs Titrate off Dobutamine gtt Convert Bumex to oral Continue metolazone Resume Toprol, lisinopril when BP consistently adequate Supportive care Justicifation of Admission Dx: Justifications for Admission: Justification of Admission Dx: Yes CHF: Cardiac Arrhythmias BENNY POLO MD 06/16/21 1605: CARDIO Progress Notes Assessment Assessment Patient seen and examined. Agree with SWIM INSTRUCTOR's assessment and plan. Acute on chr systolic HF better compensated with diuresis and inotropic support Agree with weaning dobutamine off today and change Bumex to p.o. Continue metolazone. FOREST ONEAL APRN Jun 16, 2021 10:30 BENNY POLO MD Jun 16, 2021 16:05
--- NOTE | 2021-06-16 10:39 | PDOC ---
[facility] PROGRESS NOTE Date of Service DOS: DATE: 06/16/21 TIME: 10:38 Chief Complaint Chief Complaint A/P: Acute respiratory failure with hypoxia - likely combination of COPD exacerbation, CHF and possible pneumonia. Acute systolic CHF - EF 20%, optimized on statin, ASA, toprol xl, lisinopril. AICD. Non-ischemic cardiomyopathy - likely hereditary given her father's history. optimized on meds Abnormal chest radiograph - pulmonary congestion, given her symptoms of chills, cough, COPD needs treatment for COPD exacerbation and likely gram neg pneumonia vs CHF Pulmonary edema - given lasix in ED. BNP elevated consistent with acute diastolic CHF ?EUGENIA - Cr 1.4 may be baseline Hypokalemia - likely due to above. Given lasix, insulin Hypomagnesemia - likely hypervolemic and due to poor PO intake, will monitor DM2 - glucose in 300s. will place on high sliding scale HTN - cont home meds HLD - cont statin Polymyalgia rheumatica - not on steroids Morbid obesity - counseling on lifestyle Tobacco abuse - offered nicotine patch, counseled on cessation Anxiety and insomnia - will add buspar prn and zyprexa prn. May need benzos in the future. FEN - Cardiac diet PPX - heparin CODE - DNR/DNI Dispo - inpatient CVC History of Present Illness History of Present Illness Ms Velez is a 70yo F w/ PMHx DM2, HTN, smoker, polymyalgia rheumatica, rheumatoid arthrititis, reduced EF CHF EF 20% s/p AICD who presents to the ED b rought in by EMS c/o sudden onset shortness of breath. Patient awoke from sleep at approximately 1 AM with some left-sided chest discomfort and shortness of breath, unable to lay flat. Chest discomfort is a pressure does not radiate. Occasional sharp twinges. A little bit of nausea and anxiety associated as well. Has had a 10 pound weight gain since March. Has increasing lower extremity edema. She is on home Bumex 1 mg 1 time daily. She has been home with home health who have been counseling her on considering hospice. She becomes tearful in talking about this. She has severe orthopnea and cannot lay flat at all. She sleeps in a chair for only a few hours at night and wakes frequently due to her dyspnea. She cannot even walk 10 feet without getting winded. She does not know any discharges of her AICD. No recent sick contacts. She has had 2 mRNA COVID-19 vaccines and is planning on having a booster soon. She denies any fevers or chills. She has a baseline cough that is unchanged. It is mildly productive of sputum. WBC 6.2, Hb 11.3, platelets 258, NA 134, K3.5, BUN 41, CR 1.4, glucose 141, magnesium 1.5, alk phos 139, albumin 3.3 otherwise LFTs within normal laboratory limits, high-sensitivity troponin is 21, NT proBNP greater than 35,000, rapid COVID-19 negative EKG appears sinus rate 89 bpm TWI [address] depression V2. Chest radiograph suspect right pleural effusion cardiomegaly and bilateral airspace disease. Given O2, bumex, replaced mag and K and admitted for further care with card iology consultation. 06/03: Still short of breath but feels her swelling has improved a little bit. No chest pain. Still wheezing. She thinks she diuresed well urine was not all collected overnight. IV Bumex 06/04: Short of breath a little depressed. Still requiring O2 and wheezing. Tolerating IV Bumex. Per cardiology started on milrinone starting IV Solu- Medrol today. She is wondering when she should call her sons and is pretty contemplative about palliative care or hospice in the near future. She still wants to continue current care 06/05: Shortness of breath little improved. Given some mucus with flutter valve. Creatinine bumped to 1.6 but good urine output able to eat conversational dyspnea is improving but still very short of breath with minimal exertion still on milrinone and IV Bumex. 06/06: Did not tolerate milrinone well tolerating dopamine better Bumex decreased to 1 mg IV twice daily. Symptomatically she feels her breathing is better she is able to clear her airways with flutter valve. Still with dyspnea. 06/07: Feeling significantly improving. Breathing is improving. Asking for some perceived fluid for itching. She is asking when if she can go home still on 2 L/L O2. 06/08: Little bit sedated from right heart cath still. Her study showed severely elevated right and left filling pressures. Dobutamine and dopamine drips. Would prefer transfer to ICU however bed availability is complicating this. 06/09: Seen and examined at bedside. Still on dobutamine drip. Still aggressively diuresing. Cardiology following. Only requiring 2 L nasal cannula. Will await to see cardiology plan. 06/10: Seen and examined at bedside. She was up in chair eating breakfast. Did not have any complaints to me. Still on dobutamine. On 2 L oxygen. Says her sons are coming to visit her on Tuesday. Wean oxygen as tolerated. Continue diuresis per cardiology. May need metolazone. 06/11: Examined at bedside. Said that her feet felt a little bit swollen this morning otherwise no complaints. Continue encouragement diuresis. Cardiology following. Still on dobutamine. Family coming tomorrow. 06/12: Up in her chair. Said her swelling actually does feel little better today. He still on dobutamine. Continue diuresis. She is very eager to see her sons today. If good progress may be discharge early next week? 06/13: Eval and examined at bedside. C/o foot edema otherwise no complaints. So ns at bedside, discussed with them current plan of care. Aggressive diuresis. Continue current. 06/14: Evaluate examined at bedside still pretty fluid overloaded. She no major complaints. Looked at cardiology note plan to stop dobutamine later this week. 06/15: 3.2 L urine output yesterday and 3.6 L urine output today. Still on IV Bumex metolazone and dobutamine gtt. She feels a lot better is lost 20 pounds still on minimal O2 able to take a deep breath still some dyspnea on exertion. 06/16: Still with excellent diuresis. On IV Bumex metolazone dobutamine. No real cough shortness of breath improved. Complete transition to oral diuretics again tomorrow Vitals/I&O Vitals/I&O: Vital Signs Date Time Temp Pulse Resp B/P (MAP) Pulse Ox O2 Delivery O2 Flow Rate FiO2 06/16/21 10:10 97.6 114 22 84/67 (73) 98 Nasal Cannula 2.0 97.6 I & O 06/15/21 06/15/21 06/16/21 15:00 23:00 07:00 Intake Total 180 ml 480 ml 500 ml Output Total 1400 ml 650 ml Balance 180 ml -920 ml -150 ml Physical Exam General: Alert, Oriented X3, Cooperative, No acute distress Heart: Regular rate (v-paced with underlying SR ) Lungs: Clear Abdomen: Soft Extremities: Other (2-3+ bilateral LE edema ) Skin: No significant lesion Labs Labs: Laboratory Tests Test 06/15/21 11:53 06/15/21 16:23 06/15/21 21:04 06/16/21 07:16 Glucose (Fingerstick) 107 mg/dL (70-99) 96 mg/dL (70-99) 117 mg/dL (70-99) 101 mg/dL (70-99) Assessment and Plan Assessmemt and Plan Problems Medical Problems: (1) Acute exacerbation of congestive heart failure Status: Acute (2) Chest pain Status: Acute (3) Exertional dyspnea Status: Acute (4) Orthopnea Status: Acute Comment Review of Relevant I have reviewed the following items yan (where applicable) has been applied. Medications: Current Medications Medications (Trade) Dose Ordered Sig/Yvette Route PRN Reason Start Time Stop Time Status Last Admin Dose Admin Potassium Chloride (Klor-Con) 40 meq 1X ONCE PO 06/15/21 11:15 06/15/21 11:16 DC 06/15/21 11:56 Magnesium Sulfate/ Dextrose 100 ml @ 100 mls/hr 1X ONCE IV 06/15/21 11:15 06/15/21 12:14 DC 06/15/21 11:56 Justifications for Admission Other Justification KATHY HARKINS MD Jun 16, 2021 10:39
[2021-06-16 15:59] VITALS: BP 86/67
[2021-06-16] MEDS: BUMETANIDE 1 MG TABLET. PO SCH (17:01)
[2021-06-16] MEDS: ACETAMINOPHEN 325 MG TABLET. PO PRN (17:35)
[2021-06-16 19:30] VITALS: BP 82/58
[2021-06-16] MEDS: traZODone 50 MG TABLET. PO SCH (20:06)
[2021-06-16] MEDS: ATORVASTATIN CALCIUM 20 MG TABLET PO SCH (20:06)
[2021-06-16] MEDS: MONTELUKAST SODIUM 10 MG TABLET. PO SCH (20:06)
[2021-06-16 22:55] VITALS: BP 86/62
[2021-06-17 02:15] VITALS: BP 92/56
[2021-06-17] MEDS: HEPARIN for SUB-Q USE 5,000 UNIT/ML VIAL. SQ SCH (06:07)
[2021-06-17 06:27] LABS: CREATININE 1.5 mg/dL (0.6-1.0); GFR 34.5; POTASSIUM 4.2 mmol/L (3.5-5.1)
[2021-06-17] MEDS: ALBUTEROL SULFATE 2.5 MG/3 ML NEBU. NEB SCH ×3 (07:25→15:27)
[2021-06-17] MEDS: BUDESONIDE 0.5 MG/2 ML NEBU. NEB SCH (07:25)
[2021-06-17] MEDS: CALCIUM CARB/VIT D3 500/200 TABLET. PO SCH (08:05)
[2021-06-17] MEDS: metOLazone 2.5 MG TABLET PO SCH (08:05)
[2021-06-17] MEDS: MULTIVITAMIN I-VITE TABLET. PO SCH (08:05)
[2021-06-17] MEDS: BUMETANIDE 1 MG TABLET. PO SCH (08:06)
[2021-06-17] MEDS: CYANOCOBALAMIN (VITAMIN B-12) 1,000 MCG TABLET. PO SCH (08:06)
[2021-06-17] MEDS: GABAPENTIN 100 MG CAPSULE. PO SCH (08:06)
[2021-06-17] MEDS: HYDROXYCHLOROQUINE 200 MG TABLET PO SCH (08:06)
[2021-06-17] MEDS: FLUoxetine HCL 20 MG CAPSULE PO SCH (08:06)
[2021-06-17] MEDS: MULTIVITAMIN with MINERAL TABLET. PO SCH (08:07)
[2021-06-17] MEDS: SPIRONOLACTONE 25 MG TABLET PO SCH (08:07)
[2021-06-17] MEDS: ASPIRIN CHEWABLE 81 MG TABLET. PO SCH (08:07)
[2021-06-17] MEDS: hydrALAZINE 10 MG TABLET PO SCH (08:15)
[2021-06-17 08:25] VITALS: BP 104/70
[2021-06-17 10:22] VITALS: BP 98/64
--- NOTE | 2021-06-17 11:51 | PDOC ---
[employer] PROGRESS NOTE Date of Service DOS: DATE: 06/17/21 TIME: 11:51 Chief Complaint Chief Complaint A/P: Acute respiratory failure with hypoxia - likely combination of COPD exacerbation, CHF and possible pneumonia. Acute systolic CHF - EF 20%, optimized on statin, ASA, toprol xl, lisinopril. AICD. Non-ischemic cardiomyopathy - likely hereditary given her father's history. optimized on meds Abnormal chest radiograph - pulmonary congestion, given her symptoms of chills, cough, COPD needs treatment for COPD exacerbation and likely gram neg pneumonia vs CHF Pulmonary edema - given lasix in ED. BNP elevated consistent with acute diastolic CHF ?EUGENIA - Cr 1.4 may be baseline Hypokalemia - likely due to above. Given lasix, insulin Hypomagnesemia - likely hypervolemic and due to poor PO intake, will monitor DM2 - glucose in 300s. will place on high sliding scale HTN - cont home meds HLD - cont statin Polymyalgia rheumatica - not on steroids Morbid obesity - counseling on lifestyle Tobacco abuse - offered nicotine patch, counseled on cessation Anxiety and insomnia - will add buspar prn and zyprexa prn. May need benzos in the future. FEN - Cardiac diet PPX - heparin CODE - DNR/DNI Dispo - inpatient CVC History of Present Illness History of Present Illness Ms Velez is a 70yo F w/ PMHx DM2, HTN, smoker, polymyalgia rheumatica, rheumatoid arthrititis, reduced EF CHF EF 20% s/p AICD who presents to the ED b rought in by EMS c/o sudden onset shortness of breath. Patient awoke from sleep at approximately 1 AM with some left-sided chest discomfort and shortness of breath, unable to lay flat. Chest discomfort is a pressure does not radiate. Occasional sharp twinges. A little bit of nausea and anxiety associated as well. Has had a 10 pound weight gain since March. Has increasing lower extremity edema. She is on home Bumex 1 mg 1 time daily. She has been home with home health who have been counseling her on considering hospice. She becomes tearful in talking about this. She has severe orthopnea and cannot lay flat at all. She sleeps in a chair for only a few hours at night and wakes frequently due to her dyspnea. She cannot even walk 10 feet without getting winded. She does not know any discharges of her AICD. No recent sick contacts. She has had 2 mRNA COVID-19 vaccines and is planning on having a booster soon. She denies any fevers or chills. She has a baseline cough that is unchanged. It is mildly productive of sputum. WBC 6.2, Hb 11.3, platelets 258, NA 134, K3.5, BUN 41, CR 1.4, glucose 141, magnesium 1.5, alk phos 139, albumin 3.3 otherwise LFTs within normal laboratory limits, high-sensitivity troponin is 21, NT proBNP greater than 35,000, rapid COVID-19 negative EKG appears sinus rate 89 bpm TWI [address] depression V2. Chest radiograph suspect right pleural effusion cardiomegaly and bilateral airspace disease. Given O2, bumex, replaced mag and K and admitted for further care with card iology consultation. 06/03: Still short of breath but feels her swelling has improved a little bit. No chest pain. Still wheezing. She thinks she diuresed well urine was not all collected overnight. IV Bumex 06/04: Short of breath a little depressed. Still requiring O2 and wheezing. Tolerating IV Bumex. Per cardiology started on milrinone starting IV Solu- Medrol today. She is wondering when she should call her sons and is pretty contemplative about palliative care or hospice in the near future. She still wants to continue current care 06/05: Shortness of breath little improved. Given some mucus with flutter valve. Creatinine bumped to 1.6 but good urine output able to eat conversational dyspnea is improving but still very short of breath with minimal exertion still on milrinone and IV Bumex. 06/06: Did not tolerate milrinone well tolerating dopamine better Bumex decreased to 1 mg IV twice daily. Symptomatically she feels her breathing is better she is able to clear her airways with flutter valve. Still with dyspnea. 06/07: Feeling significantly improving. Breathing is improving. Asking for some perceived fluid for itching. She is asking when if she can go home still on 2 L/L O2. 06/08: Little bit sedated from right heart cath still. Her study showed severely elevated right and left filling pressures. Dobutamine and dopamine drips. Would prefer transfer to ICU however bed availability is complicating this. 06/09: Seen and examined at bedside. Still on dobutamine drip. Still aggressively diuresing. Cardiology following. Only requiring 2 L nasal cannula. Will await to see cardiology plan. 06/10: Seen and examined at bedside. She was up in chair eating breakfast. Did not have any complaints to me. Still on dobutamine. On 2 L oxygen. Says her sons are coming to visit her on Tuesday. Wean oxygen as tolerated. Continue diuresis per cardiology. May need metolazone. 06/11: Examined at bedside. Said that her feet felt a little bit swollen this morning otherwise no complaints. Continue encouragement diuresis. Cardiology following. Still on dobutamine. Family coming tomorrow. 06/12: Up in her chair. Said her swelling actually does feel little better today. He still on dobutamine. Continue diuresis. She is very eager to see her sons today. If good progress may be discharge early next week? 06/13: Eval and examined at bedside. C/o foot edema otherwise no complaints. So ns at bedside, discussed with them current plan of care. Aggressive diuresis. Continue current. 06/14: Evaluate examined at bedside still pretty fluid overloaded. She no major complaints. Looked at cardiology note plan to stop dobutamine later this week. 06/15: 3.2 L urine output yesterday and 3.6 L urine output today. Still on IV Bumex metolazone and dobutamine gtt. She feels a lot better is lost 20 pounds still on minimal O2 able to take a deep breath still some dyspnea on exertion. 06/16: Still with excellent diuresis. On IV Bumex metolazone dobutamine. No real cough shortness of breath improved. Complete transition to oral diuretics again tomorrow 2: Transition to p.o. Still requiring O2 she does feel significantly less dyspneic importance of daily weights medication compliance discussed with patient and son plan is for discharge home with home health She does not require home O2. Discussed with her primary care physician gate shear operator Dr. Kan Vitals/I&O Vitals/I&O: Vital Signs Date Time Temp Pulse Resp B/P (MAP) Pulse Ox O2 Delivery O2 Flow Rate FiO2 06/17/21 11:29 97 Nasal Cannula 2.0 06/17/21 10:22 97.7 108 17 98/64 (75) 97.7 I & O 06/16/21 06/16/21 06/17/21 15:00 23:00 07:00 Intake Total 200 ml 340 ml Output Total 850 ml 550 ml Balance 200 ml -850 ml -210 ml Physical Exam General: Alert, Oriented X3, Cooperative, No acute distress Heart: Regular rate (v-paced with underlying SR ) Lungs: Clear Abdomen: Soft Extremities: Other (2-3+ bilateral LE edema ) Skin: No significant lesion Labs Labs: Laboratory Tests Test 06/16/21 16:02 06/17/21 04:44 06/17/21 11:08 Glucose (Fingerstick) 117 mg/dL (70-99) 117 mg/dL (70-99) Sodium Level 132 mmol/L (136-145) Potassium Level 4.2 mmol/L (3.5-5.1) Chloride Level 94 mmol/L (98-107) Carbon Dioxide Level 32 mmol/L (21-32) Anion Gap 6 (6-14) Blood Urea Nitrogen 28 mg/dL (7-20) Creatinine 1.5 mg/dL (0.6-1.0) Estimated GFR (Cockcroft-Gault) 34.5 Glucose Level 122 mg/dL (70-99) Calcium Level 9.0 mg/dL (8.5-10.1) Magnesium Level 2.0 mg/dL (1.8-2.4) Assessment and Plan Assessmemt and Plan Problems Medical Problems: (1) Acute exacerbation of congestive heart failure Status: Acute (2) Chest pain Status: Acute (3) Exertional dyspnea Status: Acute (4) Orthopnea Status: Acute Comment Review of Relevant I have reviewed the following items yan (where applicable) has been applied. Medications: Current Medications Medications (Trade) Dose Ordered Sig/Yvette Route PRN Reason Start Time Stop Time Status Last Admin Dose Admin Bumetanide (Bumex) 1 mg [id number] PO 06/16/21 16:00 06/17/21 08:06 Justifications for Admission Other Justification KATHY HARKINS MD Jun 17, 2021 11:51
[2021-06-17] MEDS ORDERED: SPIR25TA PO (14:37)
[2021-06-17] MEDS ORDERED: MONT10TA49 PO (14:37)
[2021-06-17] MEDS ORDERED: METO2.5T PO (14:37)
[2021-06-17] MEDS ORDERED: LISI-130 PO (14:37)
[2021-06-17] MEDS ORDERED: EMPA10TA PO (14:38)
--- NOTE | 2021-06-17 14:41 | SNU/HH DC ---
DISCHARGE WITH HOME HEALTH DISCHARGE INFORMATION: Discharge Date: Jun 17, 2021 Final Diagnosis: Problems Medical Problems: (1) Acute exacerbation of congestive heart failure Status: Acute (2) Chest pain Status: Acute (3) Exertional dyspnea Status: Acute (4) Orthopnea Status: Acute Condition on Discharge: Stable CODE STATUS: Code Status: DNR/DNI HOME HEALTH: Face to Face: I certify this patient is under my care and that I, or a nurse practitioner or physician's web press operator assistant working with me, had a face to face encounter that meets the physician face to face encounter requirements with this patient on 06/17/2021. Medical Complications: CHF, COPD, DM, HTN Fci For: Assess Cardiopulm Status, Assess & Educate Safety, Assess/Skilled Observatio, Medication Management RN For Eval/Treatment: Yes Physical Therapy For: Evalulation/Treatment Occupational Therapy For: Evaluation/Treatment Pt Meets Homebound Status: Limited distance walking POST DISCHARGE ORDERS: Activity Instructions for Disc: No restrictions, Activity as tolerated, Other, see below Weight Bearing Status after Di: No restrictions, Full weight bearing, Other, see below Bathing Instructions: No Tub Bath until see DIET AFTER DISCHARGE: Cardiac Wound/Incision Care: Other, see below CHECKS AFTER DISCHARGE: Checks after discharge: Check blood press - daily, Check your Temp as needed, Weigh Yourself Daily FOLLOW-UP: Additional Instructions: Call to follow up with cardiology [id number] [facility] [address], [address] [place] [address] TREATMENT/EQUIPMENT ORDERS: Adaptive Equipment Issued: Walker Discharge Respiratory Equipmen: Nebulizer CERTIFICATION STATEMENT: Certification Statement: Certification Statement: Based on the above finding, I certify that this patient is confined to the home and needs intermittent group home care, physical therapy and/or speech therapy, or continues to need occupational therapy.~ This patient is under my care, and I have initiated the establishment of the plan of care.~ This patient will be followed by myself or a community physician who will periodically review the plan of care. Home Meds Active Scripts Empagliflozin (Jardiance) 10 Mg Tablet, 10 MG PO DAILY for CHF/DM2 for 30 Days, #30 TAB 1 Refill Prov:KATHY HARKINS MD 06/17/21 Metolazone (METOLAZONE) 2.5 Mg Tablet, 2.5 MG PO DAILY for CHF for 30 Days, #30 TAB Prov:KATHY HARKINS MD 06/17/21 Spironolactone (ALDACTONE) 25 Mg Tablet, 25 MG PO DAILY for CHF for 30 Days, #30 TAB 3 Refills Prov:KATHY HARKINS MD 06/17/21 Montelukast Sodium (MONTELUKAST SODIUM TABLET ) 10 Mg Tablet, 10 MG PO QHS for Chronic urticaria for 30 Days, #30 TAB 3 Refills Prov:KATHY HARKINS MD 06/17/21 Lisinopril (LISINOPRIL) 40 Mg Tablet, 5 MG PO DAILY for FOR HYPERTENSION for 30 Days, #4 TAB 0 Refills Prov:KATHY HARKINS MD 06/17/21 Bumetanide (BUMETANIDE) 1 Mg Tablet, 1 TAB PO DAILY for CHF for 30 Days, #30 TAB 3 Refills Prov:HUSSEIN LYNCH SPECIAL EDUCATION TEACHING ASSISTANT 02/04/21 Metoprolol Succinate (METOPROLOL SUCCINATE ( XL )) 25 Mg Tab.er.24h, 25 MG PO DAILY for CHF for 30 Days, #30 TAB.SR 5 Refills Prov:KATHY HARKINS MD 09/01/20 Reported Medications Hydroxychloroquine Sulfate (HYDROXYCHLOROQUINE SULFATE) 200 Mg Tablet, 200 MG PO DAILY for arthritis, TAB 05/28/21 Hydralazine Hcl (HYDRALAZINE HCL) 10 Mg Tablet, 1 TAB PO TID for blood pressure, #270 TAB 3 Refills 02/03/21 Gabapentin (GABAPENTIN ) 100 Mg Capsule, 100 MG PO TID for NEUROGENIC PAIN, CAP 02/03/21 Multivitamin (MULTI VITAMIN DAILY) 1 Each Tablet, 1 TAB PO DAILY for vitamins for 30 Days, #30 TAB 0 Refills 08/25/20 Mecobalamin (B12 Active) 1,000 Mcg Tab.chew, 2500 MCG PO DAILY for vitamins, TAB.CHEW 08/25/20 Om3-Dha/Epa/D3/Lutein/Zeazanth (EYE OMEGA ADVANTAGE SOFTGEL) 1 Each Capsule, 1 CAP PO BID for eye health for 30 Days, #60 CAP 0 Refills 08/25/20 Calcium Citrate/Vitamin D2 (LEILA-CITRATE PLUS VITAMIN D TAB) 1 Each Tablet, 1 TAB PO BID for vitamin for 5 Days, #60 TAB 0 Refills 08/25/20 Ubidecarenone (COQ-10) 100 Mg Capsule, 200 MG PO DAILY for vitamin, CAP 08/25/20 Biotin (BIOTIN) 2,500 Mcg Capsule, 49198 MCG PO DAILY for vitamins, CAP 08/25/20 Glucosamine Hcl/Chondr Resendez A Na (CIDAFLEX TABLET) 1 Each Tablet, 1 TAB PO BID for vitamins for 30 Days, #60 TAB 0 Refills 08/25/20 Umeclidinium Brm/Vilanterol Tr (ANORO ELLIPTA 62.5-25 MCG INH) 1 Each Disk.w.dev , 1 EACH IH DAILY for breathing, INH 08/25/20 Aspirin (ASPIRIN) 81 Mg Tab.chew, 81 MG PO DAILY for heart health, TAB.CHEW 08/25/20 Atorvastatin Calcium (ATORVASTATIN CALCIUM) 20 Mg Tablet, 20 MG PO HS for FOR CHOLESTEROL, #30 TAB 0 Refills 08/25/20 Fluoxetine Hcl (FLUOXETINE HCL) 20 Mg Tablet, 20 MG PO BID for depression, TAB 08/25/20 Albuterol Sulfate (PROAIR HFA INHALER) 8.5 Gm Hfa.aer.ad, 2 PUFF IH PRN Q4-6HRS PRN for wheezing for 21 Days, #1 INHALER 0 Refills 08/25/20 Discontinued Scripts Doxycycline Hyclate (DOXYCYCLINE HYCLATE) 100 Mg Capsule, 1 CAP PO BID for cellulitis, #10 CAP Prov:JOSUE MIRANDA MD 05/29/21 Metformin Hcl (METFORMIN HCL) 500 Mg Tablet, 500 MG PO BIDWMEALS for ANTI- DIABETIC for 30 Days, #60 TAB 0 Refills Prov:KATHY HARKINS MD 08/29/20 KATHY HARKINS MD Jun 17, 2021 14:40
--- NOTE | 2021-06-17 14:42 | PDOC3 ---
Discharge Summary Visit Information Final Diagnosis Problems Medical Problems: (1) Acute exacerbation of congestive heart failure Status: Acute (2) Chest pain Status: Acute (3) Exertional dyspnea Status: Acute (4) Orthopnea Status: Acute Brief Hospital Course Allergies Allergies Coded Allergies Type Severity Reaction Last Updated Verified bupropion Allergy Intermediate 06/02/21 Yes latex Allergy Intermediate Rash 06/02/21 Yes Vital Signs Vital Signs Date Time Temp Pulse Resp B/P (MAP) Pulse Ox O2 Delivery O2 Flow Rate FiO2 06/17/21 11:29 97 Nasal Cannula 2.0 06/17/21 10:22 97.7 108 17 98/64 (75) 97.7 Lab Results Laboratory Tests Test 06/15/21 16:23 06/15/21 21:04 06/16/21 07:16 06/16/21 11:40 Glucose (Fingerstick) 96 mg/dL (70-99) 117 mg/dL (70-99) 101 mg/dL (70-99) 174 mg/dL (70-99) Test 06/16/21 16:02 06/17/21 04:44 06/17/21 11:08 Glucose (Fingerstick) 117 mg/dL (70-99) 117 mg/dL (70-99) Sodium Level 132 mmol/L (136-145) Potassium Level 4.2 mmol/L (3.5-5.1) Chloride Level 94 mmol/L (98-107) Carbon Dioxide Level 32 mmol/L (21-32) Anion Gap 6 (6-14) Blood Urea Nitrogen 28 mg/dL (7-20) Creatinine 1.5 mg/dL (0.6-1.0) Estimated GFR (Cockcroft-Gault) 34.5 Glucose Level 122 mg/dL (70-99) Calcium Level 9.0 mg/dL (8.5-10.1) Magnesium Level 2.0 mg/dL (1.8-2.4) Laboratory Tests Test 06/16/21 16:02 06/17/21 04:44 06/17/21 11:08 Glucose (Fingerstick) 117 mg/dL (70-99) 117 mg/dL (70-99) Sodium Level 132 mmol/L (136-145) Potassium Level 4.2 mmol/L (3.5-5.1) Chloride Level 94 mmol/L (98-107) Carbon Dioxide Level 32 mmol/L (21-32) Anion Gap 6 (6-14) Blood Urea Nitrogen 28 mg/dL (7-20) Creatinine 1.5 mg/dL (0.6-1.0) Estimated GFR (Cockcroft-Gault) 34.5 Glucose Level 122 mg/dL (70-99) Calcium Level 9.0 mg/dL (8.5-10.1) Magnesium Level 2.0 mg/dL (1.8-2.4) Brief Hospital Course Acute respiratory failure with hypoxia - likely combination of COPD exacerbation, CHF and possible pneumonia. Acute systolic CHF - EF 20%, optimized on statin, ASA, toprol xl, lisinopril. AICD. Non-ischemic cardiomyopathy - likely hereditary given her father's history. optimized on meds Abnormal chest radiograph - pulmonary congestion, given her symptoms of chills, cough, COPD needs treatment for COPD exacerbation and likely gram neg pneumonia vs CHF Pulmonary edema - given lasix in ED. BNP elevated consistent with acute diastolic CHF ?EUGENIA - Cr 1.4 may be baseline Hypokalemia - likely due to above. Given lasix, insulin Hypomagnesemia - likely hypervolemic and due to poor PO intake, will monitor DM2 - glucose in 300s. will place on high sliding scale HTN - cont home meds HLD - cont statin Polymyalgia rheumatica - not on steroids Morbid obesity - counseling on lifestyle Tobacco abuse - offered nicotine patch, counseled on cessation Anxiety and insomnia - will add buspar prn and zyprexa prn. May need benzos in the future. FEN - Cardiac diet PPX - heparin CODE - DNR/DNI Dispo - inpatient CVC Ms Velez is a 70yo F w/ PMHx DM2, HTN, smoker, polymyalgia rheumatica, rheumatoid arthrititis, reduced EF CHF EF 20% s/p AICD who presents to the ED brought in by EMS c/o sudden onset shortness of breath. Patient awoke from sleep at approximately 1 AM with some left-sided chest discomfort and shortness of breath, unable to lay flat. Chest discomfort is a pressure does not radiate. Occasional sharp twinges. A little bit of nausea and anxiety associated as well. Has had a 10 pound weight gain since March. Has increasing lower extremity edema. She is on home Bumex 1 mg 1 time daily. She has been home with home health who have been counseling her on considering hospice. She becomes tearful in talking about this. She has severe orthopnea and cannot lay flat at all. She sleeps in a chair for only a few hours at night and wakes frequently due to her dyspnea. She cannot even walk 10 feet without getting winded. She does not know any discharges of her AICD. No recent sick contacts. She has had 2 mRNA COVID-19 vaccines and is planning on having a booster soon. She denies any fevers or chills. She has a baseline cough that is unchanged. It is mildly productive of sputum. WBC 6.2, Hb 11.3, platelets 258, NA 134, K3.5, BUN 41, CR 1.4, glucose 141, magnesium 1.5, alk phos 139, albumin 3.3 otherwise LFTs within normal laboratory limits, high-sensitivity troponin is 21, NT proBNP greater than 35,000, rapid COVID-19 negative EKG appears sinus rate 89 bpm TWI [address] depression V2. Chest radiograph suspect right pleural effusion cardiomegaly and bilateral airspace disease. Given O2, bumex, replaced mag and K and admitted for further care with cardiology consultation. 06/03: Still short of breath but feels her swelling has improved a little bit. No chest pain. Still wheezing. She thinks she diuresed well urine was not all collected overnight. IV Bumex 06/04: Short of breath a little depressed. Still requiring O2 and wheezing. Tolerating IV Bumex. Per cardiology started on milrinone starting IV Solu- Medrol today. She is wondering when she should call her sons and is pretty contemplative about palliative care or hospice in the near future. She still wants to continue current care 06/05: Shortness of breath little improved. Given some mucus with flutter valve. Creatinine bumped to 1.6 but good urine output able to eat conversational dyspnea is improving but still very short of breath with minimal exertion still on milrinone and IV Bumex. 06/06: Did not tolerate milrinone well tolerating dopamine better Bumex decreased to 1 mg IV twice daily. Symptomatically she feels her breathing is better she is able to clear her airways with flutter valve. Still with dyspnea. 06/07: Feeling significantly improving. Breathing is improving. Asking for some perceived fluid for itching. She is asking when if she can go home still on 2 L/L O2. 06/08: Little bit sedated from right heart cath still. Her study showed severely elevated right and left filling pressures. Dobutamine and dopamine drips. Would prefer transfer to ICU however bed availability is complicating this. 06/09: Seen and examined at bedside. Still on dobutamine drip. Still aggressively diuresing. Cardiology following. Only requiring 2 L nasal cannula. Will await to see cardiology plan. 06/10: Seen and examined at bedside. She was up in chair eating breakfast. Did not have any complaints to me. Still on dobutamine. On 2 L oxygen. Says her sons are coming to visit her on Tuesday. Wean oxygen as tolerated. Continue diuresis per cardiology. May need metolazone. 06/11: Examined at bedside. Said that her feet felt a little bit swollen this morning otherwise no complaints. Continue encouragement diuresis. Cardiology following. Still on dobutamine. Family coming tomorrow. 06/12: Up in her chair. Said her swelling actually does feel little better today. He still on dobutamine. Continue diuresis. She is very eager to see her sons today. If good progress may be discharge early next week? 06/13: Eval and examined at bedside. C/o foot edema otherwise no complaints. Sons at bedside, discussed with them current plan of care. Aggressive diuresis. Continue current. 06/14: Evaluate examined at bedside still pretty fluid overloaded. She no major complaints. Looked at cardiology note plan to stop dobutamine later this week. 06/15: 3.2 L urine output yesterday and 3.6 L urine output today. Still on IV Bumex metolazone and dobutamine gtt. She feels a lot better is lost 20 pounds still on minimal O2 able to take a deep breath still some dyspnea on exertion. 06/16: Still with excellent diuresis. On IV Bumex metolazone dobutamine. No real cough shortness of breath improved. Complete transition to oral diuretics again tomorrow 2: Transition to p.o. Still requiring O2 she does feel significantly less dyspneic importance of daily weights medication compliance discussed with patient and son plan is for discharge home with home health She does not require home O2. Discussed with her primary care physician director work Dr. Kan Discharge Information Scheduled Aspirin (Aspirin) 81 Mg Tab.chew, 81 MG PO DAILY for heart health, (Reported) Entered as Reported by: EUGENIO FRANCO on 08/25/20 1205 Last Action: Continued on 06/02/21840 by KATHY HARKINS MD Atorvastatin Calcium (Atorvastatin Calcium) 20 Mg Tablet, 20 MG PO HS for FOR CHOLESTEROL, #30 Ref 0 (Reported) Entered as Reported by: EUGENIO FRANCO on 08/25/20 120 Last Action: Continued on 06/02/21840 by KATHY HARKINS MD Biotin (Biotin) 2,500 Mcg Capsule, 10,000 MCG PO DAILY for vitamins, (Reported) Entered as Reported by: EUGENIO FRANCO on 08/25/20 121 Last Action: Converted on 06/02/21840 by KATHY HARKINS MD Bumetanide (Bumetanide) 1 Mg Tablet, 1 TAB PO DAILY for CHF for 30 Days, #30 Ref 3 Prescribed by: HUSSEIN LYNCH on 02/04/21 1216 Last Action: HELD on 06/02/21 0840 by KATHY HARKINS MD Calcium Citrate/Vitamin D2 (Jeff-Citrate Plus Vitamin D Tab) 1 Each Tablet, 1 TAB PO BID for vitamin for 5 Days, #60 Ref 0 (Reported) Entered as Reported by: EUGENIO FRANCO on 08/25/20 121 Last Action: Converted on 06/02/21840 by KATHY HARKINS MD Empagliflozin (Jardiance) 10 Mg Tablet, 10 MG PO DAILY for CHF/DM2 for 30 Days, #30 Ref 1 Prescribed by: KATHY HARKINS MD on 06/17/21 1438 Fluoxetine Hcl (Fluoxetine Hcl) 20 Mg Tablet, 20 MG PO BID for depression, (Reported) Entered as Reported by: UEGENIO FRANCO on 08/25/20 120 Last Action: Converted on 06/02/21840 by KATHY HARKINS MD Gabapentin (Gabapentin ) 100 Mg Capsule, 100 MG PO TID for NEUROGENIC PAIN, (Reported) Entered as Reported by: ROGELIO ARREOLA on 02/03/21 1245 Last Action: Continued on 06/02/21840 by KATHY HARKINS MD Glucosamine Hcl/Chondr Resendez A Na (Cidaflex Tablet) 1 Each Tablet, 1 TAB PO BID for vitamins for 30 Days, #60 Ref 0 (Reported) Entered as Reported by: EUGENIO FRANCO on 08/25/20 1211 Last Action: Converted on 06/02/21840 by KATHY HARKINS MD Hydralazine Hcl (Hydralazine Hcl) 10 Mg Tablet, 1 TAB PO TID for blood pressure, #270 Ref 3 (Reported) Entered as Reported by: ROGELIO ARREOLA on 02/03/21 1245 Last Action: Continued on 06/02/21840 by KATHY HARKINS MD Hydroxychloroquine Sulfate (Hydroxychloroquine Sulfate) 200 Mg Tablet, 200 MG PO DAILY for arthritis, (Reported) Entered as Reported by: ROGELIO KEN RN on 05/28/21 1128 Last Action: Continued on 06/02/21840 by KATHY HARKINS MD Lisinopril (Lisinopril) 40 Mg Tablet, 5 MG PO DAILY for FOR HYPERTENSION for 30 Days, #4 Ref 0 Prescribed by: KATHY HARKINS MD on 06/17/21 1437 Mecobalamin (B12 Active) 1,000 Mcg Tab.chew, 2,500 MCG PO DAILY for vitamins, (Reported) Entered as Reported by: EUGENIO FRANCO on 08/25/20 1212 Last Action: Converted on 06/02/21840 by KATHY HARKINS MD Metolazone (Metolazone) 2.5 Mg Tablet, 2.5 MG PO DAILY for CHF for 30 Days, #30 Prescribed by: KATHY HARKINS MD on 06/17/21 1437 Metoprolol Succinate (Metoprolol Succinate ( Xl )) 25 Mg Tab.er.24h, 25 MG PO DAILY for CHF for 30 Days, #30 Ref 5 Prescribed by: KATHY HARKINS MD on 09/01/20 0807 Last Action: Continued on 06/02/21840 by KATHY HARKINS MD Montelukast Sodium (Montelukast Sodium Tablet ) 10 Mg Tablet, 10 MG PO QHS for Chronic urticaria for 30 Days, #30 Ref 3 Prescribed by: KATHY HARKINS MD on 06/17/21 1437 Multivitamin (Multi Vitamin Daily) 1 Each Tablet, 1 TAB PO DAILY for vitamins for 30 Days, #30 Ref 0 (Reported) Entered as Reported by: EUGENIO FRANCO on 08/25/201212 Last Action: Converted on 06/02/21840 by KATHY HARKINS MD Om3-Dha/Epa/D3/Lutein/Zeazanth (Eye [place] Advantage Softgel) 1 Each Capsule, 1 CAP PO BID for eye health for 30 Days, #60 Ref 0 (Reported) Entered as Reported by: EUGENIO FRANCO on 08/25/201210 Last Action: Converted on 06/02/21840 by KATHY HARKINS MD Spironolactone (Aldactone) 25 Mg Tablet, 25 MG PO DAILY for CHF for 30 Days, #30 Ref 3 Prescribed by: KATHY HARKINS MD on 06/17/21 1437 Ubidecarenone (Coq-10) 100 Mg Capsule, 200 MG PO DAILY for vitamin, (Reported) Entered as Reported by: EUGENIO FRANCO on 08/25/201210 Last Action: Converted on 06/02/21840 by KATHY HARKINS MD Umeclidinium Brm/Vilanterol Tr (Anoro Ellipta 62.5-25 Mcg Inh) 1 Each Disk.w. dev, 1 EACH IH DAILY for breathing, (Reported) Entered as Reported by: EUGENIO FRANCO on 08/25/201204 Last Action: Converted on 06/02/21840 by KATHY HARKINS MD Scheduled PRN Albuterol Sulfate (Proair Hfa Inhaler) 8.5 Gm Hfa.aer.ad, 2 PUFF IH PRN Q4-6HRS PRN for wheezing for 21 Days, #1 Ref 0 (Reported) Entered as Reported by: EUGENIO FRANCO on 08/25/201204 Last Action: Continued on 06/02/21840 by KATHY HARKINS MD Discontinued Medications Doxycycline Hyclate (Doxycycline Hyclate) 100 Mg Capsule, 1 CAP PO BID for cellulitis, #10 Prescribed by: JOSUE MIRANDA on 05/29/21 1321 Last Action: HELD on 06/02/21 08 by KATHY HARKINS MD Metformin Hcl (Metformin Hcl) 500 Mg Tablet, 500 MG PO BIDWMEALS for ANTI- DIABETIC for 30 Days, #60 Ref 0 Prescribed by: KATHY HARKINS MD on 08/29/20 1427 Last Action: HELD on 06/02/21 0840 by KATHY HARKINS MD Justicifation of Admission Dx: Justifications for Admission: Justification of Admission Dx: Yes CHF: Cardiac Arrhythmias KATHY HARKINS MD Jun 17, 2021 14:42
--- NOTE | 2021-06-17 15:28 | PDOC ---
PROGRESS NOTES Date of Service: DATE: 06/17/21 TIME: 15:28 Subjective Subjective Off dobutamine drip, doing well Objective Objective Vital Signs Date Time Temp Pulse Resp B/P (MAP) Pulse Ox O2 Delivery O2 Flow Rate FiO2 06/17/21 11:29 97 Nasal Cannula 2.0 06/17/21 10:22 97.7 108 17 98/64 (75) 97.7 Intake and Output 06/17/21 07:00 Intake Total 540 ml Output Total 1400 ml Balance -860 ml Intake Oral 540 ml Output Urine Total 1400 ml # Bowel Movements 3 Physical Exam Abdomen: Soft Heart: Regular rate (v-paced with underlying SR ) Extremities: Other (2-3+ bilateral LE edema ) General: Alert, Oriented X3, Cooperative, No acute distress HEENT: Atraumatic, Mucous membr. moist/pink Lungs: Other (crackles ) Neuro: Normal speech, Sensation intact Psych/Mental Status: Mental status NL, Mood NL Skin: No significant lesion Assessment Assessment 1. Acute respiratory failure with a/c CHF 2. Acute on chronic systolic CHF; RHC with significantly elevated right and left-sided filling pressures and severe pulmonary hypertension. Improved s/p diuresis/inotropic support. Remains with good UOP 3. NICM; LHC 09/03 without significant CAD. Echo 01/03 with LVEF 20%. 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 recent interrogation with normal function 4. Hypertension; remains low-end 5. Hyperlipidemia; statin 6. Diabetes, II 7. CKD; Cr stable per review 8. Tobaccoism; reinforced cessation 9. Hypokalemia, hypomagnesemia; replaced Recommendations Tolerating off dobutamine gtt - change Bumex to oral Continue metolazone Supportive care and follow up as scheduled Plan Plan of Care Problems Medical Problems: (1) Acute exacerbation of congestive heart failure Status: Acute (2) Chest pain Status: Acute (3) Exertional dyspnea Status: Acute (4) Orthopnea Status: Acute Comment Review of Relevant I have reviewed the following items yan (where applicable) has been applied. Labs Laboratory Tests Test 06/16/21 16:02 06/17/21 04:44 06/17/21 11:08 Glucose (Fingerstick) 117 mg/dL (70-99) 117 mg/dL (70-99) Sodium Level 132 mmol/L (136-145) Potassium Level 4.2 mmol/L (3.5-5.1) Chloride Level 94 mmol/L (98-107) Carbon Dioxide Level 32 mmol/L (21-32) Anion Gap 6 (6-14) Blood Urea Nitrogen 28 mg/dL (7-20) Creatinine 1.5 mg/dL (0.6-1.0) Estimated GFR (Cockcroft-Gault) 34.5 Glucose Level 122 mg/dL (70-99) Calcium Level 9.0 mg/dL (8.5-10.1) Magnesium Level 2.0 mg/dL (1.8-2.4) Medications Current Medications Bumetanide (Bumex) 1 mg [id number] PO Last administered on 06/17/21at 08:06; Start 06/16/21 at 16:00 Vitals/I & O Vital Sign - Last 24 Hours 06/16/21 06/16/21 06/16/21 06/16/21 15:48 15:59 19:30 19:45 Temp 98.0 97.8 98.0 97.8 Pulse 117 109 Resp 22 20 B/P (MAP) 86/67 (73) 82/58 (66) Pulse Ox 96 97 97 O2 Delivery Nasal Cannula Nasal Cannula Nasal Cannula Nasal Cannula O2 Flow Rate 2.0 2.0 2.0 2.0 06/16/21 06/16/21 06/16/21 06/17/21 20:06 20:12 22:55 02:15 Temp 98.0 97.9 98.0 97.9 Pulse 105 100 105 Resp 22 20 B/P (MAP) 82/58 86/62 (70) 92/56 (68) Pulse Ox 95 97 O2 Delivery Nasal Cannula Nasal Cannula Nasal Cannula O2 Flow Rate 2.0 2.0 2.0 06/17/21 06/17/21 06/17/21 06/17/21 07:27 08:15 08:25 08:25 Temp 98.3 98.3 Pulse 111 111 Resp 18 B/P (MAP) 104/70 104/70 (81) Pulse Ox 97 93 O2 Delivery Nasal Cannula Nasal Cannula Nasal Cannula O2 Flow Rate 2.0 2.0 2.0 06/17/21 06/17/21 10:22 11:29 Temp 97.7 97.7 Pulse 108 Resp 17 B/P (MAP) 98/64 (75) Pulse Ox 98 97 O2 Delivery Nasal Cannula Nasal Cannula O2 Flow Rate 2.0 2.0 Intake and Output 06/16/21 06/16/21 06/17/21 15:00 23:00 07:00 Intake Total 200 ml 340 ml Output Total 850 ml 550 ml Balance 200 ml -850 ml -210 ml BENNY POLO MD Jun 17, 2021 15:28
--- NOTE | 2021-06-17 15:30 | NUR ---
DISCHARGE PIV, SHAH, AND TELE DISCONTINUED. PT DISCHARGE MEDICATIONS AND INSTRUCTIONS REVIEWED WITH PATIENT AND SON. [facility] TO FOLLOW AFTER DISCHARGE. ALL QUESTIONS ANSWERED TO PT ET FAMILY SATISFACTION. TECH TO ESCORT TO PERSONAL VEHICLE WITH WHEELCHAIR
== END 2021-06-17 15:44 | disposition home health service (06) | DRG 291 ==
LOC: ER 03:08 → ED HOLD 05:22 → 6 SOUTH 16:00
PROVIDERS: ADMIT Student in an Organized Health Care Education/Training Program; ATTEND Student in an Organized Health Care Education/Training Program
DX: I13.0 Hypertensive heart and chronic kidney disease with heart failure and stage 1 through stage 4 chronic kidney disease, or unspecified chronic kidney disease (principal); I50.43 Acute on chronic combined systolic (congestive) and diastolic (congestive) heart failure; J96.01 Acute respiratory failure with hypoxia; N17.0 Acute kidney failure with tubular necrosis; J44.1 Chronic obstructive pulmonary disease with (acute) exacerbation; I42.8 Other cardiomyopathies; E11.22 Type 2 diabetes mellitus with diabetic chronic kidney disease; E66.01 Morbid (severe) obesity due to excess calories; E78.5 Hyperlipidemia, unspecified; E83.42 Hypomagnesemia; E87.6 Hypokalemia; F17.210 Nicotine dependence, cigarettes, uncomplicated; F32.A Depression, unspecified; F41.9 Anxiety disorder, unspecified; G47.00 Insomnia, unspecified; I25.10 Atherosclerotic heart disease of native coronary artery without angina pectoris; I27.20 Pulmonary hypertension, unspecified; I49.3 Ventricular premature depolarization; L50.9 Urticaria, unspecified; M19.90 Unspecified osteoarthritis, unspecified site; M35.3 Polymyalgia rheumatica; N18.9 Chronic kidney disease, unspecified; Z20.822 Contact with and (suspected) exposure to COVID-19; Z66 Do not resuscitate; Z79.82 Long term (current) use of aspirin; Z79.84 Long term (current) use of oral hypoglycemic drugs; Z79.899 Other long term (current) drug therapy; Z82.49 Family history of ischemic heart disease and other diseases of the circulatory system; Z90.710 Acquired absence of both cervix and uterus; Z95.810 Presence of automatic (implantable) cardiac defibrillator; E66.9 Obesity, unspecified; K21.9 Gastro-esophageal reflux disease without esophagitis; G56.03 Carpal tunnel syndrome, bilateral upper limbs; G62.9 Polyneuropathy, unspecified; M05.10 Rheumatoid lung disease with rheumatoid arthritis of unspecified site
CPT/HCPCS: 36415; 71045; 80048; 80053; 80076; 82962; 83605; 83735; 83880; 84443; 84484; 85025; 87426; 93005; 93451; 94618; 94640; 94667; 94668; 94760; 96361; 96365; 96367; 96375; 99152; 99153; C1773; C1894; J1160; J1200; J1250; J1265; J1644; J2250; J2260; J2920; J2930; J3010; J3475; J3480; J3490; J7050; U0003; U0005; 97110-GP; 97116-GP; 97530-GO; 97530-GP; 97535-GO; 99285-25; G0378; J7030; J7613; J7626

== ENCOUNTER 2021-07-07 17:15 | Inpatient (IN) | payer MEDICARE, BC ==
[~2021-07-07] VITALS: Ht 162.6 cm; Wt 82.0 kg
[~2021-07-07 17:15] MED LIST changes: +DEXA6TAB6 PO; +EMPA10TA3 PO; +LISI5TAB15 PO; +METO2.5T PO; +MONT10TA49 PO; +SPIR25TA PO; +TEMA15CA PO
[2021-07-07 18:37] LABS: BASO % 0 % (0-3); EOS % 0 % (0-3); HEMATOCRIT 36.3 % (36.0-47.0); HEMOGLOBIN 11.7 g/dL (12.0-15.5); LYMPH # 1.2 x10^3/uL (1.0-4.8); LYMPH % 11 % (24-48); MEAN CORPUSCULAR HEMOGLOBIN 30 pg (25-35); MEAN CORPUSCULAR HGB CONC 32 g/dL (31-37); MEAN CORPUSCULAR VOLUME 92 fL (79-100); MONO # 0.8 x10^3/uL (0.0-1.1); MONO % 8 % (0-9); NEUT # 8.2 x10^3/uL (1.8-7.7); NEUT % 80 % (31-73); PLATELET COUNT 232 x10^3/uL (140-400); RED BLOOD COUNT 3.96 x10^6/uL (3.50-5.40); RED CELL DISTRIBUTION WIDTH 17.6 % (11.5-14.5); WHITE BLOOD COUNT 10.2 x10^3/uL (4.0-11.0)
[2021-07-07 18:48] LABS: CALCIUM 8.7 mg/dL (8.5-10.1)
[2021-07-07 18:54] LABS: ALBUMIN 3.3 g/dL (3.4-5.0); ALBUMIN/GLOBULIN RATIO 0.8 (1.0-1.7); MAGNESIUM 1.8 mg/dL (1.8-2.4); TOTAL BILIRUBIN 1.4 mg/dL (0.2-1.0); TOTAL PROTEIN 7.2 g/dL (6.4-8.2)
[2021-07-07] MEDS ORDERED: FUROSEMIDE 20 MG/2 ML VIAL. IVP ONE (20:00)
--- NOTE | 2021-07-07 20:17 | RAD ---
EXAM: CHEST ONE VIEW. HISTORY: Shortness of breath. COMPARISON: 06/25/2021. FINDINGS: A frontal view of the chest is obtained. A left-sided pacemaker/defibrillator has its leads in the right atrium, right ventricle and a left cardiac vein. There is moderate elevation of the right hemidiaphragm. A small right pleural effusion is likely pres ent. Bilateral diffuse interstitial infiltrates have a basilar predominance appear mildly improved. T here is no pneumothorax. The heart is moderately enlarged. There are atherosclerotic calcifications o f the aorta. IMPRESSION: 1. Bilateral diffuse interstitial infiltrates are mildly improved. Small right pleural effusion. 2. Moderate cardiomegaly. Electronically signed by: Monique Doshi MD (07/07/2021 8:14 PM) [id number]
--- NOTE | 2021-07-07 20:34 | PHYS DOC ---
Past Medical History Past Medical History: Arthritis, CHF, COPD, Diabetes-Type II, Hypertension Additional Past Medical Histor: Rheumatoid arthritis (EDUARDO FRIAS) Past Surgical History: , Hysterectomy Additional Past Surgical Histo: Hand surgery (EDUARDO FRIAS) Smoking Status: Current Every Day Smoker Alcohol Use: Occasionally (EDUARDO FRIAS) General Adult EDM: Chief Complaint: SHORTNESS OF BREATH HPI: HPI: Patient is a 71 year old female with past medical history of COPD, CHF, rheumatoid arthritis and is a current everyday smoker who presents with worsening shortness of breath. She states she has felt short of breath for a few days, but it got significantly worse this morning. Patient reports she was supposed to see Dr. Kan (cardiology) tomorrow to be admitted into the hospital, but did not feel well enough to wait. She denies fever, chills, weakness, cough, chest pain, palpitations. She has no other complaints at this time. (EDUARDO FRIAS) Review of Systems: Review of Systems: Constitutional: See HPI Eyes: Denies change in visual acuity, visual field deficits or discharge HENT: Denies ear pain, nasal congestion or sore throat Respiratory: See HPI Cardiovascular: See HPI GI: Denies abdominal pain, nausea, vomiting, bloody stools or diarrhea : Denies dysuria or hematuria Musculoskeletal: Denies back pain or joint pain Integument: Denies rash or other skin lesion Neurologic: Denies headache, focal weakness or sensory changes (EDUARDO FRIAS) Heart Score: C/O Chest Pain: No (EDUARDO FRIAS) Allergies: Allergies: Allergies Coded Allergies Type Severity Reaction Last Updated Verified bupropion Allergy Intermediate 06/02/21 Yes latex Allergy Intermediate Rash 06/02/21 Yes (EDUARDO FRIAS) Physical Exam: PE: Constitutional: Obese, somewhat disheveled, no acute distress, chronically ill- appearing. HENT: Normocephalic, atraumatic, bilateral external ears normal, oropharynx moist, no oral exudates, nose normal. Eyes: EOMI, conjunctiva normal, no discharge. Neck: Normal range of motion, no JVD, no stridor. Cardiovascular: Heart regular rate and rhythm. Lungs & Thorax: Breath sounds diminished throughout, especially right base. Skin: Warm, dry, no erythema. Extremities: No tenderness, no cyanosis, no clubbing, ROM intact, bilateral lower extremity edema. Neurologic: Alert and oriented x4, no focal deficits noted. (EDUARDO FRIAS) Current Patient Data: Labs: Laboratory Tests Test 07/07/21 17:50 White Blood Count 10.2 x10^3/uL (4.0-11.0) Red Blood Count 3.96 x10^6/uL (3.50-5.40) Hemoglobin 11.7 g/dL (12.0-15.5) L Hematocrit 36.3 % (36.0-47.0) Mean Corpuscular Volume 92 fL (79-100) Mean Corpuscular Hemoglobin 30 pg (25-35) Mean Corpuscular Hemoglobin Concent 32 g/dL (31-37) Red Cell Distribution Width 17.6 % (11.5-14.5) H Platelet Count 232 x10^3/uL (140-400) Neutrophils (%) (Auto) 80 % (31-73) H Lymphocytes (%) (Auto) 11 % (24-48) L Monocytes (%) (Auto) 8 % (0-9) Eosinophils (%) (Auto) 0 % (0-3) Basophils (%) (Auto) 0 % (0-3) Neutrophils # (Auto) 8.2 x10^3/uL (1.8-7.7) H Lymphocytes # (Auto) 1.2 x10^3/uL (1.0-4.8) Monocytes # (Auto) 0.8 x10^3/uL (0.0-1.1) Eosinophils # (Auto) 0.0 x10^3/uL (0.0-0.7) Basophils # (Auto) 0.0 x10^3/uL (0.0-0.2) Sodium Level 132 mmol/L (136-145) L Potassium Level 4.0 mmol/L (3.5-5.1) Chloride Level 97 mmol/L (98-107) L Carbon Dioxide Level 28 mmol/L (21-32) Anion Gap 7 (6-14) Blood Urea Nitrogen 39 mg/dL (7-20) H Creatinine 1.0 mg/dL (0.6-1.0) Estimated GFR (Cockcroft-Gault) 55.0 BUN/Creatinine Ratio 39 (6-20) H Glucose Level 138 mg/dL (70-99) H Calcium Level 8.7 mg/dL (8.5-10.1) Magnesium Level 1.8 mg/dL (1.8-2.4) Total Bilirubin 1.4 mg/dL (0.2-1.0) H Aspartate Amino Transferase (AST) 21 U/L (15-37) Alanine Aminotransferase (ALT) 28 U/L (14-59) Alkaline Phosphatase 100 U/L (46-116) Troponin I High Sensitivity 24 ng/L (4-50) GD-Vfj-K-Type Natriuretic Peptide > 49665 pg/mL (0-124) H Total Protein 7.2 g/dL (6.4-8.2) Albumin 3.3 g/dL (3.4-5.0) L Albumin/Globulin Ratio 0.8 (1.0-1.7) L Laboratory Tests 07/07/21 17:50 Laboratory Tests 07/07/21 17:50 Vital Signs: Vital Signs Date Time Temp Pulse Resp B/P (MAP) Pulse Ox O2 Delivery O2 Flow Rate FiO2 07/07/21 20:00 78 21 114/65 (81) 92 Nasal Cannula 2.0 07/07/21 19:00 80 18 132/66 (88) 93 Nasal Cannula 2.0 07/07/21 18:16 80 17 117/62 (80) 94 Room Air 07/07/21 17:15 97.4 79 28 110/65 (80) 97 Room Air 97.4 (EDUARDO FRIAS) EKG: EKG: EKG Interpreted by Dr. Schulte at 1727: Regular rate and rhythm 84 bpm with occasional PVCs. RBBB. QT 428 ms/QTc 510 ms. No STEMI. (EDUARDO FRIAS) Radiology/Procedures: Radiology/Procedures: PROCEDURE: CHEST AP ONLY EXAM: CHEST ONE VIEW. HISTORY: Shortness of breath. COMPARISON: 06/25/2021. FINDINGS: A frontal view of the chest is obtained. A left-sided pacemaker/defibrillator has its leads in the right atrium, right ventricle and a left cardiac vein. There is moderate elevation of the right hemidiaphragm. A small right pleural effusion is likely present. Bilateral diffuse interstitial infiltrates have a basilar predominance appear mildly improved. There is no pneumothorax. The heart is moderately enlarged. There are atherosclerotic calcifications of the aorta. IMPRESSION: 1. Bilateral diffuse interstitial infiltrates are mildly improved. Small right pleural effusion. 2. Moderate cardiomegaly. Electronically signed by: Monique Doshi MD (07/07/2021 8:14 PM) [id number] (EDUARDO FRIAS) Course & Med Decision Making: Course & Med Decision Making Pertinent Labs and Imaging studies reviewed. (See chart for details) Patient is a 71-year-old female with several comorbidities who presents with shortness of breath. Work-up today will include chest x-ray, EKG, troponin, lab work. Patient presentation seems to be consistent with CHF exacerbation, with a right-sided pleural effusion. Patient pressure somewhat soft at 120/60, and likely will not tolerate aggressive diuresis very well. She will be provided with [address] Valerie boggs accepts patient for admission to hospitalist service. (EDUARDO FRIAS) Dragon Disclaimer: Dragon Disclaimer: This electronic medical record was generated, in whole or in part, using a voice recognition dictation system. (EDUARDO FRIAS) Departure Departure Impression: Primary Impression: Bilateral lower extremity edema Additional Impressions: Large pleural effusion Congestive heart failure Qualified Codes: I50.9 - Heart failure, unspecified Disposition: ADMITTED INPATIENT Admitting Physician: ÁGNEL Betancur) (EDUARDO FRIAS) Condition: GUARDED Referrals: TEN CALVO MD (PCP) Attending Signature Attending Signature I have reviewed the PA/A CLASS LINEMAN's note and plan of care. I was available for consultation as needed during the patient's visit in the emergency department. I agree with the clinical impression, plan, and disposition. (SOREN SCHULTE DO) EDUARDO FRIAS Jul 07, 2021 20:34 SOREN SCHULTE DO Jul 08, 2021 09:35
[2021-07-07 21:50] VITALS: BP 100/57
[2021-07-07] MEDS ORDERED: HYDR200T5 PO (21:58)
--- NOTE | 2021-07-07 22:00 | NUR ---
Admit from ER to [facility] room 652 via . A/O x 4 on arrival. Pleasant. Cooperative. Stood and transferred from WC to bed with standby assist. Admits to SOA with increase activity. O2 Sat WNL on RA. Does not use oxygen at home. Lives at home alone. Reports increase in SOA prompting her to come to ER. Has medication bottles from home. Reviewed Home Medications and pharmacy. Entered in computer. Orientated to room and call light. Instructed to call for assist when out of bed. Reviewed POC to include possible thoracentesis tomorrow. Verbalized understanding. Resting in bed. Call light at hand. Watching TV.
--- NOTE | 2021-07-07 22:01 | HP ---
DATE OF SERVICE: 07/07/2021 ADMIT DATE: 07/07/2021 CHIEF COMPLAINT: Shortness of breath. HISTORY OF PRESENT ILLNESS: The patient is a pleasant elderly female who presents to the ER today with shortness of breath. We did a chest x-ray. She has got a large right pleural effusion. I discussed the case with ER physician. We are going to admit the patient and consult Interventional Radiology and Cardiology as her BNP is greater than 35,000. PAST MEDICAL HISTORY: CHF, chronic lower extremity edema, chronic wounds, arthritis, COPD, diabetes, hypertension, rheumatoid arthritis, , hysterectomy, hand surgery, continued tobacco abuse. ALLERGIES: BUPROPION AND LATEX. FAMILY HISTORY: Coronary artery disease. SOCIAL HISTORY: She smokes. No drink or drugs. She is retired. MEDICATIONS: Reviewed. Please refer to the MRAD. REVIEW OF SYSTEMS: GENERAL: No history of weight change, weakness or fevers. SKIN: No bruising, hair changes or rashes. EYES: No blurred, double or loss of vision. NOSE AND THROAT: No history of nosebleeds, hoarseness or sore throat. HEART: No history of palpitations, chest pain or shortness of breath on exertion. LUNGS: She complains of shortness of breath. GASTROINTESTINAL: Denies changes in appetite, nausea, vomiting, diarrhea or constipation. GENITOURINARY: No history of frequency, urgency, hesitancy or nocturia. NEUROLOGIC: Denies history of numbness, tingling, tremor or weakness. PSYCHIATRIC: No history of panic, anxiety or depression. ENDOCRINE: No history of heat or cold intolerance, polyuria or polydipsia. EXTREMITIES: Denies muscle weakness, joint pain, pain on walking or stiffness. PHYSICAL EXAMINATION: VITALS: Within normal limits and are stable. GENERAL: No apparent distress. Alert and oriented. HEENT: Normal cephalic atraumatic, external auditory canals are patent. EYES: Extraocular muscles are intact, pupils are equally round and reactive to light and accommodation. MUSCULOSKELETAL: Well developed, well nourished, good range of motion. ENDOCRINE: No thyromegaly was palpated. LYMPHATICS: No cervical chain or axillary nodes were noted. HEMATOPOIETIC: No bruising. NECK: Supple, no JVD, no thyromegaly was noted. LUNGS: She has bibasilar crackles, greater on the left. Decreased breath sounds on the right. HEART: RRR, S1, S2 present. Peripheral pulses intact, no obvious murmurs were noted. ABDOMEN: Soft, nontender. Positive bowel sounds no organomegaly, normal bowel sounds. EXTREMITIES: She has edema and wounds on her lower extremities. NEUROLOGIC: Normal speech, normal tone. A and O x3, moves all extremities, no obvious focal deficits. PSYCHIATRIC: Normal affect, normal mood. Stable. SKIN: No ulcerations or rashes, good skin turgor, no jaundice. VASCULAR: Good capillary refill, neurovascular bundle appears to be intact. LABORATORY DATA: BNP level was greater than 35,000. Chest x-ray shows a large right pleural effusion and a smaller left one and cardiomegaly. ASSESSMENT AND PLAN: Pleural effusion, hypoxia, acute on chronic systolic and diastolic heart failure. The patient will be admitted. We will consult Dr. Martini of the Interventional Radiology Department to consider thoracentesis. Consult Cardiology. Home meds. Deep venous thrombosis prophylaxis. Full code. Cardiac monitoring. RAHUL/BLAYNE DR: Virgil TID: [id number]
[2021-07-07] MEDS ORDERED: DIPH25CA58 PO (22:02)
[2021-07-07] MEDS ORDERED: METF500T16 PO (22:07)
[2021-07-07] MEDS ORDERED: ALBUTEROL SULFATE 2.5 MG/3 ML NEBU. INH PRN (22:30)
[2021-07-07] MEDS ORDERED: TEMAZEPAM 15 MG CAPSULE PO PRN (22:30)
[2021-07-07] MEDS ORDERED: diphenhydrAMINE HCL 25 MG CAPSULE PO PRN (22:30)
[2021-07-07] MEDS ORDERED: TEMAZEPAM 7.5 MG CAPSULE PO PRN (22:45)
[2021-07-08] VITALS (8 sets, daily range): BP systolic 82–104; BP diastolic 50–71
--- NOTE | 2021-07-08 05:52 | EKG ---
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
[2021-07-08] MEDS: ALBUTEROL SULFATE 2.5 MG/3 ML NEBU. NEB SCH ×4 (07:54→18:27)
[2021-07-08] MEDS: BUDESONIDE 0.5 MG/2 ML NEBU. NEB SCH ×2 (07:54→18:27)
[2021-07-08] MEDS ORDERED: CALCIUM CARB/VIT D3 500/200 TABLET. PO SCH (08:00)
[2021-07-08] MEDS: SPIRONOLACTONE 25 MG TABLET PO SCH (08:18)
[2021-07-08] MEDS: metOLazone 2.5 MG TABLET PO SCH (08:18)
[2021-07-08] MEDS: METOPROLOL SUCC 24HR ER 25 MG TAB.ER.24H. PO SCH (08:18)
[2021-07-08] MEDS: FLUoxetine HCL 20 MG CAPSULE PO SCH ×2 (08:19→20:42)
[2021-07-08] MEDS: HYDROXYCHLOROQUINE 200 MG TABLET PO SCH (08:19)
[2021-07-08] MEDS: ASPIRIN CHEWABLE 81 MG TABLET. PO SCH (08:19)
[2021-07-08] MEDS: EMPAGLIFLOZIN 10 MG TABLET. PO SCH (08:20)
[2021-07-08] MEDS: MULTIVITAMIN I-VITE TABLET. PO SCH ×2 (08:20→20:42)
[2021-07-08] MEDS: MULTIVITAMIN with MINERAL TABLET. PO SCH (08:20)
[2021-07-08] MEDS: metFORMIN 500 MG TABLET PO SCH (08:20)
[2021-07-08] MEDS: GABAPENTIN 100 MG CAPSULE. PO SCH ×3 (08:20→20:42)
[2021-07-08] MEDS: hydrALAZINE 10 MG TABLET PO SCH ×2 (08:21→13:45)
[2021-07-08] MEDS ORDERED: CYANOCOBALAMIN (VITAMIN B-12) 1,000 MCG TABLET. PO SCH (09:00)
[2021-07-08] MEDS ORDERED: NON FORMULARY ITEM (Glucosamine Hcl/Chondr Su A Na (Cidaflex Tablet) 1 TAB) PO SCH (09:00)
[2021-07-08] MEDS ORDERED: DEXAMETHASONE 6 MG PO SCH (09:00)
[2021-07-08] MEDS ORDERED: LISINOPRIL 5 MG TABLET. PO SCH (09:00)
[2021-07-08] MEDS ORDERED: NON FORMULARY ITEM (Biotin 10,000 MCG) PO SCH (09:00)
[2021-07-08] MEDS ORDERED: BUMETANIDE 1 MG TABLET. PO SCH (09:00)
[2021-07-08] MEDS ORDERED: NON FORMULARY ITEM (Ubidecarenone (Coq-10) 200 MG) PO SCH (09:00)
--- NOTE | 2021-07-08 09:47 | PDOC2 ---
FOREST ONEAL HARP ACTION ASSEMBLER 07/08/21 0946: CARDIAC CONSULT DATE OF CONSULT Date of Consult DATE: 07/08/21 TIME: 09:41 REASON FOR CONSULT Reason for Consult: CHF REFERRING PHYSICIAN Referring Physician: Dr. Padilla SOURCE Source: Chart review, Patient HISTORY OF PRESENT ILLNESS HISTORY OF PRESENT ILLNESS This is a 71 yo female who presented secondary to shortness of breath. Patient reports she has been more short of breath for the last week or so. Has progressively worsened. She has been seen by her primary care provider, Dr. Pathak. Was scheduled to see Dr. Lawton on an outpatient basis the following day, but did not feel well enough to wait another day so she came to the ED for further evaluation and treatment. Patient underwent right thoracentesis this morning and reports breathing has improve. Continues to have bilateral LE edema. She denies any chest pain or dizziness. Reports compliance with medications. Plans for rehab upon discharge. PAST MEDICAL HISTORY Past Medical History Cardiovascular: HTN, Hyperlipidemia, CHF, cardiomyopathy Pulmonary: COPD CENTRAL NERVOUS SYSTEM: Carpal Tunnel Syndrome, Periperal neuropathy GI: GERD Hepatobiliary: No pertinent hx Psych: Anxiety, Depression Rheumatologic: Other (PMR) Endocrine: Diabetes (2) PAST SURGICAL HISTORY Past Surgical History Cataract Removal, Hysterectomy, AICD, Other (Carpal tunnel repair) FAMILY HISTORY Family History: Heart Disease SOCIAL HISTORY Social History Smoke: <1 pack per day ALCOHOL: social Drugs: None Lives: Alone CURRENT MEDICATIONS CURRENT MEDICATIONS Current Medications Medications (Trade) Dose Ordered Sig/Yvette Route PRN Reason Start Time Stop Time Status Last Admin Dose Admin Furosemide (Lasix) 20 mg 1X ONCE IVP 07/07/21 20:00 07/07/21 20:01 DC 07/07/21 23:07 Aspirin (Aspirin Chewable) 81 mg DAILY08 PO 07/08/21 08:00 07/08/21 08:19 Bumetanide (Bumex) 1 mg DAILY PO 07/08/21 09:00 07/08/21 08:20 Empaglifozin (Jardiance) 10 mg DAILY PO 07/08/21 09:00 07/08/21 08:20 Gabapentin (Neurontin) 100 mg TID PO 07/08/21 09:00 07/08/21 08:20 Hydralazine HCl (Apresoline) 10 mg TID PO 07/08/21 09:00 07/08/21 08:21 Hydroxychloroquine Sulfate (Plaquenil) 400 mg DAILY PO 07/08/21 09:00 07/08/21 08:19 Lisinopril (Prinivil) 5 mg DAILY PO 07/08/21 09:00 07/08/21 08:19 Metformin HCl (Glucophage) 500 mg DAILY08 PO 07/08/21 08:00 07/08/21 08:20 Metolazone (Zaroxolyn) 2.5 mg DAILY PO 07/08/21 09:00 07/08/21 08:18 Metoprolol Succinate (Toprol Xl) 25 mg DAILY PO 07/08/21 09:00 07/08/21 08:18 Calcium/Vitamin D (Oscal D 500mg/ 200uts) 1 tab BIDWMEALS PO 07/08/21 08:00 07/08/21 08:19 Fluoxetine HCl (PROzac) 20 mg BID PO 07/08/21 09:00 07/08/21 08:19 Cyanocobalamin (Vitamin B-12) 2,000 mcg DAILY PO 07/08/21 09:00 07/08/21 08:19 Multivitamins (Thera M Plus) 1 tab DAILY PO 07/08/21 09:00 07/08/21 08:20 Multivitamins/ Minerals (I-Alli) 1 tab BID PO 07/08/21 09:00 07/08/21 08:20 Budesonide (Pulmicort) 0.5 mg RTBID NEB 07/08/21 08:00 07/08/21 07:54 Spironolactone (Aldactone) 25 mg DAILY PO 07/08/21 09:00 07/08/21 08:18 Temazepam (Restoril) 7.5 mg PRN QHS PRN PO INSOMNIA 07/07/21 22:45 07/07/21 23:07 Albuterol Sulfate (Ventolin Neb Soln) 2.5 mg RTQID NEB 07/08/21 08:00 07/08/21 07:54 ALLERGIES ALLERGIES: Coded Allergies: bupropion (Verified Allergy, Intermediate, 06/02/21) latex (Verified Allergy, Intermediate, Rash, 06/02/21) ROS Review of System 14 point ROS conducted with pertinent positives noted above in HPI PHYSICAL EXAM PHYSICAL EXAM General: Alert, Oriented X3, Cooperative, No acute distress HEENT: Atraumatic, Mucous membr. moist/pink Lungs: Other (crackles ) Heart: Regular rate ( SR ) Abdomen: Soft Extremities: Other (2-3+ bilateral LE edema ) Skin: No significant lesion Neuro: Normal speech, Sensation intact Psych/Mental Status: Mental status NL, Mood NL MUSCULOSKELETAL: Osteoarthritic changes both hands VITALS/I&O VITALS/I&O: Vital Signs Date Time Temp Pulse Resp B/P (MAP) Pulse Ox O2 Delivery O2 Flow Rate FiO2 07/08/21 08:21 81 104/71 07/08/21 07:56 92 Room Air 07/08/21 07:00 97.4 20 97.4 07/07/21 21:30 2.0 I & O 07/07/21 07/07/21 07/08/21 15:00 23:00 07:00 Intake Total 300 ml Output Total 800 ml Balance -500 ml LABS Lab: Laboratory Tests Test 07/07/21 17:50 07/08/21 07:38 White Blood Count 10.2 x10^3/uL (4.0-11.0) Red Blood Count 3.96 x10^6/uL (3.50-5.40) Hemoglobin 11.7 g/dL (12.0-15.5) L Hematocrit 36.3 % (36.0-47.0) Mean Corpuscular Volume 92 fL (79-100) Mean Corpuscular Hemoglobin 30 pg (25-35) Mean Corpuscular Hemoglobin Concent 32 g/dL (31-37) Red Cell Distribution Width 17.6 % (11.5-14.5) H Platelet Count 232 x10^3/uL (140-400) Neutrophils (%) (Auto) 80 % (31-73) H Lymphocytes (%) (Auto) 11 % (24-48) L Monocytes (%) (Auto) 8 % (0-9) Eosinophils (%) (Auto) 0 % (0-3) Basophils (%) (Auto) 0 % (0-3) Neutrophils # (Auto) 8.2 x10^3/uL (1.8-7.7) H Lymphocytes # (Auto) 1.2 x10^3/uL (1.0-4.8) Monocytes # (Auto) 0.8 x10^3/uL (0.0-1.1) Eosinophils # (Auto) 0.0 x10^3/uL (0.0-0.7) Basophils # (Auto) 0.0 x10^3/uL (0.0-0.2) Sodium Level 132 mmol/L (136-145) L Potassium Level 4.0 mmol/L (3.5-5.1) Chloride Level 97 mmol/L (98-107) L Carbon Dioxide Level 28 mmol/L (21-32) Anion Gap 7 (6-14) Blood Urea Nitrogen 39 mg/dL (7-20) H Creatinine 1.0 mg/dL (0.6-1.0) Estimated GFR (Cockcroft-Gault) 55.0 BUN/Creatinine Ratio 39 (6-20) H Glucose Level 138 mg/dL (70-99) H Calcium Level 8.7 mg/dL (8.5-10.1) Magnesium Level 1.8 mg/dL (1.8-2.4) Total Bilirubin 1.4 mg/dL (0.2-1.0) H Aspartate Amino Transferase (AST) 21 U/L (15-37) Alanine Aminotransferase (ALT) 28 U/L (14-59) Alkaline Phosphatase 100 U/L (46-116) Troponin I High Sensitivity 24 ng/L (4-50) [id number]-Type Natriuretic Peptide > 50006 pg/mL (0-124) H Total Protein 7.2 g/dL (6.4-8.2) Albumin 3.3 g/dL (3.4-5.0) L Albumin/Globulin Ratio 0.8 (1.0-1.7) L Glucose (Fingerstick) 118 mg/dL (70-99) H Laboratory Tests 07/07/21 17:50 Laboratory Tests 07/07/21 17:50 ECHOCARDIOGRAM ECHOCARDIOGRAM <Conclusion> The Left Ventricle is moderately dilated. The systolic function is severely impaired. Left ventricular systolic function is 20 to 25%. There is severe global hypokinesis of the left ventricle. The aortic valve is severely calcified. Doppler and Color Flow revealed trace to mild aortic regurgitation. Calculated aortic valve area is 0.7 cm2 with maximum pressure gradient of 37 mmHg and mean pressure gradient of 20 mmHg. There is at least moderately severe valvular aortic stenosis. Doppler and Color-flow revealed moderate mitral regurgitation. Doppler and Color Flow revealed moderate tricuspid regurgitation. The pulmonary artery systolic pressure is estimated at 45-50 mmHg. DATE: 01/01/21 [id number] 0 HEART CATH HEART CATH Conclusion 1. No significant coronary artery disease 2. Mild to moderate pulmonary hypertension probably secondary to elevated left- sided filling pressures as evidenced by elevated PCWP and LVEDP. 3. No evidence of intracardiac shunt. Recommendations Optimization of medical therapy for nonischemic cardiomyopathy. Repeat 2D echo in 3 months to evaluate the need for AICD implantation. DATE: 08/26/20 [id number] 0 RHC FINDINGS 1. Intracardiac pressures: Mean right atrial pressure 32 mmHg, right ventricular pressure 70/20 mmHg, pulmonary artery pressure 81/47 mmHg with a mean PA pressure of 58 mmHg, mean pulmonary capillary wedge pressure 38 mmHg. This is consistent with elevated right and left-sided filling pressures and severe pulmonary hypertension. 2. Oxygen saturations: Right atrium 71%, pulmonary artery 65.7%, arterial saturation 95%. No evidence of intracardiac shunt. 3. Cardiac output by Silvia method 4.5 L/min. Conclusion Significantly elevated right and left-sided filling pressures and severe pulmonary hypertension. Recommendations Recommend more aggressive diuresis probably with inotropic support. DATE: 06/08/21 [id number] 0 ASSESSMENT/PLAN ASSESSMENT/PLAN 1. Acute respiratory failure with a/c CHF, pleural effusion. S/p thoracentesis with 950cc off. 2. Acute on chronic systolic CHF; s/p IV Lasix 3. NICM; Echo 01/03 with LVEF 20%. S/p AICD/PRODUCE LABORER-D (Biotronik). [facility] 09/03 without significant CAD 4. Hypertension; low end 5. Hyperlipidemia; statin 6. Diabetes, II 7. CKD; Cr stable 8. Tobaccoism; reinforced cessation Recommendations Diuresis with close monitoring of renal function Continue metolazone, convert Bumex Will add inotropic support if unable to effectively diurese. Monitor I and O, daily weight HF optimization with Toprol, lisinopril. Hold as warranted for hypotension. Supportive care BENNY POLO MD 07/08/212117: CARDIAC CONSULT ASSESSMENT/PLAN ASSESSMENT/PLAN Patient seen and examined. Agree with FLAT KNITTER HELPER's assessment and plan Continue diuresis for acute on chr systolic HF s/p thoracentesis with improvement in symptoms s/pBiv ICD status stable Continue current medical regimen FOREST ONEAL APRN Jul 08, 2021 09:46 BENNY POLO MD Jul 08, 2021 21:18
--- NOTE | 2021-07-08 12:39 | RAD ---
Right Thoracentesis 07/08/2021 10:44 AM Clinical History: Shortness of breath. Pleural effusion. Technique: Relative benefits risks and alte rnatives were discussed with the patient and/or their accounts payable representative. Written informed consent was o btained. The patient was placed in seated position. A timeout procedure was performed. Sonographic assessment demonstrates a large pleural effusion. A site for skin entry was selected, and subsequently prepped and draped using sterile barrier technique. 1% lidocaine without epinepherine was administered for local anesthesia to the skin and subcutaenous tissues. A 5 Nauruan sheathed needle was passed into the pleural space. Clear yellow fluid was aspirated and t he catheter was connected to a vacuum. Approximately 0.9 liters of fluid were drained. The catheter was removed and adequate hemostasis was obtained. A sterile dressing was applied. The patient tolera amarilys the procedure well, without complications. Impression: Successful ultrasound guided thoracentesis with removal 0.9 cm of fluid Electronically signed by: Brian Martini MD (07/08/2021 12:36 PM) [id number]
[2021-07-08 13:09] LABS: BF CLARITY CLEAR; BF COLOR YELLOW; BF MON % 95 %; BF PMN % 5 %; BF RBC COUNT 184 /cmm (Not Established); BF SOURCE PLEURAL; BF WBC COUNT 187 /cmm (Not Established)
--- NOTE | 2021-07-08 13:49 | PDOC ---
[employer] PROGRESS NOTE Date of Service DOS: DATE: 07/08/21 TIME: 13:46 Chief Complaint Chief Complaint Pleural effusion, acute hypoxia, acute on chronic systolic and s/p thoracentesis 07/08, 900 mls htn weakness and debility depression and anxiety obese, BMI 33 History of Present Illness History of Present Illness 900 mls out today manage CHF stop hydralazine, BP in 80s PT and OT for weakness, prob needs skilled, has trouble with stairs at home at baseline Vitals/I&O Vitals/I&O: Vital Signs Date Time Temp Pulse Resp B/P (MAP) Pulse Ox O2 Delivery O2 Flow Rate FiO2 07/08/21 13:45 80 84/58 07/08/21 11:32 96 Nasal Cannula 3.0 07/08/21 11:32 97.5 18 97.5 I & O 07/07/21 07/07/21 07/08/21 15:00 23:00 07:00 Intake Total 300 ml Output Total 800 ml Balance -500 ml Physical Exam General: Alert, Oriented X3, Cooperative, No acute distress, Other (good mental status, pleasant, ) Heart: Normal S1, Normal S2 Lungs: Other (rales, mod volume, no squeak) Abdomen: Normal bowel sounds Extremities: No clubbing Skin: No rashes, No breakdown Labs Labs: Laboratory Tests Test 07/07/21 17:50 07/08/21 07:38 07/08/21 11:00 07/08/21 11:50 White Blood Count 10.2 x10^3/uL (4.0-11.0) Red Blood Count 3.96 x10^6/uL (3.50-5.40) Hemoglobin 11.7 g/dL (12.0-15.5) Hematocrit 36.3 % (36.0-47.0) Mean Corpuscular Volume 92 fL (79-100) Mean Corpuscular Hemoglobin 30 pg (25-35) Mean Corpuscular Hemoglobin Concent 32 g/dL (31-37) Red Cell Distribution Width 17.6 % (11.5-14.5) Platelet Count 232 x10^3/uL (140-400) Neutrophils (%) (Auto) 80 % (31-73) Lymphocytes (%) (Auto) 11 % (24-48) Monocytes (%) (Auto) 8 % (0-9) Eosinophils (%) (Auto) 0 % (0-3) Basophils (%) (Auto) 0 % (0-3) Neutrophils # (Auto) 8.2 x10^3/uL (1.8-7.7) Lymphocytes # (Auto) 1.2 x10^3/uL (1.0-4.8) Monocytes # (Auto) 0.8 x10^3/uL (0.0-1.1) Eosinophils # (Auto) 0.0 x10^3/uL (0.0-0.7) Basophils # (Auto) 0.0 x10^3/uL (0.0-0.2) Sodium Level 132 mmol/L (136-145) Potassium Level 4.0 mmol/L (3.5-5.1) Chloride Level 97 mmol/L (98-107) Carbon Dioxide Level 28 mmol/L (21-32) Anion Gap 7 (6-14) Blood Urea Nitrogen 39 mg/dL (7-20) Creatinine 1.0 mg/dL (0.6-1.0) Estimated GFR (Cockcroft-Gault) 55.0 BUN/Creatinine Ratio 39 (6-20) Glucose Level 138 mg/dL (70-99) Calcium Level 8.7 mg/dL (8.5-10.1) Magnesium Level 1.8 mg/dL (1.8-2.4) Total Bilirubin 1.4 mg/dL (0.2-1.0) Aspartate Amino Transf (AST/SGOT) 21 U/L (15-37) Alanine Aminotransferase (ALT/SGPT) 28 U/L (14-59) Alkaline Phosphatase 100 U/L (46-116) Troponin I High Sensitivity 24 ng/L (4-50) ZK-Iuv-I-Type Natriuretic Peptide > 15788 pg/mL (0-124) Total Protein 7.2 g/dL (6.4-8.2) Albumin 3.3 g/dL (3.4-5.0) Albumin/Globulin Ratio 0.8 (1.0-1.7) Glucose (Fingerstick) 118 mg/dL (70-99) 110 mg/dL (70-99) Body Fluid Source Pleural Body Fluid Color Yellow Body Fluid Clarity Clear Body Fluid pH 7.22 Body Fluid Nucleated Cells 187 /cmm (Not Established) Body Fluid Mononuclear WBCs (%) 95 % Body Fluid Polymorphonuclear Cells 5 % Body Fluid Total RBCs Counted 184 /cmm (Not Established) Assessment and Plan Assessmemt and Plan Problems Medical Problems: (1) Bilateral lower extremity edema Status: Acute (2) Congestive heart failure Status: Acute Comment Review of Relevant I have reviewed the following items yan (where applicable) has been applied. Medications: Current Medications Medications (Trade) Dose Ordered Sig/Yvette Route PRN Reason Start Time Stop Time Status Last Admin Dose Admin Furosemide (Lasix) 20 mg 1X ONCE IVP 07/07/21 20:00 07/07/21 20:01 DC 07/07/21 23:07 Aspirin (Aspirin Chewable) 81 mg DAILY08 PO 07/08/21 08:00 07/08/21 08:19 Bumetanide (Bumex) 1 mg DAILY PO 07/08/21 09:00 07/08/21 08:20 Empaglifozin (Jardiance) 10 mg DAILY PO 07/08/21 09:00 07/08/21 08:20 Gabapentin (Neurontin) 100 mg TID PO 07/08/21 09:00 07/08/21 08:20 Hydralazine HCl (Apresoline) 10 mg TID PO 07/08/21 09:00 07/08/21 08:21 Hydroxychloroquine Sulfate (Plaquenil) 400 mg DAILY PO 07/08/21 09:00 07/08/21 08:19 Lisinopril (Prinivil) 5 mg DAILY PO 07/08/21 09:00 07/08/21 08:19 Metformin HCl (Glucophage) 500 mg DAILY08 PO 07/08/21 08:00 07/08/21 08:20 Metolazone (Zaroxolyn) 2.5 mg DAILY PO 07/08/21 09:00 07/08/21 08:18 Metoprolol Succinate (Toprol Xl) 25 mg DAILY PO 07/08/21 09:00 07/08/21 08:18 Calcium/Vitamin D (Oscal D 500mg/ 200uts) 1 tab BIDWMEALS PO 07/08/21 08:00 07/08/21 08:19 Fluoxetine HCl (PROzac) 20 mg BID PO 07/08/21 09:00 07/08/21 08:19 Cyanocobalamin (Vitamin B-12) 2,000 mcg DAILY PO 07/08/21 09:00 07/08/21 08:19 Multivitamins (Thera M Plus) 1 tab DAILY PO 07/08/21 09:00 07/08/21 08:20 Multivitamins/ Minerals (I-Alli) 1 tab BID PO 07/08/21 09:00 07/08/21 08:20 Budesonide (Pulmicort) 0.5 mg RTBID NEB 07/08/21 08:00 07/08/21 07:54 Spironolactone (Aldactone) 25 mg DAILY PO 07/08/21 09:00 07/08/21 08:18 Temazepam (Restoril) 7.5 mg PRN QHS PRN PO INSOMNIA 07/07/21 22:45 07/07/21 23:07 Albuterol Sulfate (Ventolin Neb Soln) 2.5 mg RTQID NEB 07/08/21 08:00 07/08/21 11:32 Justifications for Admission Other Justification JOSUE MIRANDA MD Jul 08, 2021 13:49
[2021-07-08] MEDS ORDERED: CYANOCOBALAMIN (VITAMIN B-12) 1,000 MCG/ML VIAL. IM ONE (15:00)
[2021-07-08] MEDS: BUMETANIDE 1 MG/4 ML VIAL. IV SCH (16:08)
[2021-07-08] MEDS: ATORVASTATIN CALCIUM 20 MG TABLET PO SCH (20:42)
[2021-07-08] MEDS: MONTELUKAST SODIUM 10 MG TABLET. PO SCH (20:43)
[2021-07-09 02:50] VITALS: BP 91/64
[2021-07-09] MEDS: ALBUTEROL SULFATE 2.5 MG/3 ML NEBU. NEB SCH ×4 (06:07→20:59)
[2021-07-09] MEDS: BUDESONIDE 0.5 MG/2 ML NEBU. NEB SCH ×2 (06:07→21:00)
[2021-07-09 07:00] VITALS: BP 97/56
[2021-07-09] MEDS: FLUoxetine HCL 20 MG CAPSULE PO SCH ×2 (08:44→20:24)
[2021-07-09] MEDS: MULTIVITAMIN with MINERAL TABLET. PO SCH (08:44)
[2021-07-09] MEDS: MULTIVITAMIN I-VITE TABLET. PO SCH ×2 (08:44→20:26)
[2021-07-09] MEDS: EMPAGLIFLOZIN 10 MG TABLET. PO SCH (08:44)
[2021-07-09] MEDS: HYDROXYCHLOROQUINE 200 MG TABLET PO SCH (08:45)
[2021-07-09] MEDS: metFORMIN 500 MG TABLET PO SCH (08:45)
[2021-07-09] MEDS: GABAPENTIN 100 MG CAPSULE. PO SCH ×3 (08:45→20:25)
[2021-07-09] MEDS: ASPIRIN CHEWABLE 81 MG TABLET. PO SCH (08:45)
[2021-07-09] MEDS: SPIRONOLACTONE 25 MG TABLET PO SCH (09:00)
[2021-07-09] MEDS: metOLazone 2.5 MG TABLET PO SCH (09:00)
[2021-07-09] MEDS: BUMETANIDE 1 MG/4 ML VIAL. IV SCH ×2 (09:00→16:54)
[2021-07-09] MEDS: METOPROLOL SUCC 24HR ER 25 MG TAB.ER.24H. PO SCH (09:00)
--- NOTE | 2021-07-09 10:50 | PDOC ---
[employer] [employer] 07/09/21 1050: CARDIO Progress Notes Date and Time Date of Service 07/09/21 Time of Evaluation 1015 Subjective Subjective: No Chest Pain, No Palpitations, No Dizziness, Other (breathing improved ) Vitals Vitals Vital Signs Date Time Temp Pulse Resp B/P (MAP) Pulse Ox O2 Delivery O2 Flow Rate FiO2 07/09/21 08:00 Room Air 07/09/21 07:00 97.6 81 20 97/56 (70) 99 2.0 97.6 Weight Weight [ ] Input and Output Intake and Output Intake and Output 07/09/21 07:00 Intake Total 500 ml Output Total 3225 ml Balance -2725 ml Intake Oral 500 ml Output Urine Total 2300 ml Chest Tube Drainage Total 925 ml Laboratory Labs Laboratory Tests Test 07/08/21 11:00 07/08/21 11:50 07/08/21 16:40 07/08/21 20:52 Body Fluid Source Pleural Body Fluid Color Yellow Body Fluid Clarity Clear Body Fluid pH 7.22 Body Fluid Nucleated Cells 187 /cmm (Not Established) Body Fluid Mononuclear WBCs (%) 95 % Body Fluid Polymorphonuclear Cells 5 % Body Fluid Total RBCs Counted 184 /cmm (Not Established) Glucose (Fingerstick) 110 mg/dL (70-99) 151 mg/dL (70-99) 120 mg/dL (70-99) Test 07/09/21 07:33 Glucose (Fingerstick) 95 mg/dL (70-99) Microbiology Micro Microbiology 07/08/21 Gram Stain - Final, Resulted 07/08/21 Aerobic and Anaerobic Culture - Preliminary, Resulted Physical Exam HEENT: Neck Supple W Full Motion Chest: Symmetric LUNGS: Clear to Auscultation Heart: RRR Abdomen: Soft N/T Extremities: Other (2+ bilateral LE edema ) Neurology: alert, oriented, follow commands Assessment Assessment 1. Acute respiratory failure with a/c CHF, pleural effusion. S/p thoracentesis with 950cc off. 2. Acute on chronic systolic CHF; improved s/p IV diuresis 3. NICM; Echo 01/03 with LVEF 20%. S/p AICD/EVENT STAFF-D (Biotronik). [facility] 09/03 without significant CAD 4. Hypertension; low end 5. Hyperlipidemia; statin 6. Diabetes, II 7. CKD; Cr stable 8. Tobaccoism; reinforced cessation 9. Arrhythmia; tele noted with brief episode of tachyarrhythmia; appears to be SVT with underlying v-pacing. Otherwise, has been SR 10. Hypomagnesemia Recommendations Continue diuresis with IV Bumex, metolazone Monitor I and O, daily weight Replace Mg Continue BB therapy Will hold lisinopril with hypotension Supportive care Justicifation of Admission Dx: Justifications for Admission: Justification of Admission Dx: Yes CHF: Cardiac Arrhythmias BENNY POLO MD 07/09/218: CARDIO Progress Notes Assessment Assessment Patient seen and examined. Agree with [facility] FORMER's assessment and plan Continue diuresis with bumex and metolazone for acute on chr systolic HF s/p thoracentesis, removal of 950 cc and improvement in symptoms s/p BivICD status stable Continue current medical regimen [employer] APRN Jul 09, 2021 10:50 BENNY POLO MD Jul 09, 2021 18:28
[2021-07-09 11:00] VITALS: BP 87/57
[2021-07-09 13:06] LABS: CALCIUM 8.4 mg/dL (8.5-10.1); MAGNESIUM 1.7 mg/dL (1.8-2.4); POTASSIUM 4.4 mmol/L (3.5-5.1)
[2021-07-09 14:24] VITALS: BP 88/56
--- NOTE | 2021-07-09 15:00 | PDOC ---
[employer] PROGRESS NOTE Date of Service DOS: DATE: 07/09/21 TIME: 14:59 Chief Complaint Chief Complaint Pleural effusion, acute hypoxia, acute on chronic systolic and s/p thoracentesis 07/08, 900 mls htn weakness and debility depression and anxiety obese, BMI 33 History of Present Illness History of Present Illness feels better, still weak, may need skilled 900 mls out today manage CHF stop hydralazine, BP was in 80s PT and OT for weakness, prob needs skilled, has trouble with stairs at home at baseline Vitals/I&O Vitals/I&O: Vital Signs Date Time Temp Pulse Resp B/P (MAP) Pulse Ox O2 Delivery O2 Flow Rate FiO2 07/09/21 14:24 97.0 83 20 88/56 (67) 100 Nasal Cannula 2.0 97.0 I & O 07/08/21 07/08/21 07/09/21 15:00 23:00 07:00 Intake Total 0 ml 300 ml 200 ml Output Total 925 ml 2000 ml 300 ml Balance -925 ml -1700 ml -100 ml Physical Exam General: Alert, Oriented X3, Cooperative, No acute distress, Other (good mental status, pleasant, ) Heart: Normal S1, Normal S2 Lungs: Other (rales, mod volume, no squeak) Abdomen: Normal bowel sounds Extremities: No clubbing Skin: No rashes, No breakdown Labs Labs: Laboratory Tests Test 07/08/21 16:40 07/08/21 20:52 07/09/21 07:33 07/09/21 11:40 Glucose (Fingerstick) 151 mg/dL (70-99) 120 mg/dL (70-99) 95 mg/dL (70-99) Sodium Level 135 mmol/L (136-145) Potassium Level 4.4 mmol/L (3.5-5.1) Chloride Level 96 mmol/L (98-107) Carbon Dioxide Level 30 mmol/L (21-32) Anion Gap 9 (6-14) Blood Urea Nitrogen 33 mg/dL (7-20) Creatinine 1.0 mg/dL (0.6-1.0) Estimated GFR (Cockcroft-Gault) 55.0 Glucose Level 136 mg/dL (70-99) Calcium Level 8.4 mg/dL (8.5-10.1) Magnesium Level 1.7 mg/dL (1.8-2.4) Test 07/09/21 12:04 Glucose (Fingerstick) 141 mg/dL (70-99) Assessment and Plan Assessmemt and Plan Problems Medical Problems: (1) Bilateral lower extremity edema Status: Acute (2) Congestive heart failure Status: Acute Comment Review of Relevant I have reviewed the following items yan (where applicable) has been applied. Medications: Current Medications Medications (Trade) Dose Ordered Sig/Yvette Route PRN Reason Start Time Stop Time Status Last Admin Dose Admin Atorvastatin Calcium (Lipitor) 20 mg HS PO 07/08/21 21:00 07/08/21 20:42 Montelukast Sodium (Singulair) 10 mg QHS PO 07/08/21 21:00 07/08/21 20:43 Bumetanide (Bumex) 1 mg BID92 IV 07/08/21 16:00 07/08/21 16:08 Justifications for Admission Other Justification JOSUE MIRANDA MD Jul 09, 2021 15:00
[2021-07-09] MEDS ORDERED: MAGNESIUM SULFATE 2GM 50 ML IV ONE (15:45)
[2021-07-09 18:56] VITALS: BP 84/59
[2021-07-09] MEDS: MONTELUKAST SODIUM 10 MG TABLET. PO SCH (20:24)
[2021-07-09] MEDS: ATORVASTATIN CALCIUM 20 MG TABLET PO SCH (20:25)
[2021-07-09 22:54] VITALS: BP 80/55
[2021-07-10 03:00] VITALS: BP 91/60
[2021-07-10 07:00] VITALS: BP 100/73
[2021-07-10] MEDS: BUDESONIDE 0.5 MG/2 ML NEBU. NEB SCH (07:02)
[2021-07-10] MEDS: ALBUTEROL SULFATE 2.5 MG/3 ML NEBU. NEB SCH ×2 (07:02→10:40)
[2021-07-10] MEDS: MULTIVITAMIN with MINERAL TABLET. PO SCH (08:07)
[2021-07-10] MEDS: FLUoxetine HCL 20 MG CAPSULE PO SCH (08:07)
[2021-07-10] MEDS: MULTIVITAMIN I-VITE TABLET. PO SCH (08:07)
[2021-07-10] MEDS: ASPIRIN CHEWABLE 81 MG TABLET. PO SCH (08:07)
[2021-07-10] MEDS: metFORMIN 500 MG TABLET PO SCH (08:07)
[2021-07-10] MEDS: EMPAGLIFLOZIN 10 MG TABLET. PO SCH (08:07)
[2021-07-10] MEDS: HYDROXYCHLOROQUINE 200 MG TABLET PO SCH (08:07)
[2021-07-10] MEDS: GABAPENTIN 100 MG CAPSULE. PO SCH (08:08)
[2021-07-10 08:10] VITALS: BP 95/55
--- NOTE | 2021-07-10 09:45 | SNU/HH DC ---
DISCHARGE WITH HOME HEALTH DISCHARGE INFORMATION: Discharge Date: Jul 10, 2021 Final Diagnosis: acute systolic CHF large pleural effusion weakness, fall risk rheumatoid arthritis Dm2 Problems Medical Problems: (1) Bilateral lower extremity edema Status: Acute (2) Congestive heart failure Status: Acute Condition on Discharge: Stable HOME HEALTH: Face to Face: I certify this patient is under my care and that I, had a face to face encounter that meets the physician face to face encounter requirements with this patient on 07/10/21 Medical Complications: CHF RN For Eval/Treatment: Yes Physical Therapy For: Evalulation/Treatment Occupational Therapy For: Evaluation/Treatment Pt Meets Homebound Status: Unsteady balance w/ amb,, Extreme weakness w/ amb., Unable to negotiate home POST DISCHARGE ORDERS: Activity Instructions for Disc: Activity as tolerated Weight Bearing Status after Di: No restrictions Bathing Instructions: No Tub Bath until see DIET AFTER DISCHARGE: ADA Wound/Incision Care: Other, see below CHECKS AFTER DISCHARGE: Checks after discharge: Check blood press - daily, Check blood sugar, ac/hs, Weigh Yourself Daily FOLLOW-UP: Follow up with: Dr. Pathak one week Additional Instructions: hydralazine stopped TREATMENT/EQUIPMENT ORDERS: Adaptive Equipment Issued: Front wheeled walker Discharge Respiratory Equipmen: Nebulizer CERTIFICATION STATEMENT: Certification Statement: Certification Statement: Based on the above finding, I certify that this patient is confined to the home and needs intermittent half-way care, physical therapy and/or speech therapy, or continues to need occupational therapy.~ This patient is under my care, and I have initiated the establishment of the plan of care.~ This patient will be followed by myself or a community physician who will periodically review the plan of care. Home Meds Active Scripts Temazepam (TEMAZEPAM) 15 Mg Capsule, 15 MG PO PRN QHS PRN for INSOMNIA for 30 Days, #15 CAP Prov:KATHY HARKINS MD 06/29/21 Empagliflozin (Jardiance) 10 Mg Tablet, 10 MG PO DAILY for CHF/DM2 for 30 Days, #30 TAB 1 Refill Prov:KATHY HARKINS MD 06/17/21 Metolazone (METOLAZONE) 2.5 Mg Tablet, 2.5 MG PO DAILY for CHF for 30 Days, #30 TAB Prov:KATHY HARKINS MD 06/17/21 Spironolactone (ALDACTONE) 25 Mg Tablet, 25 MG PO DAILY for CHF for 30 Days, #30 TAB 3 Refills Prov:KATHY HARKINS MD 06/17/21 Montelukast Sodium (MONTELUKAST SODIUM TABLET ) 10 Mg Tablet, 10 MG PO QHS for Chronic urticaria for 30 Days, #30 TAB 3 Refills Prov:KATHY HARKINS MD 06/17/21 Bumetanide (BUMETANIDE) 1 Mg Tablet, 1 TAB PO DAILY for CHF for 30 Days, #30 TAB 3 Refills Prov:HUSSEIN LYNCH BAIL BONDING AGENT 02/04/21 Metoprolol Succinate (METOPROLOL SUCCINATE ( XL )) 25 Mg Tab.er.24h, 25 MG PO DAILY for CHF for 30 Days, #30 TAB.SR 5 Refills Prov:KATHY HARKINS MD 09/01/20 Reported Medications Metformin Hcl (METFORMIN HCL) 500 Mg Tablet, 500 MG PO DAILY08 for ANTI- DIABETIC, TAB 0 Refills 07/07/21 Lisinopril (LISINOPRIL) 5 Mg Tablet, 1 TAB PO DAILY for HTN, #30 TAB 5 Refills 06/25/21 Hydroxychloroquine Sulfate (HYDROXYCHLOROQUINE SULFATE) 200 Mg Tablet, 400 MG PO DAILY for arthritis, TAB 05/28/21 Gabapentin (GABAPENTIN ) 100 Mg Capsule, 100 MG PO TID for NEUROGENIC PAIN, CAP 02/03/21 Multivitamin (MULTI VITAMIN DAILY) 1 Each Tablet, 1 TAB PO DAILY for vitamins for 30 Days, #30 TAB 0 Refills 08/25/20 Mecobalamin (B12 Active) 1,000 Mcg Tab.chew, 2500 MCG PO DAILY for vitamins, TAB.CHEW 08/25/20 Om3-Dha/Epa/D3/Lutein/Zeazanth (EYE [place] ADVANTAGE SOFTGEL) 1 Each Capsule, 1 CAP PO BID for eye health for 30 Days, #60 CAP 0 Refills 08/25/20 Calcium Citrate/Vitamin D2 (LEILA-CITRATE PLUS VITAMIN D TAB) 1 Each Tablet, 1 TAB PO BID for vitamin for 5 Days, #60 TAB 0 Refills 08/25/20 Ubidecarenone (COQ-10) 100 Mg Capsule, 200 MG PO DAILY for vitamin, CAP 08/25/20 Biotin (BIOTIN) 2,500 Mcg Capsule, 30197 MCG PO DAILY for vitamins, CAP 08/25/20 Glucosamine Hcl/Chondr Resendez A Na (CIDAFLEX TABLET) 1 Each Tablet, 1 TAB PO BID for vitamins for 30 Days, #60 TAB 0 Refills 08/25/20 Umeclidinium Brm/Vilanterol Tr (ANORO ELLIPTA 62.5-25 MCG INH) 1 Each Disk.w.dev, 1 EACH IH DAILY for breathing, INH 08/25/20 Aspirin (ASPIRIN) 81 Mg Tab.chew, 81 MG PO DAILY for heart health, TAB.CHEW 08/25/20 Atorvastatin Calcium (ATORVASTATIN CALCIUM) 20 Mg Tablet, 20 MG PO HS for FOR CHOLESTEROL, #30 TAB 0 Refills 08/25/20 Fluoxetine Hcl (FLUOXETINE HCL) 20 Mg Tablet, 20 MG PO BID for depression, TAB 08/25/20 Albuterol Sulfate (PROAIR HFA INHALER) 8.5 Gm Hfa.aer.ad, 2 PUFF IH PRN Q4-6HRS PRN for wheezing for 21 Days, #1 INHALER 0 Refills 08/25/20 Discontinued Reported Medications Diphenhydramine Hcl (BENADRYL) 25 Mg Capsule, 25 MG PO Q12HR PRN for itching, C AP 07/07/21 Discontinued Scripts Dexamethasone (Decadron) 6 Mg Tablet, 6 MG PO DAILY for COVID 19 for 5 Days, #5 TAB Prov:KATHY HARKINS MD 06/29/21 JOSUE MIRANDA MD Jul 10, 2021 09:45
--- NOTE | 2021-07-10 09:46 | PDOC3 ---
Discharge Summary Visit Information Date of Admission: Jul 07, 2021 Date of Discharge: Jul 10, 2021 Final Diagnosis Chief Complaint Pleural effusion, acute due to CHF, acute hypoxia, wean as able acute on chronic systolic CHF s/p thoracentesis 07/08, 900 mls htn weakness and debility depression and anxiety obese, BMI 33 rhuematoid arthritis, weakness, fall risk, on plaquenil hypotension, stopped hydralazine Dm2, mult meds, Problems Medical Problems: (1) Bilateral lower extremity edema Status: Acute (2) Congestive heart failure Status: Acute Brief Hospital Course Allergies Allergies Coded Allergies Type Severity Reaction Last Updated Verified bupropion Allergy Intermediate 06/02/21 Yes latex Allergy Intermediate Rash 06/02/21 Yes Vital Signs Vital Signs Date Time Temp Pulse Resp B/P (MAP) Pulse Ox O2 Delivery O2 Flow Rate FiO2 07/10/21 08:10 86 95/55 (68) 07/10/21 07:03 95 Nasal Cannula 3.0 07/10/21 07:00 97.6 19 97.6 Lab Results Laboratory Tests Test 07/08/21 11:00 07/08/21 11:50 07/08/21 16:40 07/08/21 20:52 Body Fluid Source Pleural Body Fluid Color Yellow Body Fluid Clarity Clear Body Fluid pH 7.22 Body Fluid Nucleated Cells 187 /cmm (Not Established) Body Fluid Mononuclear WBCs (%) 95 % Body Fluid Polymorphonuclear Cells 5 % Body Fluid Total RBCs Counted 184 /cmm (Not Established) Glucose (Fingerstick) 110 mg/dL (70-99) 151 mg/dL (70-99) 120 mg/dL (70-99) Test 07/09/21 07:33 07/09/21 11:40 07/09/21 12:04 07/09/21 16:26 Glucose (Fingerstick) 95 mg/dL (70-99) 141 mg/dL (70-99) 106 mg/dL (70-99) Sodium Level 135 mmol/L (136-145) Potassium Level 4.4 mmol/L (3.5-5.1) Chloride Level 96 mmol/L (98-107) Carbon Dioxide Level 30 mmol/L (21-32) Anion Gap 9 (6-14) Blood Urea Nitrogen 33 mg/dL (7-20) Creatinine 1.0 mg/dL (0.6-1.0) Estimated GFR (Cockcroft-Gault) 55.0 Glucose Level 136 mg/dL (70-99) Calcium Level 8.4 mg/dL (8.5-10.1) Magnesium Level 1.7 mg/dL (1.8-2.4) Test 07/09/21 20:13 07/10/21 07:27 Glucose (Fingerstick) 152 mg/dL (70-99) 109 mg/dL (70-99) Laboratory Tests Test 07/09/21 11:40 07/09/21 12:04 07/09/21 16:26 07/09/21 20:13 Sodium Level 135 mmol/L (136-145) Potassium Level 4.4 mmol/L (3.5-5.1) Chloride Level 96 mmol/L (98-107) Carbon Dioxide Level 30 mmol/L (21-32) Anion Gap 9 (6-14) Blood Urea Nitrogen 33 mg/dL (7-20) Creatinine 1.0 mg/dL (0.6-1.0) Estimated GFR (Cockcroft-Gault) 55.0 Glucose Level 136 mg/dL (70-99) Calcium Level 8.4 mg/dL (8.5-10.1) Magnesium Level 1.7 mg/dL (1.8-2.4) Glucose (Fingerstick) 141 mg/dL (70-99) 106 mg/dL (70-99) 152 mg/dL (70-99) Test 07/10/21 07:27 Glucose (Fingerstick) 109 mg/dL (70-99) Brief Hospital Course Ms. Velez is a 71 old female amdi with weakness, short of breath, had large pelrual effucion, thora done, 900 mls out, some pain , then still weak, meds changed a little, stopped hydralazine Discharge Information Condition at Discharge: Improved Follow Up: Weeks Disposition/Orders: D/C to Home w/ HH Scheduled Aspirin (Aspirin) 81 Mg Tab.chew, 81 MG PO DAILY for heart health, (Reported) Entered as Reported by: EUGENIO FRANCO on 08/25/20 1205 Last Action: Continued on 07/07/212236 by NARGIS GRACE Atorvastatin Calcium (Atorvastatin Calcium) 20 Mg Tablet, 20 MG PO HS for FOR CHOLESTEROL, #30 Ref 0 (Reported) Entered as Reported by: EUGENIO FRANCO on 08/25/20 1205 Last Action: Continued on 07/07/212236 by NARGIS GRACE Biotin (Biotin) 2,500 Mcg Capsule, 10,000 MCG PO DAILY for vitamins, (Reported) Entered as Reported by: EUGENIO FRANCO on 08/25/20 1211 Last Action: Converted on 07/07/212236 by NARGIS GRACE Bumetanide (Bumetanide) 1 Mg Tablet, 1 TAB PO DAILY for CHF for 30 Days, #30 Ref 3 Prescribed by: HUSSEIN LYNCH on 02/04/21 1216 Last Action: Continued on 07/07/212236 by NARGIS GRACE Calcium Citrate/Vitamin D2 (Jeff-Citrate Plus Vitamin D Tab) 1 Each Tablet, 1 TAB PO BID for vitamin for 5 Days, #60 Ref 0 (Reported) Entered as Reported by: EUGENIO FRANCO on 08/25/201210 Last Action: Converted on 07/07/212236 by NARGIS GRACE Empagliflozin (Jardiance) 10 Mg Tablet, 10 MG PO DAILY for CHF/DM2 for 30 Days, #30 Ref 1 Prescribed by: KATHY HARKINS MD on 06/17/21 1438 Last Action: Continued on 07/07/212236 by NARGIS GRACE Fluoxetine Hcl (Fluoxetine Hcl) 20 Mg Tablet, 20 MG PO BID for depression, (Reported) Entered as Reported by: EUGENIO FRANCO on 08/25/20 1205 Last Action: Converted on 07/07/212236 by NARGIS GRACE Gabapentin (Gabapentin ) 100 Mg Capsule, 100 MG PO TID for NEUROGENIC PAIN, (Reported) Entered as Reported by: ROGELIO ARREOLA on 02/03/21 1245 Last Action: Continued on 07/07/212236 by NARGIS GRACE Glucosamine Hcl/Chondr Resendez A Na (Cidaflex Tablet) 1 Each Tablet, 1 TAB PO BID for vitamins for 30 Days, #60 Ref 0 (Reported) Entered as Reported by: EUGENIO FRANCO on 08/25/20 1211 Last Action: Converted on 07/07/212236 by NARGIS GRACE Hydroxychloroquine Sulfate (Hydroxychloroquine Sulfate) 200 Mg Tablet, 400 MG PO DAILY for arthritis, (Reported) Entered as Reported by: ROGELIO KEN RN on 05/28/21 1128 Last Action: Continued on 07/07/212236 by NARGIS GRACE Lisinopril (Lisinopril) 5 Mg Tablet, 1 TAB PO DAILY for HTN, #30 Ref 5 (Reported) Entered as Reported by: YONG CALDERON on 06/25/211435 Last Action: Continued on 07/07/212236 by NARGIS GRACE Mecobalamin (B12 Active) 1,000 Mcg Tab.chew, 2,500 MCG PO DAILY for vitamins, (Reported) Entered as Reported by: EUGENIO FRANCO on 08/25/20 1212 Last Action: Converted on 07/07/212236 by NARGIS GRACE Metformin Hcl (Metformin Hcl) 500 Mg Tablet, 500 MG PO DAILY08 for ANTI- DIABETIC, Ref 0 (Reported) Entered as Reported by: NARGIS GRACE on 07/07/212206 Last Action: Continued on 07/07/212236 by NARGIS GRACE Metolazone (Metolazone) 2.5 Mg Tablet, 2.5 MG PO DAILY for CHF for 30 Days, #30 Prescribed by: KATHY HARKINS MD on 06/17/211436 Last Action: Continued on 07/07/212236 by NARGIS GRACE Metoprolol Succinate (Metoprolol Succinate ( Xl )) 25 Mg Tab.er.24h, 25 MG PO DAILY for CHF for 30 Days, #30 Ref 5 Prescribed by: KATHY HARKINS MD on 09/01/20 0807 Last Action: Continued on 07/07/212236 by NARGIS GRACE Montelukast Sodium (Montelukast Sodium Tablet ) 10 Mg Tablet, 10 MG PO QHS for Chronic urticaria for 30 Days, #30 Ref 3 Prescribed by: KATHY HARKINS MD on 06/17/211436 Last Action: Continued on 07/07/212236 by NARGIS GRACE Multivitamin (Multi Vitamin Daily) 1 Each Tablet, 1 TAB PO DAILY for vitamins for 30 Days, #30 Ref 0 (Reported) Entered as Reported by: EUGENIO FRANCO on 08/25/20 1213 Last Action: Converted on 07/07/212236 by NARGIS GRACE Om3-Dha/Epa/D3/Lutein/Zeazanth (Eye [place] Advantage Softgel) 1 Each Capsule, 1 CAP PO BID for eye health for 30 Days, #60 Ref 0 (Reported) Entered as Reported by: EUGENIO FRANCO on 08/25/201210 Last Action: Converted on 07/07/212236 by NARGIS GRACE Spironolactone (Aldactone) 25 Mg Tablet, 25 MG PO DAILY for CHF for 30 Days, #30 Ref 3 Prescribed by: KATHY HARKINS MD on 06/17/21 1437 Last Action: Continued on 07/07/212236 by NARGIS GRACE Ubidecarenone (Coq-10) 100 Mg Capsule, 200 MG PO DAILY for vitamin, (Reported) Entered as Reported by: EUGENIO FRANCO on 08/25/201210 Last Action: Converted on 07/07/212236 by NARGIS GRACE Umeclidinium Brm/Vilanterol Tr (Anoro Ellipta 62.5-25 Mcg Inh) 1 Each Disk.w.dev, 1 EACH IH DAILY for breathing, (Reported) Entered as Reported by: EUGENIO FRANCO on 08/25/201204 Last Action: Converted on 07/07/212236 by NARGIS GRACE Scheduled PRN Albuterol Sulfate (Proair Hfa Inhaler) 8.5 Gm Hfa.aer.ad, 2 PUFF IH PRN Q4-6HRS PRN for wheezing for 21 Days, #1 Ref 0 (Reported) Entered as Reported by: EUGENIO FRANCO on 08/25/201204 Last Action: Continued on 07/07/212236 by NARGIS GRACE Temazepam (Temazepam) 15 Mg Capsule, 15 MG PO PRN QHS PRN for INSOMNIA for 30 Days, #15 Prescribed by: KATHY HARKINS MD on 06/29/21 1620 Last Action: Continued on 07/07/212236 by NARGIS GRACE Discontinued Medications Dexamethasone (Decadron) 6 Mg Tablet, 6 MG PO DAILY for COVID 19 for 5 Days, #5 Prescribed by: KATHY HARKINS MD on 06/29/21 1321 Last Action: Converted on 07/07/212236 by NARGIS GRACE Diphenhydramine Hcl (Benadryl) 25 Mg Capsule, 25 MG PO Q12HR PRN for itching, (Reported) Entered as Reported by: NARGIS GRACE on 07/07/212201 Last Action: Continued on 07/07/212236 by NARGIS GRACE Patient Instructions Patient Instructions > 30 min face to face Justicifation of Admission Dx: Justifications for Admission: Justification of Admission Dx: Yes CHF: Cardiac Arrhythmias JOSUE MIRANDA MD Jul 10, 2021 09:46
[2021-07-10 10:38] VITALS: BP_SYST 86; BP_SYST 92; BP_DIAS 55
--- NOTE | 2021-07-10 11:33 | NUR ---
SS assisting with discharge planning. Pt is BPCI. 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 Pt requesting to speak with someone in regards to discharge planning. SS met with pt and discussed discharge planning as requested. Pt is current on services with [facility], ; fax [phone]. Discharge order on the chart for home with home healthcare. Discharge orders and referral phoned and faxed to [facility]. Six minute walk completed and no home oxygen needed. Pt requesting transportation to home. Pt will discharge today and return to home via [facility] transport, [id number], at 1430. Pt's RN notified.
--- NOTE | 2021-07-10 12:10 | PDOC ---
PROGRESS NOTES Date of Service: DATE: 07/10/21 TIME: 12:10 Subjective Subjective Dyspnea and edema improved Objective Objective Vital Signs Date Time Temp Pulse Resp B/P (MAP) Pulse Ox O2 Delivery O2 Flow Rate FiO2 07/10/21 10:41 95 Nasal Cannula 2.0 07/10/21 10:38 92/55 (67) 86/55 (65) 07/10/21 08:10 86 07/10/21 07:00 97.6 19 97.6 Intake and Output 07/10/21 07:00 Intake Total 800 ml Output Total 400 ml Balance 400 ml Intake Oral 800 ml Output Urine Total 400 ml Physical Exam Abdomen: Normal bowel sounds Heart: Normal S1, Normal S2 Extremities: No clubbing General: Alert, Oriented X3, Cooperative, No acute distress, Other (good mental status, pleasant, ) Skin: No rashes, No breakdown Assessment Assessment 1. Acute respiratory failure with a/c CHF, pleural effusion. S/p thoracentesis with 950cc off. 2. Acute on chronic systolic CHF; improved s/p IV diuresis. Change Bumex to 1 mg orally twice daily and continue metolazone and spironolactone. 3. NICM; Echo 01/03 with LVEF 20%. 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 LHC 09/03 without significant CAD 4. Hypertension; low end. Lisinopril held. 5. Hyperlipidemia; statin 6. Diabetes, II: Treat per IM 7. CKD; Cr stable 8. Tobaccoism; reinforced cessation 9. Hypomagnesemia: Replaced Patient did not qualify for [facility] per PT/OT. Follow-up with our office as scheduled. Plan Plan of Care Problems Medical Problems: (1) Bilateral lower extremity edema Status: Acute (2) Congestive heart failure Status: Acute Comment Review of Relevant I have reviewed the following items yan (where applicable) has been applied. Labs Laboratory Tests Test 07/09/21 16:26 07/09/21 20:13 07/10/21 07:27 Glucose (Fingerstick) 106 mg/dL (70-99) 152 mg/dL (70-99) 109 mg/dL (70-99) Microbiology 07/08/21 Gram Stain - Final, Resulted 07/08/21 Aerobic and Anaerobic Culture - Preliminary, Resulted Medications Current Medications Magnesium Sulfate 50 ml @ 25 mls/hr 1X ONCE IV Last administered on 07/09/21at 16:51; Start 07/09/21 at 15:45; Stop 07/09/21 at 17:44; Status DC Vitals/I & O Vital Sign - Last 24 Hours 07/09/21 07/09/21 07/09/21 07/09/21 14:24 16:57 18:56 20:00 Temp 97.0 98.1 97.0 98.1 Pulse 83 88 Resp 20 18 B/P (MAP) 88/56 (67) 84/59 (67) Pulse Ox 100 90 O2 Delivery Nasal Cannula Nasal Cannula Nasal Cannula Room Air O2 Flow Rate 2.0 3.0 2.0 07/09/21 07/09/21 07/10/21 07/10/21 21:01 22:54 03:00 07:00 Temp 99.3 98.1 97.6 99.3 98.1 97.6 Pulse 90 88 77 Resp 18 1 19 B/P (MAP) 80/55 (63) 91/60 (70) 100/73 (82) Pulse Ox 95 93 95 94 O2 Delivery Nasal Cannula Nasal Cannula Nasal Cannula Nasal Cannula O2 Flow Rate 3.0 2.0 2.0 3.0 07/10/21 07/10/21 07/10/21 07/10/21 07:03 08:00 08:10 10:38 Pulse 86 B/P (MAP) 95/55 (68) 92/55 (67) 86/55 (65) Pulse Ox 95 O2 Delivery Nasal Cannula Room Air O2 Flow Rate 3.0 07/10/21 10:41 Pulse Ox 95 O2 Delivery Nasal Cannula O2 Flow Rate 2.0 Intake and Output 07/09/21 07/09/21 07/10/21 15:00 23:00 07:00 Intake Total 400 ml 400 ml 0 ml Output Total 400 ml Balance 400 ml 0 ml 0 ml BENNY POLO MD Jul 10, 2021 12:10
[2021-07-10 12:51] VITALS: BP 96/52
[2021-07-10] MEDS: metOLazone 2.5 MG TABLET PO SCH (12:51)
[2021-07-10] MEDS: METOPROLOL SUCC 24HR ER 25 MG TAB.ER.24H. PO SCH (12:51)
[2021-07-10] MEDS ORDERED: BUME1TAB3 PO (14:31)
--- NOTE | 2021-07-10 14:40 | NUR ---
Discharge Note: NIK FLOWERS [address] Discharge instructions and discharge home medications reviewed with Patient and a copy given. All questions have been answered and understanding verbalized. The following instructions and handouts were given: discharge instructions, med list, follow up, hypotension/BP education, CHF education, smoking cessation education. Discontinued lines and drains: Peripheral IV intact. Patient discharged to Home w/services with [facility] via Wheelchair at 1440.
== END 2021-07-10 14:39 | disposition home health service (06) | DRG 291 ==
LOC: ER 17:15 → 6 SOUTH 19:38
PROVIDERS: ADMIT Internal Medicine; ATTEND Internal Medicine
PROC: 0W9B3ZZ Drainage of Left Pleural Cavity, Percutaneous Approach (ICD-10-PCS; principal; 2021-07-08)
PROC: 0W993ZZ Drainage of Right Pleural Cavity, Percutaneous Approach (ICD-10-PCS; 2021-07-08)
DX: I13.0 Hypertensive heart and chronic kidney disease with heart failure and stage 1 through stage 4 chronic kidney disease, or unspecified chronic kidney disease (principal); I50.43 Acute on chronic combined systolic (congestive) and diastolic (congestive) heart failure; J96.01 Acute respiratory failure with hypoxia; J90 Pleural effusion, not elsewhere classified; I42.8 Other cardiomyopathies; E11.22 Type 2 diabetes mellitus with diabetic chronic kidney disease; E66.9 Obesity, unspecified; E78.5 Hyperlipidemia, unspecified; E83.42 Hypomagnesemia; F17.210 Nicotine dependence, cigarettes, uncomplicated; F32.A Depression, unspecified; F41.9 Anxiety disorder, unspecified; J44.9 Chronic obstructive pulmonary disease, unspecified; M06.9 Rheumatoid arthritis, unspecified; M19.90 Unspecified osteoarthritis, unspecified site; N18.9 Chronic kidney disease, unspecified; Z68.33 Body mass index [BMI] 33.0-33.9, adult; Z82.49 Family history of ischemic heart disease and other diseases of the circulatory system; Z90.710 Acquired absence of both cervix and uterus; Z91.81 History of falling; Z95.810 Presence of automatic (implantable) cardiac defibrillator; K21.9 Gastro-esophageal reflux disease without esophagitis; Z88.8 Allergy status to other drugs, medicaments and biological substances; Z91.040 Latex allergy status; I95.9 Hypotension, unspecified
CPT/HCPCS: 32555; 36415; 71045; 80048; 80053; 82945; 82962; 83615; 83735; 83880; 83986; 84157; 84484; 85025; 87075; 89050; 93005; 94618; 94640; 94760; J1940; J3420; J3475; J3490; 97116-GP; 99285-25; G0378; J7613; J7626; Q0163

== ENCOUNTER 2021-07-24 19:13 | Inpatient (IN) | payer MEDICARE, BC ==
[~2021-07-24] VITALS: Ht 162.6 cm; Wt 77.1 kg
[~2021-07-24 19:13] MED LIST changes: +DIPH25CA58 PO
[2021-07-24 19:30] LABS: BASO # 0.1 x10^3/uL (0.0-0.2); BASO % 1 % (0-3); EOS # 0.1 x10^3/uL (0.0-0.7); EOS % 1 % (0-3); HEMATOCRIT 31.5 % (36.0-47.0); HEMOGLOBIN 10.5 g/dL (12.0-15.5); LYMPH # 1.4 x10^3/uL (1.0-4.8); LYMPH % 20 % (24-48); MEAN CORPUSCULAR HEMOGLOBIN 29 pg (25-35); MEAN CORPUSCULAR HGB CONC 33 g/dL (31-37); MEAN CORPUSCULAR VOLUME 87 fL (79-100); MONO # 0.5 x10^3/uL (0.0-1.1); MONO % 7 % (0-9); NEUT # 5.1 x10^3/uL (1.8-7.7); NEUT % 71 % (31-73); PLATELET COUNT 472 x10^3/uL (140-400); RED BLOOD COUNT 3.63 x10^6/uL (3.50-5.40); RED CELL DISTRIBUTION WIDTH 18.1 % (11.5-14.5); WHITE BLOOD COUNT 7.2 x10^3/uL (4.0-11.0)
[2021-07-24] MEDS ORDERED: IV NORMAL SALINE 1000ML BAG 1,000 ML IV SCH (19:30)
--- NOTE | 2021-07-24 19:30 | PHYS DOC ---
Past Medical History Past Medical History: Arthritis, CHF, COPD, Diabetes-Type II, Hypertension Additional Past Medical Histor: Rheumatoid arthritis Past Surgical History: , Hysterectomy Additional Past Surgical Histo: Hand surgery Smoking Status: Current Every Day Smoker Alcohol Use: Occasionally General Adult EDM: Chief Complaint: NAUSEA/VOMITING/DIARRHEA HPI: HPI: Patient is a 71 year old female who presents by EMS with nausea, vomiting, chronic chest tightness. Patient denies chest pain, increase shortness of breath, focal weakness, numbness and tingling, dizziness, headache, vision change, body aches, fever, sore throat, nasal congestion, syncope. Patient states she has been out of her Metformin for the last week. She states she does not take insulin. Patient has a history of COPD, arthritis, smoker, , hysterectomy, hypertension, CHF, pacemaker, renal insufficiency. Review of Systems: Review of Systems: Constitutional: Denies fever or chills. [] Eyes: Denies change in visual acuity. [] HENT: Denies nasal congestion or sore throat. [] Respiratory: Denies cough or shortness of breath. [] Cardiovascular: Denies chest pain or edema. + Chest tightness [] GI: Denies abdominal pain, +nausea, +vomiting, denies bloody stools or diarrhea. [] : Denies dysuria. [] Musculoskeletal: Denies back pain or joint pain. [] Integument: Denies rash. [] Neurologic: Denies headache, focal weakness or sensory changes. [] Endocrine: Denies polyuria or polydipsia. [] Lymphatic: Denies swollen glands. [] Psychiatric: Denies depression or anxiety. [] Heart Score: C/O Chest Pain: Yes (tightness) HEART Score for Chest Pain: HEART Score for Chest Pain Response (Comments) Value History Slighlty/Non-Suspicious 0 ECG Nonspecific Repolarizatio 1 Age > 65 2 Risk Factors >3 Risk Factors or Hx CAD 2 Troponin < Normal Limit 0 Total 5 Risk Factors: Risk Factors: DM, Current or recent (<one month) smoker, HTN, HLP, family history of CAD, obesity. Risk Scores: Score 0 - 3: 2.5% MACE over next 6 weeks - Discharge Home Score 4 - 6: 20.3% MACE over next 6 weeks - Admit for Clinical Observation Score 7 - 10: 72.7% MACE over next 6 weeks - Early Invasive Strategies Current Medications: Current Medications Medications (Trade) Dose Ordered Sig/Yvette Start Time Stop Time Status Last Admin Dose Admin Famotidine (Pepcid Vial) 20 mg 1X ONCE 07/24/21 19:30 07/24/21 19:31 UNV Ondansetron HCl (Zofran) 4 mg 1X ONCE 07/24/21 19:30 07/24/21 19:31 UNV Sodium Chloride 1,000 ml @ 1,000 mls/hr Q1H 07/24/21 19:30 07/24/21 20:29 UNV Allergies: Allergies: Allergies Coded Allergies Type Severity Reaction Last Updated Verified bupropion Allergy Intermediate 06/02/21 Yes latex Allergy Intermediate Rash 06/02/21 Yes Physical Exam: PE: Constitutional: Well developed, well nourished, no acute distress, non-toxic appearance. [] HENT: Normocephalic, atraumatic, bilateral external ears normal, oropharynx moist, no oral exudates, nose normal. [] Eyes: PERRLA, EOMI, conjunctiva normal, no discharge. [] Neck: Normal range of motion, no tenderness, supple, no stridor. [] Cardiovascular:Heart rate regular rhythm, no murmur [] Lungs & Thorax: Bilateral upper breath sounds clear and lower diminished to auscultation [] Abdomen: Bowel sounds normal, soft, no tenderness, no masses, no pulsatile masses. [] Skin: Warm, dry, no erythema, no rash. [] Back: No tenderness, no CVA tenderness. [] Extremities: No tenderness, no cyanosis, no clubbing, ROM intact, no edema. [] Neurologic: Alert and oriented X 3, normal motor function, normal sensory function, no focal deficits noted. [] Psychologic: Affect normal, judgement normal, mood normal. [] EKG: EK and read by Dr. Graf as a sinus rhythm, right bundle branch block but no STEMI. [] Radiology/Procedures: Radiology/Procedures: [] Impression: [facility] [address] [place], [place] [id number] IMAGING REPORT Signed PATIENT: NIK FLOWERS MACCOUNT: [id number] : 1950 LOCATION: ER AGE: 71 SEX: F EXAM STATUS: PRE ER ORD. PHYSICIAN: ALTAF JONHSTON APRN REASON: chest tightness, vomiting PROCEDURE: PORTABLE CHEST 1V EXAM: AP View of the chest DATE: 07/24/2021 7:34 PM INDICATION: Reason: chest tightness, vomiting / Spl. Instructions: / History: COMPARISON: 07/07/2021 FINDINGS: Cardiac generator pack obscures a portion of the left chest with leads in stable position. The heart is not enlarged. Aortic calcifications are seen. Patchy airspace opacities right midlung and bilateral lung bases likely consolidative process as pneumonia. No pleural effusion or pneumothorax. IMPRESSION: 1. Patchy airspace opacities right midlung and bilateral lung bases likely consolidative process as pneumonia. Electronically signed by: Adam Salinas MD (07/24/2021 8:09 PM) [facility] DICTATED and SIGNED BY: ADAM SALINAS MD DATE: 07/24/21 [id number] [facility] [address] [place] [address] IMAGING REPORT Signed PATIENT: NIK FLOWERS MACCOUNT: [id number] : 1950 LOCATION: [address] [place] [address] AGE: 71 SEX: F EXAM STATUS: ADM IN ORD. PHYSICIAN: ALTAF JOHNSTON APRN REASON: vomiting, weakness PROCEDURE: CT ABDOMEN PELVIS WO CONTRAST CT ABDOMEN+PELVIS WO History: Reason: vomiting, weakness / Spl. Instructions: / History: Technique: Noncontrast examination of the abdomen and pelvis. Coronal and sagittal reconstructions were performed. Exposure: One or more of the following individualized dose reduction techniques were utilized for this examination: 1. Automated exposure control 2. Adjustment of the mA and/or kV according to patient size 3. Use of iterative reconstruction technique. Comparison: None Findings: Lower chest: Small right pleural effusion. Multifocal groundglass opacities bilaterally. Cardiomegaly. Abdomen and pelvis: The liver, spleen, adrenal glands, and pancreas are unremarkable. Cholelithiasis. No gallbladder wall thickening. No renal calculus. No hydronephrosis. Decompressed urinary bladder. Moderate colonic stool burden. Normal appendix. No evidence of bowel obstruction. No pathologic lymphadenopathy. Prior hysterectomy. No ascites. Diffuse body wall edema. Advanced atheromatous plaque throughout the nonaneurysmal abdominal aorta and branch vessels. Bones: No pathologic osseous lesions. Impression: 1. Bilateral pulmonary groundglass opacities, may represent pulmonary edema or infection. 2. Small right pleural effusion. 3. Diffuse body wall edema. 4. Cholelithiasis. Electronically signed by: Jerald Gray DO (07/24/2021 9:30 PM) [facility] DICTATED and SIGNED BY: JERALD GRAY DO DATE: 07/24/21 [id number] 0 Course & Med Decision Making: Course & Med Decision Making Pertinent Labs and Imaging studies reviewed. (See chart for details) COVID-19 CRITERIA: The patient was evaluated during the global COVID-19 pandemic, and that diagnosis was suspected/considered upon their initial presentation. Their evaluation, treatment and testing was consistent with current guidelines for patients who present with complaints or symptoms that may be related to COVID-19. See HPI. Alert and oriented x4. Ambulatory steady gait. Speaks in full clear sentences. Patient is dry heaving in the ED. Abdomen is soft and nontender. Lungs are clear in upper lobes with expiratory wheezing but diminished in lower lobes. Patient's sodium is critically low. She is gotten 1 L of normal saline and because she has CHF the second liter is going at 250/ HR. chest x-ray shows pneumonia. She is given azithromycin and 1 g of Rocephin. Her rapid Covid and influenza are negative. Patient is admitted to Dr. Padilla. [] Amy Disclaimer: Amy Disclaimer: This electronic medical record was generated, in whole or in part, using a voice recognition dictation system. COVID-19 Patient Risks: Age 65 or older: Yes Sign of co-morbidity: Yes Exp to person + for COVID: No Exp to PUI: No Travel from affected area: No Lower respiratory symptoms: Yes Fever: No Other: Yes (N,V) PPE Use: Full PPE with N95 mask or PAPR: Yes Departure Departure Impression: Primary Impression: Pneumonia Qualified Codes: J18.9 - Pneumonia, unspecified organism Additional Impressions: Hyponatremia Vomiting Qualified Codes: R11.2 - Nausea with vomiting, unspecified Disposition: ADMITTED INPATIENT Admitting Physician: ÁNGEL Condition: STABLE Referrals: TEN CALVO MD (PCP) ALTAF JOHNSTON APRN Jul 24, 2021 19:30
[2021-07-24 19:53] LABS: ALBUMIN 3.2 g/dL (3.4-5.0); ALBUMIN/GLOBULIN RATIO 0.8 (1.0-1.7); CALCIUM 9.5 mg/dL (8.5-10.1); CREATININE 1.5 mg/dL (0.6-1.0); GFR 34.4; TOTAL BILIRUBIN 0.7 mg/dL (0.2-1.0); TOTAL PROTEIN 7.4 g/dL (6.4-8.2)
[2021-07-24] MEDS ORDERED: ONDANSETRON PF 4 MG/2 ML VIAL. IVP ONE (20:00)
[2021-07-24] MEDS ORDERED: FAMOTIDINE 20 MG/2 ML VIAL IVP ONE (20:00)
--- NOTE | 2021-07-24 20:11 | RAD ---
EXAM: AP View of the chest DATE: 07/24/2021 7:34 PM INDICATION: Reason: chest tightness, vomiting / Spl. Instructions: / History: COMPARISON: 07/07/2021 FINDINGS: Cardiac generator pack obscures a portion of the left chest with leads in stable position. The heart is not enlarged. Aortic calcifications are seen. Patchy airspace opacities right midlung and bilateral lung bases likely consolidative process as pneu monia. No pleural effusion or pneumothorax. IMPRESSION: 1. Patchy airspace opacities right midlung and bilateral lung bases likely consolidative process as pneumonia. Electronically signed by: Adam Altamirano MD (07/24/2021 8:09 PM) ELSY
--- NOTE | 2021-07-24 20:12 | EKG ---
[facility] [address] [place] [address] Test Date: 2021-07-24 Test Time: 19:46:50 Pat Name: NIK FLOWERS Department: Room: Gender: F Web Design Intern: : 1950 Requested By: ALTAF JOHNSTON Order Number: [id number] Reading MD: Tarik Kan Measurements Intervals [place] Rate: 80 P: 0 IA: 68 QRS: -63 QRSD: 194 T: 141 QT: 456 QTc: 530 Interpretive Statements ATRIAL-SENSED VENTRICULAR-PACED RHYTHM Electronically Signed On 07-25-2021 18:31:26 VOLUNTEER SERVICES MANAGER by Tarik Kan
[2021-07-24 20:13] LABS: INFLUENZA A PATIENT NEGATIVE (NEGATIVE); INFLUENZA B PATIENT NEGATIVE (NEGATIVE)
[2021-07-24] MEDS ORDERED: IV NORMAL SALINE 1000ML BAG 1,000 ML IV ONE ×2 (20:15→20:30)
[2021-07-24] MEDS ORDERED: IPRATRPIUM/ALBUTEROL 0.5/2.5MG 3 ML NEBU. NEB ONE (21:00)
[2021-07-24] MEDS ORDERED: cefTRIAXone IV Push 1 GM VIAL. IVP ONE (21:00)
[2021-07-24] MEDS ORDERED: methylPREDNISolone SOD SUCC PF 125 MG/2 ML VIAL. IV ONE (21:00)
[2021-07-24] MEDS ORDERED: AZITHROMYCIN 500 MG in IV NORMAL SALINE 250ML 250 ML IV ONE (21:00)
--- NOTE | 2021-07-24 21:33 | RAD ---
CT ABDOMEN+PELVIS WO History: Reason: vomiting, weakness / Spl. Instructions: / History: Technique: Noncontrast examination of the abdomen and pelvis. Coronal and sagittal reconstructions we re performed. Exposure: One or more of the following individualized dose reduction techniques were utilized for thi s examination: 1. Automated exposure control 2. Adjustment of the mA and/or kV according to patient size 3. Use of iterative reconstruction technique. Comparison: None Findings: Lower chest: Small right pleural effusion. Multifocal groundglass opacities bilaterally. Cardiomegaly . Abdomen and pelvis: The liver, spleen, adrenal glands, and pancreas are unremarkable. Cholelithiasis. No gallbladder wall thickening. No renal calculus. No hydronephrosis. Decompressed urinary bladder. Moderate colonic stool burden. Normal appendix. No evidence of bowel obstruction. No pathologic lymph adenopathy. Prior hysterectomy. No ascites. Diffuse body wall edema. Advanced atheromatous plaque thr oughout the nonaneurysmal abdominal aorta and branch vessels. Bones: No pathologic osseous lesions. Impression: 1. Bilateral pulmonary groundglass opacities, may represent pulmonary edema or infection. 2. Small right pleural effusion. 3. Diffuse body wall edema. 4. Cholelithiasis. Electronically signed by: Jerald Gray DO (07/24/2021 9:30 PM) [facility]
[2021-07-24 22:30] VITALS: BP 135/78
[2021-07-25] MEDS ORDERED: ALPR0.254 PO (01:18)
[2021-07-25] MEDS ORDERED: VENL75TA PO (01:20)
[2021-07-25] MEDS ORDERED: EMPA10TA3 PO (01:23)
[2021-07-25] MEDS ORDERED: PROAIR RESPICL90 MCG IH (01:26)
[2021-07-25] MEDS ORDERED: UMEC1DIS IH (01:27)
[2021-07-25 02:48] VITALS: BP 83/51
[2021-07-25 04:22] LABS: BASO % 0 % (0-3); EOS % 0 % (0-3); HEMOGLOBIN 10.9 g/dL (12.0-15.5); LYMPH # 0.3 x10^3/uL (1.0-4.8); LYMPH % 6 % (24-48); MEAN CORPUSCULAR HEMOGLOBIN 29 pg (25-35); MEAN CORPUSCULAR HGB CONC 33 g/dL (31-37); MEAN CORPUSCULAR VOLUME 88 fL (79-100); MONO # 0.1 x10^3/uL (0.0-1.1); MONO % 2 % (0-9); NEUT # 4.8 x10^3/uL (1.8-7.7); NEUT % 92 % (31-73); PLATELET COUNT 439 x10^3/uL (140-400); RED BLOOD COUNT 3.74 x10^6/uL (3.50-5.40); RED CELL DISTRIBUTION WIDTH 17.8 % (11.5-14.5); WHITE BLOOD COUNT 5.2 x10^3/uL (4.0-11.0)
[2021-07-25 05:20] LABS: ALBUMIN/GLOBULIN RATIO 0.7 (1.0-1.7); CALCIUM 8.7 mg/dL (8.5-10.1); CREATININE 1.6 mg/dL (0.6-1.0); POTASSIUM 4.9 mmol/L (3.5-5.1); TOTAL BILIRUBIN 0.7 mg/dL (0.2-1.0); TOTAL PROTEIN 7.2 g/dL (6.4-8.2)
[2021-07-25 07:00] VITALS: BP 86/57
[2021-07-25] MEDS ORDERED: SODIUM CHLORIDE 3 % 500 ML IV ONE (07:00)
[2021-07-25] MEDS ORDERED: SODIUM CHLORIDE 3 % 200 ML IV ONE (08:52)
[2021-07-25] MEDS: VENLAFAXINE 75 MG TABLET. PO SCH ×3 (09:00→20:55)
[2021-07-25] MEDS: METOPROLOL SUCC 24HR ER 25 MG TAB.ER.24H. PO SCH (09:00)
[2021-07-25] MEDS ORDERED: BUMETANIDE 1 MG TABLET. PO SCH (09:00)
[2021-07-25] MEDS ORDERED: IV DEXTROSE 5% 250 ML BAG. IV PRN (09:15)
[2021-07-25] MEDS ORDERED: DEXTROSE 50% 25 GM / 50ML DISP.SYRIN. IV PRN (09:15)
[2021-07-25] MEDS: INSULIN LISPRO 300 UNITS/3 ML VIAL. SQ SCH ×3 (09:23→17:36)
[2021-07-25] MEDS: HYDROXYCHLOROQUINE 200 MG TABLET PO SCH (09:25)
[2021-07-25] MEDS: DOXYCYCLINE HYCLATE 100 MG TABLET PO SCH ×2 (09:25→20:55)
[2021-07-25] MEDS: EMPAGLIFLOZIN 10 MG TABLET. PO SCH (09:25)
[2021-07-25] MEDS: ASPIRIN CHEWABLE 81 MG TABLET. PO SCH (09:25)
[2021-07-25] MEDS: ALPRAZolam 0.25 MG TABLET PO PRN ×2 (09:26→20:55)
--- NOTE | 2021-07-25 09:28 | PDOC1 ---
History and Physical Date of Admission Date of Admission DATE: 07/25/21 TIME: 09:02 Source Source: Chart review, Patient History of Present Illness History of Present Illness Ms. Velez is a 71 year old female admit [facility] ER last night with nausea, vomiting, acute on chronic chest tightness. She feels well this Am, near her baseline and would liek to try to DC soon. she has been admitted a couple times and is tired of being here and mentions that being in the hospital infringes on her quality of life and she has some anxiety and feels lonely. long discussion . Patient states she has been out of her Metformin for the last week. her bumex was recently doubled for her CHF Past Medical History Past Medical History COPD, arthritis, tobacco use disorder, hypertension, CHF, pacemaker, renal insufficiency. Cardiovascular: CAD, CHF, HTN Pulmonary: COPD CENTRAL NERVOUS SYSTEM: Carpal Tunnel Syndrome, Periperal neuropathy GI: GERD Hepatobiliary: No pertinent hx Psych: Anxiety, Depression Musculoskeletal: Other Rheumatologic: Other Renal/: No pertinent hx Endocrine: Diabetes Past Surgical History Past Surgical History Past Surgical History: Pacemaker, Cataract Removal, Hysterectomy, Other Family History Family History: Heart Disease Social History Smoke: 1 pack per day ALCOHOL: none Drugs: None Current Problem List Problem List Problems Medical Problems: (1) Hyponatremia Status: Acute (2) Pneumonia Status: Acute (3) Vomiting Status: Acute Current Medications Current Medications Current Medications Sodium Chloride 1,000 ml @ 1,000 mls/hr Q1H IV Last administered on 07/24/21at 19:49; Start 07/24/21 at 19:30; Stop 07/24/21 at 20:21; Status DC Ondansetron HCl (Zofran) 4 mg 1X ONCE IVP Last administered on 07/24/21at 19:48; Start 07/24/21 at 20:00; Stop 07/24/21 at 20:01; Status DC Famotidine (Pepcid Vial) 20 mg 1X ONCE IVP Last administered on 07/24/21at 19:48; Start 07/24/21 at 20:00; Stop 07/24/21 at 20:01; Status DC Sodium Chloride 1,000 ml @ 1,000 mls/hr 1X ONCE IV ; Start 07/24/21 at 20:15; Stop 07/24/21 at 21:14; Status DC Sodium Chloride 1,000 ml @ 250 mls/hr 1X ONCE IV Last administered on 07/24/21at 21:25; Start 07/24/21 at 20:30; Stop 07/25/21 at 00:29; Status DC Azithromycin 500 mg/Sodium Chloride 250 ml @ 250 mls/hr 1X ONCE IV Last administered on 07/24/21at 21:30; Start 07/24/21 at 21:00; Stop 07/24/21 at 21:59; Status DC Ceftriaxone Sodium (Rocephin) 1 gm 1X ONCE IVP Last administered on 07/24/21at 21:25; Start 07/24/21 at 21:00; Stop 07/24/21 at 21:01; Status DC Methylprednisolone Sodium Succinate (SOLU-Medrol 125MG VIAL) 125 mg 1X ONCE IV Last administered on 07/24/21at 21:29; Start 07/24/21 at 21:00; Stop 07/24/21 at 21:01; Status DC Albuterol/ Ipratropium (Duoneb) 3 ml 1X ONCE NEB ; Start 07/24/21 at 21:00; Stop 07/24/21 at 21:01; Status DC Sodium Chloride 500 ml @ 50 mls/hr 1X ONCE IV ; Start 07/25/21 at 07:00; Stop 07/25/21 at 08:53; Status DC Alprazolam (Xanax) 0.25 mg TID PRN PO ANXIETY / AGITATION; Start 07/25/21 at 08:45 Aspirin (Aspirin Chewable) 81 mg DAILY PO ; Start 07/25/21 at 09:00 Atorvastatin Calcium (Lipitor) 20 mg HS PO ; Start 07/25/21 at 21:00 Bumetanide (Bumex) 1 mg DAILY PO ; Start 07/25/21 at 09:00; Status UNV Empaglifozin (Jardiance) 10 mg DAILY PO ; Start 07/25/21 at 09:00 Hydroxychloroquine Sulfate (Plaquenil) 400 mg DAILY PO ; Start 07/25/21 at 09:00 Metoprolol Succinate (Toprol Xl) 25 mg DAILY PO ; Start 07/25/21 at 09:00 Montelukast Sodium (Singulair) 10 mg QHS PO ; Start 07/25/21 at 21:00 Temazepam (Restoril) 15 mg PRN QHS PRN PO INSOMNIA; Start 07/25/21 at 08:45 Venlafaxine HCl (Effexor) 75 mg TID PO ; Start 07/25/21 at 09:00 Ceftriaxone Sodium (Rocephin) 1 gm Q24H IVP ; Start 07/25/21 at 21:00 Doxycycline Hyclate (Vibra-Tab) 100 mg BID PO ; Start 07/25/21 at 09:00 Sodium Chloride 200 ml @ 50 mls/hr 1X ONCE IV ; Start 07/25/21 at 08:52; Stop 07/25/21 at 10:59 Active Scripts Active Temazepam 15 Mg Capsule 15 Mg PO PRN QHS PRN 30 Days Metolazone 2.5 Mg Tablet 2.5 Mg PO DAILY 30 Days Aldactone (Spironolactone) 25 Mg Tablet 25 Mg PO DAILY 30 Days Montelukast Sodium Tablet (Montelukast Sodium) 10 Mg Tablet 10 Mg PO QHS 30 Days Bumetanide 1 Mg Tablet 1 Tab PO DAILY 30 Days Metoprolol Succinate ( Xl ) (Metoprolol Succinate) 25 Mg Tab.er.24h 25 Mg PO DAILY 30 Days Reported Anoro Ellipta 62.5-25 Mcg Inh (Umeclidinium Brm/Vilanterol Tr) 1 Each Disk.w.dev 1 Each IH DAILY Proair Respiclick (Albuterol Sulfate) 90 Mcg Aer.pow.ba 2 Puff IH PRN Q4HRS PRN Jardiance (Empaglifozin) 10 Mg Tablet 10 Mg PO DAILY Venlafaxine Hcl 75 Mg Tablet 75 Mg PO TID Alprazolam 0.25 Mg Tablet 1 Tab PO TID PRN Metformin Hcl 500 Mg Tablet 500 Mg PO DAILY08 Hydroxychloroquine Sulfate 200 Mg Tablet 400 Mg PO DAILY B12 Active (Mecobalamin) 1,000 Mcg Tab.chew 2,500 Mcg PO DAILY [facility] [place] [employer] Ad[employer]age Softgel (Om3-Dha/Epa/D3/Lutein/Zeazanth) 1 Each Capsule 1 Cap PO BID 30 Days Coq-10 (Ubidecarenone) 100 Mg Capsule 200 Mg PO DAILY Aspirin 81 Mg Tab.chew 81 Mg PO DAILY Atorvastatin Calcium 20 Mg Tablet 20 Mg PO HS Allergies Allergies: Coded Allergies: bupropion (Verified Allergy, Intermediate, 06/02/21) latex (Verified Allergy, Intermediate, Rash, 06/02/21) ROS Review of System some increase shortness of breath, no focal weakness, numbness and tingling, dizziness, headache, vision change, body aches, fever, sore throat, nasal congestion, syncope. General: YES: Chills, Fatigue; No: Night Sweats, Malaise, Appetite, Other PSYCHOLOGICAL ROS: No: Anxiety, Behavioral Disorder, Concentration difficultie, Decreased libido, Depression, Disorientation, Hallucinations, Hostility, Irritablity, Memory difficulties, Mood Swings, Obsessive thoughts, Physical abuse, Sexual abuse, Sleep disturbances, Suicidal ideation, Other Eyes: No Blurry vision, No Decreased vision, No Double vision, No Dry eyes, No Excessive tearing, No Eye Pain, No Itchy Eyes, No Loss of vision, No Photophobia, No Scotomata, No Uses contacts, No Uses glasses, No Other HEENT: YES: Heacaches; No: Visual Changes, Hearing change, Nasal congestion, Nasal discharge, Oral lesions, Sinus pain, Sore Throat, Epistaxis, Sneezing, Snoring, Tinnitus, Vertigo, Vocal changes, Other Respiratory: No: Cough, Hemoptysis, Orthopnea, Pleuritic Pain, Shortness of breath, SOB with excertion, Sputum Changes, Stridor, Tachypnea, Wheezing, Other Cardiovascular: No Chest Pain, No Palpitations, No Orthopnea, No Paroxysmal Noc. Dyspnea, No Edema, No Lt Headedness, No Other Gastrointestinal: Yes Nausea, Yes Vomiting; No Abdominal Pain, No Diarrhea, No Constipation, No Melena, No Hematochezia, No Other Genitourinary: No Dysuria, No Frequency, No Incontinence, No Hematuria, No Retention, No Discharge, No Urgency, No Pain, No Flank Pain, No Other, No , No , No , No , No , No , No Musculoskeletal: No Gait Disturbance, No Joint Pain, No Joint Stiffness, No Joint Swelling, No Muscle Pain, No Muscular Weakness, No Pain In:, No Swelling In:, No Other Neurological: No Behavorial Changes, No Bowel/Bladder ControlChng, No Confusion, No Dizziness, No Gait Disturbance, No Headaches, No Impaired Coord/balance, No Memory Loss, No Numbness/Tingling, No Seizures, No Speech Problems, No Tremors, No Visual Changes, No Weakness, No Other Skin: Yes Dry Skin; No Eczema, No Hair Changes, No Lumps, No Mole Changes, No Mottling, No Nail Changes, No Pruritus, No Rash, No Skin Lesion Changes, No Other, No Acne Physical Exam General: Alert, Oriented X3, No acute distress HEENT: Atraumatic, EOMI, Mucous membr. moist/pink Heart: S1S2, no gallops, no murmurs Abdomen: Normal bowel sounds, Soft Extremities: No cyanosis, Other (1+ pedal edema, no pretibial edema) Skin: No rashes, No significant lesion Neuro: Normal gait, Normal speech, Sensation intact Psych/Mental Status: Mood NL Vitals Vitals Vital Signs Date Time Temp Pulse Resp B/P (MAP) Pulse Ox O2 Delivery O2 Flow Rate FiO2 07/25/21 07:00 97.8 75 19 86/57 (67) 94 Room Air 97.8 Labs Labs Laboratory Tests Test 07/24/21 19:21 07/24/21 19:25 07/24/21 19:50 07/25/21 04:00 Lactic Acid Level 1.7 mmol/L (0.4-2.0) White Blood Count 7.2 x10^3/uL (4.0-11.0) 5.2 x10^3/uL (4.0-11.0) Red Blood Count 3.63 x10^6/uL (3.50-5.40) 3.74 x10^6/uL (3.50-5.40) Hemoglobin 10.5 g/dL (12.0-15.5) 10.9 g/dL (12.0-15.5) Hematocrit 31.5 % (36.0-47.0) 33.0 % (36.0-47.0) Mean Corpuscular Volume 87 fL (79-100) 88 fL (79-100) Mean Corpuscular Hemoglobin 29 pg (25-35) 29 pg (25-35) Mean Corpuscular Hemoglobin Concent 33 g/dL (31-37) 33 g/dL (31-37) Red Cell Distribution Width 18.1 % (11.5-14.5) 17.8 % (11.5-14.5) Platelet Count 472 x10^3/uL (140-400) 439 x10^3/uL (140-400) Neutrophils (%) (Auto) 71 % (31-73) 92 % (31-73) Lymphocytes (%) (Auto) 20 % (24-48) 6 % (24-48) Monocytes (%) (Auto) 7 % (0-9) 2 % (0-9) Eosinophils (%) (Auto) 1 % (0-3) 0 % (0-3) Basophils (%) (Auto) 1 % (0-3) 0 % (0-3) Neutrophils # (Auto) 5.1 x10^3/uL (1.8-7.7) 4.8 x10^3/uL (1.8-7.7) Lymphocytes # (Auto) 1.4 x10^3/uL (1.0-4.8) 0.3 x10^3/uL (1.0-4.8) Monocytes # (Auto) 0.5 x10^3/uL (0.0-1.1) 0.1 x10^3/uL (0.0-1.1) Eosinophils # (Auto) 0.1 x10^3/uL (0.0-0.7) 0.0 x10^3/uL (0.0-0.7) Basophils # (Auto) 0.1 x10^3/uL (0.0-0.2) 0.0 x10^3/uL (0.0-0.2) Sodium Level 116 mmol/L (136-145) 115 mmol/L (136-145) Potassium Level 4.0 mmol/L (3.5-5.1) 4.9 mmol/L (3.5-5.1) Chloride Level 80 mmol/L (98-107) 81 mmol/L (98-107) Carbon Dioxide Level 27 mmol/L (21-32) 26 mmol/L (21-32) Anion Gap 9 (6-14) 8 (6-14) Blood Urea Nitrogen 31 mg/dL (7-20) 34 mg/dL (7-20) Creatinine 1.5 mg/dL (0.6-1.0) 1.6 mg/dL (0.6-1.0) Estimated GFR (Cockcroft-Gault) 34.4 32.0 BUN/Creatinine Ratio 21 (6-20) 21 (6-20) Glucose Level 111 mg/dL (70-99) 175 mg/dL (70-99) Calcium Level 9.5 mg/dL (8.5-10.1) 8.7 mg/dL (8.5-10.1) Magnesium Level 1.6 mg/dL (1.8-2.4) Total Bilirubin 0.7 mg/dL (0.2-1.0) 0.7 mg/dL (0.2-1.0) Aspartate Amino Transf (AST/SGOT) 29 U/L (15-37) 26 U/L (15-37) Alanine Aminotransferase (ALT/SGPT) 19 U/L (14-59) 19 U/L (14-59) Alkaline Phosphatase 146 U/L (46-116) 135 U/L (46-116) Troponin I High Sensitivity 17 ng/L (4-50) SN-Iun-P-Type Natriuretic Peptide > 86171 pg/mL (0-124) Total Protein 7.4 g/dL (6.4-8.2) 7.2 g/dL (6.4-8.2) Albumin 3.2 g/dL (3.4-5.0) 3.0 g/dL (3.4-5.0) Albumin/Globulin Ratio 0.8 (1.0-1.7) 0.7 (1.0-1.7) Lipase 78 U/L (73-393) Acetone Level Neg (NEG) Influenza Type A Antigen Negative (NEGATIVE) Influenza Type B Antigen Negative (NEGATIVE) SARS-CoV-2 Antigen (Rapid) Negative (NEGATIVE) Test 07/25/21 07:38 Glucose (Fingerstick) 188 mg/dL (70-99) Laboratory Tests Test 07/24/21 19:21 07/24/21 19:25 07/24/21 19:50 07/25/21 04:00 Lactic Acid Level 1.7 mmol/L (0.4-2.0) White Blood Count 7.2 x10^3/uL (4.0-11.0) 5.2 x10^3/uL (4.0-11.0) Red Blood Count 3.63 x10^6/uL (3.50-5.40) 3.74 x10^6/uL (3.50-5.40) Hemoglobin 10.5 g/dL (12.0-15.5) 10.9 g/dL (12.0-15.5) Hematocrit 31.5 % (36.0-47.0) 33.0 % (36.0-47.0) Mean Corpuscular Volume 87 fL (79-100) 88 fL (79-100) Mean Corpuscular Hemoglobin 29 pg (25-35) 29 pg (25-35) Mean Corpuscular Hemoglobin Concent 33 g/dL (31-37) 33 g/dL (31-37) Red Cell Distribution Width 18.1 % (11.5-14.5) 17.8 % (11.5-14.5) Platelet Count 472 x10^3/uL (140-400) 439 x10^3/uL (140-400) Neutrophils (%) (Auto) 71 % (31-73) 92 % (31-73) Lymphocytes (%) (Auto) 20 % (24-48) 6 % (24-48) Monocytes (%) (Auto) 7 % (0-9) 2 % (0-9) Eosinophils (%) (Auto) 1 % (0-3) 0 % (0-3) Basophils (%) (Auto) 1 % (0-3) 0 % (0-3) Neutrophils # (Auto) 5.1 x10^3/uL (1.8-7.7) 4.8 x10^3/uL (1.8-7.7) Lymphocytes # (Auto) 1.4 x10^3/uL (1.0-4.8) 0.3 x10^3/uL (1.0-4.8) Monocytes # (Auto) 0.5 x10^3/uL (0.0-1.1) 0.1 x10^3/uL (0.0-1.1) Eosinophils # (Auto) 0.1 x10^3/uL (0.0-0.7) 0.0 x10^3/uL (0.0-0.7) Basophils # (Auto) 0.1 x10^3/uL (0.0-0.2) 0.0 x10^3/uL (0.0-0.2) Sodium Level 116 mmol/L (136-145) 115 mmol/L (136-145) Potassium Level 4.0 mmol/L (3.5-5.1) 4.9 mmol/L (3.5-5.1) Chloride Level 80 mmol/L (98-107) 81 mmol/L (98-107) Carbon Dioxide Level 27 mmol/L (21-32) 26 mmol/L (21-32) Anion Gap 9 (6-14) 8 (6-14) Blood Urea Nitrogen 31 mg/dL (7-20) 34 mg/dL (7-20) Creatinine 1.5 mg/dL (0.6-1.0) 1.6 mg/dL (0.6-1.0) Estimated GFR (Cockcroft-Gault) 34.4 32.0 BUN/Creatinine Ratio 21 (6-20) 21 (6-20) Glucose Level 111 mg/dL (70-99) 175 mg/dL (70-99) Calcium Level 9.5 mg/dL (8.5-10.1) 8.7 mg/dL (8.5-10.1) Magnesium Level 1.6 mg/dL (1.8-2.4) Total Bilirubin 0.7 mg/dL (0.2-1.0) 0.7 mg/dL (0.2-1.0) Aspartate Amino Transf (AST/SGOT) 29 U/L (15-37) 26 U/L (15-37) Alanine Aminotransferase (ALT/SGPT) 19 U/L (14-59) 19 U/L (14-59) Alkaline Phosphatase 146 U/L (46-116) 135 U/L (46-116) Troponin I High Sensitivity 17 ng/L (4-50) XJ-Jif-P-Type Natriuretic Peptide > 04204 pg/mL (0-124) Total Protein 7.4 g/dL (6.4-8.2) 7.2 g/dL (6.4-8.2) Albumin 3.2 g/dL (3.4-5.0) 3.0 g/dL (3.4-5.0) Albumin/Globulin Ratio 0.8 (1.0-1.7) 0.7 (1.0-1.7) Lipase 78 U/L (73-393) Acetone Level Neg (NEG) Influenza Type A Antigen Negative (NEGATIVE) Influenza Type B Antigen Negative (NEGATIVE) SARS-CoV-2 Antigen (Rapid) Negative (NEGATIVE) Test 07/25/21 07:38 Glucose (Fingerstick) 188 mg/dL (70-99) VTE Prophylaxis Ordered VTE Prophylaxis Devices: Yes VTE Pharmacological Prophylaxi: Yes Assessment/Plan Assessment/Plan severe hyponatremia, hold Bumex, 3% saline started in ER after NS bolus given for hypotension consult renal, cont the 3% check Ua, urine osm, recheck labs pneumonia, looks atypical, with ground glass, consult PULM loretta zapata, has rheumatoid arthritis, and prior diagnosis of rheumoatoid lung chronic diastolic CHF, compensated, LE edema is better than before, her weight is down from before cardiomyopathy, tobacco use disorder anxiety, depression, she wants to DC from the hospital soon, feels that being here infringes on her quality of life admit Justifications for Admission Other Justification JOSUE MIRANDA MD Jul 25, 2021 09:28
[2021-07-25 11:00] VITALS: BP 79/54
[2021-07-25] MEDS ORDERED: INSULIN LISPRO 300 UNITS/3 ML VIAL. SQ SCH (12:00)
[2021-07-25 12:19] LABS: BILIRUBIN,URINE NEGATIVE (NEG); CLARITY,URINE CLEAR; COLOR,URINE YELLOW; NITRITE,URINE NEGATIVE (NEG); PROTEIN,URINE NEGATIVE (NEG-TRACE); UROBILINOGEN,URINE 0.2 mg/dL (0.2 mg/dL)
[2021-07-25 12:21] LABS: BACTERIA,URINE 0 /HPF (0-FEW); RBC,URINE 0 /HPF (0-2)
[2021-07-25 12:22] LABS: YEAST,URINE PRESENT /HPF
[2021-07-25 13:40] LABS: ALBUMIN 3.2 g/dL (3.4-5.0); ALBUMIN/GLOBULIN RATIO 0.8 (1.0-1.7); CALCIUM 8.7 mg/dL (8.5-10.1); CREATININE 1.7 mg/dL (0.6-1.0); GFR 29.8; POTASSIUM 4.7 mmol/L (3.5-5.1); TOTAL BILIRUBIN 0.8 mg/dL (0.2-1.0); TOTAL PROTEIN 7.1 g/dL (6.4-8.2)
[2021-07-25 15:00] VITALS: BP 84/59
[2021-07-25 19:00] VITALS: BP 74/50
[2021-07-25] MEDS: ONDANSETRON PF 4 MG/2 ML VIAL. IVP PRN (19:13)
[2021-07-25] MEDS: cefTRIAXone IV Push 1 GM VIAL. IVP SCH (19:13)
[2021-07-25] MEDS: TEMAZEPAM 15 MG CAPSULE PO PRN (20:54)
[2021-07-25] MEDS: MONTELUKAST SODIUM 10 MG TABLET. PO SCH (20:54)
[2021-07-25] MEDS: ATORVASTATIN CALCIUM 20 MG TABLET PO SCH (20:55)
--- NOTE | 2021-07-25 21:26 | CONS ---
DATE OF CONSULTATION: 07/25/2021 NEPHROLOGY CONSULTATION REQUESTING PHYSICIAN: Hospitalist. REASON FOR CONSULTATION: Hyponatremia. HISTORY OF PRESENT ILLNESS: A 71-year-old female with history of COPD, rheumatoid arthritis and "rheumatoid lung." She is status post recent thoracentesis on the left pleural space approximately one week prior to this evaluation. She now presents with infectious pneumonitis. She also has known history of congestive cardiomyopathy. Serum sodium is 115 and as such, nephrology evaluation requested. She denies nausea, vomiting, or diarrhea. She denies history of hypothyroidism, adrenal insufficiency, head trauma. No history of malignancies. PAST MEDICAL HISTORY: COPD, rheumatoid arthritis, "rheumatoid lung", tobacco use with COPD, congestive cardiomyopathy, hypertension, carpal tunnel syndrome, peripheral neuropathy, GE reflux disease, anxiety, depression, pacemaker placement, cataract extractions, hysterectomy. ALLERGIES: BUPROPION AND LATEX. MEDICATIONS: Reviewed per medication list includes ceftriaxone, montelukast, atorvastatin, insulin, doxycycline, venlafaxine, metoprolol, hydroxychloroquine, empagliflozin, aspirin, temazepam, alprazolam. FAMILY HISTORY: Noncontributory. SOCIAL HISTORY: The patient resides with assistance. REVIEW OF SYSTEMS: Other than as per history of present illness, remainder of review of systems unremarkable. PHYSICAL EXAMINATION: GENERAL APPEARANCE: The patient is awake, conversant, appropriate. HEENT: Clear. NECK: No increased JVD. LUNGS: Scattered rhonchi in left posterior lung narayan. CARDIAC: Without S3 or rub. ABDOMEN: Soft, nontender, no bruits. EXTREMITIES: Bilateral lower extremity edema, 1-2+, pitting. NEUROLOGIC: Nonfocal, nonlocalized. PSYCHIATRIC: Good attention to detail, appropriate affect. LABORATORY DATA: Hemoglobin 10.9, hematocrit 33, white count 5.2, and platelets are 439. Sodium is 115, potassium 4.9, chloride 81, CO2 of 26, BUN 34, creatinine 1.6, GFR is 32, glucose 175. Urinalysis; specific gravity 1.010 on presentation. COVID-19 negative. IMPRESSION: 1. 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 Also, has history of congestive cardiomyopathy. 2. Chronic kidney disease stage III. RECOMMENDATIONS: 1. 1200 mL fluid restriction. 2. Reduce 3 percent sodium chloride infusion. Discontinue when serum sodium is 120 or greater. 3. Began demeclocycline 300 mg b.i.d. 4. We will trend labs with you. 5. Obtain T4, TSH. 6. We will hold on osmolalities due to diuretic use. We will follow. MELE/MEERA/JANNET DR: Miley TID: [id number]
[2021-07-25 23:00] VITALS: BP 77/49
[2021-07-26 03:00] VITALS: BP 73/54
[2021-07-26 07:00] VITALS: BP 76/46
[2021-07-26] MEDS: METOPROLOL SUCC 24HR ER 25 MG TAB.ER.24H. PO SCH (07:23)
[2021-07-26] MEDS: INSULIN LISPRO 300 UNITS/3 ML VIAL. SQ SCH ×3 (07:23→17:00)
[2021-07-26] MEDS: ASPIRIN CHEWABLE 81 MG TABLET. PO SCH (08:16)
[2021-07-26] MEDS: DOXYCYCLINE HYCLATE 100 MG TABLET PO SCH ×2 (08:16→20:28)
[2021-07-26] MEDS: VENLAFAXINE 75 MG TABLET. PO SCH ×3 (08:17→20:28)
[2021-07-26] MEDS: HYDROXYCHLOROQUINE 200 MG TABLET PO SCH (08:17)
[2021-07-26] MEDS: EMPAGLIFLOZIN 10 MG TABLET. PO SCH (08:17)
--- NOTE | 2021-07-26 08:42 | CONS ---
DATE OF CONSULTATION: 07/26/2021 REASON FOR CONSULTATION: I was asked to see this 71-year-old lady for pneumonia. HISTORY OF PRESENT ILLNESS: She does have history of [id number] smoking, continues to smoke about half a pack per day. She was diagnosed with COPD. She is on nebulizer treatment. She was diagnosed with rheumatoid arthritis with rheumatoid lung question yan pulmonary fibrosis. She is followed by Dr. Sera Holguin at [facility]. She is on hydroxychloroquine. She was on prednisone a few weeks ago. She did have COVID about 2 years ago. She says she had COVID a few weeks ago. Her COVID was positive here at [facility], which I do not see any evidence of it. She is not the best historian. She has had lower extremity edema and diagnosed with CHF, has been on diuretics. She called 911 for joint pain, body ache and fatigue and nausea and vomiting. She does have some shortness of breath and cough, but not much worse than before. Her lower extremity edema has improved with the Bumex. She was found to have a sodium of 116 on admission. Today, her sodium is 118. She has been on 3% sodium chloride infusion 20 mL per hour. Nephrology is consulted. She is on room air now. She denies shortness of breath, cough more than usual. She does have joint pain. She denies fever or chills. PAST MEDICAL HISTORY: COPD, rheumatoid arthritis, history of COVID, rheumatoid lung, CHF, hypertension, peripheral neuropathy, gastroesophageal reflux disease, pacemaker placement, hysterectomy. She had a thoracentesis on 07/08/2021, 900 mL fluid was evacuated. I do not see the psychology report on it. It appears to be transudate secondary to CHF. ALLERGIES: BUPROPION AND LATEX. MEDICATIONS: Currently, she is on Rocephin, hydroxychloroquine, Singulair, insulin, doxycycline, Effexor, sodium chloride 3%. SOCIAL HISTORY: History of [id number] smoking, continues to smoke half a pack per day. FAMILY HISTORY: Hypertension. REVIEW OF SYSTEMS: As mentioned as above. She has not had sleep study. Other systems were otherwise negative. PHYSICAL EXAMINATION: GENERAL: This is an overweight lady. VITAL SIGNS: Her O2 saturation on room air is 96%, respiratory rate 20, heart rate 74, temperature 96.7, blood pressure 90/40. HEENT: Normocephalic, atraumatic. Pupils equal, round, reactive to light. There is shallow oropharynx. Nose is clear. NECK: There is no lymphadenopathy or thyromegaly. CARDIOVASCULAR: Regular rate and rhythm. PMI is nondisplaced. CHEST: Inspection is normal. LUNGS: There are bibasilar crackles, dullness at the bases. ABDOMEN: Soft and obese. Bowel sounds are good. EXTREMITIES: There is edema, chronic changes. LYMPHATICS: There is no lymphadenopathy. NEUROLOGIC: Alert and oriented. LABORATORY DATA: I reviewed the following lab data: Chest x-ray shows patchy airspace opacity. Her CT of abdomen and pelvis showed bilateral ground glass opacities. Small right pleural effusion, diffuse body wall edema, cholelithiasis. On admission, sodium 116, repeat 115, today 118, potassium 4.7, chloride 81, CO2 of 24, BUN 37, creatinine 1.7, on admission was 1.5, lactic acid 1.7. BNP more than 35,000. Troponin 17. WBC 5.2, hemoglobin 10.9, platelet 439. Rapid COVID testing, influenza A and B negative. Alcohol level negative. CT of the chest done on 06/25/2021 showed a right pleural effusion, dilated cardiomyopathy, diffuse reticular opacities with a few pulmonary nodules. IMPRESSION: 1. Abnormal chest x-ray/CT of the chest. I suspect it is multifactorial in etiology including rheumatoid lung (lung nodules/pulm fibrosis), congestive heart failure, rule out pneumonia. 2. Electrolyte abnormality, severe hyponatremia, suspect multifactorial in etiology including syndrome of inappropriate antidiuretic hormone, congestive heart failure and diuretics. 3. Acute diastolic congestive heart failure. 4. Chronic kidney disease. 5. Rheumatoid arthritis. 6. Chronic obstructive pulmonary disease. 7. Tobacco habituation. 8. History of COVID pneumonia. 9. Diabetes mellitus. 10. Hypertension. PLAN AND RECOMMENDATIONS: 1. I had a long discussion with her regarding the smoking cessation. I have advised her to stop smoking forever. 2. Nephrology is consulted for hyponatremia, agree with sodium chloride 3% until sodium is 120. 3. 1200 mL fluid restriction. 4. I will do a lower extremity venous Doppler. She has lower extremity edema. 5. I will check a procalcitonin, legionella and strep pneumonia antigen. 6. Continue antibiotic for now. 7. Follow nephrology recommendations. 8. Start bronchodilator, DuoNeb q.i.d. 9. The findings and recommendations were discussed with RN and the patient. I have answered all of the patient's questions. She understood and agreed to proceed with the plan. Thank you very much for allowing me to participate in care of this very nice lady. HUGO DR: Nicolasa TID: [id number] [facility]
[2021-07-26 09:17] LABS: ALBUMIN 3.2 g/dL (3.4-5.0); ALBUMIN/GLOBULIN RATIO 0.8 (1.0-1.7); CREATININE 1.7 mg/dL (0.6-1.0); GFR 29.8; POTASSIUM 4.7 mmol/L (3.5-5.1); TOTAL BILIRUBIN 0.6 mg/dL (0.2-1.0); TOTAL PROTEIN 7.2 g/dL (6.4-8.2)
[2021-07-26] MEDS: ONDANSETRON PF 4 MG/2 ML VIAL. IVP PRN (09:40)
[2021-07-26 11:00] VITALS: BP 73/49
[2021-07-26] MEDS: IPRATRPIUM/ALBUTEROL 0.5/2.5MG 3 ML NEBU. NEB SCH ×3 (11:01→21:36)
--- NOTE | 2021-07-26 11:11 | PDOC ---
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 Echo 01/03 with LVEF 20%. S/p BiV AICD/QUALITY ASSISTANT-D ([employer]iotronik). recent interrogation with normal function she wants to DC, would like hospice eval, asked me yesterday, almost left AMA, start demecloclycline for SIADH renal and pulm following, CHF and SIADH marked, will refer as asked Vitals/I&O Vitals/I&O: Vital Signs Date Time Temp Pulse Resp B/P (MAP) Pulse Ox O2 Delivery O2 Flow Rate FiO2 07/26/21 07:26 Room Air 07/26/21 07:00 76.0 74 20 76/46 (56) 96 76.0 I & O 07/25/21 07/25/21 07/26/21 15:00 23:00 07:00 Intake Total 530 ml 480 ml 500 ml Output Total 600 ml 500 ml 150 ml Balance -70 ml -20 ml 350 ml Physical Exam General: Alert, Oriented X3, No acute distress Lungs: Other Abdomen: Normal bowel sounds, Soft Extremities: No cyanosis, Other (1+ pedal edema, no pretibial edema) Skin: No rashes, No significant lesion Labs Labs: Laboratory Tests Test 07/25/21 11:44 07/25/21 11:45 07/25/21 13:10 07/25/21 17:16 Glucose (Fingerstick) 158 mg/dL (70-99) 192 mg/dL (70-99) Urine Collection Type Unknown Urine Color Yellow Urine Clarity Clear Urine pH 5.0 (<5.0-8.0) Urine Specific [place] 1.010 (1.000-1.030) Urine Protein Negative mg/dL (NEG-TRACE) Urine Glucose (UA) >=1000 mg/dL (NEG) Urine Ketones (Stick) Negative mg/dL (NEG) Urine Blood Negative (NEG) Urine Nitrite Negative (NEG) Urine Bilirubin Negative (NEG) Urine Urobilinogen Dipstick 0.2 mg/dL (0.2 mg/dL) Urine Leukocyte Esterase Negative (NEG) Urine RBC 0 /HPF (0-2) Urine WBC 1-4 /HPF (0-4) Urine Squamous Epithelial Cells Many /LPF Urine Bacteria 0 /HPF (0-FEW) Urine Yeast Present /HPF Sodium Level 118 mmol/L (136-145) Potassium Level 4.7 mmol/L (3.5-5.1) Chloride Level 81 mmol/L (98-107) Carbon Dioxide Level 24 mmol/L (21-32) Anion Gap 13 (6-14) Blood Urea Nitrogen 37 mg/dL (7-20) Creatinine 1.7 mg/dL (0.6-1.0) Estimated GFR (Cockcroft-Gault) 29.8 BUN/Creatinine Ratio 22 (6-20) Glucose Level 135 mg/dL (70-99) Calcium Level 8.7 mg/dL (8.5-10.1) Total Bilirubin 0.8 mg/dL (0.2-1.0) Aspartate Amino Transf (AST/SGOT) 26 U/L (15-37) Alanine Aminotransferase (ALT/SGPT) 24 U/L (14-59) Alkaline Phosphatase 138 U/L (46-116) Total Protein 7.1 g/dL (6.4-8.2) Albumin 3.2 g/dL (3.4-5.0) Albumin/Globulin Ratio 0.8 (1.0-1.7) Test 07/25/21 20:02 07/26/21 07:18 07/26/21 08:20 Glucose (Fingerstick) 164 mg/dL (70-99) 103 mg/dL (70-99) Sodium Level 120 mmol/L (136-145) Potassium Level 4.7 mmol/L (3.5-5.1) Chloride Level 85 mmol/L (98-107) Carbon Dioxide Level 24 mmol/L (21-32) Anion Gap 11 (6-14) Blood Urea Nitrogen 48 mg/dL (7-20) Creatinine 1.7 mg/dL (0.6-1.0) Estimated GFR (Cockcroft-Gault) 29.8 BUN/Creatinine Ratio 28 (6-20) Glucose Level 105 mg/dL (70-99) Calcium Level 9.0 mg/dL (8.5-10.1) Total Bilirubin 0.6 mg/dL (0.2-1.0) Aspartate Amino Transf (AST/SGOT) 24 U/L (15-37) Alanine Aminotransferase (ALT/SGPT) 24 U/L (14-59) Alkaline Phosphatase 121 U/L (46-116) Total Protein 7.2 g/dL (6.4-8.2) Albumin 3.2 g/dL (3.4-5.0) Albumin/Globulin Ratio 0.8 (1.0-1.7) Procalcitonin < 0.10 ng/mL (0.00-0.10) Thyroid Stimulating Hormone (TSH) 5.219 uIU/mL (0.358-3.74) Assessment and Plan Assessmemt and Plan Problems Medical Problems: (1) Hyponatremia Status: Acute (2) Pneumonia Status: Acute (3) Vomiting Status: Acute Comment Review of Relevant I have reviewed the following items yan (where applicable) has been applied. Medications: Current Medications Medications (Trade) Dose Ordered Sig/Yvette Route PRN Reason Start Time Stop Time Status Last Admin Dose Admin Atorvastatin Calcium (Lipitor) 20 mg HS PO 07/25/21 21:00 07/25/21 20:55 Montelukast Sodium (Singulair) 10 mg QHS PO 07/25/21 21:00 07/25/21 20:54 Ceftriaxone Sodium (Rocephin) 1 gm Q24H IVP 07/25/21 21:00 07/25/21 19:13 Ondansetron HCl (Zofran) 4 mg PRN Q6HRS PRN IVP NAUSEA/VOMITING 07/25/21 19:15 07/26/21 09:40 Justifications for Admission Other Justification JOSUE MIRANDA MD Jul 26, 2021 11:11
[2021-07-26] MEDS: DEMECLOCYCLINE HCL 150 MG TABLET. PO SCH ×2 (11:35→20:28)
--- NOTE | 2021-07-26 11:57 | RAD ---
LEFT LEG VENOUS DOPPLER STUDY: Clinical indications: Left leg swelling. Findings: Duplex sonography (including alba scale evaluation and color flow and waveform spectral sandro lysis) of the proximal aspect of the greater saphenous vein and the proximal aspect of the profunda f emoral vein and the entire length of the common femoral and superficial femoral and popliteal veins a nd the tibioperoneal trunk and the proximal aspect of the posterior tibial and peroneal veins of the left leg was performed. The calf veins are poorly visualized due to edema. Otherwise, normal compress ibility, augmentation of color Doppler flow after calf compression, and respiratory variation of Dopp ler flow is seen within the other veins. Thus, there are no sonographic findings of deep venous throm bosis within these veins. Impression: There are no sonographic findings of deep venous thrombosis within the veins discussed ab ove of the left lower extremity. RIGHT LEG VENOUS DOPPLER STUDY: Clinical indications: Right leg swelling. Findings: Duplex sonography (including alba scale evaluation and color flow and waveform spectral sandro lysis) of the proximal aspect of the greater saphenous vein and proximal aspect of the profunda femor al vein and the entire length of the common femoral and superficial femoral and popliteal veins and t he tibioperoneal trunk and the proximal aspect of the posterior tibial and peroneal veins of the righ t leg was performed. The calf veins are poorly visualized due to edema. Otherwise, normal compressibi lity, augmentation of color Doppler flow after calf compression, and respiratory variation of Doppler flow is seen. Thus, there are no sonographic findings of deep venous thrombosis within these veins. Impression: There are no sonographic findings of deep venous thrombosis within the veins discussed ab ove of the right lower extremity. Electronically signed by: Ivan Price MD (07/26/2021 11:55 AM) [id number]
--- NOTE | 2021-07-26 12:40 | PDOC ---
PROGRESS NOTES Date of Service DATE: 07/26/21 TIME: 12:37 Subjective Subjective SEEN IN FOLLOW UP OF SIADH Objective Objective Vital Signs Date Time Temp Pulse Resp B/P (MAP) Pulse Ox O2 Delivery O2 Flow Rate FiO2 07/26/21 11:03 98 Nasal Cannula 2.0 07/26/21 11:00 97.3 75 18 73/49 (57) 97.3 Intake and Output 07/26/21 07:00 Intake Total 1510 ml Output Total 1250 ml Balance 260 ml Intake Oral 1010 ml IV Total 500 ml Output Urine Total 1250 ml Physical Exam Heart: Regular rate, Normal S1, Normal S2, No murmurs, Gallops Extremities: Other (BLE EDEMA) General: Alert, Oriented X3, Cooperative, No acute distress Lungs: Other (LEFT RHONCHI) Psych/Mental Status: Mental status NL Diagnosis Other HYPONATREMIA Assessment Assessment Problems Medical Problems: (1) Hyponatremia Status: Acute (2) Pneumonia Status: Acute (3) Vomiting Status: Acute Plan Plan of Care SERUM SODIUM IS IMPROVING. SHE HAS DECIDED TO D/C WITH HOSPICE. "I JUST WANT TO GO HOME". WILL SIGN OFF Comment Review of Relevant I have reviewed the following items yan (where applicable) has been applied. Labs Laboratory Tests Test 07/24/21 19:21 07/24/21 19:25 07/24/21 19:50 07/25/21 04:00 Lactic Acid Level 1.7 mmol/L (0.4-2.0) White Blood Count 7.2 x10^3/uL (4.0-11.0) 5.2 x10^3/uL (4.0-11.0) Red Blood Count 3.63 x10^6/uL (3.50-5.40) 3.74 x10^6/uL (3.50-5.40) Hemoglobin 10.5 g/dL (12.0-15.5) 10.9 g/dL (12.0-15.5) Hematocrit 31.5 % (36.0-47.0) 33.0 % (36.0-47.0) Mean Corpuscular Volume 87 fL (79-100) 88 fL (79-100) Mean Corpuscular Hemoglobin 29 pg (25-35) 29 pg (25-35) Mean Corpuscular Hemoglobin Concent 33 g/dL (31-37) 33 g/dL (31-37) Red Cell Distribution Width 18.1 % (11.5-14.5) 17.8 % (11.5-14.5) Platelet Count 472 x10^3/uL (140-400) 439 x10^3/uL (140-400) Neutrophils (%) (Auto) 71 % (31-73) 92 % (31-73) Lymphocytes (%) (Auto) 20 % (24-48) 6 % (24-48) Monocytes (%) (Auto) 7 % (0-9) 2 % (0-9) Eosinophils (%) (Auto) 1 % (0-3) 0 % (0-3) Basophils (%) (Auto) 1 % (0-3) 0 % (0-3) Neutrophils # (Auto) 5.1 x10^3/uL (1.8-7.7) 4.8 x10^3/uL (1.8-7.7) Lymphocytes # (Auto) 1.4 x10^3/uL (1.0-4.8) 0.3 x10^3/uL (1.0-4.8) Monocytes # (Auto) 0.5 x10^3/uL (0.0-1.1) 0.1 x10^3/uL (0.0-1.1) Eosinophils # (Auto) 0.1 x10^3/uL (0.0-0.7) 0.0 x10^3/uL (0.0-0.7) Basophils # (Auto) 0.1 x10^3/uL (0.0-0.2) 0.0 x10^3/uL (0.0-0.2) Sodium Level 116 mmol/L (136-145) 115 mmol/L (136-145) Potassium Level 4.0 mmol/L (3.5-5.1) 4.9 mmol/L (3.5-5.1) Chloride Level 80 mmol/L (98-107) 81 mmol/L (98-107) Carbon Dioxide Level 27 mmol/L (21-32) 26 mmol/L (21-32) Anion Gap 9 (6-14) 8 (6-14) Blood Urea Nitrogen 31 mg/dL (7-20) 34 mg/dL (7-20) Creatinine 1.5 mg/dL (0.6-1.0) 1.6 mg/dL (0.6-1.0) Estimated GFR (Cockcroft-Gault) 34.4 32.0 BUN/Creatinine Ratio 21 (6-20) 21 (6-20) Glucose Level 111 mg/dL (70-99) 175 mg/dL (70-99) Calcium Level 9.5 mg/dL (8.5-10.1) 8.7 mg/dL (8.5-10.1) Magnesium Level 1.6 mg/dL (1.8-2.4) Total Bilirubin 0.7 mg/dL (0.2-1.0) 0.7 mg/dL (0.2-1.0) Aspartate Amino Transf (AST/SGOT) 29 U/L (15-37) 26 U/L (15-37) Alanine Aminotransferase (ALT/SGPT) 19 U/L (14-59) 19 U/L (14-59) Alkaline Phosphatase 146 U/L (46-116) 135 U/L (46-116) Troponin I High Sensitivity 17 ng/L (4-50) JK-Ayk-K-Type Natriuretic Peptide > 65669 pg/mL (0-124) Total Protein 7.4 g/dL (6.4-8.2) 7.2 g/dL (6.4-8.2) Albumin 3.2 g/dL (3.4-5.0) 3.0 g/dL (3.4-5.0) Albumin/Globulin Ratio 0.8 (1.0-1.7) 0.7 (1.0-1.7) Lipase 78 U/L (73-393) Acetone Level Neg (NEG) Influenza Type A Antigen Negative (NEGATIVE) Influenza Type B Antigen Negative (NEGATIVE) SARS-CoV-2 Antigen (Rapid) Negative (NEGATIVE) Test 07/25/21 07:38 07/25/21 11:44 07/25/21 11:45 07/25/21 13:10 Glucose (Fingerstick) 188 mg/dL (70-99) 158 mg/dL (70-99) Urine Collection Type Unknown Urine Color Yellow Urine Clarity Clear Urine pH 5.0 (<5.0-8.0) Urine Specific [place] 1.010 (1.000-1.030) Urine Protein Negative mg/dL (NEG-TRACE) Urine Glucose (UA) >=1000 mg/dL (NEG) Urine Ketones (Stick) Negative mg/dL (NEG) Urine Blood Negative (NEG) Urine Nitrite Negative (NEG) Urine Bilirubin Negative (NEG) Urine Urobilinogen Dipstick 0.2 mg/dL (0.2 mg/dL) Urine Leukocyte Esterase Negative (NEG) Urine RBC 0 /HPF (0-2) Urine WBC 1-4 /HPF (0-4) Urine Squamous Epithelial Cells Many /LPF Urine Bacteria 0 /HPF (0-FEW) Urine Yeast Present /HPF Sodium Level 118 mmol/L (136-145) Potassium Level 4.7 mmol/L (3.5-5.1) Chloride Level 81 mmol/L (98-107) Carbon Dioxide Level 24 mmol/L (21-32) Anion Gap 13 (6-14) Blood Urea Nitrogen 37 mg/dL (7-20) Creatinine 1.7 mg/dL (0.6-1.0) Estimated GFR (Cockcroft-Gault) 29.8 BUN/Creatinine Ratio 22 (6-20) Glucose Level 135 mg/dL (70-99) Calcium Level 8.7 mg/dL (8.5-10.1) Total Bilirubin 0.8 mg/dL (0.2-1.0) Aspartate Amino Transf (AST/SGOT) 26 U/L (15-37) Alanine Aminotransferase (ALT/SGPT) 24 U/L (14-59) Alkaline Phosphatase 138 U/L (46-116) Total Protein 7.1 g/dL (6.4-8.2) Albumin 3.2 g/dL (3.4-5.0) Albumin/Globulin Ratio 0.8 (1.0-1.7) Test 07/25/21 17:16 07/25/21 20:02 07/26/21 07:18 07/26/21 08:20 Glucose (Fingerstick) 192 mg/dL (70-99) 164 mg/dL (70-99) 103 mg/dL (70-99) Sodium Level 120 mmol/L (136-145) Potassium Level 4.7 mmol/L (3.5-5.1) Chloride Level 85 mmol/L (98-107) Carbon Dioxide Level 24 mmol/L (21-32) Anion Gap 11 (6-14) Blood Urea Nitrogen 48 mg/dL (7-20) Creatinine 1.7 mg/dL (0.6-1.0) Estimated GFR (Cockcroft-Gault) 29.8 BUN/Creatinine Ratio 28 (6-20) Glucose Level 105 mg/dL (70-99) Calcium Level 9.0 mg/dL (8.5-10.1) Total Bilirubin 0.6 mg/dL (0.2-1.0) Aspartate Amino Transf (AST/SGOT) 24 U/L (15-37) Alanine Aminotransferase (ALT/SGPT) 24 U/L (14-59) Alkaline Phosphatase 121 U/L (46-116) Total Protein 7.2 g/dL (6.4-8.2) Albumin 3.2 g/dL (3.4-5.0) Albumin/Globulin Ratio 0.8 (1.0-1.7) Procalcitonin < 0.10 ng/mL (0.00-0.10) Thyroid Stimulating Hormone (TSH) 5.219 uIU/mL (0.358-3.74) Test 07/26/21 11:27 Glucose (Fingerstick) 129 mg/dL (70-99) Laboratory Tests Test 07/25/21 13:10 07/25/21 17:16 07/25/21 20:02 07/26/21 07:18 Sodium Level 118 mmol/L (136-145) Potassium Level 4.7 mmol/L (3.5-5.1) Chloride Level 81 mmol/L (98-107) Carbon Dioxide Level 24 mmol/L (21-32) Anion Gap 13 (6-14) Blood Urea Nitrogen 37 mg/dL (7-20) Creatinine 1.7 mg/dL (0.6-1.0) Estimated GFR (Cockcroft-Gault) 29.8 BUN/Creatinine Ratio 22 (6-20) Glucose Level 135 mg/dL (70-99) Calcium Level 8.7 mg/dL (8.5-10.1) Total Bilirubin 0.8 mg/dL (0.2-1.0) Aspartate Amino Transf (AST/SGOT) 26 U/L (15-37) Alanine Aminotransferase (ALT/SGPT) 24 U/L (14-59) Alkaline Phosphatase 138 U/L (46-116) Total Protein 7.1 g/dL (6.4-8.2) Albumin 3.2 g/dL (3.4-5.0) Albumin/Globulin Ratio 0.8 (1.0-1.7) Glucose (Fingerstick) 192 mg/dL (70-99) 164 mg/dL (70-99) 103 mg/dL (70-99) Test 07/26/21 08:20 07/26/21 11:27 Sodium Level 120 mmol/L (136-145) Potassium Level 4.7 mmol/L (3.5-5.1) Chloride Level 85 mmol/L (98-107) Carbon Dioxide Level 24 mmol/L (21-32) Anion Gap 11 (6-14) Blood Urea Nitrogen 48 mg/dL (7-20) Creatinine 1.7 mg/dL (0.6-1.0) Estimated GFR (Cockcroft-Gault) 29.8 BUN/Creatinine Ratio 28 (6-20) Glucose Level 105 mg/dL (70-99) Calcium Level 9.0 mg/dL (8.5-10.1) Total Bilirubin 0.6 mg/dL (0.2-1.0) Aspartate Amino Transf (AST/SGOT) 24 U/L (15-37) Alanine Aminotransferase (ALT/SGPT) 24 U/L (14-59) Alkaline Phosphatase 121 U/L (46-116) Total Protein 7.2 g/dL (6.4-8.2) Albumin 3.2 g/dL (3.4-5.0) Albumin/Globulin Ratio 0.8 (1.0-1.7) Procalcitonin < 0.10 ng/mL (0.00-0.10) Thyroid Stimulating Hormone (TSH) 5.219 uIU/mL (0.358-3.74) Glucose (Fingerstick) 129 mg/dL (70-99) Microbiology 07/24/21 Blood Culture - Preliminary, Resulted NO GROWTH AFTER 1 DAY Medications Current Medications Sodium Chloride 1,000 ml @ 1,000 mls/hr Q1H IV Last administered on 07/24/21at 19:49; Start 07/24/21 at 19:30; Stop 07/24/21 at 20:21; Status DC Ondansetron HCl (Zofran) 4 mg 1X ONCE IVP Last administered on 07/24/21at 19:48; Start 07/24/21 at 20:00; Stop 07/24/21 at 20:01; Status DC Famotidine (Pepcid Vial) 20 mg 1X ONCE IVP Last administered on 07/24/21at 19:48; Start 07/24/21 at 20:00; Stop 07/24/21 at 20:01; Status DC Sodium Chloride 1,000 ml @ 1,000 mls/hr 1X ONCE IV ; Start 07/24/21 at 20:15; Stop 07/24/21 at 21:14; Status DC Sodium Chloride 1,000 ml @ 250 mls/hr 1X ONCE IV Last administered on 07/24/21at 21:25; Start 07/24/21 at 20:30; Stop 07/25/21 at 00:29; Status DC Azithromycin 500 mg/Sodium Chloride 250 ml @ 250 mls/hr 1X ONCE IV Last administered on 07/24/21at 21:30; Start 07/24/21 at 21:00; Stop 07/24/21 at 2 1:59; Status DC Ceftriaxone Sodium (Rocephin) 1 gm 1X ONCE IVP Last administered on 07/24/21at 21:25; Start 07/24/21 at 21:00; Stop 07/24/21 at 21:01; Status DC Methylprednisolone Sodium Succinate (SOLU-Medrol 125MG VIAL) 125 mg 1X ONCE IV Last administered on 07/24/21at 21:29; Start 07/24/21 at 21:00; Stop 07/24/21 at 21:01; Status DC Albuterol/ Ipratropium (Duoneb) 3 ml 1X ONCE NEB ; Start 07/24/21 at 21:00; Stop 07/24/21 at 21:01; Status DC Sodium Chloride 500 ml @ 50 mls/hr 1X ONCE IV ; Start 07/25/21 at 07:00; Stop 07/25/21 at 08:53; Status DC Alprazolam (Xanax) 0.25 mg TID PRN PO ANXIETY / AGITATION Last administered on 07/25/21at 20:55; Start 07/25/21 at 08:45 Aspirin (Aspirin Chewable) 81 mg DAILY PO Last administered on 07/26/21at 08:16; Start 07/25/21 at 09:00 Atorvastatin Calcium (Lipitor) 20 mg HS PO Last administered on 07/25/21at 20:55; Start 07/25/21 at 21:00 Bumetanide (Bumex) 1 mg DAILY PO ; Start 07/25/21 at 09:00; Stop 07/25/21 at 09:04; Status DC Empaglifozin (Jardiance) 10 mg DAILY PO Last administered on 07/26/21at 08:17; Start 07/25/21 at 09:00 Hydroxychloroquine Sulfate (Plaquenil) 400 mg DAILY PO Last administered on 07/26/21at 08:17; Start 07/25/21 at 09:00 Metoprolol Succinate (Toprol Xl) 25 mg DAILY PO ; Start 07/25/21 at 09:00 Montelukast Sodium (Singulair) 10 mg QHS PO Last administered on 07/25/21at 20:54; Start 07/25/21 at 21:00 Temazepam (Restoril) 15 mg PRN QHS PRN PO INSOMNIA Last administered on 07/25/21at 20:54; Start 07/25/21 at 08:45 Venlafaxine HCl (Effexor) 75 mg TID PO Last administered on 07/25/21 20:55; Start 07/25/21 at 09:00 Ceftriaxone Sodium (Rocephin) 1 gm Q24H IVP Last administered on 07/25/21at 19:13; Start 07/25/21 at 21:00 Doxycycline Hyclate (Vibra-Tab) 100 mg BID PO Last administered on 07/26/21at 08:16; Start 07/25/21 at 09:00 Sodium Chloride 200 ml @ 50 mls/hr 1X ONCE IV Last administered on 07/25/21at 09:25; Start 07/25/21 at 08:52; Stop 07/25/21 at 10:59; Status DC Insulin Human Lispro (HumaLOG) 0-9 UNITS TIDWMEALS SQ ; Start 07/25/21 at 12:00; Stop 07/25/21 at 09:16; Status DC Dextrose (Dextrose 50%-Water Syringe) 12.5 gm PRN Q15MIN PRN IV SEE COMMENTS; Start 07/25/21 at 09:15 Dextrose (Iv Dextrose 5%) 250 ml PRN Q15MIN PRN IV SEE COMMENTS; Start 07/25/21 at 09:15 Insulin Human Lispro (HumaLOG) 0-9 UNITS TIDWMEALS SQ Last administered on 07/25/21at 17:36; Start 07/25/21 at 09:15 Ondansetron HCl (Zofran) 4 mg PRN Q6HRS PRN IVP NAUSEA/VOMITING Last administered on 07/26/21at 09:40; Start 07/25/21 at 19:15 Albuterol/ Ipratropium (Duoneb) 3 ml RTQID NEB Last administered on 07/26/21at 11:01; Start 07/26/21 at 12:00 Demeclocycline HCl (Declomycin) 300 mg Q12HR PO Last administered on 07/26/21at 11:35; Start 07/26/21 at 11:30 Active Scripts Active Temazepam 15 Mg Capsule 15 Mg PO PRN QHS PRN 30 Days Metolazone 2.5 Mg Tablet 2.5 Mg PO DAILY 30 Days Aldactone (Spironolactone) 25 Mg Tablet 25 Mg PO DAILY 30 Days Montelukast Sodium Tablet (Montelukast Sodium) 10 Mg Tablet 10 Mg PO QHS 30 Days Bumetanide 1 Mg Tablet 1 Tab PO DAILY 30 Days Metoprolol Succinate ( Xl ) (Metoprolol Succinate) 25 Mg Tab.er.24h 25 Mg PO DAILY 30 Days Reported Anoro Ellipta 62.5-25 Mcg Inh (Umeclidinium Brm/Vilanterol Tr) 1 Each Disk.w.dev 1 Each IH DAILY Proair Respiclick (Albuterol Sulfate) 90 Mcg Aer.pow.ba 2 Puff IH PRN Q4HRS PRN Jardiance (Empaglifozin) 10 Mg Tablet 10 Mg PO DAILY Venlafaxine Hcl 75 Mg Tablet 75 Mg PO TID Alprazolam 0.25 Mg Tablet 1 Tab PO TID PRN Metformin Hcl 500 Mg Tablet 500 Mg PO DAILY08 Hydroxychloroquine Sulfate 200 Mg Tablet 400 Mg PO DAILY B12 Active (Mecobalamin) 1,000 Mcg Tab.chew 2,500 Mcg PO DAILY Eye Filion Advantage Softgel (Om3-Dha/Epa/D3/Lutein/Zeazanth) 1 Each Capsule 1 Cap PO BID 30 Days Coq-10 (Ubidecarenone) 100 Mg Capsule 200 Mg PO DAILY Aspirin 81 Mg Tab.chew 81 Mg PO DAILY Atorvastatin Calcium 20 Mg Tablet 20 Mg PO HS Vitals/I & O Vital Sign - Last 24 Hours 07/25/21 07/25/21 07/25/21 07/25/21 15:00 19:00 20:00 23:00 Temp 98.1 97.5 96.8 98.1 97.5 96.8 Pulse 75 77 79 Resp 18 18 19 B/P (MAP) 84/59 (67) 74/50 (58) 77/49 (58) Pulse Ox 94 96 97 O2 Delivery Room Air Room Air Room Air Room Air 07/26/21 07/26/21 07/26/21 07/26/21 03:00 07:00 07:26 11:00 Temp 96.7 76.0 97.3 96.7 76.0 97.3 Pulse 77 74 75 Resp 18 20 18 B/P (MAP) 73/54 (60) 76/46 (56) 73/49 (57) Pulse Ox 95 96 97 O2 Delivery Room Air Room Air Room Air Room Air 07/26/21 11:03 Pulse Ox 98 O2 Delivery Nasal Cannula O2 Flow Rate 2.0 Intake and Output 07/25/21 07/25/21 07/26/21 15:00 23:00 07:00 Intake Total 530 ml 480 ml 500 ml Output Total 600 ml 500 ml 150 ml Balance -70 ml -20 ml 350 ml Justifications for Admission Other Justification SOREN GUPTA MD Jul 26, 2021 12:40
[2021-07-26 15:00] VITALS: BP 72/42
[2021-07-26 19:00] VITALS: BP 78/44
[2021-07-26] MEDS: MONTELUKAST SODIUM 10 MG TABLET. PO SCH (20:28)
[2021-07-26] MEDS: ALPRAZolam 0.25 MG TABLET PO PRN (20:28)
[2021-07-26] MEDS: TEMAZEPAM 15 MG CAPSULE PO PRN (20:28)
[2021-07-26] MEDS: ATORVASTATIN CALCIUM 20 MG TABLET PO SCH (20:28)
[2021-07-26] MEDS: cefTRIAXone IV Push 1 GM VIAL. IVP SCH (20:32)
[2021-07-26 22:39] VITALS: BP 93/55
[2021-07-27 02:43] VITALS: BP 74/50
[2021-07-27 06:13] LABS: ALBUMIN 3.2 g/dL (3.4-5.0); ALBUMIN/GLOBULIN RATIO 0.8 (1.0-1.7); CALCIUM 8.9 mg/dL (8.5-10.1); CREATININE 1.5 mg/dL (0.6-1.0); GFR 34.4; POTASSIUM 4.3 mmol/L (3.5-5.1); TOTAL BILIRUBIN 0.4 mg/dL (0.2-1.0)
[2021-07-27 07:00] VITALS: BP 86/51
[2021-07-27] MEDS: INSULIN LISPRO 300 UNITS/3 ML VIAL. SQ SCH (07:50)
[2021-07-27] MEDS: EMPAGLIFLOZIN 10 MG TABLET. PO SCH (07:56)
[2021-07-27] MEDS: HYDROXYCHLOROQUINE 200 MG TABLET PO SCH (07:57)
[2021-07-27] MEDS: VENLAFAXINE 75 MG TABLET. PO SCH (07:57)
[2021-07-27] MEDS: ASPIRIN CHEWABLE 81 MG TABLET. PO SCH (07:57)
[2021-07-27] MEDS: DEMECLOCYCLINE HCL 150 MG TABLET. PO SCH (07:57)
[2021-07-27] MEDS: DOXYCYCLINE HYCLATE 100 MG TABLET PO SCH (07:57)
[2021-07-27] MEDS: METOPROLOL SUCC 24HR ER 25 MG TAB.ER.24H. PO SCH (07:58)
[2021-07-27] MEDS: IPRATRPIUM/ALBUTEROL 0.5/2.5MG 3 ML NEBU. NEB SCH ×2 (08:00→11:09)
--- NOTE | 2021-07-27 10:30 | PDOC ---
PULMONARY PROGRESS NOTES DATE: 07/27/21 TIME: 10:25 Subjective Patient feels better. Denies any shortness of breath. Vitals Vital Signs Date Time Temp Pulse Resp B/P (MAP) Pulse Ox O2 Delivery O2 Flow Rate FiO2 07/27/21 07:26 Room Air 07/27/21 07:00 96.8 77 16 86/51 (63) 91 96.8 07/26/21 21:36 2.0 General: Alert, No acute distress Lungs: Clear Cardiovascular: S1 Abdomen: Soft Extremities: Other (2+ pitting edema.) Labs Laboratory Tests Test 07/25/21 11:44 07/25/21 11:45 07/25/21 13:10 07/25/21 17:16 Glucose (Fingerstick) 158 mg/dL (70-99) 192 mg/dL (70-99) Urine Collection Type Unknown Urine Color Yellow Urine Clarity Clear Urine pH 5.0 (<5.0-8.0) Urine Specific [place] 1.010 (1.000-1.030) Urine Protein Negative mg/dL (NEG-TRACE) Urine Glucose (UA) >=1000 mg/dL (NEG) Urine Ketones (Stick) Negative mg/dL (NEG) Urine Blood Negative (NEG) Urine Nitrite Negative (NEG) Urine Bilirubin Negative (NEG) Urine Urobilinogen Dipstick 0.2 mg/dL (0.2 mg/dL) Urine Leukocyte Esterase Negative (NEG) Urine RBC 0 /HPF (0-2) Urine WBC 1-4 /HPF (0-4) Urine Squamous Epithelial Cells Many /LPF Urine Bacteria 0 /HPF (0-FEW) Urine Yeast Present /HPF Sodium Level 118 mmol/L (136-145) Potassium Level 4.7 mmol/L (3.5-5.1) Chloride Level 81 mmol/L (98-107) Carbon Dioxide Level 24 mmol/L (21-32) Anion Gap 13 (6-14) Blood Urea Nitrogen 37 mg/dL (7-20) Creatinine 1.7 mg/dL (0.6-1.0) Estimated GFR (Cockcroft-Gault) 29.8 BUN/Creatinine Ratio 22 (6-20) Glucose Level 135 mg/dL (70-99) Calcium Level 8.7 mg/dL (8.5-10.1) Total Bilirubin 0.8 mg/dL (0.2-1.0) Aspartate Amino Transf (AST/SGOT) 26 U/L (15-37) Alanine Aminotransferase (ALT/SGPT) 24 U/L (14-59) Alkaline Phosphatase 138 U/L (46-116) Total Protein 7.1 g/dL (6.4-8.2) Albumin 3.2 g/dL (3.4-5.0) Albumin/Globulin Ratio 0.8 (1.0-1.7) Test 07/25/21 20:02 07/26/21 07:18 07/26/21 08:20 07/26/21 11:27 Glucose (Fingerstick) 164 mg/dL (70-99) 103 mg/dL (70-99) 129 mg/dL (70-99) Sodium Level 120 mmol/L (136-145) Potassium Level 4.7 mmol/L (3.5-5.1) Chloride Level 85 mmol/L (98-107) Carbon Dioxide Level 24 mmol/L (21-32) Anion Gap 11 (6-14) Blood Urea Nitrogen 48 mg/dL (7-20) Creatinine 1.7 mg/dL (0.6-1.0) Estimated GFR (Cockcroft-Gault) 29.8 BUN/Creatinine Ratio 28 (6-20) Glucose Level 105 mg/dL (70-99) Calcium Level 9.0 mg/dL (8.5-10.1) Total Bilirubin 0.6 mg/dL (0.2-1.0) Aspartate Amino Transf (AST/SGOT) 24 U/L (15-37) Alanine Aminotransferase (ALT/SGPT) 24 U/L (14-59) Alkaline Phosphatase 121 U/L (46-116) Total Protein 7.2 g/dL (6.4-8.2) Albumin 3.2 g/dL (3.4-5.0) Albumin/Globulin Ratio 0.8 (1.0-1.7) Procalcitonin < 0.10 ng/mL (0.00-0.10) Thyroid Stimulating Hormone (TSH) 5.219 uIU/mL (0.358-3.74) Test 07/26/21 16:57 07/26/21 20:53 07/27/21 04:25 07/27/21 07:41 Glucose (Fingerstick) 81 mg/dL (70-99) 119 mg/dL (70-99) 86 mg/dL (70-99) Sodium Level 119 mmol/L (136-145) Potassium Level 4.3 mmol/L (3.5-5.1) Chloride Level 84 mmol/L (98-107) Carbon Dioxide Level 27 mmol/L (21-32) Anion Gap 8 (6-14) Blood Urea Nitrogen 47 mg/dL (7-20) Creatinine 1.5 mg/dL (0.6-1.0) Estimated GFR (Cockcroft-Gault) 34.4 BUN/Creatinine Ratio 31 (6-20) Glucose Level 87 mg/dL (70-99) Calcium Level 8.9 mg/dL (8.5-10.1) Total Bilirubin 0.4 mg/dL (0.2-1.0) Aspartate Amino Transf (AST/SGOT) 21 U/L (15-37) Alanine Aminotransferase (ALT/SGPT) 19 U/L (14-59) Alkaline Phosphatase 121 U/L (46-116) Total Protein 7.0 g/dL (6.4-8.2) Albumin 3.2 g/dL (3.4-5.0) Albumin/Globulin Ratio 0.8 (1.0-1.7) Laboratory Tests Test 07/26/21 11:27 07/26/21 16:57 07/26/21 20:53 07/27/21 04:25 Glucose (Fingerstick) 129 mg/dL (70-99) 81 mg/dL (70-99) 119 mg/dL (70-99) Sodium Level 119 mmol/L (136-145) Potassium Level 4.3 mmol/L (3.5-5.1) Chloride Level 84 mmol/L (98-107) Carbon Dioxide Level 27 mmol/L (21-32) Anion Gap 8 (6-14) Blood Urea Nitrogen 47 mg/dL (7-20) Creatinine 1.5 mg/dL (0.6-1.0) Estimated GFR (Cockcroft-Gault) 34.4 BUN/Creatinine Ratio 31 (6-20) Glucose Level 87 mg/dL (70-99) Calcium Level 8.9 mg/dL (8.5-10.1) Total Bilirubin 0.4 mg/dL (0.2-1.0) Aspartate Amino Transf (AST/SGOT) 21 U/L (15-37) Alanine Aminotransferase (ALT/SGPT) 19 U/L (14-59) Alkaline Phosphatase 121 U/L (46-116) Total Protein 7.0 g/dL (6.4-8.2) Albumin 3.2 g/dL (3.4-5.0) Albumin/Globulin Ratio 0.8 (1.0-1.7) Test 07/27/21 07:41 Glucose (Fingerstick) 86 mg/dL (70-99) Medications Active Scripts Medications Dose Route/Sig Max Daily Dose Days Date Category Anoro Ellipta 62.5-25 Mcg Inh (Umeclidinium Brm/Vilanterol Tr) 1 Each Disk.w.dev 1 Each IH DAILY 07/25/21 Reported Proair Respiclick (Albuterol Sulfate) 90 Mcg Aer.pow.ba 2 Puff IH PRN Q4HRS PRN 07/25/21 Reported Jardiance (Empaglifozin) 10 Mg Tablet 10 Mg PO DAILY 07/25/21 Reported Venlafaxine Hcl 75 Mg Tablet 75 Mg PO TID 07/25/21 Reported Alprazolam 0.25 Mg Tablet 1 Tab PO TID PRN 07/25/21 Reported Metformin Hcl 500 Mg Tablet 500 Mg PO DAILY08 07/07/21 Reported Temazepam 15 Mg Capsule 15 Mg PO PRN QHS PRN 30 06/29/21 Rx Metolazone 2.5 Mg Tablet 2.5 Mg PO DAILY 30 06/17/21 Rx Aldactone (Spironolactone) 25 Mg Tablet 25 Mg PO DAILY 30 06/17/21 Rx Montelukast Sodium Tablet (Montelukast Sodium) 10 Mg Tablet 10 Mg PO QHS 30 06/17/21 Rx Hydroxychloroquine Sulfate 200 Mg Tablet 400 Mg PO DAILY 05/28/21 Reported Bumetanide 1 Mg Tablet 1 Tab PO DAILY 30 02/04/21 Rx Metoprolol Succinate ( Xl ) (Metoprolol Succinate) 25 Mg Tab.er.24h 25 Mg PO DAILY 30 09/01/20 Rx B12 Active (Mecobalamin) 1,000 Mcg Tab.chew 2,500 Mcg PO DAILY 08/25/20 Reported [facility] [place] Advantage Softgel (Om3-Dha/Epa/D3/Lutein/Zeazanth) 1 Each Capsule 1 Cap PO BID 30 08/25/20 Reported Coq-10 (Ubidecarenone) 100 Mg Capsule 200 Mg PO DAILY 08/25/20 Reported Aspirin 81 Mg Tab.chew 81 Mg PO DAILY 08/25/20 Reported Atorvastatin Calcium 20 Mg Tablet 20 Mg PO HS 08/25/20 Reported Impression . 1. Abnormal chest x-ray/CT of the chest. I suspect this is most likely congestive heart failure. This is a patient who has an ejection fraction of 20%. Patient had right heart cath in May of this year and her pulmonary capillary wedge pressure was 38 and a pulmonary artery systolic pressure was 81. This was consistent with left heart failure. She had thoracentesis done in June and 900 cc of fluid was removed. 2. Electrolyte abnormality, severe hyponatremia, suspect multifactorial in etiology including syndrome of inappropriate antidiuretic hormone, congestive heart failure and diuretics. 3. Acute systolic congestive heart failure. 4. Chronic kidney disease. 5. Rheumatoid arthritis. 6. Chronic obstructive pulmonary disease. 7. Tobacco habituation. 8. History of COVID pneumonia. 9. Diabetes mellitus. 10. Hypertension. Plan . PLAN AND RECOMMENDATIONS: 1. I had a long discussion with her regarding the smoking cessation. I have advised her to stop smoking forever. 2. Nephrology is consulted for hyponatremia, 3. 1200 mL fluid restriction. 4. Venous Dopplers negative for DVT. 5. As needed diuresis. 6. Antibiotics can be discontinued. 7. Follow nephrology recommendations. 8. bronchodilator, DuoNeb q.i.d. JYOTI MONTOYA MD Jul 27, 2021 10:29
[2021-07-27] MEDS ORDERED: AMOX1TAB10 PO (11:09)
[2021-07-27] MEDS ORDERED: Demeclocycline Hcl PO (11:09)
--- NOTE | 2021-07-27 11:10 | SNU/HH DC ---
DISCHARGE ORDERS DISCHARGE INFORMATION: FINAL DIAGNOSIS Problems Medical Problems: (1) Hyponatremia Status: Acute (2) Pneumonia Status: Acute (3) Vomiting Status: Acute CONDITION ON DISCHARGE: Stable CODE STATUS: Code Status: DNR/DNI RESIDENTIAL: SNF STAY <30 DAYS: No HOSPICE: HOSPICE: Yes HOSPICE EVAL & TREAT: Yes LTAC: ADMIT TO LTAC: No POST DISCHARGE ORDERS: ACTIVITY ORDERS: Activity as tolerated WEIGHT BEARING STATUS: As tolerated BATHING ORDERS: No Tub Bath until see DIET AFTER DISCHARGE: ADA WOUND/INCISION CARE: No wound care needed CHECKS AFTER DISCHARGE: CHECKS AFTER DISCHARGE: Check blood sugar, ac/hs TREATMENT/EQUIPMENT ORDERS: ADAPTIVE EQUIPMENT NEEDED: Walker RESPIRATORY EQUIPMENT NEEDED: Nebulizer DISCHARGE MEDICATIONS: Home Meds Active Scripts Amoxicillin/Potassium Clav (AMOX TR-K CLV 500-125 MG TAB) 1 Each Tablet, 1 TAB PO BID for ., #14 TAB Prov:CASTLE,NIAL K III DO 07/27/21 [Demeclocycline Hcl] 150 MG TABLET No Conflict Check, 300 MG PO Q12HR for . for 30 Days, #60 Prov:TANNER MARTL K III DO 07/27/21 Temazepam (TEMAZEPAM) 15 Mg Capsule, 15 MG PO PRN QHS PRN for INSOMNIA for 30 Days, #15 CAP Prov:KATHY HARKINS MD 06/29/21 Metolazone (METOLAZONE) 2.5 Mg Tablet, 2.5 MG PO DAILY for CHF for 30 Days, #30 TAB Prov:KATHY HARKINS MD 06/17/21 Spironolactone (ALDACTONE) 25 Mg Tablet, 25 MG PO DAILY for CHF for 30 Days, #30 TAB 3 Refills Prov:KATHY HARKINS MD 06/17/21 Montelukast Sodium (MONTELUKAST SODIUM TABLET ) 10 Mg Tablet, 10 MG PO QHS for Chronic urticaria for 30 Days, #30 TAB 3 Refills Prov:KATHY HARKINS MD 06/17/21 Bumetanide (BUMETANIDE) 1 Mg Tablet, 1 TAB PO DAILY for CHF for 30 Days, #30 TAB 3 Refills Prov:HUSSEIN LYNCH APRN 02/04/21 Metoprolol Succinate (METOPROLOL SUCCINATE ( XL )) 25 Mg Tab.er.24h, 25 MG PO DAILY for CHF for 30 Days, #30 TAB.SR 5 Refills Prov:KATHY HARKINS MD 09/01/20 Reported Medications Umeclidinium Brm/Vilanterol Tr (ANORO ELLIPTA 62.5-25 MCG INH) 1 Each Disk.w.dev, 1 EACH IH DAILY for copd, INH 07/25/21 Albuterol Sulfate (Proair Respiclick) 90 Mcg Aer.pow.ba, 2 PUFF IH PRN Q4HRS PRN for shortness of breath, #1 INHALER 0 Refills 07/25/21 Empagliflozin (Jardiance) 10 Mg Tablet, 10 MG PO DAILY for Type 2 diabetes, TAB 07/25/21 Venlafaxine Hcl (VENLAFAXINE HCL) 75 Mg Tablet, 75 MG PO TID for mood, TAB 07/25/21 Alprazolam (ALPRAZOLAM) 0.25 Mg Tablet, 1 TAB PO TID PRN for ANXIETY / AGITATION, #90 TAB 07/25/21 Metformin Hcl (METFORMIN HCL) 500 Mg Tablet, 500 MG PO DAILY08 for ANTI- DIABETIC, TAB 0 Refills 07/07/21 Hydroxychloroquine Sulfate (HYDROXYCHLOROQUINE SULFATE) 200 Mg Tablet, 400 MG PO DAILY for arthritis, TAB 05/28/21 Mecobalamin (B12 Active) 1,000 Mcg Tab.chew, 2500 MCG PO DAILY for vitamins, TAB.CHEW 08/25/20 Om3-Dha/Epa/D3/Lutein/Zeazanth (EYE [place] ADVANTAGE SOFTGEL) 1 Each Capsule, 1 CAP PO BID for eye health for 30 Days, #60 CAP 0 Refills 08/25/20 Ubidecarenone (COQ-10) 100 Mg Capsule, 200 MG PO DAILY for vitamin, CAP 08/25/20 Aspirin (ASPIRIN) 81 Mg Tab.chew, 81 MG PO DAILY for heart health, TAB.CHEW 08/25/20 Atorvastatin Calcium (ATORVASTATIN CALCIUM) 20 Mg Tablet, 20 MG PO HS for FOR CHOLESTEROL, #30 TAB 0 Refills 08/25/20 CLEMENTINA MART III DO Jul 27, 2021 11:10
--- NOTE | 2021-07-28 12:44 | DS ---
DATE OF DISCHARGE: 07/27/2021 ADMITTING DIAGNOSIS: Pneumonia. DISCHARGE DIAGNOSES: Resolving pneumonia, resolving acute on chronic systolic and diastolic heart failure, ejection fraction of 20%, status post thoracentesis in June with 900 mL of fluid removed, resolving electrolyte abnormality, resolving chronic kidney disease, rheumatoid arthritis, chronic obstructive pulmonary disease, tobacco, history of COVID-19, diabetes, hypertension. HOSPITAL COURSE: The patient is a pleasant, middle-aged female who presented with pneumonia. She was admitted. We gave her IV antibiotics, breathing treatments, oxygen, steroids. We consulted Nephrology and Pulmonary Medicine. Yesterday, I saw and examined her. She was at her baseline, but apparently does qualify for hospice. We discharged her with advanced assisted hospice. RAHUL/LAURA DR: Virgil TID: [id number]
== END 2021-07-27 12:36 | disposition hospice, home (50) | DRG 177 ==
LOC: ER 19:13 → 6 SOUTH 20:27
PROVIDERS: ADMIT Internal Medicine; ATTEND Internal Medicine
DX: J15.6 Pneumonia due to other Gram-negative bacteria (principal); I50.43 Acute on chronic combined systolic (congestive) and diastolic (congestive) heart failure; I13.0 Hypertensive heart and chronic kidney disease with heart failure and stage 1 through stage 4 chronic kidney disease, or unspecified chronic kidney disease; E22.2 Syndrome of inappropriate secretion of antidiuretic hormone; J44.0 Chronic obstructive pulmonary disease with (acute) lower respiratory infection; J44.1 Chronic obstructive pulmonary disease with (acute) exacerbation; I42.0 Dilated cardiomyopathy; E11.22 Type 2 diabetes mellitus with diabetic chronic kidney disease; F17.210 Nicotine dependence, cigarettes, uncomplicated; F32.A Depression, unspecified; F41.9 Anxiety disorder, unspecified; G62.9 Polyneuropathy, unspecified; I25.10 Atherosclerotic heart disease of native coronary artery without angina pectoris; K21.9 Gastro-esophageal reflux disease without esophagitis; K80.20 Calculus of gallbladder without cholecystitis without obstruction; M05.10 Rheumatoid lung disease with rheumatoid arthritis of unspecified site; N18.30 Chronic kidney disease, stage 3 unspecified; Z53.29 Procedure and treatment not carried out because of patient's decision for other reasons; Z82.49 Family history of ischemic heart disease and other diseases of the circulatory system; Z86.16 Personal history of COVID-19; Z87.01 Personal history of pneumonia (recurrent); Z90.710 Acquired absence of both cervix and uterus; Z95.0 Presence of cardiac pacemaker; M19.90 Unspecified osteoarthritis, unspecified site; Z20.822 Contact with and (suspected) exposure to COVID-19; Z88.8 Allergy status to other drugs, medicaments and biological substances; Z91.040 Latex allergy status
CPT/HCPCS: 36415; 71045; 74176; 80053; 81001; 82010; 82533; 82962; 83605; 83690; 83735; 83880; 83935; 84145; 84443; 84484; 85025; 87040; 87428; 87449; 87899; 93005; 93970; 94640; 94760; 96361; 96365; 96375; J0456; J0696; J1815; J2405; J2930; J3490; J7030; J7050; 99285-25; G0378